=== PATIENT | male | born 1945 | race Caucasian/White ===

== ENCOUNTER 2023-06-18 17:26 | Emergency (ER) | payer OTHER, BC ==
[2023-06-18 18:35] LABS: SARS-CoV-2 Antigen Rapid Res Negative (Negative)
--- OUTSIDE RECORDS SUMMARY | 2023-06-18 18:38 | XMS REPORT | Continuity of Care Document ---
:1945 Author Organization [facility] t Address [address] [place] [address] [place] [id number] Care Team Providers Name Role Phone Aurea Pope MD Primary Care Physician [phone] NKECHI ASCENCIO Attending Clinician Unavailable Aurea Griggs Attending Clinician Unavailable Milvia Attending Clinician Unavailable Umer Newton MD Attending Clinician UMER NEWTON Attending Clinician Unavailable UMER NEWTON Attending Clinician Unavailable Doctor Unassigned, [place] Attending Clinician Unavailable Erika Attending Clinician Unavailable Eran Gr Attending Clinician [phone] Nela Snell Attending Clinician [phone] Nela Snell Attending Clinician Unavailable Eran Gr Attending Clinician Unavailable Aurea Griggs Attending Clinician [phone] STALIN OWENS Attending Clinician Unavailable Aurea Griggs Admitting Clinician Unavailable Milvia Admitting Clinician Unavailable UMER NEWTON Admitting Clinician Unavailable Erika Admitting Clinician Unavailable Nela Snell Admitting Clinician Unavailable Eran Gr Admitting Clinician Unavailable Physician, No Primary Care Admitting Clinician Unavailable STALIN OWENS Admitting Clinician Unavailable Payers Payer Name Policy Type Policy Number Effective Date Expiration Date [facility] MEDICARE PART A \\T\\ [id number] 2010 B 00:00:00 BCBS TRADITIONAL [id number] 2013 00:00:00 [place] [id number] 2010 [place] SOLUT[place] 00:00:00 [place] [id number] (MEDICARE 00:00:00 SUPPLEMENT) [facility] (MEDICARE DME [id number] 2010 REGION C) 00:00:00 EPISODE SOLUTIONS [id number] Problems Condition Condition Condition Status Onset Resolution Last Treating Co mments Source Name Details Category Date Date Treatment Clinician Date 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 Left 12-14 Orth ope Achilles Achilles 00:00: dic tendon Tendon 00 Sports Medicin e 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 11-17 Orth ope of toe of of Toe of 00:00: dic left foot Left Foot 00 Spor ts Medicin e Closed Closed Problem Active Le fracture Fracture 8-15 Orthop e of lower of Lower 00:00: dic end of End of 00 Sports humerus Humerus Medicin e Mechanical Mechanical Problem Active A zalea complicati Complicati 8-15 Or thope on of on of 00:00: dic internal Internal 00 Sports orthopedic Orthopedic [place] dicin device, Device, e implant Implant AND/OR AND/OR graft Graft Hammer toe Hammer Toe Problem Active A zalea 7-12 Orthope 00:00: dic 00 Sports Medicin e 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 05-17 Or thope present Present 00:00: dic 00 Sports Medicin e Pain of Pain of Problem Active Le right knee Right Knee 7 Or thope joint Joint 00:00: dic 00 Sports Medicin e Pain of Pain of Problem Active Le left knee Left Knee 05-17 Orth ope joint Joint 00:00: dic 00 Sports Medicin e Osteoarthr Osteoarthr Problem Active A zalea itis of itis of 4-20 Orthope right knee Right Knee 00:00: di c joint Joint 00 Sports Medicin e Sprain of Sprain of Problem Active Aza babak right Right 4-20 Orthope ankle Ankle 00:00: dic 00 Sports Medicin e Synovial Synovial Problem Active Azale a cyst of Cyst of 4-20 Orthope right Right 00:00: dic popliteal Popliteal 00 Spor ts space Space Medicin e Prostate Prostate Disease Recurre [facility] Knee pain Knee Pain Problem Active Aza babak 6-25 Orthope 00:00: dic 00 Sports Medicin e Synovial Synovial Problem Active Azale a cyst of Cyst of 6-25 Orthope popliteal Popliteal 00:00: dic space Space 00 Sports Medicin e Allergies, Adverse Reactions, Alerts Allergy Allergy Status Severity Reaction(s) Onset Inactive Treating Comm ents Source Name Type Date Date Clinician No Known DA Active U [facility] Allergie 7-14 Clear s 00:00: [place] 00 [facility] No Known DA Active U 2020-11 [facility] Allergie 11-25 [facility] 00:00: Orthope 00 dic Hospita l No Known DA Active U 2018-11 [facility] Allergie 0-18 Clear s 00:00: [place] 00 [facility] Sulfamet Propensi Active Nausea And [facility] hoxazole ty to Vomiting 8-15 [facility] adverse 00:00: Medical reaction 00 [facility] SULFAMET DRUG Active N/V Univers HOXAZOLE INGREDI 6-16 ity of 00:00: [place] [address] [place] [address] Branch Sulfamet Propensi Active Nausea Univer s hoxazole ty to and/or 6-16 ity of adverse Vomiting 00:00: [place] reaction 00 [facility] Branch No Known DA Active U 2012-11 [facility] Allergie 12-08 [place] 00:00: Orthope 00 dic Hospita l NO KNOWN Drug Active Univers ALLERGIE Class ity of S [facility] Social History Social Habit Start Date Stop Date Quantity Comments Source History SDOH [facility] Alcohol Frequency [facility] History SDOH [facility] Alcohol Std Medical Cent[facility] r Drinks History SDOH [facility] Alcohol Binge Medical Kike ter Exposure to 2023-03-25 2023-04-04 Not sure University of SARS-CoV-2 00:00:00 13:43:00 [facility] (event) Branch Tobacco use and 2023-04-04 2023-04-04 Smokeless tobacco Un iversity of exposure 00:00:00 00:00:00 non-user [facility] Alcohol intake 2017-07-09 2017-07-09 Current drinker DIPTI Domingo 00:00:00 00:00:00 of [facility] Medical [place] (finding) Alcohol Comment 2017-07-01 2017-07-01 socially DIPTI Polk keleydi 00:00:00 00:00:00 Medical Center History of 1972-07-01 Cigarette Smoker DIPTI Ahumada tobacco use 00:00:00 Medical [facility] Sex [birth year] At [birth year] DIPTI Mcneal 00:00:00 00:00:[address] [facility] Smoking Status Start Date Stop Date Source Tobacco smoking consumption [facility] Branch Former Smoker [facility] Never smoked tobacco [facility] Medications Ordered Filled Start Stop Current Ordering Indication Dosage Frequency Signature Comments Components Source Medication Medication Date Date Medication? Clinician (SIG) Name Name ioflupane I 2022- No [id number] 5.5mCi 5.5 Univers 123 510 05-10 millicurie ity of (DATSCAN) 16:15: 16:15 , [place] injection 00 :00 Intravenou Medi cyndy 5.5 s, ONCE, 1 Branch millicurie dose, On Fri03/26/23 at 1115, Routine potassium 2022- No [id number] 100mg 0.1 mL Univers iodide 03-26-10 (100 mg), ity of (SSKI) 1 15:00: 15:00 [place] gram/mL 00 :00 NOW, 1 Medical solution dose, On Branch 0.1 mL Fri03/26/23 at 1000, Routine carbidopa-l Yes [id number] 1{tbl} Take 1 Univers evodopa 5-03 tablet by ity of (SINEMET) 00:00: [place] 25-100 mg 00 the Medical tablet morning Branch and 1 tablet at noon and 1 tablet in the evening. Take at 7AM, 11AM and 3PM everyday. carbidopa-l 2023-0 Yes [id number] 1{tbl} Take 1 Univers evodopa 5-03 tablet by ity of (SINEMET) 00:00: [place] 25-100 mg 00 the Medical tablet morning Branch and 1 tablet at noon and 1 tablet in the evening. Take at 7AM, 11AM and 3PM everyday. carbidopa-l 2023-0 Yes [id number] 1{tbl} Take 1 Univers evodopa 5-03 tablet by ity of (SINEMET) 00:00: [place] 25-100 mg 00 the Medical tablet morning Branch and 1 tablet at noon and 1 tablet in the evening. Take at 7AM, 11AM and 3PM everyday. carbidopa-l 2023-0 Yes [id number] 1{tbl} Take 1 Univers evodopa 5-03 tablet by ity of (SINEMET) 00:00: [place] 25-100 mg 00 the Medical tablet morning Branch and 1 tablet at noon and 1 tablet in the evening. Take at 7AM, 11AM and 3PM everyday. carbidopa-l 3-0 Yes [id number] 1{tbl} Take 1 Univers evodopa 5-03 tablet by ity of (SINEMET) 00:00: [place] 25-100 mg 00 the Medical tablet morning Branch and 1 tablet at noon and 1 tablet in the evening. Take at 7AM, 11AM and 3PM everyday. carbidopa-l 3-0 Yes [id number] 1{tbl} Take 1 Univers evodopa 5-03 tablet by ity of (SINEMET) 00:00: [place] 25-100 mg 00 the Medical tablet morning Branch and 1 tablet at noon and 1 tablet in the evening. Take at 7AM, 11AM and 3PM everyday. gadobenate 2022-0 202- No [id number] .2mL/kg 0.2 mL/kg, Univers dimeglumine 03-06 Intravenou i ty of (MULTIHANCE 14:00: 13:47 s, ONCE, 1 [place] -15 mL) 00 :00 dose, On Medical injection Dee Branch 0.2 mL/kg 03/06/23 at 0900, Routine ARIPiprazol 2022-0 Yes aripiprazo Univers e 2 mg 4-07 le 2 mg ity of tablet 11:33: tablet [place] 36 TAKE THREE Medical (3) Branch TABLET(S) BY MOUTH DAILY AT BEDTIME. ARIPiprazol 2022-0 Yes aripiprazo Univers e 2 mg 4-07 le 2 mg ity of tablet 11:33: tablet [place] 36 TAKE THREE Medical (3) Branch TABLET(S) BY MOUTH DAILY AT BEDTIME. ARIPiprazol 2022-0 Yes aripiprazo Univers e 2 mg 4-07 le 2 mg ity of tablet 11:33: tablet [place] 36 TAKE THREE Medical (3) Branch TABLET(S) BY MOUTH DAILY AT BEDTIME. ARIPiprazol 2022-0 Yes aripiprazo Univers e 2 mg 4-07 le 2 mg ity of tablet 11:33: tablet [place] 36 TAKE THREE Medical (3) Branch TABLET(S) BY MOUTH DAILY AT BEDTIME. ARIPiprazol 2022-0 Yes aripiprazo Univers e 2 mg 4-07 le 2 mg ity of tablet 11:33: tablet [place] 36 TAKE THREE Medical (3) Branch TABLET(S) BY MOUTH DAILY AT BEDTIME. ARIPiprazol 2022-0 Yes aripiprazo Univers e 2 mg 4-07 le 2 mg ity of tablet 11:33: tablet [place] 36 TAKE THREE Medical (3) Branch TABLET(S) BY MOUTH DAILY AT BEDTIME. ARIPiprazol 2022-0 Yes aripiprazo Univers e 2 mg 4-07 le 2 mg ity of tablet 11:33: tablet [place] 36 TAKE THREE Medical (3) Branch TABLET(S) BY MOUTH DAILY AT BEDTIME. ARIPiprazol 2022-0 Yes aripiprazo Univers e 2 mg 4-07 le 2 mg ity of tablet 11:33: tablet [place] 36 TAKE THREE Medical (3) Branch TABLET(S) BY MOUTH DAILY AT BEDTIME. ARIPiprazol 2022-0 Yes aripiprazo Univers e 2 mg 4-07 le 2 mg ity of tablet 11:33: tablet [place] 36 TAKE THREE Medical (3) Branch TABLET(S) BY MOUTH DAILY AT BEDTIME. ARIPiprazol 2022-0 Yes aripiprazo Univers e 2 mg 4-07 le 2 mg ity of tablet 11:33: tablet [place] 36 TAKE THREE Medical (3) Branch TABLET(S) BY MOUTH DAILY AT BEDTIME. ARIPiprazol 2023-0 Yes aripiprazo Univers e 2 mg 4-07 le 2 mg ity of tablet 11:33: tablet [place] 36 TAKE THREE Medical (3) Branch TABLET(S) BY MOUTH DAILY AT BEDTIME. ARIPiprazol 2023-0 Yes aripiprazo Univers e 2 mg 4-07 le 2 mg ity of tablet 11:33: tablet [place] 36 TAKE THREE Medical (3) Branch TABLET(S) BY MOUTH DAILY AT BEDTIME. ARIPiprazol 2023-0 Yes aripiprazo Univers e 2 mg 4-07 le 2 mg ity of tablet 11:33: tablet [place] 36 TAKE THREE Medical (3) Branch TABLET(S) BY MOUTH DAILY AT BEDTIME. ARIPiprazol 2023-0 Yes aripiprazo Univers e 2 mg 4-07 le 2 mg ity of tablet 11:33: tablet [place] 36 TAKE THREE Medical (3) Branch TABLET(S) BY MOUTH DAILY AT BEDTIME. ARIPiprazol 3-0 Yes aripiprazo Univers e 2 mg 4-07 le 2 mg ity of tablet 11:33: tablet [place] 36 TAKE THREE Medical (3) Branch TABLET(S) BY MOUTH DAILY AT BEDTIME. orphenadrin 2023-0 Yes 100mg Take 1 Uni vers e 100 mg SR 4-01 tablet by ity of tablet 00:00: mouth [place] 00 every 12 Medical (twelve) Branch hours as needed. traMADoL 50 3-0 Yes TAKE 1-2 Un gretchen mg tablet 4-01 TABLETS BY ity of 00:00: MOUTH [place] 00 EVERY 6 Medical HOURS Branch NEEDED FOR ACUTE PAIN orphenadrin 2023-0 Yes 100mg Take 1 Uni vers e 100 mg SR 4-01 tablet by ity of tablet 00:00: mouth [place] 00 every 12 Medical (twelve) Branch hours as needed. traMADoL 50 2023-0 Yes TAKE 1-2 Un gretchen mg tablet 4-01 TABLETS BY ity of 00:00: MOUTH [place] 00 EVERY 6 Medical HOURS Branch NEEDED FOR ACUTE PAIN orphenadrin 2023-0 Yes 100mg Take 1 Uni vers e 100 mg SR 4-01 tablet by ity of tablet 00:00: mouth [place] 00 every 12 Medical (twelve) Branch hours as needed. traMADoL 50 2023-0 Yes TAKE 1-2 Un gretchen mg tablet 4-01 TABLETS BY ity of 00:00: MOUTH [place] 00 EVERY 6 Medical HOURS Branch NEEDED FOR ACUTE PAIN orphenadrin 3-0 Yes 100mg Take 1 Uni vers e 100 mg SR 4-01 tablet by ity of tablet 00:00: mouth [place] 00 every 12 Medical (twelve) Branch hours as needed. traMADoL 50 2022-0 Yes TAKE 1-2 Un gretchen mg tablet 4-01 TABLETS BY ity of 00:00: MOUTH [place] 00 EVERY 6 Medical HOURS Branch NEEDED FOR ACUTE PAIN orphenadrin 3-0 Yes 100mg Take 1 Uni vers e 100 mg SR 4-01 tablet by ity of tablet 00:00: mouth [place] 00 every 12 Medical (twelve) Branch hours as needed. traMADoL 50 2022-0 Yes TAKE 1-2 Un gretchen mg tablet 4-01 TABLETS BY ity of 00:00: MOUTH [place] 00 EVERY 6 Medical HOURS Branch NEEDED FOR ACUTE PAIN orphenadrin 3-0 Yes 100mg Take 1 Uni vers e 100 mg SR 4-01 tablet by ity of tablet 00:00: mouth [place] 00 every 12 Medical (twelve) Branch hours as needed. traMADoL 50 2022-0 Yes TAKE 1-2 Un gretchen mg tablet 4-01 TABLETS BY ity of 00:00: MOUTH [place] 00 EVERY 6 Medical HOURS Branch NEEDED FOR ACUTE PAIN orphenadrin 3-0 Yes 100mg Take 1 Uni vers e 100 mg SR 4-01 tablet by ity of tablet 00:00: mouth [place] 00 every 12 Medical (twelve) Branch hours as needed. traMADoL 50 2022-0 Yes TAKE 1-2 Un gretchen mg tablet 4-01 TABLETS BY ity of 00:00: MOUTH [place] 00 EVERY 6 Medical HOURS Branch NEEDED FOR ACUTE PAIN orphenadrin 3-0 Yes 100mg Take 1 Uni vers e 100 mg SR 4-01 tablet by ity of tablet 00:00: mouth [place] 00 every 12 Medical (twelve) Branch hours as needed. traMADoL 50 2022-0 Yes TAKE 1-2 Un gretchen mg tablet 4-01 TABLETS BY ity of 00:00: MOUTH [place] 00 EVERY 6 Medical HOURS Branch NEEDED FOR ACUTE PAIN orphenadrin 3-0 Yes 100mg Take 1 Uni vers e 100 mg SR 4-01 tablet by ity of tablet 00:00: mouth [place] 00 every 12 Medical (twelve) Branch hours as needed. traMADoL 50 2022-0 Yes TAKE 1-2 Un gretchen mg tablet 4-01 TABLETS BY ity of 00:00: MOUTH [place] 00 EVERY 6 Medical HOURS Branch NEEDED FOR ACUTE PAIN orphenadrin 2023-0 Yes 100mg Take 1 Uni vers e 100 mg SR 4-01 tablet by ity of tablet 00:00: mouth [place] 00 every 12 Medical (twelve) Branch hours as needed. traMADoL 50 2022-0 Yes TAKE 1-2 Un gretchen mg tablet 4-01 TABLETS BY ity of 00:00: MOUTH [place] 00 EVERY 6 Medical HOURS Branch NEEDED FOR ACUTE PAIN orphenadrin 3-0 Yes 100mg Take 1 Uni vers e 100 mg SR 4-01 tablet by ity of tablet 00:00: mouth [place] 00 every 12 Medical (twelve) Branch hours as needed. traMADoL 50 2022-0 Yes TAKE 1-2 Un gretchen mg tablet 4-01 TABLETS BY ity of 00:00: MOUTH [place] 00 EVERY 6 Medical HOURS Branch NEEDED FOR ACUTE PAIN orphenadrin 3-0 Yes 100mg Take 1 Uni vers e 100 mg SR 4-01 tablet by ity of tablet 00:00: mouth [place] 00 every 12 Medical (twelve) Branch hours as needed. traMADoL 50 2022-0 Yes TAKE 1-2 Un gretchen mg tablet 4-01 TABLETS BY ity of 00:00: MOUTH [place] 00 EVERY 6 Medical HOURS Branch NEEDED FOR ACUTE PAIN orphenadrin 2023-0 Yes 100mg Take 1 Uni vers e 100 mg SR 4-01 tablet by ity of tablet 00:00: mouth [place] 00 every 12 Medical (twelve) Branch hours as needed. traMADoL 50 2022-0 Yes TAKE 1-2 Un gretchen mg tablet 4-01 TABLETS BY ity of 00:00: MOUTH [place] 00 EVERY 6 Medical HOURS Branch NEEDED FOR ACUTE PAIN orphenadrin 2023-0 Yes 100mg Take 1 Uni vers e 100 mg SR 4-01 tablet by ity of tablet 00:00: mouth [place] 00 every 12 Medical (twelve) Branch hours as needed. traMADoL 50 2022-0 Yes TAKE 1-2 Un gretchen mg tablet 4-01 TABLETS BY ity of 00:00: MOUTH [place] 00 EVERY 6 Medical HOURS Branch NEEDED FOR ACUTE PAIN orphenadrin 3-0 Yes 100mg Take 1 Uni vers e 100 mg SR 4-01 tablet by ity of tablet 00:00: mouth [place] 00 every 12 Medical (twelve) Branch hours as needed. traMADoL 50 3-0 Yes TAKE 1-2 Un gretchen mg tablet 4-01 TABLETS BY ity of 00:00: MOUTH [place] 00 EVERY 6 Medical HOURS Branch NEEDED FOR ACUTE PAIN valsartan 2023-0 Yes 80mg Take 1 Univer s 80 mg 3-06 tablet by ity of tablet 00:00: mouth [place] 00 every Medical morning. Branch valsartan 2023-0 Yes 80mg Take 1 Univer s 80 mg 3-06 tablet by ity of tablet 00:00: mouth [place] 00 every Medical morning. Branch valsartan 2023-0 Yes 80mg Take 1 Univer s 80 mg 3-06 tablet by ity of tablet 00:00: mouth [place] 00 every Medical morning. Branch valsartan 2023-0 Yes 80mg Take 1 Univer s 80 mg 3-06 tablet by ity of tablet 00:00: mouth [place] 00 every Medical morning. Branch valsartan 2023-0 Yes 80mg Take 1 Univer s 80 mg 3-06 tablet by ity of tablet 00:00: mouth [place] 00 every Medical morning. Branch valsartan 2023-0 Yes 80mg Take 1 Univer s 80 mg 3-06 tablet by ity of tablet 00:00: mouth [place] 00 every Medical morning. Branch valsartan 2023-0 Yes 80mg Take 1 Univer s 80 mg 3-06 tablet by ity of tablet 00:00: mouth [place] 00 every Medical morning. Branch valsartan 2023-0 Yes 80mg Take 1 Univer s 80 mg 3-06 tablet by ity of tablet 00:00: mouth [place] 00 every Medical morning. Branch valsartan 2023-0 Yes 80mg Take 1 Univer s 80 mg 3-06 tablet by ity of tablet 00:00: mouth [place] 00 every Medical morning. Branch valsartan 2023-0 Yes 80mg Take 1 Univer s 80 mg 3-06 tablet by ity of tablet 00:00: mouth [place] 00 every Medical morning. Branch valsartan 2023-0 Yes 80mg Take 1 Univer s 80 mg 3-06 tablet by ity of tablet 00:00: mouth [place] 00 every Medical morning. Branch valsartan 2023-0 Yes 80mg Take 1 Univer s 80 mg 3-06 tablet by ity of tablet 00:00: mouth [place] 00 every Medical morning. Branch valsartan 2023-0 Yes 80mg Take 1 Univer s 80 mg 3-06 tablet by ity of tablet 00:00: mouth [place] 00 every Medical morning. Branch valsartan 2023-0 Yes 80mg Take 1 Univer s 80 mg 3-06 tablet by ity of tablet 00:00: mouth [place] 00 every Medical morning. Branch valsartan 2023-0 Yes 80mg Take 1 Univer s 80 mg 3-06 tablet by ity of tablet 00:00: mouth [place] 00 every Medical morning. Branch methocarbam 2023-0 Yes TAKE 1 Univ ers oL 500 mg 2-28 TABLET 3 ity of tablet 00:00: TIMES A DAY BY Medical ORAL Branch ROUTE. methocarbam 2023-0 Yes TAKE 1 Univ ers oL 500 mg 2-28 TABLET 3 ity of tablet 00:00: TIMES A DAY BY Medical ORAL Branch ROUTE. methocarbam 2023-0 Yes TAKE 1 Univ ers oL 500 mg 2-28 TABLET 3 ity of tablet 00:00: TIMES A DAY BY Medical ORAL Branch ROUTE. methocarbam 2023-0 Yes TAKE 1 Univ ers oL 500 mg 2-28 TABLET 3 ity of tablet 00:00: TIMES A DAY BY Medical ORAL Branch ROUTE. methocarbam 2023-0 Yes TAKE 1 Univ ers oL 500 mg 2-28 TABLET 3 ity of tablet 00:00: TIMES A 00 DAY BY Medical ORAL Branch ROUTE. methocarbam 2023-0 Yes TAKE 1 Univ ers oL 500 mg 2-28 TABLET 3 ity of tablet 00:00: TIMES A 00 DAY BY Medical ORAL Branch ROUTE. methocarbam 2023-0 Yes TAKE 1 Univ ers oL 500 mg 2-28 TABLET 3 ity of tablet 00:00: TIMES A 00 DAY BY Medical ORAL Branch ROUTE. methocarbam 2023-0 Yes TAKE 1 Univ ers oL 500 mg 2-28 TABLET 3 ity of tablet 00:00: TIMES A 00 DAY BY Medical ORAL Branch ROUTE. methocarbam 2023-0 Yes TAKE 1 Univ ers oL 500 mg 2-28 TABLET 3 ity of tablet 00:00: TIMES A DAY BY Medical ORAL Branch ROUTE. methocarbam 3-0 Yes TAKE 1 Univ ers oL 500 mg 2-28 TABLET 3 ity of tablet 00:00: TIMES A DAY BY Medical ORAL Branch ROUTE. methocarbam 3-0 Yes TAKE 1 Univ ers oL 500 mg 2-28 TABLET 3 ity of tablet 00:00: TIMES A DAY BY Medical ORAL Branch ROUTE. methocarbam 3-0 Yes TAKE 1 Univ ers oL 500 mg 2-28 TABLET 3 ity of tablet 00:00: TIMES A DAY BY Medical ORAL Branch ROUTE. methocarbam 3-0 Yes TAKE 1 Univ ers oL 500 mg 2-28 TABLET 3 ity of tablet 00:00: TIMES A DAY BY Medical ORAL Branch ROUTE. methocarbam 3-0 Yes TAKE 1 Univ ers oL 500 mg 2-28 TABLET 3 ity of tablet 00:00: TIMES A DAY BY Medical ORAL Branch ROUTE. methocarbam 3-0 Yes TAKE 1 Univ ers oL 500 mg 2-28 TABLET 3 ity of tablet 00:00: TIMES A DAY BY Medical ORAL Branch ROUTE. meloxicam 3-0 Yes TAKE 1 Univer s 15 mg 2-01 TABLET BY ity of tablet 00:00: MOUTH EVERY DAY Medical NEEDED Branch meloxicam 3-0 Yes TAKE 1 Univer s 15 mg 2-01 TABLET BY ity of tablet 00:00: MOUTH EVERY DAY Medical NEEDED Branch meloxicam 3-0 Yes TAKE 1 Univer s 15 mg 2-01 TABLET BY ity of tablet 00:00: MOUTH 00 EVERY DAY Medical NEEDED Branch meloxicam 2023-0 Yes TAKE 1 Univer s 15 mg 2-01 TABLET BY ity of tablet 00:00: MOUTH EVERY DAY Medical NEEDED Branch meloxicam 2023-0 Yes TAKE 1 Univer s 15 mg 2-01 TABLET BY ity of tablet 00:00: MOUTH 00 EVERY DAY Medical NEEDED Branch meloxicam 2023-0 Yes TAKE 1 Univer s 15 mg 2-01 TABLET BY ity of tablet 00:00: MOUTH 00 EVERY DAY Medical NEEDED Branch meloxicam 2023-0 Yes TAKE 1 Univer s 15 mg 2-01 TABLET BY ity of tablet 00:00: MOUTH [place] 00 EVERY DAY Medical NEEDED Branch meloxicam 2023-0 Yes TAKE 1 Univer s 15 mg 2-01 TABLET BY ity of tablet 00:00: MOUTH [place] 00 EVERY DAY Medical NEEDED Branch meloxicam 2023-0 Yes TAKE 1 Univer s 15 mg 2-01 TABLET BY ity of tablet 00:00: MOUTH [place] 00 EVERY DAY Medical NEEDED Branch meloxicam 3-0 Yes TAKE 1 Univer s 15 mg 2-01 TABLET BY ity of tablet 00:00: MOUTH [place] 00 EVERY DAY Medical NEEDED Branch meloxicam 3-0 Yes TAKE 1 Univer s 15 mg 2-01 TABLET BY ity of tablet 00:00: MOUTH [place] 00 EVERY DAY Medical NEEDED Branch meloxicam 3-0 Yes TAKE 1 Univer s 15 mg 2-01 TABLET BY ity of tablet 00:00: MOUTH [place] 00 EVERY DAY Medical NEEDED Branch meloxicam 3-0 Yes TAKE 1 Univer s 15 mg 2-01 TABLET BY ity of tablet 00:00: MOUTH [place] 00 EVERY DAY Medical NEEDED Branch meloxicam 3-0 Yes TAKE 1 Univer s 15 mg 2-01 TABLET BY ity of tablet 00:00: MOUTH [place] 00 EVERY DAY Medical NEEDED Branch meloxicam 3-0 Yes TAKE 1 Univer s 15 mg 2-01 TABLET BY ity of tablet 00:00: MOUTH [place] 00 EVERY DAY Medical NEEDED Branch DULoxetine 2023-0 Yes 60mg Take 1 Unive rs 60 mg 1-19 capsule by ity of capsule 00:00: mouth [place] 00 every Medical morning. Branch DULoxetine 2023-0 Yes 60mg Take 1 Unive rs 60 mg 1-19 capsule by ity of capsule 00:00: mouth [place] 00 every Medical morning. Branch DULoxetine 2023-0 Yes 60mg Take 1 Unive rs 60 mg 1-19 capsule by ity of capsule 00:00: mouth [place] 00 every Medical morning. Branch DULoxetine 2023-0 Yes 60mg Take 1 Unive rs 60 mg 1-19 capsule by ity of capsule 00:00: mouth [place] 00 every Medical morning. Branch DULoxetine 2023-0 Yes 60mg Take 1 Unive rs 60 mg 1-19 capsule by ity of capsule 00:00: mouth [place] 00 every Medical morning. Branch DULoxetine 2023-0 Yes 60mg Take 1 Unive rs 60 mg 1-19 capsule by ity of capsule 00:00: mouth [place] 00 every Medical morning. Branch DULoxetine 2023-0 Yes 60mg Take 1 Unive rs 60 mg 1-19 capsule by ity of capsule 00:00: mouth [place] 00 every Medical morning. Branch DULoxetine 2023-0 Yes 60mg Take 1 Unive rs 60 mg 1-19 capsule by ity of capsule 00:00: mouth [place] 00 every Medical morning. Branch DULoxetine 2023-0 Yes 60mg Take 1 Unive rs 60 mg 1-19 capsule by ity of capsule 00:00: mouth [place] 00 every Medical morning. Branch DULoxetine 2023-0 Yes 60mg Take 1 Unive rs 60 mg 1-19 capsule by ity of capsule 00:00: mouth [place] 00 every Medical morning. Branch DULoxetine 2023-0 Yes 60mg Take 1 Unive rs 60 mg 1-19 capsule by ity of capsule 00:00: mouth [place] 00 every Medical morning. Branch DULoxetine 2023-0 Yes 60mg Take 1 Unive rs 60 mg 1-19 capsule by ity of capsule 00:00: mouth [place] 00 every Medical morning. Branch DULoxetine 2023-0 Yes 60mg Take 1 Unive rs 60 mg 1-19 capsule by ity of capsule 00:00: mouth [place] 00 every Medical morning. Branch DULoxetine 2023-0 Yes 60mg Take 1 Unive rs 60 mg 1-19 capsule by ity of capsule 00:00: mouth [place] 00 every Medical morning. Branch DULoxetine 2023-0 Yes 60mg Take 1 Unive rs 60 mg 1-19 capsule by ity of capsule 00:00: mouth [place] 00 every Medical morning. Branch amLODIPine 2016-0 Yes 5mg QD Take [address] (NORVASC) 5 8-24 by mouth [facility] MG tablet 18:17: daily. Medica l 20 Center calcium 2017-0 Yes 667mg Q.5D Take 667 [facility] acetate [facility] (PHOSLO) 18:17: mouth 2 Medica l 667 mg 20 (two) Center capsule times daily. glucosamine 2017-0 Yes 1{tbl} Q.5D Take [address] -chondroiti 8-24 tablet by [place] [facility] n 500-400 18:17: mouth 2 Medic al mg tablet 20 (two) Center times daily. meloxicam 2017-0 Yes 15mg QD Take [address] (MOBIC) 15 8-24 by mouth [facility] MG tablet 18:17: daily. Medica l 20 Center mesalamine 2017-0 Yes 1200mg Q.5D Take 1,[address] (LIALDA) 8-24 mg by [facility] 1.2 gram EC 18:17: mouth 2 Med ical tablet 20 (two) Center times daily. amLODIPine 2017-0 Yes 5mg QD Take [address] (NORVASC) 5 8-24 by mouth [facility] MG tablet 18:17: daily. Medica l 20 Center calcium 2017-0 Yes 667mg Q.5D Take 667 [facility] acetate [facility] (PHOSLO) 18:17: mouth 2 Medica l 667 mg 20 (two) Center capsule times daily. glucosamine 2017-0 Yes 1{tbl} Q.5D Take [address] -chondroiti 8-24 tablet by [facility] 500-400 18:17: mouth 2 [facility] tablet 20 (two) Center times daily. meloxicam 2017-0 Yes 15mg QD Take [address] [facility] (MOBIC) 15 8-24 [facility] tablet 18:[facility] 20 [facility] mesalamine 2017-0 Yes 1200mg Q.5D Take 1,[address] [facility] (LIALDA) 8-24 mg by [facility] 1.2 gram EC 18:17: mouth 2 Med ical tablet 20 (two) Center times daily. amLODIPine 2017-0 Yes 5mg QD Take [address] [facility] (NORVASC) 5 8-24 by [facility] tablet 18:17: daily[facility] 20 [facility] calcium 2017-0 Yes 667mg Q.5D Take [facility] (PHOSLO) 18:17: mouth 2 [facility] 667 mg 20 (two) Center capsule times daily. glucosamine 2017-0 Yes 1{tbl} Q.5D Take [address] [facility] -chondroiti 8-24 tablet by [facility] 500-400 18:17: mouth 2 [facility] mg tablet 20 (two) Center times daily. meloxicam 2017-0 Yes 15mg QD Take [address] [facility] (MOBIC) 15 8-24 [facility] tablet 18:17: daily. [facility] mesalamine 20170 Yes 1200mg Q.5D Take 1,[address] [facility] (LIALDA) 8-24 mg by [facility] 1.2 gram EC 18:17: mouth 2 Med ical tablet 20 (two) Center times daily. amLODIPine 2017 Yes 5mg QD Take [address] [facility] (NORVASC) 5 8-24 by [facility] tablet 18:17: daily. [facility] 20 [facility] calcium 0 Yes 667mg Q.5D Take 667 [facility] (PHOSLO) 18:17: mouth 2 [facility] 667 mg 20 (two) Center capsule times daily. glucosamine 20170 Yes 1{tbl} Q.5D Take [address] [facility] -chondroiti 8-24 tablet by [facility] 500-400 18:17: mouth 2 [facility] al mg tablet 20 (two) Center times daily. meloxicam Yes 15mg QD Take [address] [facility] (MOBIC) 15 8-24 [facility] tablet 18:17: daily. [facility] [place] mesalamine 0 Yes 1200mg Q.5D Take 1,[address] [facility] (LIALDA) 8-24 [facility] 1.2 gram EC 18:17: mouth 2 Med ical tablet 20 (two) Center times daily. aripiprazol aripiprazol No aripiprazo Le e 2 mg e 2 mg le 2 mg [facility] tablet TAKE tablet TAKE tablet dic THREE (3) THREE (3) TAKE THREE Sports TABLET(S) TABLET(S) (3) Medic in BY MOUTH BY MOUTH TABLET(S) e DAILY AT DAILY AT BY MOUTH BEDTIME. BEDTIME. DAILY AT BEDTIME. aspirin 81 aspirin 81 No aspirin 81 Le mg mg mg [facility] tablet,jagdish tablet,jagdish tablet,del dic yed release yed release ayed S ports TAKE 1 TAKE 1 release [facility] TABLET BY TABLET BY TAKE 1 e MOUTH TWICE MOUTH TWICE TABLET BY A DAY A DAY MOUTH TWICE A DAY cephalexin cephalexin No cephalexin Le 500 mg 500 mg 500 mg [facility] capsule capsule capsule dic Take 1 Take 1 Take 1 [facility] capsule 3 capsule 3 capsule 3 Medic[facility] times a day times a day times a e by oral by oral day by route for 5 route for 5 oral route days. days. for 5 days. diclofenac diclofenac No diclofenac Le sodium 75 sodium 75 sodium 75 [facility] mg mg mg dic tablet,jagdish tablet,jagdish tablet,del Sports yed release yed release ayed M edicin Take one Take one release e tablet by tablet by Take one mouth twice mouth twice tablet by a day after a day after mouth finishing 5 finishing 5 twice a days of days of day after Ketorolac Ketorolac finishing 5 days of Ketorolac doxycycline doxycycline No doxycyclin Le hyclate 100 hyclate 100 e hyclate [facility] mg capsule mg capsule 100 mg d ic Take 1 Take 1 capsule [facility] capsule capsule Take 1 Medicin twice a day twice a day capsule e by oral by oral twice a route for 7 route for 7 day by days. days. oral route for 7 days. duloxetine duloxetine No duloxetine Le 60 mg 60 mg 60 mg [facility] capsule,del capsule,del capsule,de dic ayed ayed layed Sports release release release Medici n TAKE 1 TAKE 1 TAKE 1 e CAPSULE BY CAPSULE BY CAPSULE BY MOUTH EVERY MOUTH EVERY MOUTH DAY IN THE DAY IN THE EVERY DAY MORNING MORNING IN THE MORNING Hibiclens 4 Hibiclens 4 No Hibiclens Le % topical % topical 4 % [facility] pe liquid liquid topical dic PLEASE SEE PLEASE SEE liquid S ports ATTACHED ATTACHED PLEASE SEE M edicin FOR FOR ATTACHED e DETAILED DETAILED FOR DIRECTIONS DIRECTIONS DETAILED DIRECTIONS hydrocortis hydrocortis No hydrocorti Le one 2.5 % one 2.5 % sone 2.5 % [facility] lotion lotion lotion dic APPLY TO APPLY TO APPLY TO Spo rts AFFECTED AFFECTED AFFECTED Med icin AREA 2-3 AREA 2-3 AREA 2-3 e TIMES A TIMES A TIMES A WEEK WEEK WEEK DIRECTED DIRECTED DIRECTED ketoconazol ketoconazol No ketoconazo Le e 2 % e 2 % le 2 % [facility] shampoo shampoo shampoo dic ALTERNATE ALTERNATE ALTERNATE Sports WITH HEAD WITH HEAD WITH HEAD Medicin AN SHOULDER AN SHOULDER AN e SHAMPOO SHAMPOO SHOULDER SHAMPOO ketorolac ketorolac No ketorolac Le 10 mg 10 mg 10 mg [facility] tablet TAKE tablet TAKE tablet dic 1 TABLET BY 1 TABLET BY TAKE 1 Sports MOUTH EVERY MOUTH EVERY TABLET BY Medicin 6 HOURS FOR 6 HOURS FOR MOUTH e 5 DAYS 5 DAYS EVERY 6 HOURS FOR 5 DAYS meloxicam meloxicam No meloxicam Le 15 mg 15 mg 15 mg [facility] tablet TAKE tablet TAKE tablet dic 1 TABLET BY 1 TABLET BY TAKE 1 Sports MOUTH EVERY MOUTH EVERY TABLET BY Medicin DAY DAY MOUTH e NEEDED NEEDED EVERY DAY NEEDED metronidazo metronidazo No metronidaz Le le 500 mg le 500 mg ole 500 mg [facility] tablet TAKE tablet TAKE tablet dic 1 TABLET BY 1 TABLET BY TAKE 1 Sports MOUTH TWICE MOUTH TWICE TABLET BY Medicin A DAY A DAY MOUTH e TWICE A DAY mupirocin 2 mupirocin 2 No mupirocin Le % topical % topical 2 % [facility] pe ointment ointment topical dic APPLY 1 A APPLY 1 A ointment S ports SMALL SMALL APPLY 1 A [facility] AMOUNT AMOUNT SMALL e DAILY APPLY DAILY APPLY AMOUNT A FULL A FULL DAILY Q-TIP TO Q-TIP TO APPLY A BOTH BOTH FULL Q-TIP NOSTRILS NOSTRILS TO BOTH DAILY FOR 5 DAILY FOR 5 NOSTRILS DAYS PRIOR DAYS PRIOR DAILY FOR TO SURGERY TO SURGERY 5 DAYS PRIOR TO SURGERY terbinafine terbinafine No terbinafin Le HCl 250 mg HCl 250 mg e HCl 250 [facility] tablet TAKE tablet TAKE mg tablet dic 1 TABLET BY 1 TABLET BY TAKE 1 Sports MOUTH EVERY MOUTH EVERY TABLET BY Medicin DAY DAY MOUTH e EVERY DAY tizanidine tizanidine No tizanidine Le 4 mg tablet 4 mg tablet 4 mg [facility] Take 1 Take 1 tablet dic tablet(s) tablet(s) Take 1 Spo rts EVERY 8 EVERY 8 tablet(s) Medi keo HOURS by HOURS by EVERY 8 e oral route, oral route, HOURS by as needed as needed oral for muscle for muscle route, as spasm spasm needed for muscle spasm tramadol 50 tramadol 50 No tramadol Le mg tablet mg tablet 50 mg [facility] Take 1 Take 1 tablet dic tablet(s) tablet(s) Take 1 Spo rts EVERY 4-6 EVERY 4-6 tablet(s) Medicin HOURS by HOURS by EVERY 4-6 e oral route oral route HOURS by as needed as needed oral route for pain. for pain. as needed for pain. valsartan valsartan No valsartan Le 80 mg 80 mg 80 mg [facility] tablet TAKE tablet TAKE tablet dic ONE (1) ONE (1) TAKE ONE Sport s TABLET(S) TABLET(S) (1) Medic in BY MOUTH BY MOUTH TABLET(S) e EVERY EVERY BY MOUTH MORNING. MORNING. EVERY MORNING. Voltlaurien Voltmax No Voltaren Aza babak Arthritis Arthritis Arthritis [facility] Pain 1 % Pain 1 % Pain 1 % dic topical gel topical gel topical Sports APPLY 2 APPLY 2 gel APPLY Medi keo GRAMS TO GRAMS TO 2 GRAMS TO e THE THE THE AFFECTED AFFECTED AFFECTED AREA(S) BY AREA(S) BY AREA(S) BY TOPICAL TOPICAL TOPICAL ROUTE 3 ROUTE 3 ROUTE 3 TIMES PER TIMES PER TIMES PER DAY DAY DAY amoxicillin amoxicillin No amoxicilli Le 500 mg 500 mg n 500 mg [facility] capsule capsule capsule dic Sports Medicin e aripiprazol aripiprazol No aripiprazo Le e 2 mg e 2 mg le 2 mg [facility] tablet TAKE tablet TAKE tablet dic 1 TABLET BY 1 TABLET BY TAKE 1 Sports MOUTH MOUTH TABLET BY Medicin EVERYDAY AT EVERYDAY AT MOUTH e BEDTIME BEDTIME EVERYDAY AT BEDTIME aspirin 81 aspirin 81 No aspirin 81 Le mg mg mg [facility] tablet,jagdish tablet,jagdish tablet,del dic yed release yed release ayed S ports TAKE 1 TAKE 1 release Medicin TABLET BY TABLET BY TAKE 1 e MOUTH TWICE MOUTH TWICE TABLET BY A DAY TAKE A DAY TAKE MOUTH ONLY FOR 6 ONLY FOR 6 TWICE A WEEKS WEEKS DAY TAKE ONLY FOR 6 WEEKS duloxetine duloxetine No duloxetine Le 60 mg 60 mg 60 mg [facility] capsule,del capsule,del capsule,de dic ayed ayed layed Sports release release release Medici n TAKE 1 TAKE 1 TAKE 1 e CAPSULE BY CAPSULE BY CAPSULE BY MOUTH EVERY MOUTH EVERY MOUTH DAY IN THE DAY IN THE EVERY DAY MORNING MORNING IN THE MORNING meloxicam meloxicam No meloxicam Le 15 mg 15 mg 15 mg [facility] tablet TAKE tablet TAKE tablet dic 1 TABLET BY 1 TABLET BY TAKE 1 Sports MOUTH EVERY MOUTH EVERY TABLET BY Medicin DAY DAY MOUTH e NEEDED NEEDED EVERY DAY NEEDED prednisone prednisone No 1 TID prednisone Le 10 mg 10 mg 10 mg [facility] tablet Take tablet Take tablet dic 1 tablet 3 1 tablet 3 Take 1 S ports times a day times a day tablet 3 Medicin by oral by oral times a e route. route. day by oral route. terbinafine terbinafine No terbinafin Le HCl 250 mg HCl 250 mg e HCl 250 [facility] tablet TAKE tablet TAKE mg tablet dic 1 TABLET BY 1 TABLET BY TAKE 1 Sports MOUTH EVERY MOUTH EVERY TABLET BY Medicin DAY DAY MOUTH e EVERY DAY valsartan valsartan No valsartan Le 80 mg 80 mg 80 mg [facility] tablet TAKE tablet TAKE tablet dic 1 TABLET BY 1 TABLET BY TAKE 1 Sports MOUTH EVERY MOUTH EVERY TABLET BY Medicin DAY IN THE DAY IN THE MOUTH e MORNING MORNING EVERY DAY IN THE MORNING Voltaren Voltaren No Voltaren Aza babak Arthritis Arthritis Arthritis [facility] Pain 1 % Pain 1 % Pain 1 % dic topical gel topical gel topical Sports APPLY 2 APPLY 2 gel APPLY Medi keo GRAMS TO GRAMS TO 2 GRAMS TO e THE THE THE AFFECTED AFFECTED AFFECTED AREA(S) BY AREA(S) BY AREA(S) BY TOPICAL TOPICAL TOPICAL ROUTE 3 ROUTE 3 ROUTE 3 TIMES PER TIMES PER TIMES PER DAY DAY DAY amoxicillin amoxicillin No amoxicilli Le 500 mg 500 mg n 500 mg [facility] capsule capsule capsule dic Sports Medicin e aripiprazol aripiprazol No aripiprazo Le e 2 mg e 2 mg le 2 mg [facility] tablet TAKE tablet TAKE tablet dic 1 TABLET BY 1 TABLET BY TAKE 1 Sports MOUTH MOUTH TABLET BY Medicin EVERYDAY AT EVERYDAY AT MOUTH e BEDTIME BEDTIME EVERYDAY AT BEDTIME aspirin 81 aspirin 81 No aspirin 81 Le mg mg mg [facility] tablet,jagdish tablet,jagdish tablet,del dic yed release yed release ayed S ports TAKE 1 TAKE 1 release Medicin TABLET BY TABLET BY TAKE 1 e MOUTH TWICE MOUTH TWICE TABLET BY A DAY TAKE A DAY TAKE MOUTH ONLY FOR 6 ONLY FOR 6 TWICE A WEEKS WEEKS DAY TAKE ONLY FOR 6 WEEKS duloxetine duloxetine No duloxetine Le 60 mg 60 mg 60 mg [facility] capsule,del capsule,del capsule,de dic ayed ayed layed Sports release release release Medici n TAKE 1 TAKE 1 TAKE 1 e CAPSULE BY CAPSULE BY CAPSULE BY MOUTH EVERY MOUTH EVERY MOUTH DAY IN THE DAY IN THE EVERY DAY MORNING MORNING IN THE MORNING meloxicam meloxicam No meloxicam Le 15 mg 15 mg 15 mg [facility] tablet TAKE tablet TAKE tablet dic 1 TABLET BY 1 TABLET BY TAKE 1 Sports MOUTH EVERY MOUTH EVERY TABLET BY Medicin DAY DAY MOUTH e NEEDED NEEDED EVERY DAY NEEDED prednisone prednisone No 1 TID prednisone Le 10 mg 10 mg 10 mg [facility] tablet Take tablet Take tablet dic 1 tablet 3 1 tablet 3 Take 1 S ports times a day times a day tablet 3 Medicin by oral by oral times a e route. route. day by oral route. terbinafine terbinafine No terbinafin Le HCl 250 mg HCl 250 mg e HCl 250 [facility] tablet TAKE tablet TAKE mg tablet dic 1 TABLET BY 1 TABLET BY TAKE 1 Sports MOUTH EVERY MOUTH EVERY TABLET BY Medicin DAY DAY MOUTH e EVERY DAY valsartan valsartan No valsartan Le 80 mg 80 mg 80 mg [facility] tablet TAKE tablet TAKE tablet dic 1 TABLET BY 1 TABLET BY TAKE 1 Sports MOUTH EVERY MOUTH EVERY TABLET BY Medicin DAY IN THE DAY IN THE MOUTH e MORNING MORNING EVERY DAY IN THE MORNING Voltaren Voltaren No Voltaren Aza babak Arthritis Arthritis Arthritis [facility] Pain 1 % Pain 1 % Pain 1 % dic topical gel topical gel topical Sports APPLY 2 APPLY 2 gel APPLY Medi keo GRAMS TO GRAMS TO 2 GRAMS TO e THE THE THE AFFECTED AFFECTED AFFECTED AREA(S) BY AREA(S) BY AREA(S) BY TOPICAL TOPICAL TOPICAL ROUTE 3 ROUTE 3 ROUTE 3 TIMES PER TIMES PER TIMES PER DAY DAY DAY amoxicillin amoxicillin No amoxicilli Le 500 mg 500 mg n 500 mg [facility] capsule capsule capsule dic [facility] Medicin e aripiprazol aripiprazol No aripiprazo Le e 2 mg e 2 mg le 2 mg [facility] tablet TAKE tablet TAKE tablet dic 1 TABLET BY 1 TABLET BY TAKE 1 Sports MOUTH MOUTH TABLET BY Medicin EVERYDAY AT EVERYDAY AT MOUTH e BEDTIME BEDTIME EVERYDAY AT BEDTIME aspirin 81 aspirin 81 No aspirin 81 Le mg mg mg [facility] tablet,jagdish tablet,jagdish tablet,del dic yed release yed release ayed S ports TAKE 1 TAKE 1 release Medic[facility] TABLET BY TABLET BY TAKE 1 e MOUTH TWICE MOUTH TWICE TABLET BY A DAY TAKE A DAY TAKE MOUTH ONLY FOR 6 ONLY FOR 6 TWICE A WEEKS WEEKS DAY TAKE ONLY FOR 6 WEEKS duloxetine duloxetine No duloxetine Le 60 mg 60 mg 60 mg [facility] capsule,del capsule,del capsule,de dic ayed ayed layed Sports release release release Medici n TAKE 1 TAKE 1 TAKE 1 e CAPSULE BY CAPSULE BY CAPSULE BY MOUTH EVERY MOUTH EVERY MOUTH DAY IN THE DAY IN THE EVERY DAY MORNING MORNING IN THE MORNING meloxicam meloxicam No meloxicam Le 15 mg 15 mg 15 mg [facility] tablet TAKE tablet TAKE tablet dic 1 TABLET BY 1 TABLET BY TAKE 1 Sports MOUTH EVERY MOUTH EVERY TABLET BY Medicin DAY DAY MOUTH e NEEDED NEEDED EVERY DAY NEEDED prednisone prednisone No 1 TID prednisone Le 10 mg 10 mg 10 mg [facility] tablet Take tablet Take tablet dic 1 tablet 3 1 tablet 3 Take 1 S ports times a day times a day tablet 3 Medicin by oral by oral times a e route. route. day by oral route. terbinafine terbinafine No terbinafin Le HCl 250 mg HCl 250 mg e HCl 250 [facility] tablet TAKE tablet TAKE mg tablet dic 1 TABLET BY 1 TABLET BY TAKE 1 Sports MOUTH EVERY MOUTH EVERY TABLET BY Medicin DAY DAY MOUTH e EVERY DAY valsartan valsartan No valsartan Le 80 mg 80 mg 80 mg [facility] tablet TAKE tablet TAKE tablet dic 1 TABLET BY 1 TABLET BY TAKE 1 Sports MOUTH EVERY MOUTH EVERY TABLET BY Medicin DAY IN THE DAY IN THE MOUTH e MORNING MORNING EVERY DAY IN THE MORNING Voltaren Voltaren No Voltaren Aza babak Arthritis Arthritis Arthritis [facility] Pain 1 % Pain 1 % Pain 1 % dic topical gel topical gel topical Sports APPLY 2 APPLY 2 gel APPLY Medi keo GRAMS TO GRAMS TO 2 GRAMS TO e THE THE THE AFFECTED AFFECTED AFFECTED AREA(S) BY AREA(S) BY AREA(S) BY TOPICAL TOPICAL TOPICAL ROUTE 3 ROUTE 3 ROUTE 3 TIMES PER TIMES PER TIMES PER DAY DAY DAY aripiprazol aripiprazol No aripiprazo Le e 2 mg e 2 mg le 2 mg [facility] tablet TAKE tablet TAKE tablet dic 1 TABLET BY 1 TABLET BY TAKE 1 Sports MOUTH MOUTH TABLET BY Medicin EVERYDAY AT EVERYDAY AT MOUTH e BEDTIME BEDTIME EVERYDAY AT BEDTIME aspirin 81 aspirin 81 No aspirin 81 Le mg mg mg [facility] tablet,jagdish tablet,jagdish tablet,del dic yed release yed release ayed S ports TAKE 1 TAKE 1 release Medic[facility] TABLET BY TABLET BY TAKE 1 e MOUTH TWICE MOUTH TWICE TABLET BY A DAY A DAY MOUTH TWICE A DAY diclofenac diclofenac No diclofenac Le sodium 75 sodium 75 sodium 75 [facility] mg mg mg dic tablet,jagdish tablet,jagdish tablet,del Sports yed release yed release ayed Jaziel burris Take one Take one release e tablet by tablet by Take one mouth twice mouth twice tablet by a day after a day after mouth finishing 5 finishing 5 twice a days of days of day after Ketorolac Ketorolac finishing 5 days of Ketorolac doxycycline doxycycline No doxycyclin Le hyclate 100 hyclate 100 e hyclate [facility] mg capsule mg capsule 100 mg d ic Take 1 Take 1 capsule [facility] capsule capsule Take 1 Medicin twice a day twice a day capsule e by oral by oral twice a route for 7 route for 7 day by days. days. oral route for 7 days. duloxetine duloxetine No duloxetine Le 60 mg 60 mg 60 mg [facility] capsule,del capsule,del capsule,de dic ayed ayed layed Sports release release release Medici n TAKE 1 TAKE 1 TAKE 1 e CAPSULE BY CAPSULE BY CAPSULE BY MOUTH EVERY MOUTH EVERY MOUTH DAY IN THE DAY IN THE EVERY DAY MORNING MORNING IN THE MORNING Hibiclens 4 Hibiclens 4 No Hibiclens Le % topical % topical 4 % [facility] pe liquid liquid topical dic PLEASE SEE PLEASE SEE liquid S ports ATTACHED ATTACHED PLEASE SEE Jaziel burris FOR FOR ATTACHED e DETAILED DETAILED FOR DIRECTIONS DIRECTIONS DETAILED DIRECTIONS ketorolac ketorolac No ketorolac Le 10 mg 10 mg 10 mg [facility] tablet TAKE tablet TAKE tablet dic 1 TABLET BY 1 TABLET BY TAKE 1 Sports MOUTH EVERY MOUTH EVERY TABLET BY Medicin 6 HOURS FOR 6 HOURS FOR MOUTH e 5 DAYS 5 DAYS EVERY 6 HOURS FOR 5 DAYS meloxicam meloxicam No meloxicam Le 15 mg 15 mg 15 mg [facility] tablet TAKE tablet TAKE tablet dic 1 TABLET BY 1 TABLET BY TAKE 1 Sports MOUTH EVERY MOUTH EVERY TABLET BY Medicin DAY DAY MOUTH e NEEDED NEEDED EVERY DAY NEEDED mupirocin 2 mupirocin 2 No mupirocin Le % topical % topical 2 % [facility] pe ointment ointment topical dic APPLY 1 A APPLY 1 A ointment S ports SMALL SMALL APPLY 1 A [facility] AMOUNT AMOUNT SMALL e DAILY APPLY DAILY APPLY AMOUNT A FULL A FULL DAILY Q-TIP TO Q-TIP TO APPLY A BOTH BOTH FULL Q-TIP NOSTRILS NOSTRILS TO BOTH DAILY FOR 5 DAILY FOR 5 NOSTRILS DAYS PRIOR DAYS PRIOR DAILY FOR TO SURGERY TO SURGERY 5 DAYS PRIOR TO SURGERY terbinafine terbinafine No terbinafin Le HCl 250 mg HCl 250 mg e HCl 250 [facility] tablet TAKE tablet TAKE mg tablet dic 1 TABLET BY 1 TABLET BY TAKE 1 Sports MOUTH EVERY MOUTH EVERY TABLET BY Medicin DAY DAY MOUTH e EVERY DAY tizanidine tizanidine No tizanidine Le 4 mg tablet 4 mg tablet 4 mg [facility] Take 1 Take 1 tablet dic tablet(s) tablet(s) Take 1 Spo rts EVERY 8 EVERY 8 tablet(s) Medi keo HOURS by HOURS by EVERY 8 e oral route, oral route, HOURS by as needed as needed oral for muscle for muscle route, as spasm spasm needed for muscle spasm tramadol 50 tramadol 50 No tramadol Le mg tablet mg tablet 50 mg [facility] Take 1 Take 1 tablet dic tablet(s) tablet(s) Take 1 Spo rts EVERY 4-6 EVERY 4-6 tablet(s) Medicin HOURS by HOURS by EVERY 4-6 e oral route oral route HOURS by as needed as needed oral route for pain. for pain. as needed for pain. valsartan valsartan No valsartan Le 80 mg 80 mg 80 mg [facility] tablet TAKE tablet TAKE tablet dic 1 TABLET BY 1 TABLET BY TAKE 1 Sports MOUTH EVERY MOUTH EVERY TABLET BY Medicin DAY IN THE DAY IN THE MOUTH e MORNING MORNING EVERY DAY IN THE MORNING Voltaren Voltaren No Voltaren Aza babak Arthritis Arthritis Arthritis [facility] Pain 1 % Pain 1 % Pain 1 % dic topical gel topical gel topical Sports APPLY 2 APPLY 2 gel APPLY Medi keo GRAMS TO GRAMS TO 2 GRAMS TO e THE THE THE AFFECTED AFFECTED AFFECTED AREA(S) BY AREA(S) BY AREA(S) BY TOPICAL TOPICAL TOPICAL ROUTE 3 ROUTE 3 ROUTE 3 TIMES PER TIMES PER TIMES PER DAY DAY DAY aripiprazol aripiprazol No aripiprazo Le e 2 mg e 2 mg le 2 mg [facility] tablet TAKE tablet TAKE tablet dic ONE (1) ONE (1) TAKE ONE Sport s TABLET(S) TABLET(S) (1) Medic in BY MOUTH AT BY MOUTH AT TABLET(S) e BEDTIME. BEDTIME. BY MOUTH AT BEDTIME. aspirin 81 aspirin 81 No aspirin 81 Le mg mg mg [facility] tablet,jagdish tablet,jagdish tablet,del dic yed release yed release ayed S ports TAKE 1 TAKE 1 release Medicin TABLET BY TABLET BY TAKE 1 e MOUTH TWICE MOUTH TWICE TABLET BY A DAY A DAY MOUTH TWICE A DAY diclofenac diclofenac No diclofenac Le sodium 75 sodium 75 sodium 75 [facility] mg mg mg dic tablet,jagdish tablet,jagdish tablet,del Sports yed release yed release ayed M edicin Take one Take one release e tablet by tablet by Take one mouth twice mouth twice tablet by a day after a day after mouth finishing 5 finishing 5 twice a days of days of day after Ketorolac Ketorolac finishing 5 days of Ketorolac doxycycline doxycycline No doxycyclin Le hyclate 100 hyclate 100 e hyclate [facility] mg capsule mg capsule 100 mg d ic Take 1 Take 1 capsule [facility] capsule capsule Take 1 Medicin twice a day twice a day capsule e by oral by oral twice a route for 7 route for 7 day by days. days. oral route for 7 days. duloxetine duloxetine No duloxetine Le 60 mg 60 mg 60 mg [facility] capsule,del capsule,del capsule,de dic ayed ayed layed Sports release release release Medici n TAKE 1 TAKE 1 TAKE 1 e CAPSULE BY CAPSULE BY CAPSULE BY MOUTH EVERY MOUTH EVERY MOUTH DAY IN THE DAY IN THE EVERY DAY MORNING MORNING IN THE MORNING Hibiclens 4 Hibiclens 4 No Hibiclens Le % topical % topical 4 % [facility] pe liquid liquid topical dic PLEASE SEE PLEASE SEE liquid S ports ATTACHED ATTACHED PLEASE SEE M jricin FOR FOR ATTACHED e DETAILED DETAILED FOR DIRECTIONS DIRECTIONS DETAILED DIRECTIONS ketorolac ketorolac No ketorolac Le 10 mg 10 mg 10 mg [facility] tablet TAKE tablet TAKE tablet dic 1 TABLET BY 1 TABLET BY TAKE 1 Sports MOUTH EVERY MOUTH EVERY TABLET BY Medicin 6 HOURS FOR 6 HOURS FOR MOUTH e 5 DAYS 5 DAYS EVERY 6 HOURS FOR 5 DAYS meloxicam meloxicam No meloxicam Le 15 mg 15 mg 15 mg [facility] tablet TAKE tablet TAKE tablet dic 1 TABLET BY 1 TABLET BY TAKE 1 Sports MOUTH EVERY MOUTH EVERY TABLET BY Medicin DAY DAY MOUTH e NEEDED NEEDED EVERY DAY NEEDED mupirocin 2 mupirocin 2 No mupirocin Le % topical % topical 2 % [facility] pe ointment ointment topical dic APPLY 1 A APPLY 1 A ointment S ports SMALL SMALL APPLY 1 A [facility] AMOUNT AMOUNT SMALL e DAILY APPLY DAILY APPLY AMOUNT A FULL A FULL DAILY Q-TIP TO Q-TIP TO APPLY A BOTH BOTH FULL Q-TIP NOSTRILS NOSTRILS TO BOTH DAILY FOR 5 DAILY FOR 5 NOSTRILS DAYS PRIOR DAYS PRIOR DAILY FOR TO SURGERY TO SURGERY 5 DAYS PRIOR TO SURGERY terbinafine terbinafine No terbinafin Le HCl 250 mg HCl 250 mg e HCl 250 [facility] tablet TAKE tablet TAKE mg tablet dic 1 TABLET BY 1 TABLET BY TAKE 1 Sports MOUTH EVERY MOUTH EVERY TABLET BY Medicin DAY DAY MOUTH e EVERY DAY tizanidine tizanidine No tizanidine Le 4 mg tablet 4 mg tablet 4 mg [facility] Take 1 Take 1 tablet dic tablet(s) tablet(s) Take 1 Spo rts EVERY 8 EVERY 8 tablet(s) Medi keo HOURS by HOURS by EVERY 8 e oral route, oral route, HOURS by as needed as needed oral for muscle for muscle route, as spasm spasm needed for muscle spasm tramadol 50 tramadol 50 No tramadol Le mg tablet mg tablet 50 mg [facility] Take 1 Take 1 tablet dic tablet(s) tablet(s) Take 1 Spo rts EVERY 4-6 EVERY 4-6 tablet(s) Medicin HOURS by HOURS by EVERY 4-6 e oral route oral route HOURS by as needed as needed oral route for pain. for pain. as needed for pain. valsartan valsartan No valsartan Le 80 mg 80 mg 80 mg [facility] tablet TAKE tablet TAKE tablet dic 1 TABLET BY 1 TABLET BY TAKE 1 Sports MOUTH EVERY MOUTH EVERY TABLET BY Medicin DAY IN THE DAY IN THE MOUTH e MORNING MORNING EVERY DAY IN THE MORNING Voltaren Voltaren No Voltaren Aza babak Arthritis Arthritis Arthritis [facility] Pain 1 % Pain 1 % Pain 1 % dic topical gel topical gel topical Sports APPLY 2 APPLY 2 gel APPLY Medi keo GRAMS TO GRAMS TO 2 GRAMS TO e THE THE THE AFFECTED AFFECTED AFFECTED AREA(S) BY AREA(S) BY AREA(S) BY TOPICAL TOPICAL TOPICAL ROUTE 3 ROUTE 3 ROUTE 3 TIMES PER TIMES PER TIMES PER DAY DAY DAY aripiprazol aripiprazol No aripiprazo Le e 2 mg e 2 mg le 2 mg [facility] tablet TAKE tablet TAKE tablet dic THREE (3) THREE (3) TAKE THREE Sports TABLET(S) TABLET(S) (3) Medic in BY MOUTH BY MOUTH TABLET(S) e DAILY AT DAILY AT BY MOUTH BEDTIME. BEDTIME. DAILY AT BEDTIME. aspirin 81 aspirin 81 No aspirin 81 Le mg mg mg [facility] tablet,jagdish tablet,jagdish tablet,del dic yed release yed release ayed S ports TAKE 1 TAKE 1 release Medicin TABLET BY TABLET BY TAKE 1 e MOUTH TWICE MOUTH TWICE TABLET BY A DAY A DAY MOUTH TWICE A DAY cephalexin cephalexin No 1capsul TID cephalexin Le 500 mg 500 mg e(s) 500 mg [facility] capsule capsule capsule dic Take 1 Take 1 Take 1 Sports capsule 3 capsule 3 capsule 3 Medicin times a day times a day times a e by oral by oral day by route for 5 route for 5 oral route days. days. for 5 days. diclofenac diclofenac No diclofenac Le sodium 75 sodium 75 sodium 75 [facility] mg mg mg dic tablet,jagdish tablet,jagdish tablet,del Sports yed release yed release ayed Jaziel burris Take one Take one release e tablet by tablet by Take one mouth twice mouth twice tablet by a day after a day after mouth finishing 5 finishing 5 twice a days of days of day after Ketorolac Ketorolac finishing 5 days of Ketorolac doxycycline doxycycline No doxycyclin Le hyclate 100 hyclate 100 e hyclate [facility] mg capsule mg capsule 100 mg d ic Take 1 Take 1 capsule Sports capsule capsule Take 1 Medicin twice a day twice a day capsule e by oral by oral twice a route for 7 route for 7 day by days. days. oral route for 7 days. duloxetine duloxetine No duloxetine Le 60 mg 60 mg 60 mg [facility] capsule,del capsule,del capsule,de dic ayed ayed layed Sports release release release Medici n TAKE 1 TAKE 1 TAKE 1 e CAPSULE BY CAPSULE BY CAPSULE BY MOUTH EVERY MOUTH EVERY MOUTH DAY IN THE DAY IN THE EVERY DAY MORNING MORNING IN THE MORNING Hibiclens 4 Hibiclens 4 No Hibiclens Le % topical % topical 4 % Ortho pe liquid liquid topical dic PLEASE SEE PLEASE SEE liquid S ports ATTACHED ATTACHED PLEASE SEE Jaziel burris FOR FOR ATTACHED e DETAILED DETAILED FOR DIRECTIONS DIRECTIONS DETAILED DIRECTIONS ketorolac ketorolac No ketorolac Le 10 mg 10 mg 10 mg [facility] tablet TAKE tablet TAKE tablet dic 1 TABLET BY 1 TABLET BY TAKE 1 Sports MOUTH EVERY MOUTH EVERY TABLET BY Medicin 6 HOURS FOR 6 HOURS FOR MOUTH e 5 DAYS 5 DAYS EVERY 6 HOURS FOR 5 DAYS meloxicam meloxicam No meloxicam Le 15 mg 15 mg 15 mg [facility] tablet TAKE tablet TAKE tablet dic 1 TABLET BY 1 TABLET BY TAKE 1 Sports MOUTH EVERY MOUTH EVERY TABLET BY Medicin DAY DAY MOUTH e NEEDED NEEDED EVERY DAY NEEDED mupirocin 2 mupirocin 2 No mupirocin Le % topical % topical 2 % [facility] pe ointment ointment topical dic APPLY 1 A APPLY 1 A ointment S ports SMALL SMALL APPLY 1 A [facility] AMOUNT AMOUNT SMALL e DAILY APPLY DAILY APPLY AMOUNT A FULL A FULL DAILY Q-TIP TO Q-TIP TO APPLY A BOTH BOTH FULL Q-TIP NOSTRILS NOSTRILS TO BOTH DAILY FOR 5 DAILY FOR 5 NOSTRILS DAYS PRIOR DAYS PRIOR DAILY FOR TO SURGERY TO SURGERY 5 DAYS PRIOR TO SURGERY terbinafine terbinafine No terbinafin Le HCl 250 mg HCl 250 mg e HCl 250 [facility] tablet TAKE tablet TAKE mg tablet dic 1 TABLET BY 1 TABLET BY TAKE 1 Sports MOUTH EVERY MOUTH EVERY TABLET BY Medicin DAY DAY MOUTH e EVERY DAY tizanidine tizanidine No tizanidine Le 4 mg tablet 4 mg tablet 4 mg O r[facility]ope Take 1 Take 1 tablet dic tablet(s) tablet(s) Take 1 Spo rts EVERY 8 EVERY 8 tablet(s) Medi keo HOURS by HOURS by EVERY 8 e oral route, oral route, HOURS by as needed as needed oral for muscle for muscle route, as spasm spasm needed for muscle spasm tramadol 50 tramadol 50 No tramadol Le mg tablet mg tablet 50 mg Orth ope Take 1 Take 1 tablet dic tablet(s) tablet(s) Take 1 Spo rts EVERY 4-6 EVERY 4-6 tablet(s) Medicin HOURS by HOURS by EVERY 4-6 e oral route oral route HOURS by as needed as needed oral route for pain. for pain. as needed for pain. valsartan valsartan No valsartan Le 80 mg 80 mg 80 mg [facility] tablet TAKE tablet TAKE tablet dic ONE (1) ONE (1) TAKE ONE Sport s TABLET(S) TABLET(S) (1) Medic in BY MOUTH BY MOUTH TABLET(S) e EVERY EVERY BY MOUTH MORNING. MORNING. EVERY MORNING. Voltaren Voltaren No Voltaren Aza babak Arthritis Arthritis Arthritis [facility] Pain 1 % Pain 1 % Pain 1 % dic topical gel topical gel topical Sports APPLY 2 APPLY 2 gel APPLY Medi keo GRAMS TO GRAMS TO 2 GRAMS TO e THE THE THE AFFECTED AFFECTED AFFECTED AREA(S) BY AREA(S) BY AREA(S) BY TOPICAL TOPICAL TOPICAL ROUTE 3 ROUTE 3 ROUTE 3 TIMES PER TIMES PER TIMES PER DAY DAY DAY aripiprazol aripiprazol No aripiprazo Le e 2 mg e 2 mg le 2 mg [facility] tablet TAKE tablet TAKE tablet dic THREE (3) THREE (3) TAKE THREE Sports TABLET(S) TABLET(S) (3) Medic in BY MOUTH BY MOUTH TABLET(S) e DAILY AT DAILY AT BY MOUTH BEDTIME. BEDTIME. DAILY AT BEDTIME. aspirin 81 aspirin 81 No aspirin 81 Le mg mg mg [facility] tablet,jagdish tablet,jagdish tablet,del dic yed release yed release ayed S ports TAKE 1 TAKE 1 release Medicin TABLET BY TABLET BY TAKE 1 e MOUTH TWICE MOUTH TWICE TABLET BY A DAY A DAY MOUTH TWICE A DAY cephalexin cephalexin No cephalexin Le 500 mg 500 mg 500 mg [facility] capsule capsule capsule dic Take 1 Take 1 Take 1 Sports capsule 3 capsule 3 capsule 3 Medicin times a day times a day times a e by oral by oral day by route for 5 route for 5 oral route days. days. for 5 days. diclofenac diclofenac No diclofenac Le sodium 75 sodium 75 sodium 75 [facility] mg mg mg dic tablet,jagdish tablet,jagdish tablet,del Sports yed release yed release ayed M edicin Take one Take one release e tablet by tablet by Take one mouth twice mouth twice tablet by a day after a day after mouth finishing 5 finishing 5 twice a days of days of day after Ketorolac Ketorolac finishing 5 days of Ketorolac doxycycline doxycycline No doxycyclin Le hyclate 100 hyclate 100 e hyclate [facility] mg capsule mg capsule 100 mg d ic Take 1 Take 1 capsule Sports capsule capsule Take 1 Medicin twice a day twice a day capsule e by oral by oral twice a route for 7 route for 7 day by days. days. oral route for 7 days. duloxetine duloxetine No duloxetine Le 60 mg 60 mg 60 mg [facility] capsule,del capsule,del capsule,de dic ayed ayed layed Sports release release release Medici n TAKE 1 TAKE 1 TAKE 1 e CAPSULE BY CAPSULE BY CAPSULE BY MOUTH EVERY MOUTH EVERY MOUTH DAY IN THE DAY IN THE EVERY DAY MORNING MORNING IN THE MORNING Hibiclens 4 Hibiclens 4 No Hibiclens Le % topical % topical 4 % Ortho pe liquid liquid topical dic PLEASE SEE PLEASE SEE liquid S ports ATTACHED ATTACHED PLEASE SEE [place] FOR FOR ATTACHED e DETAILED DETAILED FOR DIRECTIONS DIRECTIONS DETAILED DIRECTIONS ketorolac ketorolac No ketorolac Le 10 mg 10 mg 10 mg [facility] tablet TAKE tablet TAKE tablet dic 1 TABLET BY 1 TABLET BY TAKE 1 Sports MOUTH EVERY MOUTH EVERY TABLET BY Medicin 6 HOURS FOR 6 HOURS FOR MOUTH e 5 DAYS 5 DAYS EVERY 6 HOURS FOR 5 DAYS meloxicam meloxicam No meloxicam Le 15 mg 15 mg 15 mg [facility] tablet TAKE tablet TAKE tablet dic 1 TABLET BY 1 TABLET BY TAKE 1 Sports MOUTH EVERY MOUTH EVERY TABLET BY Medicin DAY DAY MOUTH e NEEDED NEEDED EVERY DAY NEEDED mupirocin 2 mupirocin 2 No mupirocin Le % topical % topical 2 % [facility] pe ointment ointment topical dic APPLY 1 A APPLY 1 A ointment S ports SMALL SMALL APPLY 1 A [facility] AMOUNT AMOUNT SMALL e DAILY APPLY DAILY APPLY AMOUNT A FULL A FULL DAILY Q-TIP TO Q-TIP TO APPLY A BOTH BOTH FULL Q-TIP NOSTRILS NOSTRILS TO BOTH DAILY FOR 5 DAILY FOR 5 NOSTRILS DAYS PRIOR DAYS PRIOR DAILY FOR TO SURGERY TO SURGERY 5 DAYS PRIOR TO SURGERY terbinafine terbinafine No terbinafin Le HCl 250 mg HCl 250 mg e HCl 250 [facility] tablet TAKE tablet TAKE mg tablet dic 1 TABLET BY 1 TABLET BY TAKE 1 Sports MOUTH EVERY MOUTH EVERY TABLET BY Medicin DAY DAY MOUTH e EVERY DAY tizanidine tizanidine No tizanidine Le 4 mg tablet 4 mg tablet 4 mg O r[facility]ope Take 1 Take 1 tablet dic tablet(s) tablet(s) Take 1 Spo rts EVERY 8 EVERY 8 tablet(s) Medi keo HOURS by HOURS by EVERY 8 e oral route, oral route, HOURS by as needed as needed oral for muscle for muscle route, as spasm spasm needed for muscle spasm tramadol 50 tramadol 50 No tramadol Le mg tablet mg tablet 50 mg Orth ope Take 1 Take 1 tablet dic tablet(s) tablet(s) Take 1 Spo rts EVERY 4-6 EVERY 4-6 tablet(s) Medicin HOURS by HOURS by EVERY 4-6 e oral route oral route HOURS by as needed as needed oral route for pain. for pain. as needed for pain. valsartan valsartan No valsartan Le 80 mg 80 mg 80 mg [facility] tablet TAKE tablet TAKE tablet dic ONE (1) ONE (1) TAKE ONE Sport s TABLET(S) TABLET(S) (1) Medic in BY MOUTH BY MOUTH TABLET(S) e EVERY EVERY BY MOUTH MORNING. MORNING. EVERY MORNING. Voltaren Voltaren No Voltaren Aza babak Arthritis Arthritis Arthritis [facility] Pain 1 % Pain 1 % Pain 1 % dic topical gel topical gel topical Sports APPLY 2 APPLY 2 gel APPLY Medi keo GRAMS TO GRAMS TO 2 GRAMS TO e THE THE THE AFFECTED AFFECTED AFFECTED AREA(S) BY AREA(S) BY AREA(S) BY TOPICAL TOPICAL TOPICAL ROUTE 3 ROUTE 3 ROUTE 3 TIMES PER TIMES PER TIMES PER DAY DAY DAY aripiprazol aripiprazol No aripiprazo Le e 2 mg e 2 mg le 2 mg [facility] tablet TAKE tablet TAKE tablet dic THREE (3) THREE (3) TAKE THREE Sports TABLET(S) TABLET(S) (3) Medic in BY MOUTH BY MOUTH TABLET(S) e DAILY AT DAILY AT BY MOUTH BEDTIME. BEDTIME. DAILY AT BEDTIME. aspirin 81 aspirin 81 No aspirin 81 Le mg mg mg [facility] tablet,jagdish tablet,jagdish tablet,del dic yed release yed release ayed S ports TAKE 1 TAKE 1 release Medicin TABLET BY TABLET BY TAKE 1 e MOUTH TWICE MOUTH TWICE TABLET BY A DAY A DAY MOUTH TWICE A DAY cephalexin cephalexin No cephalexin Le 500 mg 500 mg 500 mg [facility] capsule capsule capsule dic Take 1 Take 1 Take 1 Sports capsule 3 capsule 3 capsule 3 Medicin times a day times a day times a e by oral by oral day by route for 5 route for 5 oral route days. days. for 5 days. diclofenac diclofenac No diclofenac Le sodium 75 sodium 75 sodium 75 [facility] mg mg mg dic tablet,jagdish tablet,jagdish tablet,del Sports yed release yed release ayed M edicin Take one Take one release e tablet by tablet by Take one mouth twice mouth twice tablet by a day after a day after mouth finishing 5 finishing 5 twice a days of days of day after Ketorolac Ketorolac finishing 5 days of Ketorolac doxycycline doxycycline No doxycyclin Le hyclate 100 hyclate 100 e hyclate [facility] mg capsule mg capsule 100 mg d ic Take 1 Take 1 capsule Sports capsule capsule Take 1 Medicin twice a day twice a day capsule e by oral by oral twice a route for 7 route for 7 day by days. days. oral route for 7 days. duloxetine duloxetine No duloxetine Le 60 mg 60 mg 60 mg [facility] capsule,del capsule,del capsule,de dic ayed ayed layed Sports release release release Medici n TAKE 1 TAKE 1 TAKE 1 e CAPSULE BY CAPSULE BY CAPSULE BY MOUTH EVERY MOUTH EVERY MOUTH DAY IN THE DAY IN THE EVERY DAY MORNING MORNING IN THE MORNING Hibiclens 4 Hibiclens 4 No Hibiclens Le % topical % topical 4 % Orth[facility] pe liquid liquid topical dic PLEASE SEE PLEASE SEE liquid S ports ATTACHED ATTACHED PLEASE SEE M jricin FOR FOR ATTACHED e DETAILED DETAILED FOR DIRECTIONS DIRECTIONS DETAILED DIRECTIONS ketorolac ketorolac No ketorolac Le 10 mg 10 mg 10 mg [facility] tablet TAKE tablet TAKE tablet dic 1 TABLET BY 1 TABLET BY TAKE 1 Sports MOUTH EVERY MOUTH EVERY TABLET BY Medicin 6 HOURS FOR 6 HOURS FOR MOUTH e 5 DAYS 5 DAYS EVERY 6 HOURS FOR 5 DAYS meloxicam meloxicam No meloxicam Le 15 mg 15 mg 15 mg [facility] tablet TAKE tablet TAKE tablet dic 1 TABLET BY 1 TABLET BY TAKE 1 Sports MOUTH EVERY MOUTH EVERY TABLET BY Medicin DAY DAY MOUTH e NEEDED NEEDED EVERY DAY NEEDED mupirocin 2 mupirocin 2 No mupirocin Le % topical % topical 2 % [facility] pe ointment ointment topical dic APPLY 1 A APPLY 1 A ointment S ports SMALL SMALL APPLY 1 A [facility] AMOUNT AMOUNT SMALL e DAILY APPLY DAILY APPLY AMOUNT A FULL A FULL DAILY Q-TIP TO Q-TIP TO APPLY A BOTH BOTH FULL Q-TIP NOSTRILS NOSTRILS TO BOTH DAILY FOR 5 DAILY FOR 5 NOSTRILS DAYS PRIOR DAYS PRIOR DAILY FOR TO SURGERY TO SURGERY 5 DAYS PRIOR TO SURGERY terbinafine terbinafine No terbinafin Le HCl 250 mg HCl 250 mg e HCl 250 [facility] tablet TAKE tablet TAKE mg tablet dic 1 TABLET BY 1 TABLET BY TAKE 1 Sports MOUTH EVERY MOUTH EVERY TABLET BY Medicin DAY DAY MOUTH e EVERY DAY tizanidine tizanidine No tizanidine Le 4 mg tablet 4 mg tablet 4 mg O [facility]ope Take 1 Take 1 tablet dic tablet(s) tablet(s) Take 1 Spo rts EVERY 8 EVERY 8 tablet(s) Medi keo HOURS by HOURS by EVERY 8 e oral route, oral route, HOURS by as needed as needed oral for muscle for muscle route, as spasm spasm needed for muscle spasm tramadol 50 tramadol 50 No tramadol Le mg tablet mg tablet 50 mg Orth ope Take 1 Take 1 tablet dic tablet(s) tablet(s) Take 1 Spo rts EVERY 4-6 EVERY 4-6 tablet(s) Medicin HOURS by HOURS by EVERY 4-6 e oral route oral route HOURS by as needed as needed oral route for pain. for pain. as needed for pain. valsartan valsartan No valsartan Le 80 mg 80 mg 80 mg [facility] tablet TAKE tablet TAKE tablet dic ONE (1) ONE (1) TAKE ONE Sport s TABLET(S) TABLET(S) (1) Medic in BY MOUTH BY MOUTH TABLET(S) e EVERY EVERY BY MOUTH MORNING. MORNING. EVERY MORNING. Voltaren Voltaren No Voltaren Aza babak Arthritis Arthritis Arthritis [facility] Pain 1 % Pain 1 % Pain 1 % dic topical gel topical gel topical Sports APPLY 2 APPLY 2 gel APPLY Medi keo GRAMS TO GRAMS TO 2 GRAMS TO e THE THE THE AFFECTED AFFECTED AFFECTED AREA(S) BY AREA(S) BY AREA(S) BY TOPICAL TOPICAL TOPICAL ROUTE 3 ROUTE 3 ROUTE 3 TIMES PER TIMES PER TIMES PER DAY DAY DAY aripiprazol aripiprazol No aripiprazo Le e 2 mg e 2 mg le 2 mg [facility] tablet TAKE tablet TAKE tablet dic THREE (3) THREE (3) TAKE THREE Sports TABLET(S) TABLET(S) (3) Medic in BY MOUTH BY MOUTH TABLET(S) e DAILY AT DAILY AT BY MOUTH BEDTIME. BEDTIME. DAILY AT BEDTIME. aspirin 81 aspirin 81 No aspirin 81 Le mg mg mg [facility] tablet,jagdish tablet,jagdish tablet,del dic yed release yed release ayed S ports TAKE 1 TAKE 1 release Medicin TABLET BY TABLET BY TAKE 1 e MOUTH TWICE MOUTH TWICE TABLET BY A DAY A DAY MOUTH TWICE A DAY cephalexin cephalexin No cephalexin Le 500 mg 500 mg 500 mg [facility] capsule capsule capsule dic Take 1 Take 1 Take 1 Sports capsule 3 capsule 3 capsule 3 Medicin times a day times a day times a e by oral by oral day by route for 5 route for 5 oral route days. days. for 5 days. diclofenac diclofenac No diclofenac Le sodium 75 sodium 75 sodium 75 [facility] mg mg mg dic tablet,jagdish tablet,jagdish tablet,del Sports yed release yed release ayed M edicin Take one Take one release e tablet by tablet by Take one mouth twice mouth twice tablet by a day after a day after mouth finishing 5 finishing 5 twice a days of days of day after Ketorolac Ketorolac finishing 5 days of Ketorolac doxycycline doxycycline No doxycyclin Le hyclate 100 hyclate 100 e hyclate [facility] mg capsule mg capsule 100 mg d ic Take 1 Take 1 capsule Sports capsule capsule Take 1 Medicin twice a day twice a day capsule e by oral by oral twice a route for 7 route for 7 day by days. days. oral route for 7 days. duloxetine duloxetine No duloxetine Le 60 mg 60 mg 60 mg [facility] capsule,del capsule,del capsule,de dic ayed ayed layed Sports release release release Medici n TAKE 1 TAKE 1 TAKE 1 e CAPSULE BY CAPSULE BY CAPSULE BY MOUTH EVERY MOUTH EVERY MOUTH DAY IN THE DAY IN THE EVERY DAY MORNING MORNING IN THE MORNING gabapentin gabapentin No gabapentin Le 600 mg 600 mg 600 mg [facility] tablet tablet tablet dic Sports Medicin e Hibiclens 4 Hibiclens 4 No Hibiclens Le % topical % topical 4 % Orth[facility] pe liquid liquid topical dic PLEASE SEE PLEASE SEE liquid S ports ATTACHED ATTACHED PLEASE SEE M jricin FOR FOR ATTACHED e DETAILED DETAILED FOR DIRECTIONS DIRECTIONS DETAILED DIRECTIONS hydrocortis hydrocortis No hydrocorti Le one 2.5 % one 2.5 % sone 2.5 % [facility] lotion lotion lotion dic APPLY TO APPLY TO APPLY TO Spo rts AFFECTED AFFECTED AFFECTED Med icin AREA 2-3 AREA 2-3 AREA 2-3 e TIMES A TIMES A TIMES A WEEK WEEK WEEK DIRECTED DIRECTED DIRECTED ketoconazol ketoconazol No ketoconazo Le e 2 % e 2 % le 2 % [facility] shampoo shampoo shampoo dic ALTERNATE ALTERNATE ALTERNATE Sports WITH HEAD WITH HEAD WITH HEAD Medicin AN SHOULDER AN SHOULDER AN e SHAMPOO SHAMPOO SHOULDER SHAMPOO ketorolac ketorolac No ketorolac Le 10 mg 10 mg 10 mg [facility] tablet TAKE tablet TAKE tablet dic 1 TABLET BY 1 TABLET BY TAKE 1 Sports MOUTH EVERY MOUTH EVERY TABLET BY Medicin 6 HOURS FOR 6 HOURS FOR MOUTH e 5 DAYS 5 DAYS EVERY 6 HOURS FOR 5 DAYS meloxicam meloxicam No meloxicam Le 15 mg 15 mg 15 mg [facility] tablet TAKE tablet TAKE tablet dic 1 TABLET BY 1 TABLET BY TAKE 1 Sports MOUTH EVERY MOUTH EVERY TABLET BY Medicin DAY DAY MOUTH e NEEDED NEEDED EVERY DAY NEEDED mesalamine mesalamine No mesalamine Le 1.2 gram 1.2 gram 1.2 gram Ort hope tablet,jagdish tablet,jagdish tablet,del dic yed release yed release ayed S ports release Medicin e metronidazo metronidazo No metronidaz Le le 500 mg le 500 mg ole 500 mg [facility] tablet TAKE tablet TAKE tablet dic 1 TABLET BY 1 TABLET BY TAKE 1 Sports MOUTH TWICE MOUTH TWICE TABLET BY Medicin A DAY A DAY MOUTH e TWICE A DAY mupirocin 2 mupirocin 2 No mupirocin Le % topical % topical 2 % Orth[facility] pe ointment ointment topical dic APPLY 1 A APPLY 1 A ointment S ports SMALL SMALL APPLY 1 A [facility] AMOUNT AMOUNT SMALL e DAILY APPLY DAILY APPLY AMOUNT A FULL A FULL DAILY Q-TIP TO Q-TIP TO APPLY A BOTH BOTH FULL Q-TIP NOSTRILS NOSTRILS TO BOTH DAILY FOR 5 DAILY FOR 5 NOSTRILS DAYS PRIOR DAYS PRIOR DAILY FOR TO SURGERY TO SURGERY 5 DAYS PRIOR TO SURGERY prednisone prednisone No prednisone Le 5 mg tablet 5 mg tablet 5 mg O r[facility]ope tablet dic Sports Medicin e terbinafine terbinafine No terbinafin Le HCl 250 mg HCl 250 mg e HCl 250 [facility] tablet TAKE tablet TAKE mg tablet dic 1 TABLET BY 1 TABLET BY TAKE 1 Sports MOUTH EVERY MOUTH EVERY TABLET BY Medicin DAY DAY MOUTH e EVERY DAY tizanidine tizanidine No tizanidine Le 4 mg tablet 4 mg tablet 4 mg O [facility] Take 1 Take 1 tablet dic tablet(s) tablet(s) Take 1 Spo rts EVERY 8 EVERY 8 tablet(s) Medi keo HOURS by HOURS by EVERY 8 e oral route, oral route, HOURS by as needed as needed oral for muscle for muscle route, as spasm spasm needed for muscle spasm tramadol 50 tramadol 50 No tramadol Le mg tablet mg tablet 50 mg Orth [facility]pe Take 1 Take 1 tablet dic tablet(s) tablet(s) Take 1 Spo rts EVERY 4-6 EVERY 4-6 tablet(s) Medicin HOURS by HOURS by EVERY 4-6 e oral route oral route HOURS by as needed as needed oral route for pain. for pain. as needed for pain. valsartan valsartan No valsartan Le 80 mg 80 mg 80 mg [facility] tablet TAKE tablet TAKE tablet dic ONE (1) ONE (1) TAKE ONE Sport s TABLET(S) TABLET(S) (1) Medic in BY MOUTH BY MOUTH TABLET(S) e EVERY EVERY BY MOUTH MORNING. MORNING. EVERY MORNING. Voltaren Voltaren No Voltaren Aza babak Arthritis Arthritis Arthritis [facility] Pain 1 % Pain 1 % Pain 1 % dic topical gel topical gel topical Sports APPLY 2 APPLY 2 gel APPLY Medi keo GRAMS TO GRAMS TO 2 GRAMS TO e THE THE THE AFFECTED AFFECTED AFFECTED AREA(S) BY AREA(S) BY AREA(S) BY TOPICAL TOPICAL TOPICAL ROUTE 3 ROUTE 3 ROUTE 3 TIMES PER TIMES PER TIMES PER DAY DAY DAY aripiprazol aripiprazol No aripiprazo Le e 2 mg e 2 mg le 2 mg [facility] tablet TAKE tablet TAKE tablet dic THREE (3) THREE (3) TAKE THREE Sports TABLET(S) TABLET(S) (3) Medic in BY MOUTH BY MOUTH TABLET(S) e DAILY AT DAILY AT BY MOUTH BEDTIME. BEDTIME. DAILY AT BEDTIME. aspirin 81 aspirin 81 No aspirin 81 Le mg mg mg [facility] tablet,jagdish tablet,jagdish tablet,del dic yed release yed release ayed S ports TAKE 1 TAKE 1 release Medicin TABLET BY TABLET BY TAKE 1 e MOUTH TWICE MOUTH TWICE TABLET BY A DAY A DAY MOUTH TWICE A DAY cephalexin cephalexin No cephalexin Le 500 mg 500 mg 500 mg [facility] capsule capsule capsule dic Take 1 Take 1 Take 1 Sports capsule 3 capsule 3 capsule 3 Medicin times a day times a day times a e by oral by oral day by route for 5 route for 5 oral route days. days. for 5 days. diclofenac diclofenac No diclofenac Le sodium 75 sodium 75 sodium 75 [facility] mg mg mg dic tablet,jagdish tablet,jagdish tablet,del Sports yed release yed release ayed M edicin Take one Take one release e tablet by tablet by Take one mouth twice mouth twice tablet by a day after a day after mouth finishing 5 finishing 5 twice a days of days of day after Ketorolac Ketorolac finishing 5 days of Ketorolac doxycycline doxycycline No doxycyclin Le hyclate 100 hyclate 100 e hyclate [facility] mg capsule mg capsule 100 mg d ic Take 1 Take 1 capsule Sports capsule capsule Take 1 Medicin twice a day twice a day capsule e by oral by oral twice a route for 7 route for 7 day by days. days. oral route for 7 days. duloxetine duloxetine No duloxetine Le 60 mg 60 mg 60 mg [facility] capsule,del capsule,del capsule,de dic ayed ayed layed Sports release release release Medici n TAKE 1 TAKE 1 TAKE 1 e CAPSULE BY CAPSULE BY CAPSULE BY MOUTH EVERY MOUTH EVERY MOUTH DAY IN THE DAY IN THE EVERY DAY MORNING MORNING IN THE MORNING gabapentin gabapentin No gabapentin Le 600 mg 600 mg 600 mg [facility] tablet tablet tablet dic Sports Medicin e Hibiclens 4 Hibiclens 4 No Hibiclens Le % topical % topical 4 % [facility] pe liquid liquid topical dic PLEASE SEE PLEASE SEE liquid S ports ATTACHED ATTACHED PLEASE SEE Jaziel burris FOR FOR ATTACHED e DETAILED DETAILED FOR DIRECTIONS DIRECTIONS DETAILED DIRECTIONS hydrocodone hydrocodone No hydrocodon Le 5 5 e 5 [facility] mg-acetamin mg-acetamin mg-acetami dic ophen 325 ophen 325 nophen 325 Sports mg tablet mg tablet mg tablet Medicin e hydrocortis hydrocortis No hydrocorti Le one 2.5 % one 2.5 % sone 2.5 % [facility] lotion lotion lotion dic APPLY TO APPLY TO APPLY TO Spo rts AFFECTED AFFECTED AFFECTED Med icin AREA 2-3 AREA 2-3 AREA 2-3 e TIMES A TIMES A TIMES A WEEK WEEK WEEK DIRECTED DIRECTED DIRECTED ketoconazol ketoconazol No ketoconazo Le e 2 % e 2 % le 2 % [facility] shampoo shampoo shampoo dic ALTERNATE ALTERNATE ALTERNATE Sports WITH HEAD WITH HEAD WITH HEAD Medicin AN SHOULDER AN SHOULDER AN e SHAMPOO SHAMPOO SHOULDER SHAMPOO ketorolac ketorolac No ketorolac Le 10 mg 10 mg 10 mg [facility] tablet TAKE tablet TAKE tablet dic 1 TABLET BY 1 TABLET BY TAKE 1 Sports MOUTH EVERY MOUTH EVERY TABLET BY Medicin 6 HOURS FOR 6 HOURS FOR MOUTH e 5 DAYS 5 DAYS EVERY 6 HOURS FOR 5 DAYS meloxicam meloxicam No meloxicam Le 15 mg 15 mg 15 mg [facility] tablet TAKE tablet TAKE tablet dic 1 TABLET BY 1 TABLET BY TAKE 1 Sports MOUTH EVERY MOUTH EVERY TABLET BY Medicin DAY DAY MOUTH e NEEDED NEEDED EVERY DAY NEEDED mesalamine mesalamine No mesalamine Le 1.2 gram 1.2 gram 1.2 gram Ort hope tablet,jagdish tablet,jagdish tablet,del dic yed release yed release ayed S ports release Medicin e metronidazo metronidazo No metronidaz Le le 500 mg le 500 mg ole 500 mg [facility] tablet TAKE tablet TAKE tablet dic 1 TABLET BY 1 TABLET BY TAKE 1 Sports MOUTH TWICE MOUTH TWICE TABLET BY Medicin A DAY A DAY MOUTH e TWICE A DAY mupirocin 2 mupirocin 2 No mupirocin Le % topical % topical 2 % Orth[facility] pe ointment ointment topical dic APPLY 1 A APPLY 1 A ointment S ports SMALL SMALL APPLY 1 A Medicin AMOUNT AMOUNT SMALL e DAILY APPLY DAILY APPLY AMOUNT A FULL A FULL DAILY Q-TIP TO Q-TIP TO APPLY A BOTH BOTH FULL Q-TIP NOSTRILS NOSTRILS TO BOTH DAILY FOR 5 DAILY FOR 5 NOSTRILS DAYS PRIOR DAYS PRIOR DAILY FOR TO SURGERY TO SURGERY 5 DAYS PRIOR TO SURGERY ondansetron ondansetron No ondansetro Le HCl 8 mg HCl 8 mg n HCl 8 mg [facility]ope tablet tablet tablet dic Sports Medicin e prednisone prednisone No prednisone Le 5 mg tablet 5 mg tablet 5 mg O [facility] tablet dic Sports Medicin e terbinafine terbinafine No terbinafin Le HCl 250 mg HCl 250 mg e HCl 250 [facility] tablet TAKE tablet TAKE mg tablet dic 1 TABLET BY 1 TABLET BY TAKE 1 Sports MOUTH EVERY MOUTH EVERY TABLET BY Medicin DAY DAY MOUTH e EVERY DAY tizanidine tizanidine No tizanidine Le 4 mg tablet 4 mg tablet 4 mg O [facility]ope Take 1 Take 1 tablet dic tablet(s) tablet(s) Take 1 Spo rts EVERY 8 EVERY 8 tablet(s) Medi keo HOURS by HOURS by EVERY 8 e oral route, oral route, HOURS by as needed as needed oral for muscle for muscle route, as spasm spasm needed for muscle spasm tramadol 50 tramadol 50 No tramadol Le mg tablet mg tablet 50 mg Orth [facility]pe Take 1 Take 1 tablet dic tablet(s) tablet(s) Take 1 Spo rts EVERY 4-6 EVERY 4-6 tablet(s) Medicin HOURS by HOURS by EVERY 4-6 e oral route oral route HOURS by as needed as needed oral route for pain. for pain. as needed for pain. valsartan valsartan No valsartan Le 80 mg 80 mg 80 mg [facility] tablet TAKE tablet TAKE tablet dic ONE (1) ONE (1) TAKE ONE Sport s TABLET(S) TABLET(S) (1) Medic in BY MOUTH BY MOUTH TABLET(S) e EVERY EVERY BY MOUTH MORNING. MORNING. EVERY MORNING. Voltaren Voltaren No Voltaren Aza babak Arthritis Arthritis Arthritis [facility] Pain 1 % Pain 1 % Pain 1 % dic topical gel topical gel topical Sports APPLY 2 APPLY 2 gel APPLY Medi keo GRAMS TO GRAMS TO 2 GRAMS TO e THE THE THE AFFECTED AFFECTED AFFECTED AREA(S) BY AREA(S) BY AREA(S) BY TOPICAL TOPICAL TOPICAL ROUTE 3 ROUTE 3 ROUTE 3 TIMES PER TIMES PER TIMES PER DAY DAY DAY aripiprazol aripiprazol No aripiprazo Le e 2 mg e 2 mg le 2 mg [facility] tablet TAKE tablet TAKE tablet dic THREE (3) THREE (3) TAKE THREE Sports TABLET(S) TABLET(S) (3) Medic in BY MOUTH BY MOUTH TABLET(S) e DAILY AT DAILY AT BY MOUTH BEDTIME. BEDTIME. DAILY AT BEDTIME. aspirin 81 aspirin 81 No aspirin 81 Le mg mg mg [facility] tablet,jagdish tablet,jagdish tablet,del dic yed release yed release ayed S ports TAKE 1 TAKE 1 release Medicin TABLET BY TABLET BY TAKE 1 e MOUTH TWICE MOUTH TWICE TABLET BY A DAY A DAY MOUTH TWICE A DAY azithromyci azithromyci No azithromyc Le n 250 mg n 250 mg in 250 mg Or thope tablet USE tablet USE tablet USE dic DIRECTED DIRECTED S ports IN PACKAGE IN PACKAGE DIRECTED Medicin INSERT INSERT IN PACKAGE e INSERT cephalexin cephalexin No cephalexin Le 500 mg 500 mg 500 mg [facility] capsule capsule capsule dic Take 1 Take 1 Take 1 Sports capsule 3 capsule 3 capsule 3 Medicin times a day times a day times a e by oral by oral day by route for 5 route for 5 oral route days. days. for 5 days. diclofenac diclofenac No diclofenac Le sodium 75 sodium 75 sodium 75 [facility] mg mg mg dic tablet,jagdish tablet,jagdish tablet,del Sports yed release yed release ayed M edicin Take one Take one release e tablet by tablet by Take one mouth twice mouth twice tablet by a day after a day after mouth finishing 5 finishing 5 twice a days of days of day after Ketorolac Ketorolac finishing 5 days of Ketorolac doxycycline doxycycline No doxycyclin Le hyclate 100 hyclate 100 e hyclate [facility] mg capsule mg capsule 100 mg d ic TAKE 1 TAKE 1 capsule Sports CAPSULE BY CAPSULE BY TAKE 1 M edicin MOUTH TWICE MOUTH TWICE CAPSULE BY e A DAY A DAY MOUTH TWICE A DAY duloxetine duloxetine No duloxetine Le 60 mg 60 mg 60 mg [facility] capsule,del capsule,del capsule,de dic ayed ayed layed Sports release release release Medici n TAKE 1 TAKE 1 TAKE 1 e CAPSULE BY CAPSULE BY CAPSULE BY MOUTH EVERY MOUTH EVERY MOUTH DAY IN THE DAY IN THE EVERY DAY MORNING MORNING IN THE MORNING gabapentin gabapentin No gabapentin Le 600 mg 600 mg 600 mg [facility] tablet tablet tablet dic Sports Medicin e Hibiclens 4 Hibiclens 4 No Hibiclens Le % topical % topical 4 % Ortho pe liquid liquid topical dic PLEASE SEE PLEASE SEE liquid S ports ATTACHED ATTACHED PLEASE SEE M edicin FOR FOR ATTACHED e DETAILED DETAILED FOR DIRECTIONS DIRECTIONS DETAILED DIRECTIONS hydrocodone hydrocodone No hydrocodon Le 5 5 e 5 [facility] mg-acetamin mg-acetamin mg-acetami dic ophen 325 ophen 325 nophen 325 Sports mg tablet mg tablet mg tablet Medicin e hydrocortis hydrocortis No hydrocorti Le one 2.5 % one 2.5 % sone 2.5 % [facility] lotion lotion lotion dic APPLY TO APPLY TO APPLY TO Spo rts AFFECTED AFFECTED AFFECTED Med icin AREA 2-3 AREA 2-3 AREA 2-3 e TIMES A TIMES A TIMES A WEEK WEEK WEEK DIRECTED DIRECTED DIRECTED ketoconazol ketoconazol No ketoconazo Le e 2 % e 2 % le 2 % [facility] shampoo shampoo shampoo dic ALTERNATE ALTERNATE ALTERNATE Sports WITH HEAD WITH HEAD WITH HEAD Medicin AN SHOULDER AN SHOULDER AN e SHAMPOO SHAMPOO SHOULDER SHAMPOO ketorolac ketorolac No ketorolac Le 10 mg 10 mg 10 mg [facility] tablet TAKE tablet TAKE tablet dic 1 TABLET BY 1 TABLET BY TAKE 1 Sports MOUTH EVERY MOUTH EVERY TABLET BY Medicin 6 HOURS FOR 6 HOURS FOR MOUTH e 5 DAYS 5 DAYS EVERY 6 HOURS FOR 5 DAYS meloxicam meloxicam No meloxicam Le 15 mg 15 mg 15 mg [facility] tablet TAKE tablet TAKE tablet dic 1 TABLET BY 1 TABLET BY TAKE 1 Sports MOUTH EVERY MOUTH EVERY TABLET BY Medicin DAY DAY MOUTH e NEEDED NEEDED EVERY DAY NEEDED mesalamine mesalamine No mesalamine Le 1.2 gram 1.2 gram 1.2 gram Ort hope tablet,jagdish tablet,jagdish tablet,del dic yed release yed release ayed S ports release Medicin e metronidazo metronidazo No metronidaz Le le 500 mg le 500 mg ole 500 mg [facility] tablet TAKE tablet TAKE tablet dic 1 TABLET BY 1 TABLET BY TAKE 1 Sports MOUTH TWICE MOUTH TWICE TABLET BY Medicin A DAY A DAY MOUTH e TWICE A DAY mupirocin 2 mupirocin 2 No mupirocin Le % topical % topical 2 % Ortho pe ointment ointment topical dic APPLY 1 A APPLY 1 A ointment S ports SMALL SMALL APPLY 1 A Medicin AMOUNT AMOUNT SMALL e DAILY APPLY DAILY APPLY AMOUNT A FULL A FULL DAILY Q-TIP TO Q-TIP TO APPLY A BOTH BOTH FULL Q-TIP NOSTRILS NOSTRILS TO BOTH DAILY FOR 5 DAILY FOR 5 NOSTRILS DAYS PRIOR DAYS PRIOR DAILY FOR TO SURGERY TO SURGERY 5 DAYS PRIOR TO SURGERY ondansetron ondansetron No ondansetro Le HCl 8 mg HCl 8 mg n HCl 8 mg O rthope tablet tablet tablet dic Sports Medicin e prednisone prednisone No prednisone Le 10 mg 10 mg 10 mg [facility] tablet TAKE tablet TAKE tablet dic 1 TABLET BY 1 TABLET BY TAKE 1 Sports MOUTH TWICE MOUTH TWICE TABLET BY Medicin A DAY A DAY MOUTH e TWICE A DAY prednisone prednisone No prednisone Le 5 mg tablet 5 mg tablet 5 mg O rthope tablet dic Sports Medicin e terbinafine terbinafine No terbinafin Le HCl 250 mg HCl 250 mg e HCl 250 [facility] tablet TAKE tablet TAKE mg tablet dic 1 TABLET BY 1 TABLET BY TAKE 1 Sports MOUTH EVERY MOUTH EVERY TABLET BY Medicin DAY DAY MOUTH e EVERY DAY tizanidine tizanidine No tizanidine Le 4 mg tablet 4 mg tablet 4 mg O rthope Take 1 Take 1 tablet dic tablet(s) tablet(s) Take 1 Spo rts EVERY 8 EVERY 8 tablet(s) Medi keo HOURS by HOURS by EVERY 8 e oral route, oral route, HOURS by as needed as needed oral for muscle for muscle route, as spasm spasm needed for muscle spasm tramadol 50 tramadol 50 No tramadol Le mg tablet mg tablet 50 mg Orth ope Take 1 Take 1 tablet dic tablet(s) tablet(s) Take 1 Spo rts EVERY 4-6 EVERY 4-6 tablet(s) Medicin HOURS by HOURS by EVERY 4-6 e oral route oral route HOURS by as needed as needed oral route for pain. for pain. as needed for pain. valsartan valsartan No valsartan Le 80 mg 80 mg 80 mg [facility] tablet TAKE tablet TAKE tablet dic ONE (1) ONE (1) TAKE ONE Sport s TABLET(S) TABLET(S) (1) Medic in BY MOUTH BY MOUTH TABLET(S) e EVERY EVERY BY MOUTH MORNING. MORNING. EVERY MORNING. Voltaren Voltaren No Voltaren Aza babak Arthritis Arthritis Arthritis [facility] Pain 1 % Pain 1 % Pain 1 % dic topical gel topical gel topical Sports APPLY 2 APPLY 2 gel APPLY Medi keo GRAMS TO GRAMS TO 2 GRAMS TO e THE THE THE AFFECTED AFFECTED AFFECTED AREA(S) BY AREA(S) BY AREA(S) BY TOPICAL TOPICAL TOPICAL ROUTE 3 ROUTE 3 ROUTE 3 TIMES PER TIMES PER TIMES PER DAY DAY DAY aripiprazol aripiprazol No aripiprazo Le e 2 mg e 2 mg le 2 mg [facility] tablet TAKE tablet TAKE tablet dic THREE (3) THREE (3) TAKE THREE Sports TABLET(S) TABLET(S) (3) Medic in BY MOUTH BY MOUTH TABLET(S) e DAILY AT DAILY AT BY MOUTH BEDTIME. BEDTIME. DAILY AT BEDTIME. aspirin 81 aspirin 81 No aspirin 81 Le mg mg mg [facility] tablet,jagdish tablet,jagdish tablet,del dic yed release yed release ayed S ports TAKE 1 TAKE 1 release Medicin TABLET BY TABLET BY TAKE 1 e MOUTH TWICE MOUTH TWICE TABLET BY A DAY A DAY MOUTH TWICE A DAY azithromyci azithromyci No azithromyc Le n 250 mg n 250 mg in 250 mg Or thope tablet USE tablet USE tablet USE dic DIRECTED DIRECTED S ports IN PACKAGE IN PACKAGE DIRECTED Medicin INSERT INSERT IN PACKAGE e INSERT cephalexin cephalexin No cephalexin Le 500 mg 500 mg 500 mg [facility] capsule capsule capsule dic Take 1 Take 1 Take 1 Sports capsule 3 capsule 3 capsule 3 Medicin times a day times a day times a e by oral by oral day by route for 5 route for 5 oral route days. days. for 5 days. diclofenac diclofenac No diclofenac Le sodium 75 sodium 75 sodium 75 [facility] mg mg mg dic tablet,jagdish tablet,jagdish tablet,del Sports yed release yed release ayed M edicin Take one Take one release e tablet by tablet by Take one mouth twice mouth twice tablet by a day after a day after mouth finishing 5 finishing 5 twice a days of days of day after Ketorolac Ketorolac finishing 5 days of Ketorolac doxycycline doxycycline No doxycyclin Le hyclate 100 hyclate 100 e hyclate [facility] mg capsule mg capsule 100 mg d ic TAKE 1 TAKE 1 capsule Sports CAPSULE BY CAPSULE BY TAKE 1 M edicin MOUTH TWICE MOUTH TWICE CAPSULE BY e A DAY A DAY MOUTH TWICE A DAY duloxetine duloxetine No duloxetine Le 60 mg 60 mg 60 mg [facility] capsule,del capsule,del capsule,de dic ayed ayed layed Sports release release release Medici n TAKE 1 TAKE 1 TAKE 1 e CAPSULE BY CAPSULE BY CAPSULE BY MOUTH EVERY MOUTH EVERY MOUTH DAY IN THE DAY IN THE EVERY DAY MORNING MORNING IN THE MORNING gabapentin gabapentin No gabapentin Le 600 mg 600 mg 600 mg [facility] tablet tablet tablet dic Sports Medicin e Hibiclens 4 Hibiclens 4 No Hibiclens Le % topical % topical 4 % Ortho pe liquid liquid topical dic PLEASE SEE PLEASE SEE liquid S ports ATTACHED ATTACHED PLEASE SEE M dayton FOR FOR ATTACHED e DETAILED DETAILED FOR DIRECTIONS DIRECTIONS DETAILED DIRECTIONS hydrocodone hydrocodone No hydrocodon Le 5 5 e 5 [facility] mg-acetamin mg-acetamin mg-acetami dic ophen 325 ophen 325 nophen 325 Sports mg tablet mg tablet mg tablet Medicin e hydrocortis hydrocortis No hydrocorti Le one 2.5 % one 2.5 % sone 2.5 % [facility] lotion lotion lotion dic APPLY TO APPLY TO APPLY TO Spo rts AFFECTED AFFECTED AFFECTED Med icin AREA 2-3 AREA 2-3 AREA 2-3 e TIMES A TIMES A TIMES A WEEK WEEK WEEK DIRECTED DIRECTED DIRECTED ketoconazol ketoconazol No ketoconazo Le e 2 % e 2 % le 2 % [facility] shampoo shampoo shampoo dic ALTERNATE ALTERNATE ALTERNATE Sports WITH HEAD WITH HEAD WITH HEAD Medicin AN SHOULDER AN SHOULDER AN e SHAMPOO SHAMPOO SHOULDER SHAMPOO ketorolac ketorolac No ketorolac Le 10 mg 10 mg 10 mg [facility] tablet TAKE tablet TAKE tablet dic 1 TABLET BY 1 TABLET BY TAKE 1 Sports MOUTH EVERY MOUTH EVERY TABLET BY Medicin 6 HOURS FOR 6 HOURS FOR MOUTH e 5 DAYS 5 DAYS EVERY 6 HOURS FOR 5 DAYS meloxicam meloxicam No meloxicam Le 15 mg 15 mg 15 mg [facility] tablet TAKE tablet TAKE tablet dic 1 TABLET BY 1 TABLET BY TAKE 1 Sports MOUTH EVERY MOUTH EVERY TABLET BY Medicin DAY DAY MOUTH e NEEDED NEEDED EVERY DAY NEEDED mesalamine mesalamine No mesalamine Le 1.2 gram 1.2 gram 1.2 gram Ort hope tablet,jagdish tablet,jagdish tablet,del dic yed release yed release ayed S ports release Medicin e metronidazo metronidazo No metronidaz Le le 500 mg le 500 mg ole 500 mg [facility] tablet TAKE tablet TAKE tablet dic 1 TABLET BY 1 TABLET BY TAKE 1 Sports MOUTH TWICE MOUTH TWICE TABLET BY Medicin A DAY A DAY MOUTH e TWICE A DAY mupirocin 2 mupirocin 2 No mupirocin Le % topical % topical 2 % Ortho pe ointment ointment topical dic APPLY 1 A APPLY 1 A ointment S ports SMALL SMALL APPLY 1 A Medicin AMOUNT AMOUNT SMALL e DAILY APPLY DAILY APPLY AMOUNT A FULL A FULL DAILY Q-TIP TO Q-TIP TO APPLY A BOTH BOTH FULL Q-TIP NOSTRILS NOSTRILS TO BOTH DAILY FOR 5 DAILY FOR 5 NOSTRILS DAYS PRIOR DAYS PRIOR DAILY FOR TO SURGERY TO SURGERY 5 DAYS PRIOR TO SURGERY ondansetron ondansetron No ondansetro Le HCl 8 mg HCl 8 mg n HCl 8 mg O rthope tablet tablet tablet dic Sports Medicin e prednisone prednisone No prednisone Le 10 mg 10 mg 10 mg [facility] tablet TAKE tablet TAKE tablet dic 1 TABLET BY 1 TABLET BY TAKE 1 Sports MOUTH TWICE MOUTH TWICE TABLET BY Medicin A DAY A DAY MOUTH e TWICE A DAY prednisone prednisone No prednisone Le 5 mg tablet 5 mg tablet 5 mg O rthope tablet dic Sports Medicin e terbinafine terbinafine No terbinafin Le HCl 250 mg HCl 250 mg e HCl 250 [facility] tablet TAKE tablet TAKE mg tablet dic 1 TABLET BY 1 TABLET BY TAKE 1 Sports MOUTH EVERY MOUTH EVERY TABLET BY Medicin DAY DAY MOUTH e EVERY DAY tizanidine tizanidine No tizanidine Le 4 mg tablet 4 mg tablet 4 mg O rthope Take 1 Take 1 tablet dic tablet(s) tablet(s) Take 1 Spo rts EVERY 8 EVERY 8 tablet(s) Medi keo HOURS by HOURS by EVERY 8 e oral route, oral route, HOURS by as needed as needed oral for muscle for muscle route, as spasm spasm needed for muscle spasm tramadol 50 tramadol 50 No tramadol Le mg tablet mg tablet 50 mg Orth ope Take 1 Take 1 tablet dic tablet(s) tablet(s) Take 1 Spo rts EVERY 4-6 EVERY 4-6 tablet(s) Medicin HOURS by HOURS by EVERY 4-6 e oral route oral route HOURS by as needed as needed oral route for pain. for pain. as needed for pain. valsartan valsartan No valsartan Le 80 mg 80 mg 80 mg [facility] tablet TAKE tablet TAKE tablet dic ONE (1) ONE (1) TAKE ONE Sport s TABLET(S) TABLET(S) (1) Medic in BY MOUTH BY MOUTH TABLET(S) e EVERY EVERY BY MOUTH MORNING. MORNING. EVERY MORNING. Voltlaurien Voltaren No Voltaren Aza babak Arthritis Arthritis Arthritis [facility] Pain 1 % Pain 1 % Pain 1 % dic topical gel topical gel topical Sports APPLY 2 APPLY 2 gel APPLY Medi keo GRAMS TO GRAMS TO 2 GRAMS TO e THE THE THE AFFECTED AFFECTED AFFECTED AREA(S) BY AREA(S) BY AREA(S) BY TOPICAL TOPICAL TOPICAL ROUTE 3 ROUTE 3 ROUTE 3 TIMES PER TIMES PER TIMES PER DAY DAY DAY aripiprazol aripiprazol No aripiprazo Le e 2 mg e 2 mg le 2 mg [facility] tablet TAKE tablet TAKE tablet dic THREE (3) THREE (3) TAKE THREE Sports TABLET(S) TABLET(S) (3) Medic in BY MOUTH BY MOUTH TABLET(S) e DAILY AT DAILY AT BY MOUTH BEDTIME. BEDTIME. DAILY AT BEDTIME. aspirin 81 aspirin 81 No aspirin 81 Le mg mg mg [facility] tablet,jagdish tablet,jagdish tablet,del dic yed release yed release ayed S ports TAKE 1 TAKE 1 release Medicin TABLET BY TABLET BY TAKE 1 e MOUTH TWICE MOUTH TWICE TABLET BY A DAY A DAY MOUTH TWICE A DAY cephalexin cephalexin No cephalexin Le 500 mg 500 mg 500 mg [facility] capsule capsule capsule dic Take 1 Take 1 Take 1 Sports capsule 3 capsule 3 capsule 3 Medicin times a day times a day times a e by oral by oral day by route for 5 route for 5 oral route days. days. for 5 days. diclofenac diclofenac No diclofenac Le sodium 75 sodium 75 sodium 75 [facility] mg mg mg dic tablet,jagdish tablet,jagdish tablet,del Sports yed release yed release ayed M edicin Take one Take one release e tablet by tablet by Take one mouth twice mouth twice tablet by a day after a day after mouth finishing 5 finishing 5 twice a days of days of day after Ketorolac Ketorolac finishing 5 days of Ketorolac doxycycline doxycycline No doxycyclin Le hyclate 100 hyclate 100 e hyclate [facility] mg capsule mg capsule 100 mg d ic Take 1 Take 1 capsule Sports capsule capsule Take 1 Medicin twice a day twice a day capsule e by oral by oral twice a route for 7 route for 7 day by days. days. oral route for 7 days. duloxetine duloxetine No duloxetine Le 60 mg 60 mg 60 mg [facility] capsule,del capsule,del capsule,de dic ayed ayed layed Sports release release release Medici n TAKE 1 TAKE 1 TAKE 1 e CAPSULE BY CAPSULE BY CAPSULE BY MOUTH EVERY MOUTH EVERY MOUTH DAY IN THE DAY IN THE EVERY DAY MORNING MORNING IN THE MORNING Hibiclens 4 Hibiclens 4 No Hibiclens Le % topical % topical 4 % Ortho pe liquid liquid topical dic PLEASE SEE PLEASE SEE liquid S ports ATTACHED ATTACHED PLEASE SEE M edicin FOR FOR ATTACHED e DETAILED DETAILED FOR DIRECTIONS DIRECTIONS DETAILED DIRECTIONS hydrocortis hydrocortis No hydrocorti Le one 2.5 % one 2.5 % sone 2.5 % [facility] lotion lotion lotion dic APPLY TO APPLY TO APPLY TO Spo rts AFFECTED AFFECTED AFFECTED Med icin AREA 2-3 AREA 2-3 AREA 2-3 e TIMES A TIMES A TIMES A WEEK WEEK WEEK DIRECTED DIRECTED DIRECTED ketoconazol ketoconazol No ketoconazo Le e 2 % e 2 % le 2 % [facility] shampoo shampoo shampoo dic ALTERNATE ALTERNATE ALTERNATE Sports WITH HEAD WITH HEAD WITH HEAD Medicin AN SHOULDER AN SHOULDER AN e SHAMPOO SHAMPOO SHOULDER SHAMPOO ketorolac ketorolac No ketorolac Le 10 mg 10 mg 10 mg [facility] tablet TAKE tablet TAKE tablet dic 1 TABLET BY 1 TABLET BY TAKE 1 Sports MOUTH EVERY MOUTH EVERY TABLET BY Medicin 6 HOURS FOR 6 HOURS FOR MOUTH e 5 DAYS 5 DAYS EVERY 6 HOURS FOR 5 DAYS meloxicam meloxicam No meloxicam Le 15 mg 15 mg 15 mg [facility] tablet TAKE tablet TAKE tablet dic 1 TABLET BY 1 TABLET BY TAKE 1 Sports MOUTH EVERY MOUTH EVERY TABLET BY Medicin DAY DAY MOUTH e NEEDED NEEDED EVERY DAY NEEDED metronidazo metronidazo No metronidaz Le le 500 mg le 500 mg ole 500 mg [facility] tablet TAKE tablet TAKE tablet dic 1 TABLET BY 1 TABLET BY TAKE 1 Sports MOUTH TWICE MOUTH TWICE TABLET BY Medicin A DAY A DAY MOUTH e TWICE A DAY mupirocin 2 mupirocin 2 No mupirocin Le % topical % topical 2 % Ortho pe ointment ointment topical dic APPLY 1 A APPLY 1 A ointment S ports SMALL SMALL APPLY 1 A Medicin AMOUNT AMOUNT SMALL e DAILY APPLY DAILY APPLY AMOUNT A FULL A FULL DAILY Q-TIP TO Q-TIP TO APPLY A BOTH BOTH FULL Q-TIP NOSTRILS NOSTRILS TO BOTH DAILY FOR 5 DAILY FOR 5 NOSTRILS DAYS PRIOR DAYS PRIOR DAILY FOR TO SURGERY TO SURGERY 5 DAYS PRIOR TO SURGERY terbinafine terbinafine No terbinafin Le HCl 250 mg HCl 250 mg e HCl 250 [facility] tablet TAKE tablet TAKE mg tablet dic 1 TABLET BY 1 TABLET BY TAKE 1 Sports MOUTH EVERY MOUTH EVERY TABLET BY Medicin DAY DAY MOUTH e EVERY DAY tizanidine tizanidine No tizanidine Le 4 mg tablet 4 mg tablet 4 mg O rthope Take 1 Take 1 tablet dic tablet(s) tablet(s) Take 1 Spo rts EVERY 8 EVERY 8 tablet(s) Medi keo HOURS by HOURS by EVERY 8 e oral route, oral route, HOURS by as needed as needed oral for muscle for muscle route, as spasm spasm needed for muscle spasm tramadol 50 tramadol 50 No tramadol Le mg tablet mg tablet 50 mg Orth ope Take 1 Take 1 tablet dic tablet(s) tablet(s) Take 1 Spo rts EVERY 4-6 EVERY 4-6 tablet(s) Medicin HOURS by HOURS by EVERY 4-6 e oral route oral route HOURS by as needed as needed oral route for pain. for pain. as needed for pain. valsartan valsartan No valsartan Le 80 mg 80 mg 80 mg [facility] tablet TAKE tablet TAKE tablet dic ONE (1) ONE (1) TAKE ONE Sport s TABLET(S) TABLET(S) (1) Medic in BY MOUTH BY MOUTH TABLET(S) e EVERY EVERY BY MOUTH MORNING. MORNING. EVERY MORNING. Voltaren Voltaren No Voltaren Aza babak Arthritis Arthritis Arthritis [facility] Pain 1 % Pain 1 % Pain 1 % dic topical gel topical gel topical Sports APPLY 2 APPLY 2 gel APPLY Medi keo GRAMS TO GRAMS TO 2 GRAMS TO e THE THE THE AFFECTED AFFECTED AFFECTED AREA(S) BY AREA(S) BY AREA(S) BY TOPICAL TOPICAL TOPICAL ROUTE 3 ROUTE 3 ROUTE 3 TIMES PER TIMES PER TIMES PER DAY DAY DAY Vital Signs Vital Name Observation Time Observation Value Comments Source Systolic blood 2023-04-04 18:50:00 142 mm[Hg] [facility] Diastolic blood 2023-04-04 18:50:00 84 mm[Hg] [facility] Heart rate 2023-04-04 18:49:00 74 /min [facility] Respiratory rate 2023-04-04 18:49:00 20 /min [facility] Body height 2023-04-04 18:49:00 180.3 cm [facility] Body weight 2023-04-04 18:49:00 65.772 kg [facility] BMI 2023-04-04 18:49:00 20.22 kg/m2 [facility] Oxygen saturation in 2023-04-04 18:49:00 97 /min [facility] Arterial blood by [facility] Pulse oximetry Branch Systolic blood 2023-03-17 14:46:00 149 mm[Hg] [facility] Diastolic blood 2023-03-17 14:46:00 75 mm[Hg] [facility] Heart rate 2023-03-17 14:11:00 74 /min [facility] Body height 2023-03-17 14:11:00 180.3 cm [facility] Body weight 2023-03-17 14:11:00 65.772 kg [facility] BMI 2023-03-17 14:11:00 20.22 kg/m2 [facility] Oxygen saturation in 2023-03-17 14:11:00 97 /min [facility] Arterial blood by [facility] Pulse oximetry Branch Systolic blood 2023-02-21 16:32:00 148 mm[Hg] [facility] Diastolic blood 2023-02-21 16:32:00 73 mm[Hg] [facility] Heart rate 2023-02-21 16:31:00 73 /min [facility] Body height 2023-02-21 16:31:00 180.3 cm [facility] Body weight 2023-02-21 16:31:00 66.225 kg [facility] BMI 2023-02-21 16:31:00 20.36 kg/m2 [facility] Oxygen saturation in 2023-02-21 16:31:00 99 /min [facility] Arterial blood by [facility] Pulse oximetry Branch Height 2022-07-25 00:00:00 72 [in_i] [facility] BMI (Body Mass 2022-07-25 00:00:00 21.7 kg/m2 [facility] Index) Sports Medicine Body Weight 2022-07-25 00:00:00 160 [lb_av] [facility] Height 2022-07-01 00:00:00 72 [in_i] [facility] BMI (Body Mass 2022-07-01 00:00:00 21.7 kg/m2 [facility] Index) [facility] Medicine Body Weight 2022-07-01 00:00:00 160 [lb_av] [facility] Height 2022-05-28 00:00:00 72 [in_i] [facility] BMI (Body Mass 2022-05-28 00:00:00 21.7 kg/m2 [facility] Index) Sports Medicine Body Weight 2022-05-28 00:00:00 160 [lb_av] [facility] Height 2022-05-17 00:00:00 72 [in_i] [facility] BMI (Body Mass 2022-05-17 00:00:00 21.7 kg/m2 [facility] Index) Sports Medicine Body Weight 2022-05-17 00:00:00 160 [lb_av] [facility] Procedures Procedure Date / Time Performing Clinician Source Performed NM BRAIN SPECT (DATSCAN) 2023-03-26 20:09:00 Nkechi [facility]enc[facility] NM BRAIN SPECT (DATSCAN) 2023-03-26 20:09:00 Nkechi Ascencio [facility] NM BRAIN SPECT (DATSCAN) 2023-03-26 20:09:00 Nkechi Ascencio [facility] MR BRAIN W WO CONTRAST 2023-03-06 14:01:00 Umer Newton [facility] WITH NEUROQUANT Medical Branch ASSIGNMENT OF BENEFITS 2023-02-21 15:52:17 Doctor Unassigned, No [facility] Name Medical Branch XR, foot, 2 view 2022-12-25 00:00:00 [facility] XR, foot, 2 view 2022-11-27 00:00:00 [facility] XR, foot, 2 view 2022-10-30 00:00:00 [facility] [id number] 2022-10-14 00:00:00 [facility] [id number] 2022-10-14 00:00:00 [facility] [id number] 2022-10-14 00:00:00 [facility] [id number] 2022-10-14 00:00:00 [facility] CT, foot, w/o contrast 2022-08-27 00:00:00 [facility] XR, knee, 1 or 2 view 2022-08-01 00:00:00 [facility] XR, elbow, 3 or more 2022-07-25 00:00:00 [facility] XR, elbow, 3 or more 2022-07-01 00:00:00 [facility] [id number] 2022-06-11 00:00:00 [facility] [id number] 2022-06-11 00:00:00 [facility] XR, foot, 2 view 2022-05-28 00:00:00 [facility] XR, knee, 1 or 2 view 2022-05-17 00:00:00 [facility] [id number] 2021-09-25 00:00:00 [facility] [id number] 2021-09-25 00:00:00 [facility] Appendectomy [facility] Elbow Surgery [facility] Knee Replacement [facility] Arthroplasty of Radial [facility] Total Knee Replacement [facility] Vasectomy [facility] Prostatectomy [facility] Hernia Repair [facility] Plan of Care Planned Activity Planned Date Details Comments Source Instructions [facility] Encounters Start End Encounter Admission Attending Care Care Encounter Source Date/Time Date/Time Type Type Clinicians Facility Department ID 2023-07-04 2023-07-04 Outpatient Juan Jose [facility] [id number] Univers 10:00:00 10:00:00 NKECHI lam [facility] 2023-06-05 2023-06-05 Outpatient ALECIA Griggs [facility] [id number] [facility] 11:06:00 11:06:00 [facility] 2023-05-15 2023-05-15 Outpatient FOG_[facility]_ AOSM AOSM [id number] Le 00:00:00 00:00:00 [place] [id number] [facility] 2023-05-15 2023-05-15 Outpatient FOG_[facility]_ AOSM AOSM [id number] Le 00:00:00 00:00:00 [place] [id number] [facility] 2023-05-15 2023-05-15 Outpatient FOG_[place]_ AOSM AOSM [id number] Le 00:00:00 00:00:00 [place] [id number] [facility] 2023-05-15 2023-05-15 Outpatient FOG_[place]_ AOSM AOSM [id number] Le 00:00:00 00:00:00 [place] [id number] [facility] 2023-05-15 2023-05-15 Outpatient FOG_[place]_ AOSM AOSM [id number] Le 00:00:00 00:00:00 [place] [id number] [facility] 2023-05-15 2023-05-15 Outpatient FOG_[place]_ AOSM AOSM [id number] Le 00:00:00 00:00:00 [place] [id number] [facility] 2023-05-13 2023-05-13 Outpatient FOG_[place]_ AOSM AOSM [id number] Le 00:00:00 00:00:00 [place] [id number] [facility] 2023-05-06 2023-05-06 Outpatient Juan Jose [facility]ILVA [facility] [id number] Univers 09:30:00 09:30:00 [facility] 2023-04-18 2023-04-18 Outpatient Juan Jose [facility] [id number] Univers 10:00:00 10:00:00 [facility] 2023-04-04 2023-04-04 Outpatient Juan Jose [facility] [id number] Univers 14:00:00 14:28:27 [facility] 2023-04-04 2023-04-04 [facility] [id number] Univers 14:00:00 14:28:27 Visit [facility] [id number] it y of AXTELL [id number] Davin as TALIB?BLEA [id number] [place] dical [address] MEDICAL OFFICE BUILDING 2023-03-26 2023-03-26 [facility] [facility] [place] 1.2.840.114 [id number] Univers 09:51:26 23:59:00 Encounter [facility] 350.1.13.10 it[place] [phone] [address] 2023-03-26 2023-03-26 [facility] 1.2.840.114 [id number] Univers 09:51:10 23:59:00 Encounter [facility] 350.1.13.10 [place] [id number] [address] 2023-03-26 2023-03-26 Outpatient UMER MOTA [facility] [id number] Univers 09:50:48 09:50:[address] [facility] 2023-03-26 2023-03-26 [facility] 1.2.840.114 10 [id number] Univers 09:50:48 09:50:48 Encounter [employer] [facility] 350.1.13.10 [place] [id number] [facility] [address] 2023-03-21 2023-03-21 Outpatient R SILVA [facility] [id number] Univers 11:00:00 11:00:00 [facility] 2023-03-19 2023-03-19 Telephone [facility] [phone] [id number] Univers 00:00:00 00:00:00 [employer] 350.1.13.10 it y of [place] 4.2.7.2.686 Davin [place] TALIB?BLEA [phone] Ok stefany RAE [address] [place] [address] OFFICE [facility] 2023-03-17 2023-03-17 [facility] [id number] Univers 09:46:40 23:59:00 [facility] 2023-03-17 2023-03-17 Office [facility] 1.2.840.114 [id number] Univers 09:00:00 09:45:13 Visit [employer] 350.1.13.10 it y of [place] 4.2.7.2.686 Davin as TALIB?BLEA [phone] Ok stefany RAE 092 [facility] OFFICE [facility] 2023-03-17 2023-03-17 Telephone [facility] [phone] [id number] Univers 00:00:00 00:00:00 [employer] 350.1.13.10 it y of [place] 4.2.7.2.686 Davin as TALIB?BLEA [phone] Ok dicdoron RAE 220 [facility] OFFICE [facility] 2023-03-15 2023-03-15 [facility] 12.840.114 [id number] Univers 00:00:00 00:00:00 XINTEC 350.1.13.10 ity of [place] 4.2.7.2.686 Davin as TALIB?BLEA [phone] Ok stefany RAE [address] [place] [address] MEDICAL OFFICE [facility] 2023-03-06 2023-03-06 Outpatient R UMER NEWTON [facility] [id number] Univers 07:36:20 23:59:00 UMER NEWTON larry [facility] 2023-03-06 2023-03-06 [facility] [id number] Univers 07:36:20 23:59:00 [facility] 350.1.13.10 ity of [place] 4.2.7.2.686 [place] [facility] [id number] [facility] [address] 2023-02-24 2023-02-24 Telephone [facility] 1.2.840.114 [id number] Univers 00:00:00 00:00:00 Umer Cruz [facility] 350.1.13.10 ity of [place] 4.2.7.2.686 [place]in [place] TALIB?BLEA [id number] [address] OFFICE [facility] 2023-02-21 2023-02-21 Outpatient R UMER NEWTON [facility] [id number] Univers 11:00:00 11:59:05 UMER NEWTON [facility] 2023-02-21 2023-02-21 Office [facility] 1.2.840.114 [id number] Univers 11:00:00 11:59:05 Visit Umer [facility] 350.1.13.10 ity of [place] 4.2.7.2.686 [place] TALIB?BLEA [id number] [address] MEDICAL OFFICE [facility] 2023-02-21 2023-02-21 Orders Doctor VIRAL 1.2.840.114 [id number] Univers 00:00:00 00:00:00 Only Unassigned, NELY 350.1.13.10 ity of [facility] 4.2.7.2.686 [place] as [phone] [facility] [address] 2022-12-30 2022-12-30 Outpatient FOG_Bloome_ AOSM AOSM 550 [id number] Le 00:00:00 00:00:00 Rock [id number] [facility] 2022-12-25 2022-12-25 Aurea Sheriff AOSM [place] - [place] [id number] Le 00:00:00 00:00:00 Tiffanie Griggs MD: [address] FOG_[address] [facility] Spo [facility] [place] [address] , Ph. [phone] 2022-11-29 2022-11-29 Outpatient FOG_[place]_ AOSM AOSM 550 0359-20 Le 00:00:00 00:00:00 Rock [id number] [facility] 2022-11-29 2022-11-29 Outpatient FOG_[place]_ AOSM AOSM 550 0359-20 Le 00:00:00 00:00:00 Rock [id number] [facility] 2022-11-29 2022-11-29 Outpatient FOG_Bloome_ AOSM AOSM 550 0359-20 Le 00:00:00 00:00:00 Rock [id number] [facility] 2022-11-27 2022-11-27 Outpatient FOG_[place]_ AOSM AOSM 550 0359-20 Le 00:00:00 00:00:00 Rock [id number] [facility] 2022-11-27 2022-11-27 Aurea Jaziel [place]OS[place] - [place] [id number] Le 00:00:00 00:00:00 Tiffanie Griggs MD: 7401 FOG_Ofc dic [facility] [place] [address] , Ph. [phone] 2022-10-30 2022-10-30 Outpatient FOG_[place]_ AOSM AOSM 550 0359-20 Le 00:00:00 00:00:00 Rock [id number] [facility] 2022-10-30 2022-10-30 Outpatient FOG_Bloome_ AOSM AOSM 550 0359-20 Le 00:00:00 00:00:00 Rock [id number] [facility] 2022-10-30 2022-10-30 Aurea Sheriff AOSM [place] - [place] [id number] Le 00:00:00 00:00:00 Tiffanie Griggs MD: [address] F[address] [facility] Spo [facility] [place] [address] , Ph. [phone] 2022-10-16 2022-10-17 Inpatient EDA Barney SURG [id number] [facility] 10:00:00 17:03:00 Aurea Quiñones [facility] 2022-10-14 2022-10-14 Outpatient FOG_[place]_ AOSM AOSM 550 0359-20 Le 00:00:00 00:00:00 Rock [id number] [facility] 2022-10-14 2022-10-14 Outpatient FOG_[place]_ AOSM AOSM 550 0359-20 Le 00:00:00 00:00:00 Rock 176003 [facility] 2022-10-14 2022-10-14 Aurea Sheriff AOSM [place] - [place] [id number] Le 00:00:00 00:00:00 Tiffanie Griggs MD: 7401 FOG_Surgery dic [facility] [place] [address] , Ph. [phone] 2022-10-08 2022-10-08 Outpatient EDA Barney 3DAY [id number] [facility] 08:00:00 23:00:00 Aurea Zuluaga [facility] 2022-09-17 2022-09-17 Outpatient FOG_Burke_R AOSM AOSM 550 0359-20 Le 00:00:00 00:00:00 Mauricio [id number] [facility] 2022-09-17 2022-09-17 [place] Sheriff [place] [id number] Le 00:00:00 00:00:00 Tiffanie Griggs MD: 7401 FOG_Ofc dic [facility] e [address] , Ph. [phone] 2022-09-02 2022-09-02 Outpatient FOG_Burke_R AOSM AOSM 550 0359-20 Le 00:00:00 00:00:00 Mauricio [id number] [facility] 2022-08-27 2022-08-27 [facility] [id number] [facility] 15:08:00 15:08:00 Aurea Venita [facility] 2022-08-27 2022-08-27 Outpatient FOG_Burke_R AOSM AOSM 550 0359-20 Le 00:00:00 00:00:00 Mauricio [id number] [facility] 2022-08-27 2022-08-27 [place]a Sheriff [place]OS[place] [id number] Le 00:00:00 00:00:00 Tiffanie Griggs MD: [address] FOG_Ofc dic [facility], [place] [address] , Ph. [phone] 2022-08-26 2022-08-26 Outpatient FOG_Burke_R AOSM AOSM 550 0359-20 Le 00:00:00 00:00:00 Mauricio [id number] [facility] 2022-08-01 2022-08-01 Outpatient FOG_Burke_R AOSM AOSM 550 0359-20 Le 00:00:00 00:00:00 Mauricio [id number] [facility] 2022-08-01 2022-08-01 Outpatient Simón EDWARDLEILA AO [id number] e-3 00:00:00 00:00:00 Eran Lilly [id number]-8 [id number] 2022-08-01 2022-08-01 Eran Lilly [place] - [place] 15 Le 00:00:00 00:00:00 MD Simón: Tiffanie Bowers [address] FOG_Ofc dic [facility] [address], [place] [address] , Ph. [phone] 2022-07-25 2022-07-25 Outpatient FOG_Burke_R AOSM AOSM 550 0359-20 Le 00:00:00 00:00:00 Mauricio [id number] [facility] 2022-07-25 2022-07-25 Nela Webber AOLEILA [place] - [place] [id number] Le 00:00:00 00:00:00 MD Channing: Tiffanie ag [address] FOG_Ofc dic [facility], [place] [address] , Ph. [phone] 2022-07-25 2022-07-25 Outpatient Nela Snell AOSM AOSM [id number] 00:00:00 00:00:00 Y fa4-11ed-8 [id number] 2022-07-24 2022-07-24 Outpatient FOG_Burke_R AOSM AOSM 550 0359-20 Le 00:00:00 00:00:00 Mauricio [id number] [facility] 2022-07-17 2022-07-17 Outpatient FOG_Burke_R AOSM AOSM 550 0359-20 Le 00:00:00 00:00:00 Mauricio [id number] [facility] 2022-07-11 2022-07-11 Outpatient FOG_Burke_R AOSM AOSM 550 0359-20 Le 00:00:00 00:00:00 Mauricio [id number] [facility] 2022-07-09 2022-07-09 Outpatient EL Nela Snell HCATO DAYS Y000 [id number] [facility] 10:14:00 10:14:[address] [place] [address] [facility] 2022-07-09 2022-07-09 Outpatient FOG_Burke_R AOSM AOSM 550 0359-20 Le 00:00:00 00:00:00 Mauricio [id number] [facility] 2022-07-09 2022-07-09 Nela ALLRED [place] - [place] [id number] Le 00:00:00 00:00:00 MD Channing: Tiffanie ag [address] FOG_Surgery di [facility], [place] [address] , Ph. [phone] 2022-07-09 2022-07-09 Outpatient Nela Snell AOSM AOSM [id number] 00:00:00 00:00:00 Y [id number]-[id number] 2022-07-01 2022-07-01 Outpatient FOG_Burke_R AOSM AOSM 550 0359-20 Le 00:00:00 00:00:00 Mauricio [id number] [facility] 2022-07-01 2022-07-01 Nela Webber [place]OSM [place] [id number] 5 Le 00:00:00 00:00:00 MD Channing: Tiffanie mck[place]hop[place] [address] FOG_Ofc dic [facility] [place] [address] , Ph. [phone] 2022-07-01 2022-07-01 Outpatient Nela Snell AOSM AOSM [id number] 00:00:00 00:00:00 Y cb6-11ed-a [id number] 2022-06-25 2022-06-25 Outpatient FOG_Burke_R AOSM AOSM 550 0359-20 Le 00:00:00 00:00:00 Mauricio [id number] [facility] 2022-06-25 2022-06-25 Eran Lilly AOLEILA [place] - [place] 09 Le 00:00:00 00:00:00 MD Simón: Tiffanie Bowers [address] FOG_Ofc dic [facility] [address], [place] [place] [address] , Ph. [phone] 2022-06-25 2022-06-25 Outpatient CHALINO GrSM [id number] [id number] 00:00:00 00:00:00 Eran Lilly [id number]-9 [id number] 2022-06-11 2022-06-12 Inpatient MAURICIO Gr HCATO SURG [id number] [facility] 06:56:00 13:11:00 [facility] 2022-06-11 2022-06-12 Inpatient MAURICIO Gr HCATO SURG [id number] [facility] 06:56:00 13:11:00 Eran Keyes726 [facility] 2022-05-30 2022-05-30 Outpatient EDA Gillespie 3DAY [id number] [facility] 08:00:00 23:00:00 Eran Walker [facility] 2022-05-30 2022-05-30 Outpatient BRIANNA Gr LABO [id number] [facility] 18:04:00 18:04:00 Eran Librado [facility] 2022-05-30 2022-05-30 Outpatient FOG_Burke_R AOSM AOSM 550 0359-20 Le 12:40:00 12:40:00 Mauricio [id number] [facility] 2022-05-30 2022-05-30 Outpatient FOG_Burke_R AOSM AOSM 550 0359-20 Le 00:00:00 00:00:00 Mauricio [id number] [facility] 2022-05-28 2022-05-28 Outpatient FOG_Burke_R AOSM AOSM 550 0359-20 Le 03:45:00 03:45:00 Mauricio [id number] [facility] 2022-05-28 2022-05-28 Outpatient Anusha AOSM AOSM [id number] c-0 00:00:00 00:00:00 Aurea Sheriff 218-11ed-a [id number] 2022-05-28 2022-05-28 Outpatient Simón AOSM AOSM [id number] [id number] 00:00:00 00:00:00 Eran Lilly 231-11ed-b [id number] 2022-05-28 2022-05-28 Aurea Jaziel [place]OSM [place] - [place] [id number] Le 00:00:00 00:00:00 Tiffanie Griggs MD: [address] FOG_Ofc dic [facility], [place] [address] , Ph. [phone] 2022-05-17 2022-05-17 Outpatient FOG_Burke_R AOSM AOSM 550 [id number] Le 03:26:00 03:26:00 Mauricio [id number] [facility] 2022-05-17 2022-05-17 Eran Lilly AOSM [place] - [place] 00:00:00 00:00:00 MD Simón: Tiffanie Bowers [address] FOG_Ofc dic [place], [employer] [facility] [address], [place], [place] [address] , Ph. [phone] 2022-05-17 2022-05-17 Outpatient CHALINO Gr AOSM [id number] e-f 00:00:00 00:00:00 Earn Lilly [id number]-[id number] 2022-04-04 2022-04-04 Outpatient Tremayne_R AOSM AOSM 550 [id number] Le 04:58:00 04:58:00 Mauricio [id number] [facility] 2021-09-25 2021-09-26 Inpatient EDA Gillespie ADMI [id number] [facility] 06:34:00 14:54:00 Eran 80 [place] [facility] 2021-09-25 2021-09-26 Inpatient EDA Gillespie ADMI [id number] [facility] 06:34:00 14:54:00 Eran [id number] [place] [facility] 2021-09-18 2021-09-18 Outpatient EDA Gillespie 3DAY [id number] [facility] 00:00:00 23:59:00 Eran [id number] [place] [facility] 2021-09-18 2021-09-18 Outpatient LISSETTE GrCL LABO [id number] [facility] 17:08:00 17:08:00 Eran Hall [facility] 2020-01-05 2020-01-05 Outpatient ChanningNelaTO RADI [id number] [facility] 11:30:00 11:30:00 [id number] [place] [facility] Results Test Description Test Time Test Comments Results Result Comments Source BASIC METABOLIC PANEL 2022-10-08 16:48:00 Test Item Value Reference Range Interpretation Comme nts SODIUM (test code = NA) 139 mmol/L 136-145 N POTASSIUM (test code = K) 4.3 mmol/L 3.5-5.1 N CHLORIDE (test code = CL) 102.0 mmol/L 98-107 N CARBON DIOXIDE (test code = 27.9 mmol/L 21-32 N CO2) GLUCOSE (test code = GLU) 106 mg/dL 70-110 N BLOOD UREA NITROGEN (test 25 mg/dL 7-18 H code = BUN) GLOMERULAR FILTRATION RATE 84.6 >60 T he Glomerular Filtration Rate (test code = GFR) is a calcu lated parameterbased on serum Creati nine, patient age and sex. GFR va luesless than 60 mL/min/1.73 squ are meters are indicative ofCh ronic Kidney Disease. Values less than 15 mL/min/1.73squa re meters indicate Kidney failure. The calculation for GFR is based on the CKD-EPI (20 21) calculation. This formulais race indifferent and is the tami mmended formula for GFRby the [facility] for Adults.The GFR will not calcul ate if the sex is unknown or if t hepatient's age is <18 years. CREATININE (test code = 0.93 mg/dL 0.55-1.30 N CREAT) CALCIUM (test code = CA) 9.4 mg/dL 8.2-10.1 N - CT LOWER EXTRM W/O C [id number] 07:20:00 [facility] : 1945 Sex: M Patient Name: DELBERT HIGGINS Unit No: [id number] EXAMS: CPT CODE: [id number] [place] LOWER EXTRM W/[place] [address] CT OF THE BILATERAL FEET WITH SAGITTAL AND CORONAL RECONSTRUCTIONS DIAGNOSIS: 1. 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 Lateral subluxation of the bases of the 1st through 5th metatarsals is noted with joint space narrowing sclerosis and cyst formation. Severe degenerative changes are also seen in the talonavicular joint with medial subluxation of the navicular. There is a hammertoe deformity of the 2nd toe. These findings are consistent with clinically diagnosed Charcot changes. 2. In the left foot there is a mid foot collapse with dorsal lateral subluxation of the metatarsal bases. Severe degenerative changes are present with bony erosion, cyst and sclerotic change. Subluxation of the talonavicular and naviculocuneiform joints is seen with lateral displacement of the cuneiforms. Hammertoe deformities are seen involving the 1st through 4th toes. Marked degenerative change is seen between the head of the 1st metatarsal and the sesamoids. These findings are consistent with clinically diagnosed Charcot changes. COMMENT: COMPARISON: No prior exams available. Scans were performed with thin sections and reconstructionswere obtained. CT radiation dose optimization is achieved for this examination by the use of a CT protocol in accordance with ACR practice standards and adherence to chief lending officer's recommendations. Charcot changes in both feet are as described. No acute fractures are seen. at 0720 Reported and signed by: Uri Mi MD CC:Aurea Griggs MD; Nela Snell MD Technologist: RT German(R) CTDI: DLP: Trnscrpt: 08/28/2022 (0720) t.[email or web address] [facility] NAME: DELBERT HIGGINS [address] [facility] PHYS: Aurea Conner MD : 1945 AGE: 77 SEX: M [place], [place] [address] LOC: Y.RAD PHONE #: [phone] EXAM DATE: 08/27/2022 STATUS: DEP CLI FAX #: [phone] RAD #: D/C DT PAGE 1 Signed Report Patient Name: DELBERT HIGGINS Unit No: [id number] EXAMS: CPT CODE: [id number] CT LOWER EXTRM W/[place] [address] (Continued) Orig Print D/T: S: 08/28/2022 (0723) [facility] NAME: DELBERT HIGGINS [address] [facility] PHYS: Aurea Conner MD : 1945 AGE: 77 SEX: M [place] [id number] LOC: Y.RAD PHONE #: [phone] EXAM DATE: 08/27/2022 STATUS: DEP CLI FAX #: [phone] RAD #: D/C DT PAGE 2 Signed Report- XR KNEE 1 OR 2 V [id number] 12:50:00[facility] 1945 Sex: M Patient Name: DELBERT HIGGINS Unit No: [id number] EXAMS: CPT CODE: [id number] XR KNEE 1 OR 2 [place] [id number] IMAGES PROVIDED: 2 FINDINGS: 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 No acute fracture is visualized. IMPRESSION: Postoperativeexam as above. at 1250 Reported and signed by: Edwar Houston M.D. CC: Eran Gr MD Technologist: DHIRAJ NICHOLS (RT.R) Transcribed D/ (1250) AniaEda [facility] NAME: DELBERT HIGGINS [address] [facility] PHYS: Eran Reyna MD : 1945 AGE: 77 SEX: M [place], [place] [address] LOC: Y.321 A PHONE #: [phone] EXAM DATE: 06/11/2022 STATUS: ADM IN FAX #: [phone] RAD #: D/C DT PAGE 1 Signed Report Patient Name: DELBERT HIGGINS Unit No: [id number] EXAMS: CPT CODE: [id number] XR KNEE 1 OR 2 [place] [id number] (Continued) Orig Print D/T: S: 06/12/2022 (1253) [facility] NAME: DELBERT HIGGINS [address] [facility] PHYS: Eran Reyna MD : 1945 AGE: 77 SEX: M [place], [place] [address] LOC: Y.321 A PHONE #: [phone] EXAM DATE: 06/11/2022 STATUS: ADM IN FAX #: [phone] RAD #: D/C DT PAGE 2 Signed ReportBASIC METABOLIC [id number] 07:09:00 Test Item Value Reference Range Interpretation Comments SODIUM (test code = 139 mmol/L 136-145 N NA) POTASSIUM (test code = 4.3 mmol/L 3.5-5.1 N K) CHLORIDE (test code = 103.0 mmol/L 98-107 N CL) CARBON DIOXIDE (test 27.2 mmol/L 21-32 N code = CO2) GLUCOSE (test code = 141 mg/dL 70-110 H GLU) BLOOD UREA NITROGEN 25 mg/dL 7-18 H (test code = BUN) GLOMERULAR FILTRATION 82.9 >60 Unit o f measure: RATE (test code = GFR) mL/mi n/1.73 y6Wodrhirrx Range:Healthy Adults >90 mL/min/1.73 m2 For Chronic Kidney Disease: Stage II Mild Decrease i n GFR 60-90 Stage III Moderate Decrea se in GFR 30-59 S tage IV Severe Decre ase in GFR 15-29 St age V Kidney Failur e <15 CREATININE (test code 0.89 mg/dL 0.55-1.30 N = CREAT) CALCIUM (test code = 9.2 mg/dL 8.2-10.1 N CA) SPECIMEN COMMENT: POD #1HGB [id number] 06:06:00 Test Item Value Reference Range Interpretation Comments HEMOGLOBIN (test code = HGB) 9.8 g/dL 12-16 L HEMATOCRIT (test code = HCT) 30.1 % 37-47 L SPECIMEN COMMENT: POD #1Hemoglobin and Hematocrit panel - [id number] 05:12:00 Test Item Value Reference Range Interpretation Comments hemoglobin (test code = hemoglobin) 9.8 g/dL 12-16 L hematocrit (test code = hematocrit) 30.1 % 37-47 L performing lab: (test code = performing lab:) [facility] [id number] 05:12:00 Test Item Value Reference Range Interpretation Comments sodium (test code = sodium) 139 mmol/L 136-145 potassium (test code = 4.3 mmol/L 3.5-5.1 potassium) chloride (test code = chloride) 103.0 mmol/L 98-107 carbon dioxide (test code = 27.2 mmol/L 21-32 carbon dioxide) glucose (test code = glucose) 141 mg/dL 70-110 H blood urea nitrogen (test code = 25 mg/dL 7-18 H blood urea nitrogen) glomerular filtration rate (test 82.9 >60 code = glomerular filtration rate) creatinine (test code = 0.89 mg/dL 0.55-1.30 creatinine) calcium (test code = calcium) 9.2 mg/dL 8.2-10.1 performing lab: (test code = performing lab:) [facility] 2022-06-12 05:12:00 Test Item Value Reference Range Interpretation Comments hemoglobin (test code = hemoglobin) 9.8 g/dL 12-16 L hematocrit (test code = hematocrit) 30.1 % 37-47 L performing lab: (test code = performing lab:) [facility] metabolic [id number] 05:12:00 Test Item Value Reference Range Interpretation Comments sodium (test code = sodium) 139 mmol/L 136-145 potassium (test code = 4.3 mmol/L 3.5-5.1 potassium) chloride (test code = chloride) 103.0 mmol/L 98-107 carbon dioxide (test code = 27.2 mmol/L 21-32 carbon dioxide) glucose (test code = glucose) 141 mg/dL 70-110 H blood urea nitrogen (test code = 25 mg/dL 7-18 H blood urea nitrogen) glomerular filtration rate (test 82.9 >60 code = glomerular filtration rate) creatinine (test code = 0.89 mg/dL 0.55-1.30 creatinine) calcium (test code = calcium) 9.2 mg/dL 8.2-10.1 performing lab: (test code = performing lab:) [facility] 2022-06-12 05:12:00 Test Item Value Reference Range Interpretation Comments hemoglobin (test code = hemoglobin) 9.8 g/dL 12-16 L hematocrit (test code = hematocrit) 30.1 % 37-47 L performing lab: (test code = performing lab:) [facility] [id number] 05:12:00 Test Item Value Reference Range Interpretation Comments sodium (test code = sodium) 139 mmol/L 136-145 potassium (test code = 4.3 mmol/L 3.5-5.1 potassium) chloride (test code = chloride) 103.0 mmol/L 98-107 carbon dioxide (test code = 27.2 mmol/L 21-32 carbon dioxide) glucose (test code = glucose) 141 mg/dL 70-110 H blood urea nitrogen (test code = 25 mg/dL 7-18 H blood urea nitrogen) glomerular filtration rate (test 82.9 >60 code = glomerular filtration rate) creatinine (test code = 0.89 mg/dL 0.55-1.30 creatinine) calcium (test code = calcium) 9.2 mg/dL 8.2-10.1 performing lab: (test code = performing lab:) [facility] [id number] 18:33:00 Test Item Value Reference Range Interpretation Comments SODIUM (test code = 142 mmol/L 136-145 N NA) POTASSIUM (test code = 4.2 mmol/L 3.5-5.1 N K) CHLORIDE (test code = 105.0 mmol/L 98-107 N CL) CARBON DIOXIDE (test 26.2 mmol/L 21-32 N code = CO2) GLUCOSE (test code = 95 mg/dL 70-110 N GLU) BLOOD UREA NITROGEN 36 mg/dL 7-18 H (test code = BUN) GLOMERULAR FILTRATION 86.2 >60 Unit o f measure: RATE (test code = GFR) mL/mi n/1.73 [id number] Range:Healthy Adults >90 mL/min/1.73 m2 For Chronic Kidney Disease: Stage II Mild Decrease i n GFR 60-90 Stage III Moderate Decrea se in GFR 30-59 St age IV Severe Decre ase in GFR 15-29 St age V Kidney Failur e <15 CREATININE (test code 0.86 mg/dL 0.55-1.30 N = CREAT) TOTAL PROTEIN (test 6.8 g/dL 6.4-8.2 N code = PROT) ALBUMIN (test code = 3.8 g/dL 3.4-5.0 N ALB) GLOBULIN (test code = 3.0 g/dL 2.2-4.2 N GLOB) ALBUMIN/GLOBULIN RATIO 1.3 0.7-2.0 N (test code = A/G) CALCIUM (test code = 9.4 mg/dL 8.2-10.1 N CA) BILIRUBIN TOTAL (test 0.30 mg/dL 0.2-1.00 N code = BILT) SGOT/AST (test code = 18.0 U/L 15-37 N AST) SGPT/ALT (test code = 26.0 U/L 12-78 N Please note new ALT) normal range. ALKALINE PHOSPHATASE 91 U/L 46-116 N TOTAL (test code = ALKP) CBC W/AUTO [id number] 18:06:00 Test Item Value Reference Range Interpretation Comments WHITE BLOOD CELL (test code = WBC) 8.4 K/mm3 5.7-10.5 N RED BLOOD CELL (test code = RBC) 3.99 M/mm3 4.2-5.4 L HEMOGLOBIN (test code = HGB) 11.4 g/dL 12-16 L HEMATOCRIT (test code = HCT) 35.4 % 37-47 L MEAN CELL VOLUME (test code = MCV) 89 fL 80-98 N MEAN CELL HGB (test code = MCH) 28.6 pg 27-34 N MEAN CELL HGB CONCENTRATION (test 32.2 g/dL 30.8-34.1 N code = MCHC) RED CELL DISTRIBUTION WIDTH (test 13.3 % 11-16 N code = RDW) PLT (test code = PLT) 355 K/mm3 130-400 N MEAN PLATELET VOLUME (test code = 8.7 fL 8.9-12.1 L MPV) NEUTROPHIL % (test code = NT%) 65.9 % 45-70 N LYMPHOCYTE % (test code = LY%) 14.5 % 20-40 L MONOCYTE % (test code = MO%) 8.7 % 3-10 N EOSINOPHIL % (test code = EO%) 9.2 % 1-5 H BASOPHIL % (test code = BA%) 1.5 % 0.0-1.1 H NEUTROPHIL # (test code = NT#) 5.53 K/mm3 2.00-7.50 N LYMPHOCYTE # (test code = LY#) 1.22 K/mm3 1.50-4.00 L MONOCYTE # (test code = MO#) 0.73 K/mm3 0.2-0.8 N EOSINOPHIL # (test code = EO#) 0.77 K/mm3 0.04-0.4 H BASOPHIL # (test code = BA#) 0.13 K/mm3 0.02-0.10 H MANUAL DIFF REQUIRED (test code = NO MANUAL DIFF MDIFF) NUCLEATED RED BLOOD CELL (test 0 % 0-0 N code = NRBC) CBC W Auto Differential panel - [id number] 17:30:00 Test Item Value Reference Range Interpretation Comments white blood cell (test code = 8.4 K/mm3 5.7-10.5 white blood cell) red blood cell (test code = red 3.99 M/mm3 4.2-5.4 L blood cell) hemoglobin (test code = 11.4 g/dL 12-16 L hemoglobin) hematocrit (test code = 35.4 % 37-47 L hematocrit) mean cell volume (test code = mean 89 fL 80-98 cell volume) mean cell HGB (test code = mean 28.6 pg 27-34 cell HGB) mean cell HGB concentration (test 32.2 g/dL 30.8-34.1 code = mean cell HGB concentration) red cell distribution width (test 13.3 % 11-16 code = red cell distribution width) plt (test code = plt) 355 K/mm3 130-400 mean platelet volume (test code = 8.7 fL 8.9-12.1 L mean platelet volume) neutrophil % (test code = 65.9 % 45-70 neutrophil %) lymphocyte % (test code = 14.5 % 20-40 L lymphocyte %) monocyte % (test code = monocyte 8.7 % 3-10 %) eosinophil % (test code = 9.2 % 1-5 H eosinophil %) basophil % (test code = basophil 1.5 % 0.0-1.1 H %) neutrophil # (test code = 5.53 K/mm3 2.00-7.50 neutrophil #) lymphocyte # (test code = 1.22 K/mm3 1.50-4.00 L lymphocyte #) monocyte # (test code = monocyte 0.73 K/mm3 0.2-0.8 #) eosinophil # (test code = 0.77 K/mm3 0.04-0.4 H eosinophil #) basophil # (test code = basophil 0.13 K/mm3 0.02-0.10 H #) manual diff required (test code = no manual diff manual diff required) nucleated red blood cell (test 0 % 0-0 code = nucleated red blood cell) performing lab: (test code = performing lab:) [facility] 2000 [facility] - Serum or [id number] 17:30:00 Test Item Value Reference Range Interpretation Comments sodium (test code = sodium) 142 mmol/L 136-145 potassium (test code = 4.2 mmol/L 3.5-5.1 potassium) chloride (test code = chloride) 105.0 mmol/L 98-107 carbon dioxide (test code = 26.2 mmol/L 21-32 carbon dioxide) glucose (test code = glucose) 95 mg/dL 70-110 blood urea nitrogen (test code = 36 mg/dL 7-18 H blood urea nitrogen) glomerular filtration rate (test 86.2 >60 code = glomerular filtration rate) creatinine (test code = 0.86 mg/dL 0.55-1.30 creatinine) total protein (test code = total 6.8 g/dL 6.4-8.2 protein) albumin (test code = albumin) 3.8 g/dL 3.4-5.0 globulin (test code = globulin) 3.0 g/dL 2.2-4.2 albumin/globulin ratio (test 1.3 0.7-2.0 code = albumin/globulin ratio) calcium (test code = calcium) 9.4 mg/dL 8.2-10.1 bilirubin total (test code = 0.30 mg/dL 0.2-1.00 bilirubin total) SGOT/AST (test code = SGOT/AST) 18.0 U/L 15-37 SGPT/ALT (test code = SGPT/ALT) 26.0 U/L 12-78 alkaline phosphatase total (test 91 U/L 46-116 code = alkaline phosphatase total) performing lab: (test code = performing lab:) [facility]Presence] in Specimen by Organism specific [id number] 17:30:00 Test Item Value Reference Range Interpretation Comments MRSA surveillance screen (test code see below = MRSA surveillance screen) performing lab: (test code = performing lab:) [facility] surveillance [id number] 17:30:00 Test Item Value Reference Range Interpretation Comments mssa PCR surveillance screen (test see below code = mssa PCR surveillance screen) performing lab: (test code = performing lab:) [facility]- XR KNEE 1 OR 2 V [id number] 14:52:00 [facility] : 1945 Sex: M Patient Name: DELBERT HIGGINS Unit No: [id number] EXAMS: CPT CODE: [id number] XR KNEE 1 OR 2 [place] LT [address] LEFT KNEE 2 VIEWS PORTABLE COMMENT: The patient is status post joint replacement which is articulating normally. at 1452 Reported and signed by: Uri Mi MD CC: Eran Gr MD Technologist: DHIRAJ NICHOLS (RT.R) Transcribed D/ (9822) AniaJCL [facility] NAME: DEBLERT HIGGINS [address] [facility] PHYS: Eran Reyna MD : 1945 AGE: 76 SEX: M [place], [place] [address] LOC: Y.309 A PHONE #: [phone] EXAM DATE: 09/25/2021 STATUS: DIS IN FAX #: [phone] RAD #: D/C DT 09/26/2021 PAGE 1 Signed Report Patient Name: DELBERT HIGGINS Unit No: [id number]: CPT CODE: [id number] XR KNEE 1 OR 2 [place] LT [address] (Continued) Orig Print D/T: S: 09/26/2021 (4514) [facility] NAME: DELBERT HIGGINS [address] [facility] PHYS: Eran Reyna MDDOB: 1945 AGE: 76 SEX: M [place], [place] [address] LOC: Y.309 A PHONE #: [phone] EXAM DATE: 09/25/2021 STATUS: DIS IN FAX #: [phone] RAD #: D/C DT 09/26/2021 PAGE 2 Signed ReportBASIC METABOLIC PANEL 2021-09-26 06:34:00 Test Item Value Reference Range Interpretation Comments SODIUM (test code = 141 mmol/L 136-145 N NA) POTASSIUM (test code = 4.0 mmol/L 3.5-5.1 N K) CHLORIDE (test code = 105.0 mmol/L 98-107 N CL) CARBON DIOXIDE (test 27.5 mmol/L 21-32 N code = CO2) GLUCOSE (test code = 133 mg/dL 70-110 H GLU) BLOOD UREA NITROGEN 23 mg/dL 7-18 H (test code = BUN) GLOMERULAR FILTRATION 109.6 >60 Unit o f measure: RATE (test code = GFR) mL/mi n/1.73 f3Idsoscpky Range:Healthy Adults >90 mL/min/1.73 m2 For Chronic Kidney Disease: Stage II Mild Decrease i n GFR 60-90 Stage III Moderate Decrea se in GFR 30-59 St age IV Severe Decre ase in GFR 15-29 S tage V Kidney Failur e <15 CREATININE (test code 0.70 mg/dL 0.55-1.30 N = CREAT) CALCIUM (test code = 8.7 mg/dL 8.2-10.1 N CA) SPECIMEN COMMENT: POD #1HGB [id number] 06:05:00 Test Item Value Reference Range Interpretation Comments HEMOGLOBIN (test code = HGB) 10.6 g/dL 12-16 L HEMATOCRIT (test code = HCT) 32.4 % 37-47 L SPECIMEN COMMENT: POD #1Novel Coronavirus 2019 [id number] 09:36:00 Test Item Value Reference Range Interpretation Comments Novel Coronavirus Negative Negative Positive r esults are 2019 Inhouse (test indicativ e of the presence code = COVNONPUI) ofSARS-CoV -2 RNA, clinical correlation wit h patient historyand othe r diagnostic info rmation is necessary to determinepatien t infection status. Positiv e results do not rule out bacterial infection or co -infection with other viru ses. Negative result s do not preclude SARS-C oV-2 infection andsh ould not be used as the quiana e basis for patient managementdecis ions. Negative result s must be combined with otherclinical observations, p atient history, and epidemiological information . Detection of SARS-CoV-2 RNA may be affe cted bysample collec tion methods, storag e conditions, and /or stageof infection. Love l RNA mutations, vacc inations, antiviraltherap eutics, antibiotics, chemotherapeuti c orimmunosuppres vivian drugs have not been e valuated for effectson d etection. Results are for the identification of SARS-CoV-2 RNA usingthe Soriano M2000 Sy stem under the FDA Emergen cy UseAuthorizatio n. The testing is perf ormed by brandon aguero in the procedures for the Soriano M2000 molecular diagnostic SARS-CoV-2 assa y in vitro. Novel Coronavirus 2018 [id number] 09:36:00 Test Item Value Reference Range Interpretation Comments Novel Coronavirus Negative Negative Positive r esults are 2019 Inhouse (test indicativ e of the presence code = COVNONPUI) ofSARS-CoV -2 RNA, clinical correlation wit h patient historyand othe r diagnostic info rmation is necessary to determinepatien t infection status. Positiv e results do not rule out bacterial infection or co -infection with other viru ses. Negative result s do not preclude SARS-C oV-2 infection andsh ould not be used as the quiana e basis for patient managementdecis ions. Negative result s must be combined with otherclinical observations, p atient history, and epidemiological information . Detection of SARS-CoV-2 RNA may be affe cted bysample collec tion methods, storag e conditions, and /or stageof infection. Love l RNA mutations, vacc inations, antiviraltherap eutics, antibiotics, chemotherapeuti c orimmunosuppres vivian drugs have not been e valuated for effectson d etection. Results are for the identification of SARS-CoV-2 RNA usingthe charming charlie M2000 Sy stem under the FDA Emergen cy UseAuthorizatio n. The testing is perf ormed by personneltraine d in the procedures for the charming charlie M2000 molecular diagnostic SARS-CoV-2 assa y in vitro. CBC W/AUTO [id number] 17:34:00 Test Item Value Reference Range Interpretation Comments WHITE BLOOD CELL (test code = WBC) 9.0 K/mm3 5.7-10.5 N RED BLOOD CELL (test code = RBC) 4.23 M/mm3 4.2-5.4 N HEMOGLOBIN (test code = HGB) 12.3 g/dL 12-16 N HEMATOCRIT (test code = HCT) 38.4 % 37-47 N MEAN CELL VOLUME (test code = MCV) 91 fL 80-98 N MEAN CELL HGB (test code = MCH) 29.1 pg 27-34 N MEAN CELL HGB CONCENTRATION (test 32.0 g/dL 30.8-34.1 N code = MCHC) RED CELL DISTRIBUTION WIDTH (test 13.9 % 11-16 N code = RDW) PLT (test code = PLT) 335 K/mm3 130-400 N MEAN PLATELET VOLUME (test code = 9.0 fL 8.9-12.1 N MPV) NEUTROPHIL % (test code = NT%) 69.9 % 45-70 N LYMPHOCYTE % (test code = LY%) 15.3 % 20-40 L MONOCYTE % (test code = MO%) 6.3 % 3-10 N EOSINOPHIL % (test code = EO%) 6.6 % 1-5 H BASOPHIL % (test code = BA%) 1.6 % 0.0-1.1 H NEUTROPHIL # (test code = NT#) 6.29 K/mm3 2.00-7.50 N LYMPHOCYTE # (test code = LY#) 1.38 K/mm3 1.50-4.00 L MONOCYTE # (test code = MO#) 0.57 K/mm3 0.2-0.8 N EOSINOPHIL # (test code = EO#) 0.59 K/mm3 0.04-0.4 H BASOPHIL # (test code = BA#) 0.14 K/mm3 0.02-0.10 H MANUAL DIFF REQUIRED (test code = NO MANUAL DIFF MDIFF) NUCLEATED RED BLOOD CELL (test 0 % 0-0 N code = NRBC) COMPREHENSIVE METABOLIC [id number] 16:10:00 Test Item Value Reference Range Interpretation Comments SODIUM (test code = 144 mmol/L 136-145 N NA) POTASSIUM (test code = 4.1 mmol/L 3.5-5.1 N K) CHLORIDE (test code = 105.0 mmol/L 98-107 N CL) CARBON DIOXIDE (test 29.7 mmol/L 21-32 N code = CO2) GLUCOSE (test code = 106 mg/dL 70-110 N GLU) BLOOD UREA NITROGEN 37 mg/dL 7-18 H (test code = BUN) GLOMERULAR FILTRATION 78.0 >60 Unit o f measure: RATE (test code = GFR) mL/mi n/1.73 v7Cesmfgphi Range:Healthy Adults >90 mL/min/1.73 m2 For Chronic Kidney Disease: Stage II Mild Decrease i n GFR 60-90 Stage III Moderate Decrea se in GFR 30-59 St age IV Severe Decre ase in GFR 15-29 S tage V Kidney Failur e <15 CREATININE (test code 0.94 mg/dL 0.55-1.30 N = CREAT) TOTAL PROTEIN (test 6.9 g/dL 6.4-8.2 N code = PROT) ALBUMIN (test code = 3.8 g/dL 3.4-5.0 N ALB) GLOBULIN (test code = 3.1 g/dL 2.2-4.2 N GLOB) ALBUMIN/GLOBULIN RATIO 1.2 0.7-2.0 N (test code = A/G) CALCIUM (test code = 9.5 mg/dL 8.2-10.1 N CA) BILIRUBIN TOTAL (test 0.40 mg/dL 0.2-1.00 N code = BILT) SGOT/AST (test code = 21.0 U/L 15-37 N AST) SGPT/ALT (test code = 24.0 U/L 12-78 N Please note new ALT) normal range. ALKALINE PHOSPHATASE 89 U/L 46-116 N TOTAL (test code = ALKP) - CT UP EXTREM W/O CONT [id number] 11:06:00 Patient Name: DELBERT HIGGINS Unit No: [id number] EXAMS: CPT CODE: [id number] CT UP EXTREM W/[place] [address] [place] SCAN RIGHT ELBOW WITH RECONSTRUCTION DIAGNOSIS: 1. The current exam is compared to a previous exam dated September 02, 2019. There is interval internal fixation of an intercondylar fracture distal humerus with bone plate and fixator screws. There appears to be relatively immature healingof the described fracture. Also noted is interval removal of cement spacer present within the area of osteolysis proximal radius as well as the radial head component present within the soft tissues anterior to the trochlea and coronoid process. There is a loose body present within the soft tissues adjacent to the medial aspect of the olecranon which was not seen on the previous exam and measures approximately 11 x 14 mm in size. TECHNIQUE: Volumetric CT data of the right elbow was obtained without use of intravenous contrast. Images were then viewed in the axial, coronal and sagittal planes. CT radiation dose optimization is achieved for this examination by the use of a CT protocol in accordance with ACR practice standards and adherence to chief lending officer's recommendations. INDICATION: RIGHT ELBOW FX COMPARISON: None. COMMENT: Findings are described above. at 1106 Reported and signed by: Sadie Mcdowell MD CC: Nela Snell MD Technologist: Juan DodgeRT(R) CTDI: DLP: Trnscrpt: 01/06/2020 (1106) t.[email or web address] [facility] NAME: DELBERT HIGGINS [address] PHYS: Nela Romero MD : 1945 AGE: 74 SEX: M [place], [place] [address] LOC: Y.RAD PHONE #: [phone] EXAM DATE: 01/05/2020 STATUS: DEP CLI FAX #: [phone] RAD #: D/C DT PAGE 1 Signed Report Patient Name: DELBERT HIGGINSUnit No: [id number] EXAMS: CPT CODE: [id number] CT UP EXTREM W/[place] [address] (Continued) Orig Print D/T: S: 01/06/2020 (1109) [facility] NAME: DELBERT HIGGINS [address] [facility] PHYS:Nela Romero MD : 1945 AGE: 74 SEX: M [place] [address] LOC: Y.RAD PHONE #: [phone] EXAM DATE: 01/05/2020 STATUS: DEP CLI FAX #: [phone] RAD #: D/C DT PAGE 2 Signed Report- CT UP EXTREM W/O CONT RT 2019-09-03 08:43:00 Patient Name: DELBERT HIGGINS Unit No: [id number] EXAMS: CPT CODE: [id number] CT UP EXTREM W/[place] [address] CT SCAN RIGHT ELBOW WITH RECONSTRUCTION DIAGNOSIS: 1. There is an intra-articular fracture of the medial condyle distal right humerus which is displaced approximately 1.5 cm. Also noted is an area of osteolysis proximal radius which may be related to changes secondary to chronic infection. There has been resection of the radial head and placement of a cement spacer of which the stem is located within the area of osteolysis. The radial head component is broken and displaced so that it is pr esent in the soft tissues anterior to the coronoid process. The displaced radial head segments space and measures approximately 2.3 x 1.2 cm in size. 2. Subcortical bony irregularity of the capitellum. COMMENT: 0.63 mm axial slices are obtained of the right elbow with reconstruction. Findings are as described above. at 0843 Reported and signed by: Sadie Mcdowell MD CC: Nela Snell MD Technologist: Juan Dodge,RT(R) CTDI: DLP: Trnscrpt: 09/03/2019 (0843) AniaGVG [facility] NAME: DELBERT HIGGINS [address] [facility] PHYS: Nela Romero MD : 1945 AGE: 74 SEX: M [place] [address] : Y.RAD PHONE #: [phone] EXAM DATE: 09/02/2019 STATUS: DEP CLI FAX #: [phone] RAD #: D/C DT PAGE 1 Signed Report Patient Name: DELBERT HIGGINS Unit No: [id number] EXAMS: CPT CODE: [id number] [place] UP EXTREM W/[place] [address] (Continued) Orig Print D/T: S: 09/03/2019 (0846) [facility] NAME: DELBERT HIGGINS [address] [facility] PHYS: Nela Romero MD : 1945 AGE: 74 SEX: M [place] [address] LOC: Y.RAD PHONE #: [phone] EXAM DATE: 09/02/2019 STATUS: DEP CLI FAX #: [phone] RAD #: D/C DT PAGE 2 Signed ReportTISSUE [id number] 15:05:00Surgical Pathology Report Case: [id number] Authorizing Provider: Stalin Owens MD Collected: 07/09/2017 1024 Ordering Location: [facility] Received: 07/09/2017 1450 SERVICES Pathologist: Arturo Ritchie MD Specimens: A) - Lymph Node, JOHN PROSTATIC LYMPH NODE B) - Lymph Node, RIGHT OB TURATOR LYMPH NODE C) - Lymph Node, LEFT INTERNAL ILIAC LYMPH NODE D) - Lymph Node, LEFT OBTURATOR LYMPH NODE E) - Prostate, PROSTATE F) - Appendix, APPENDIX A. LYMPH NODE, PERIPROSTATIC, EXCISION:- ONE BENIGN LYMPH NODE (0/1)B. LYMPH NODES, RIGHT OBTURATOR, DISSECTION:- EIGHT BENIGN LYMPH NODES (0/8)C. LYMPH NODE, LEFT INTERNAL ILIAC, EXCISION:- ONE BENIGN LYMPH NODE (0/1)D. LYMPH NODE, LEFT OBTURATOR, EXCISION:- ONE BENIGN LYMPH NODE (0/1)E. PROSTATE GLAND, ROBOTIC LAPAROSCOPIC ASSISTED PROSTATECTOMY: - ADENOCARCINOMA, YARA 3+4=7, FOCAL EXTRAPROSTATIC EXTENSION, SURGICAL MARGINS NEGATIVE SEMINAL VESICLES, ROBOTIC LAPAROSCOPIC ASSISTED PROSTATECTOMY: - NO PATHOLOGIC DIAGNOSISF. APPENDIX, APPEN DECTOMY:- ACUTE APPENDICITIS- EIGHT BENIGN PERIAPPENDICEAL LYMPH NODES (0/8) Signing Pathologist Direct Phone Line: [phone] signed by Arturo Ritchie MD on 07/18/2017 at 3:05 PMPreliminary result electronically signed by Arturo Ritchie MD on 07/17/2017 at 10:39 AMThe tumor mass is unifocal and located on the right side of the gland and is in the peripheral zone posterolaterally. PROSTATE GLAND: Radical Prostatectomy (Prostate Res - All Specimens) Specimen Site: Prostatic structure Tumor Site: Prostatic structureSPECIMEN Procedure: Radical prostatectomy Prostate Size: Size (cm): 4.2 cm Size (cm): 2.8 cm Size (cm): 2 cm Prostate Weight: Specify Weight (g): 28.8 Lymph Node Sampling: Pelvic lymph node dissectionTUMOR Histologic Type: Adenocarcinoma (acinar, not otherwise specified) Yara Pattern: Yara pattern Primary Pattern: Grade 3 Secondary Pattern: Grade 4 Tertiary Pattern: Not applicable Total Parker Score: 7 Tumor Quantitation: Proportion (percentage)of Prostate Involved by Tumor Specify (%): 10 Tumor Quantitation: Tumor size (dominant nodule, if present) Greatest Dimension (mm): 20 mm Extraprostatic Extension: Present Focality of Extraprostatic Extension: Focal Specify Site(s): right neurovascular bundle Seminal Vesicle Invasion (invasion of muscular wall required): Not identified Lymph-Vascular Invasion: Not Identified Perineural Invasion: Present Treatment Effect: Not identifiedMARGINS Margins: Margins uninvolved by invasive carcinoma Benignglands at surgical margin: +Benign glands at surgical marginLYMPH NODES Regional Lymph Nodes: Numberof Lymph Nodes Examined: Specify number: 11 Number of Lymph Nodes Involved: None identifiedSTAGE (pTNM) Primary Tumor (pT): pT3a: Extraprostatic extension or microscopic invasion of bladder neck Regional Lymph Nodes (pN): pN0: No regional lymph node metastasis Distant Metastasis (pM): Not applicableADDITIONAL FINDINGS 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 Periprostatic lymph node; B. Right obturator lymph node; C. Left internal iliac lymph node; D. Left obturator lymph node; E. Prostate; F. AppendixThe specimens are all submitted in formalin-filled containers.Part A: Labeled "periprostatic lymph node" consists of a segment of adipose tissue measuring 2 x 1.5 x 0.4 cm. It consists of two small wright lymph nodes measuring 0.1 to 0.2 cm, submitted entirely in A1. The remainder of the fat is submitted in A2.Part B: Labeled "right obturator lymph node" consists of a adipose tissue measuring 3 x 1.5 x 0.4 cm yielding two wright-red fatty lymph nodes measuring 0.1 to 1.6 cm. The lymph nodes are entirely submitted as follows: B1, smaller lymph node; B2, larger lymph node bisected; B3, remainder of adipose tissue.Part C: Labeled "left internal iliac lymph node" consists of a wright lymph node measuring 1 x 0.8 x 0.4 cm. The lymph node is bisected showing wright-pink gritty cut surface. The specimen is entirely submitted in C2.Part D: Labeled "left obturator lymph node" consists of a single wright-red lymph node measuring 1.6 x 0.5 x 0.4 cm. The lymph node is bisected and submitted entirely in D1.Part E: Received in a container of formalin is a radical prostatectomy specimen as "prostate" with attached bilateral seminal vesicle and vas deferens. The prostate weighs 28.8 gm and measures 2.8 cm apex to base, 4.2 cm transversely and 2.0 cm anterior to posterior. The right and left seminal vesicles measure 3.5 x 1.5 x 0.7 cm and 4.0 x 1.8 x 0.5 cm respectively. The right and left vas deferens measure 5.0 cm and 4.0 cm in length respectively and 0.5 cm in diameter respectively. The capsular surface of the prostate is purple-wright to red, dusky and focally ragged.Ink code: Right-black, left-blue.The prostate is serially sectioned from apex to base into 9 slices to reveal pink-wright to kennedy-white, homogeneous, focally nodular prostatic parenchyma throughout. No discrete masses are identified. The prostate gland is entirely submitted. Sectioning of the seminal vesicles reveals a pink-wright unremarkable cut surface.Section code: E1, apical margin; E2, bladder neck margin. The prostate slices are submitted in cassettes E3 through E7. The right and left seminal vesicles are submitted in cassette E8, seminal vesicle tips are submitted in E9. ?/ewPart F: Labeled "appendix" consists of an appendectomy measuring 6.2 cm in length x up to 1 cm in diameter with a mesoappendix measuring 5 x 2 x 14 cm. The serosa is wright-red and dusky with numerous adhesions. The specimen is intact. The lumen is filled with green purulent material.There is no fecalith or mass seen grossly.Section code: F1, margin en face inked black with tip bisected; F2, territory service representative of appendix. CG/ewPerformed.HEMOGLOBIN AND [id number] 06:56:00 Test Item Value Reference Range Interpretation Comments HEMOGLOBIN (BEAKER) (test code = 11.3 GM/DL 13.7-17.5 L 410) HEMATOCRIT (BEAKER) (test code = 36.3 % 40.1-51.0 L 411) BASIC METABOLIC [id number] 06:43:00 Test Item Value Reference Range Interpretation Comments SODIUM (BEAKER) 141 meq/L 136-145 (test code = 381) POTASSIUM (BEAKER) 4.0 meq/L 3.5-5.1 (test code = 379) CHLORIDE (BEAKER) 107 meq/L 98-107 (test code = 382) CO2 (BEAKER) (test 25 meq/L 22-29 code = 355) BLOOD UREA NITROGEN 13 mg/dL 7-21 (BEAKER) (test code = 354) CREATININE (BEAKER) 0.74 mg/dL 0.57-1.25 (test code = 358) GLUCOSE RANDOM 102 mg/dL 70-105 (BEAKER) (test code = 652) CALCIUM (BEAKER) 8.8 mg/dL 8.4-10.2 (test code = 697) EGFR (BEAKER) (test 104 mL/min/1.73 ESTIM ATED GFR IS code = 1092) sq m NOT ACCURATE CREATININE CLEARANCE IN PREDICTING GLOMERULAR FILTRATION RATE . ESTIMATED GFR I S NOT APPLICABLE FOR DIALYSIS PATIEN TS. BASIC METABOLIC [id number] 06:37:00 Test Item Value Reference Range Interpretation Comments SODIUM (BEAKER) 142 meq/L 136-145 (test code = 381) POTASSIUM (BEAKER) 4.0 meq/L 3.5-5.1 (test code = 379) CHLORIDE (BEAKER) 107 meq/L 98-107 (test code = 382) CO2 (BEAKER) (test 27 meq/L 22-29 code = 355) BLOOD UREA NITROGEN 13 mg/dL 7-21 (BEAKER) (test code = 354) CREATININE (BEAKER) 0.73 mg/dL 0.57-1.25 (test code = 358) GLUCOSE RANDOM 101 mg/dL 70-105 (BEAKER) (test code = 652) CALCIUM (BEAKER) 8.9 mg/dL 8.4-10.2 (test code = 697) EGFR (BEAKER) (test 106 mL/min/1.73 ESTIM ATED GFR IS code = 1092) sq m NOT ACCURATE CREATININE CLEARANCE IN PREDICTING GLOMERULAR FILTRATION RATE . ESTIMATED GFR I S NOT APPLICABLE FOR DIALYSIS PATIEN TS. Before arterial line is discontinuedBASIC METABOLIC [id number] 15:59:00 Test Item Value Reference Range Interpretation Comments SODIUM (BEAKER) 141 meq/L 136-145 (test code = 381) POTASSIUM (BEAKER) 4.0 meq/L 3.5-5.1 (test code = 379) CHLORIDE (BEAKER) 107 meq/L 98-107 (test code = 382) CO2 (BEAKER) (test 24 meq/L 22-29 code = 355) BLOOD UREA NITROGEN 21 mg/dL 7-21 (BEAKER) (test code = 354) CREATININE (BEAKER) 0.97 mg/dL 0.57-1.25 (test code = 358) GLUCOSE RANDOM 173 mg/dL 70-105 H (BEAKER) (test code = 652) CALCIUM (BEAKER) 8.8 mg/dL 8.4-10.2 (test code = 697) EGFR (BEAKER) (test 76 mL/min/1.73 ESTIMA DANGELO GFR IS code = 1092) sq m NOT ACCURATE CREATININE CLEARANCE IN PREDICTING GLOMERULAR FILTRATION RATE . ESTIMATED GFR I S NOT APPLICABLE FOR DIALYSIS PATIEN TS. Upon [facility]IN AND [id number] 15:06:00 Test Item Value Reference Range Interpretation Comments HEMOGLOBIN (BEAKER) (test code = 12.3 GM/DL 13.7-17.5 L 410) HEMATOCRIT (BEAKER) (test code = 37.3 % 40.1-51.0 L 411) URINE [id number] 12:55:00 Test Item Value Reference Range Interpretation Comments CULTURE (BEAKER) (test <10,000 col/mL skin code = 1095) [facility] URINALYSIS W/ [id number] 15:00:00 Test Item Value Reference Range Interpretation Comments COLOR (BEAKER) (test code = 470) Yellow CLARITY (BEAKER) (test code = 469) Clear SPECIFIC GRAVITY UA (BEAKER) (test 1.022 1.001-1.035 code = 468) PH UA (BEAKER) (test code = 467) 6.0 5.0-8.0 PROTEIN UA (BEAKER) (test code = 10 mg/dL Negative A 464) GLUCOSE UA (BEAKER) (test code = Negative Negative 365) KETONES UA (BEAKER) (test code = Negative Negative 371) BILIRUBIN UA (BEAKER) (test code = Negative Negative 462) BLOOD UA (BEAKER) (test code = 461) Negative Negative NITRITE UA (BEAKER) (test code = Negative Negative 465) LEUKOCYTE ESTERASE UA (BEAKER) Negative Negative (test code = 466) UROBILINOGEN UA (BEAKER) (test code 0.2 mg/dL 0.2-1.0 = 463) RBC UA (BEAKER) (test code = 519) 2 /HPF WBC UA (BEAKER) (test code = 520) < /HPF MUCUS (BEAKER) (test code = 1574) Few SQUAMOUS EPITHELIAL (BEAKER) (test < /HPF code = 516) SOURCE(BEAKER) (test code = 4015) COMPREHENSIVE METABOLIC [id number] 14:12:00 Test Item Value Reference Range Interpretation Comments TOTAL PROTEIN 7.3 gm/dL 6.0-8.3 (BEAKER) (test code = 770) ALBUMIN (BEAKER) 4.2 g/dL 3.5-5.0 (test code = 1145) ALKALINE PHOSPHATASE 79 U/L 40-150 (BEAKER) (test code = 346) BILIRUBIN TOTAL 0.4 mg/dL 0.2-1.2 (BEAKER) (test code = 377) SODIUM (BEAKER) (test 140 meq/L 136-145 code = 381) POTASSIUM (BEAKER) 4.2 meq/L 3.5-5.1 (test code = 379) CHLORIDE (BEAKER) 106 meq/L 98-107 (test code = 382) CO2 (BEAKER) (test 25 meq/L 22-29 code = 355) BLOOD UREA NITROGEN 24 mg/dL 7-21 H (BEAKER) (test code = 354) CREATININE (BEAKER) 0.89 mg/dL 0.57-1.25 (test code = 358) GLUCOSE RANDOM 93 mg/dL 70-105 (BEAKER) (test code = 652) CALCIUM (BEAKER) 9.3 mg/dL 8.4-10.2 (test code = 697) AST (SGOT) (BEAKER) 17 U/L 5-34 (test code = 353) ALT (SGPT) (BEAKER) 10 U/L 6-55 (test code = 347) EGFR (BEAKER) (test 84 mL/min/1.73 ESTIMA DANGELO GFR IS code = 1092) sq m NOT ACCURATE CREATININE CLEARANCE IN PREDICTING GLOMERULAR FILTRATION RATE . ESTIMATED GFR I S NOT APPLICABLE FOR DIALYSIS PATIEN TS. PROTHROMBIN TIME/[id number] 13:34:00 Test Item Value Reference Range Interpretation Comments PROTIME (BEAKER) (test code = 13.0 seconds 11.7-14.7 759) INR (BEAKER) (test code = 370) 1.0 <=5.9 RECOMMENDED COUMADIN/WARFARIN INR THERAPY RANGESSTANDARD DOSE: 2.0 - 3.0 Includes: PROPHYLAXIS for venous thrombosis, systemic embolization; TREATMENT for venous thrombosis and/or pulmonary embolus.HIGH RISK: Target INR is 2.5-3.5 for patients with mechanical heart valves.CBC W/PLT COUNT & AUTO [id number] 13:25:00 Test Item Value Reference Range Interpretation Comments WHITE BLOOD CELL COUNT (BEAKER) 8.4 K/ L 3.5-10.5 (test code = 775) RED BLOOD CELL COUNT (BEAKER) 4.42 M/ L 4.63-6.08 L (test code = 761) HEMOGLOBIN (BEAKER) (test code = 12.7 GM/DL 13.7-17.5 L 410) HEMATOCRIT (BEAKER) (test code = 40.2 % 40.1-51.0 411) MEAN CORPUSCULAR VOLUME (BEAKER) 91.0 fL 79.0-92.2 (test code = 753) MEAN CORPUSCULAR HEMOGLOBIN 28.7 pg 25.7-32.2 (BEAKER) (test code = 751) MEAN CORPUSCULAR HEMOGLOBIN CONC 31.6 GM/DL 32.3-36.5 L (BEAKER) (test code = 752) RED CELL DISTRIBUTION WIDTH 12.8 % 11.6-14.4 (BEAKER) (test code = 412) PLATELET COUNT (BEAKER) (test 308 K/CU MM 150-450 code = 756) MEAN PLATELET VOLUME (BEAKER) 8.8 fL 9.4-12.4 L (test code = 754) NUCLEATED RED BLOOD CELLS 0 /100 WBC 0-0 (BEAKER) (test code = 413) NEUTROPHILS RELATIVE PERCENT 68 % (BEAKER) (test code = 429) LYMPHOCYTES RELATIVE PERCENT 17 % (BEAKER) (test code = 430) MONOCYTES RELATIVE PERCENT 8 % (BEAKER) (test code = 431) EOSINOPHILS RELATIVE PERCENT 6 % (BEAKER) (test code = 432) BASOPHILS RELATIVE PERCENT 1 % (BEAKER) (test code = 437) NEUTROPHILS ABSOLUTE COUNT 5.69 K/ L 1.78-5.38 H (BEAKER) (test code = 670) LYMPHOCYTES ABSOLUTE COUNT 1.47 K/ L 1.32-3.57 (BEAKER) (test code = 414) MONOCYTES ABSOLUTE COUNT (BEAKER) 0.64 K/ L 0.30-0.82 (test code = 415) EOSINOPHILS ABSOLUTE COUNT 0.50 K/ L 0.04-0.54 (BEAKER) (test code = 416) BASOPHILS ABSOLUTE COUNT (BEAKER) 0.09 K/ L 0.01-0.08 H (test code = 417) IMMATURE GRANULOCYTES-RELATIVE 1 % 0-1 PERCENT (BEAKER) (test code = 2801) Notes Date/Time Note Provider Source 2023-06-05 16:15:00-00:00 [id number] [facility] [address] [place] [address] PATIENT NAME: DELBERT HIGGINS ADMIT DATE: ACCOUNT NO: [id number] ROOM NO: AGE: 78 REPORT TYPE: OPERATIVE REPORT SEX: M ADMITTING PHYSICIAN: ATTENDING PHYSICIAN:Aurea Griggs MD OPERATION DATE: 06/05/2023 PREOPERATIVE DIAGNOSES: 1. Left hallux, second, and fourth hammertoe def ormities. 2. Right foot exostosis with pes planus. POSTOPERATIVE DIAGNOSES: 1. Left hallux, second, and fourth hammertoe def ormities. 2. Right foot exostosis with pes planus. PROCEDURES: 1. Left hallux interphalangeal fusion. 2. Left second and fourth hammertoe deformity co rrections with proximal interphalangeal joint fusions. 3. Right foot exostectomy. SURGEON: Aurea Griggs M.D. ASSISTANTS: Randy Franco M.D. and Pa bean M.D. ANESTHESIA: General plus local. BLOOD LOSS: Minimal. SPECIMENS: None. COMPLICATIONS: None. DISPOSITION: The patient was taken to recovery r o in stable condition and discharged home with followup. INDICATIONS FOR THE OPERATION: The patient is a 78-year-old gentleman with a history of severe bilateral pes planus d eformities and degenerative changes in his feet. He underwent a left foot reconstructio n and a third toe deformity correction successfully. He has now developed pa inful deformities in his left hallux, second, and fourth toes. He also complai ns of a painful exostosis at the plantar aspect of his right midfoot region. These problems have become unresponsive to nonoperative management. He has elected for the aforementioned procedures. Of note, the patient did not wish to have a right foot reconstruction due to the downtime required for recovery. He understands that this deformity and problems may progress. PATIENT NAME: DELBERT HIGGINS ACCOUNT #: [id number] DESCRIPTION OF OPERATION: After obtaining the sd oper informed consent and discussing risks and benefits of surgery, the pa tient was given preoperative antibiotics in the holding area. The correct fee t were identified and signed. He was taken to the operating room and was place d on the operating table in supine position. He was plac ed under general anesthesia by the anesthesiologist without any complications. Bilateral calf tourni quets were applied. Bilateral partial ankle blocks were performed with 20 mL o f 0.5% ropivacaine plain per side. His bilateral feet and ankles were then pr epped and draped in a sterile fashion. Attention was first directed to the left foot, which was elevated and exsanguinated with an Esmarc h and tourniquet was inflated to 250 mmHg. A dorsal elliptical incision was then made over the hallu x interphalangeal joint. The distal aspect of the proximal phalanx and the ba se of the distal phalanx were removed with a sagittal saw to correct the sever e hammertoe deformity. The joint was then stabilized in a corrected fashion with an Arthrex 5.0 mm headless screw, placed through a small incision at the ti p of the toe. The deformity appeared to be well corrected both clinically an d radiographically. Next, dorsal longitudinal incision s were then made over the second and fourth proximal interphalangeal joints. The distal aspects of th e proximal phalanges and the bases of the middle phalanges were removed with a sagittal saw and these deformities were corrected with Arthrex 2.5 mm h eadless screws placed through incisions at the tips of the toes in a retrograd e fashion under radiographic guidance with good correction of the deformities . These wounds were then irrigated and closed in the usual fashion and th en sterilely dressed with a bulky soft dressing. The tourniquet was let down and the toes were well perfused at that time. Atten tion was then directed to the right foot, which was elevated and exsanguinated with an Esmarch and t ourniquet was inflated to 250 mmHg. A longitudinal lateral midfoot incision was then made. A sagittal saw was then utilized to remove the large plantar midfoo t exostosis involving the cuboid, base of the fifth metatarsal and cuneiforms. All sharp edges were then smoothened with a reciprocating rasp. The wound was then copiously irrigated and closed in the usual fash ion in layers and then sterilely dressed with a soft dressing. The tourniquet was let down and the to es were well perfused at that time. The patient tolerated the procedure well. He awoke from general anesthesia without any complications. He was go carla on his hospital bed and taken to recovery room in [facility] condition where he will be discharged home with followup. Dictated By: Aurea Griggs MD Date Dictated: 06/05/2023 16:15:13 Date Transcribed: 06/05/2023 18:58:03 DB/PAR Receipt ID: [id number] Authenticated by Aurea Griggs MD On 07:23:46 AM Electronically Signed by Aurea Griggs MD on 0 06/06/23 at 0723 PATIENT NAME: DELBERT HIGGINS ACCOUNT #: [id number] 2023-06-05 12:48:00-00:00 [facility] Brief Op Note REPORT#:[id number] REPORT STATUS: Signed DATE:06/05/23 TIME: 1248 PATIENT: DELBERT HIGGINS UNIT #: [id number] ROOM/BED: : 45 AGE: 78 SEX: M ATTEND: Lonny Griggs MD ADM AUTHOR: Aurea Griggs MD * ALL edits or amendments must be made on the el [employer]/computer document * Op/Inv Proc Note - Brief Pre-procedure diagnosis: left hammer toes right foot exostosis Post-procedure diagnosis: same as pre procedure dx Procedures performed: left hammertoe corrections right foot exostectomy Primary Surgeon: Anusha Mud Plant Operator(s): Leanna Franco Findings: left hammertoes right foot exostosis Complications: none Estimated blood loss in ml's: 20 Specimens removed/altered: left hammertoes, righ t foot exostosis Electronically Signed by Aurea Griggs MD on at 1414 RPT #:[id number] END OF REPORT 2022-10-17 11:24:00-00:00 [facility] ([facility]) Clinical Note REPORT#:[id number] REPORT STATUS: Signed DATE:10/17/22 TIME: 1124 PATIENT: DELBERT HIGGINS UNIT #: [id number] ROOM/BED: Y.318-A : 45 AGE: 77 SEX: M ATTEND: Lonny Griggs MD ADM AUTHOR: Aurea Griggs MD * ALL edits or amendments must be made on the [employer] document * Clinical Note Note: no pain afebrile VSS LLE--splint intact, +DF/PF toes, LT intact, good cap refill in toes plan-- SNF today Electronically Signed by Aurea Griggs MD on at 1125 RPT #:[id number] END OF REPORT 2022-10-15 06:46:00-00:00 [facility] ([facility]) Clinical Note REPORT#:[id number] REPORT STATUS: Signed DATE:10/15/22 TIME: 645 PATIENT: DELBERT HIGGINS UN[facility] #: [id number] [facility] AGE: 77 SEX: M ATTEND: Lonny Griggs MD ADM AUTHOR: Aurae Griggs MD * ALL edits or amendments must be made on the [employer] document * Clinical Note Note: no pain afebrile VSS LLE--splint intact, +DF/PF toes, LT intact, good cap refill in toes plan--d/c home Electronically Signed by Aurea Griggs MD on at 0646 RPT #:[id number] END OF REPORT 2022-10-14 11:17:00-00:00 [id number] [place] [address] PATIENT NAME: DELBERT HIGGINS ADMIT DATE: ACCOUNT NO: [id number] ROOM NO: Y.[facility] AGE: 77 REPORT TYPE: OPERATIVE REPORT SEX: M ADMITTING PHYSICIAN:Aurea Griggs MD ATTENDING PHYSICIAN:Aurea Griggs MD OPERATION DATE: 10/14/2022 PREOPERATIVE DIAGNOSES: 1. Left Charcot foot arthropathy. 2. Left Achilles contracture. 3. Left third toe deformity. POSTOPERATIVE DIAGNOSES: 1. Left Charcot foot arthropathy. 2. Left Achilles contracture. 3. Left third toe deformity. PROCEDURES: 1. Left Charcot foot reconstruction with medial column and subtalar/calcaneocuboid fusion. 2. Left Achilles lengthening. 3. Left third toe deformity correction. SURGEON: Aurea Griggs M.D. POULTRY CLEANER: Wilfred Garcia M.D. ANESTHESIA: General plus local. BLOOD LOSS: Approximately 50 mL. COMPLICATIONS: None. DISPOSITION: The patient was taken to recovery r oom in stable condition and admitted to the hospital for continued care. INDICATIONS FOR THE PROCEDUR E: The patient is a 77-year-old gentleman with left foot Charcot arthropathy and a third toe deformity. These problems have become unresponsive to nonoperative management. He pres ents today electively for the aforementioned procedures. DESCRIPTION OF PROCEDURE: After obtaining the pr oper informed consent and discussing risks and benefits of surgery, the pa tient was given preoperative antibiotics in the holding area. The cor rect leg was identified and signed. He was taken to the operating room and was placed o n the operating room table in supine position. He was plac ed under general anesthesia by the anesthesiologist PATIENT NAME: DELBERT HIGGINS ACCOUNT #: [id number] without any complications. A tourniquet was plac ed onto his left thigh and a bump was placed under his left hip. His left low er extremity was then prepped and draped in sterile fashion. First, a tendo-Ac hilles lengthening was performed through three small stab incisions wit h hemisections through each incision and a controlled lengthening wa s performed. We were able to dorsiflex the ankle now to 20 degrees. The leg was elevate d, exsanguinated with an Esmarch, and tourniquet was inflated to 300 mmHg . A sinus tarsi approach was then made to the calcaneocuboid and subtalar fernando nts, which were prepared for fusion, removing all remaining articular cartilage. There was noted to be some plantar subluxation at the calcaneocuboid joint. We then made a medial column incision protecting the anterior tibiali s tendon. The talonavicular, navicular cuneiform, and first tarsometatarsal joints were then prepared for fusion removing all articular carti oh. Multiple drill holes were made on either side of every joint. The wounds were irrigated and Au gment was placed into all the joints. We then made a dorsal incision over the first metatarsophalangeal joint. We used a guidepin for the [employer] nail, which was placed up the medial column after correcting the severe pes planovalgus deformity. The appropriate drills were then used over the guidepin and the medial column nail was then placed under radiogr aphic guidance with good fixation and good correction of the pes planus. We then made a small incision at the medial aspect of the first metata rsal to place an interlock screw using the guide. Compression was then performe d in the described fashion through the medial column using the nail. Attention was then directed to the subtalar joint, which was stabilized in the appropriate p osition with a Belle 7.0 partially-threaded cannulated screw under radiog raphic guidance with good fixation. We then stabilized the lateral column with a [employer] partially threaded cannulated 6.5 mm b eam under radiographic guidance with good fixation. The foot appeared to be in good position both clinically and radiographically. Attention was then directed to the third toe def ormity. A dorsal incision was made over the third PIP joint. The distal aspect of the proximal phalanx and the base of the middle phalanx were removed with a sagittal saw and the joint was then stabilized in the appropriate p osition with a Graford 3.0 mm headless screw under radiographic guidance through a smal l incision at the tip of the toe. The toe deformity appeared to be well corre cted both clinically and radiographically. The wounds were then irrigated and closed in the usual fashion and an ankle block w as performed with 30 mL of 0.5% Marcaine plain. The wounds were sterilely dressed and he was placed into a well-padded posterior splint. Of note, the tourniq uet was let down during the conclusion of the case, the toes were well perfused at that time. The pa tient tolerated the procedure well. He was awoken from general anesthesia with out any complications. He was placed on the hospital bed a nd taken to recovery room in stable condition where he will be admitted to the hospital for continue d care. Dictated By: Aurea Griggs MD Date Dictated: 10/14/2022 11:17:00 Date Transcribed: 10/14/2022 17:29:30 DB/NAF Receipt ID: [id number] Authenticated and Edited by Aurea Griggs MD O n 10/15/22 6:50:35 AM PATIENT NAME: DELBERT HIGGINS ACCOUNT #: [id number] Electronically Signed by Aurea Griggs MD on 1 12/15/21 at 0651 PATIENT NAME: DELBERT HIGGINS ACCOUNT #: [id number] 2022-10-14 07:23:00-00:00 [facility] ([facility]) Brief Op Note REPORT#:[id number] REPORT STATUS: Signed DATE:10/14/22 TIME: 722 PATIENT: DELBERT HIGGINS UNIT #: [id number] ROOM/BED: : 45 AGE: 77 SEX: M ATTEND: Lonny Griggs MD ADM AUTHOR: Aruea Griggs MD * ALL edits or amendments must be made on the el [email or web address]computer document * Op/Inv Proc Note - Brief Pre-procedure diagnosis: left Charcot foot deformity left 3rd toe deformity Post-procedure diagnosis: same as pre procedure dx Procedures performed: left Charcot foot reconstruction left 3rd toe deformity correction Primary Surgeon: Anusha Mud Plant Operator(s): Radha Findings: left Charcot foot deformity left 3rd toe deformity Complications: none Estimated blood loss in ml's: 50 Specimens removed/altered: none Electronically Signed by Aurea Griggs MD on at 1051 RPT #:[id number] END OF REPORT 2022-10-08 15:34:00-00:00 [id number] [place] [address] PATIENT NAME: DELBERT HIGGINS ADMIT DATE: ACCOUNT NO: [id number] ROOM NO: Y.318 AGE: 77 REPORT TYPE: ELECTROCARDIOGRAM SEX: M ADMITTING PHYSICIAN:Aurea Griggs MD ATTENDING PHYSICIAN:Aurea Griggs MD Order: [id number] Test Reason : PRE OP CLEARANCE HTN Test Date/Time Stamp: FriOct 08 2022 15:34:44 Blood Pressure : / mmHG Vent. Rate : 075 BPM Atrial Rate : 075 BPM P-R Int : 154 ms QRS Dur : 070 ms QT Int : 376 ms P-R-T Axes : 068 078 065 degree s QTc Int : 419 ms Normal sinus rhythm Minimal voltage criteria for LVH, may be normal variant ( Sokolow-Hyatt ) Borderline ECG When compared with ECG of 18-SEP-2021 15:01, Nonspecific T wave abnormality no longer evident in Lateral leads Confirmed by REENA CHAPIN MD ([id number]) on 10/15/2022 11:13:20 AM Referred By: AUREA GRIGGS Confirmed by:REENA CHAPIN MD PATIENT NAME: DELBERT HIGGINS ACCOUNT #: [id number] 2022-07-09 13:46:00-00:00 [id number] [place] [address] patient name: delbert higgins admit date: account no: [id number] room no: age: 77 report type: operative report sex: m admitting physician: attending physician:nela snell md operation date: 07/09/2022 preoperative diagnoses: 1. right elbow, failure of hardware with broken screws and plate. 2. right elbow distal humerus fracture nonunion. postoperative diagnoses: 1. right elbow, failure of hardware with broken screws and plate. 2. right elbow distal humerus fracture nonunion. procedures performed 1. right elbow removal of hardware including scr ews and plate. 2. right elbow partial ostectomy of the distal h umerus of the non-united fracture fragment. surgeon: nela snell md activity assistant: johan arrieta need for activity assistant: karri fermin's assist ance was necessary throughout the case to help with retraction of neurovascular structu res, positioning the patient throughout the case and with his arm in various positions, closure. hemostasis throughout the case, as well as placemen t of splint. without his help, i could not perform the case safely using 2 hands. type of anesthesia: general and local. complications: none. hardware used: none. hardware removed: synthes medial elbow plate. th e plate itself was broken in half. there were multiple proximal screws. one b roken screw was left in the shaft as that had fallen off. findings: the patient has evidence of a charcot joint. he has no sensation in the joint. he had nonunion of the medial condylar fragment and had already not articulating with the ulnar trochlear joint. dee s, the decision to remove the fracture fragment was made given that it was doi ng nothing but causing discomfort in his right elbow and also causing r educed range of motion. procedure in detail: the patient was seen in the preoperative anesthesia care patient name: delbert higgins account #: [id number] unit and the right arm was marked. he was josiah t back to the operating room and placed supine. general anesthesia was induce d. he was prepped and draped in the usual sterile fashion. right upper arm to urniquet was placed and the tourniquet was inflated to 250 mmhg. i used the previous incision and dissected down to the level of the fascia. i was able to elevate the medial intermuscular int erval. the patient had a previous understandable ramirez slocation and we did not encounter the nerve during the dissection. i was able to get down to the me dial condyle and it was found to be completely displaced anterior with out any evidence of healing. the plate was then removed with multip le screws. there were multiple broken screws, which were also removed in this ar ea. proximally, the other piece of the broken plate was removed along with 2 scr ews. there was a screw that was placed in the shaft because that was buried into the shaft. the head itself had fallen off. next, because the patient had no articulation of the medial condylar fragment and it was not provide any instability, we decided to r emove it. it was removed en bloc using a rongeur and hemostat. the patient h ad excellent range of motion near full after this was done. the wound was thoroughly irrigated and the skin was closed in 3 layers. the patient was then placed into a bulky posterior arm splint. he will stay that way for 2 weeks and i will see him and remove his stitches. dictated by: nela snell md wt: op:yesi/karis/french dd: 07/09/2022 13:46:16 dt: 07/09/2022 19:09:51 conf#: [id number]/did#: [id number] authenticated and edited by nela snell md on 7:50:10 pm electronically signed by nela snell md on 06/18 06/07 at 0751 patient name: delbert higgins account #: [id number] 2022-06-12 08:36:00-00:00 [facility] ([facility]) Discharge Summary REPORT#:[id number] REPORT STATUS: Signed DATE:06/12/22 TIME: 835 PATIENT: DELBERT HIGGINS UNIT #: [id number] ROOM/BED: [address] : 45 AGE: 77 SEX: M ATTEND: Jerman Gr MD ADM AUTHOR: Mily Palacios * ALL edits or amendments must be made on the el [employer]/computer document * General Information Date of admission: Observation Start Date: Date of admission: 06/11/22 Discharge date: 06/12/22 Admission diagnosis: Right knee osteoarthritis Discharge diagnosis: same Hospital course: The patient underwent the pr ocedure without incident. Findings were significant for degenerative disease of the knee. The patien t was hemodynamically and medically monitored during the post op period. A nticoagulation was instituted for post op DVT prophylaxis. The patient was progressively able to tolerate PO pain medications and the appropriate diet. PT wa s instituted, with a progressive ability to ambulate and performed ex ercises. The patient was eventually deemed stable and safe for discharge. Despite factors which projected a longer hospita l stay, the patient fulfilled criteria for earlier than expected disch arge, including control of pain, early mobilization with PT and stable hemodynamic stat us. At discharge the patient was comfortable with a controlled pain level. There were no chest or abdominal symptoms present. Dis charge physical exam demonstrated stable vitals and no acute distress . The patient had an intact dressing with no significant drainage and no cyndy f tenderness. There were no neurologic or vascular deficits or changes from the preop states. Consultants: internal medicine Pt. condition on discharge: stable Allergies: Allergies: No Known Allergies (Coded, 05/30/22) Med Rec Med Rec Discharge meds: Stop taking the following medications: MELOXICAM (MOBIC) 7.5 MG TAB 7.5 MILLIGRAM ORAL DAILY. Continue taking these medications: MESALAMINE ER (LIALDA) 1.2 GRAM TAB.DR 1.2 GRAM ORAL TWICE DAILY. VALSARTAN (DIOVAN) 80 MG TAB 80 MILLIGRAM ORAL DAILY. CALCIUM CARBONATE (CALCIUM CARBONATE 500 MG/5 ML ) 1,250 MG/5 ML ORAL.SUSP 1,250 MILLIGRAM ORAL DAILY. CHOLECALCIFEROL (VITAMIN D3) (VITAMIN D3) 1,000 UNITS CAP 1,000 UNITS ORAL DAILY. DULoxetine DR (CYMBALTA) 60 MG CAP.DR 60 MILLIGRAM ORAL DAILY. CALAMINE/ZINC OXIDE (CALAMINE 8%-8%) 8 %-8 % LOT ION 1 APPLIC TOPICAL DAILY NEEDED. as needed for "JOCK ITCH" [ANTIFUNGAL PILL] 1 TABLET ORAL DAILY. Treatments Procedures Treatments Procedures: Procedure: right total knee arthroplasty Lab: Chemistry last 24 hrs: 06/12 512 Chemistry Sodium (136 - 145 mmol/L) 139 Potassium (3.5 - 5.1 mmol/L) 4.3 Chloride (98 - 107 mmol/L) 103.0 BUN (7 - 18 mg/dL) 25 H Creatinine (0.55 - 1.30 mg/dL) 0.89 Glucose (70 - 110 mg/dL) 141 H Hematology last 24 hrs: 06/12 512 Hematology Hgb (12 - 16 g/dL) 9.8 L Hct (37 - 47 %) 30.1 L Discharge Instructions PCP )( Discharge to: Home/Self Care Discharge Instructions Additional Discharge Routines: Attending Follow- Up, Wound/Dressing Care )( Diet: Resume Home Diet/Feeds )( Weight monitoring: Not Required )( Activity: As Tolerated )( Wound/dressing care: Do n ot submerge incision, Leave dressing in place, OK to shower tomorrow Prescriptions: e-prescribe Rx drug database reviewed: yes Follow-up Appointments Attending Physician: Attending Physician: Eran rG MD Attending physician follow up timeframe: In 1-2 weeks Special instructions: CALL OFFICE FOR FOLLOW UP APPOINTMENT Electronically Signed by Mily Palacios on 0 06/12/22 at 0838 Electronically Signed by Eran Gr MD on at [address] [facility] #:[id number] END OF REPORT 2022-06-12 08:35:00-00:00 [facility] ([facility]) Brief Op Note REPORT#:[id number] REPORT STATUS: Signed DATE:06/12/22 TIME: 834 PATIENT: DELBERT HIGGINS UNIT #: [id number] ROOM/BED: [address] : 45 AGE: 77 SEX: M ATTEND: Jerman Gr MD ADM AUTHOR: Mily Palacios * ALL edits or amendments must be made on the [employer] document * Op/Inv Proc Note - Brief Pre-procedure diagnosis: right knee osteoarthritis Post-procedure diagnosis: same as pre procedure dx Procedures performed: Right total knee arthroplasty Primary Surgeon: Simón Mud Plant Operator(s): Philip CATES Findings: as above Complications: none Estimated blood loss in ml's: 25cc Specimens removed/altered: none Electronically Signed by Mily Palacios on 0 06/12/22 at 0836 Electronically Signed by Eran Gr MD on at 1150 RPT #:[id number] END OF REPORT 2022-06-12 08:15:00-00:00 [facility] ([facility]) Clinical Note REPORT#:[id number] REPORT STATUS: Signed DATE:06/12/22 TIME: 814 PATIENT: DELBERT HIGGINS UNIT #: [id number] ROOM/BED: [address] : 45 AGE: 77 SEX: M ATTEND: Jerman Gr MD ADM AUTHOR: Wilver Pryor MD * ALL edits or amendments must be made on the [employer] document * Clinical Note Note: [facility] Wilver javed M.D. (cell text [phone]) Assessment/Plan 1.) Anemia of acute blood loss- .Hgb 9.8, asympt omatic. 2.) S/p Right TKA- .acute multi-modal pain contr ol and followup. Anticoagulation as per Dr. Gr. 3.) Hypertension- .follow BP and hold Rxs if SBP <120. 4.) OsteoArthritis Prostate cancer- .continue on Rx. Prostate cancer in remission. * OK for DISCHARGE per Internal Medicine. Prior Events/Overnight: Uneventful. Chief Complaint: No significant complaints. Objective Vital Signs: Date Time Temp Pulse Resp B/P B/P Pulse O2 O2 F low FiO2 Mean Ox Delivery Rate 06/12 0722 97.2 60 16 164/78 106.7 96 06/12 0505 97.3 76 18 137/64 88.2 95 Nasal cannula 06/12 0225 95 Nasal 2 28 cannula 06/11 2236 97.2 71 18 129/63 85.1 92 Nasal cannula 06/11 2113 95 Nasal 2.5 30 cannula 06/11 1911 97.2 88 18 145/80 101.8 94 Nasal cannula 06/11 1728 97.7 75 16 153/78 102.9 94 Nasal cannula 06/11 1544 97.2 80 16 143/70 94.4 95 Nasal cannula 06/11 1238 97.2 73 16 158/80 106.4 95 Nasal cannula 06/11 1225 95 Nasal 3 32 cannula 06/11 1218 Nasal 3 cannula 06/11 1139 71 16 161/81 97 Nasal 2 cannula 06/11 1113 73 16 166/93 94 Room air 06/11 1045 Simple 10 mask 06/11 1044 73 16 167/89 98 Simple 10 mask 06/11 1023 98.9 70 16 174/86 97 Simple 10 mask Gen: Alert, oriented, in mild discomfort Neck: No Masses, No Thyromegaly- CV: Regular Rate Rhythm / Edema- no significant Resp: Clear To Ascultation / Normal Respiratory Effort ABD: NonTender / NonDistended MS/Skin: No sign of compartment syndrome / +ankl e DF/PF Other: Labs/X-ray: Laboratory Tests: 06/12 512 Chemistry Sodium (136 - 145 mmol/L) 139 Potassium (3.5 - 5.1 mmol/L) 4.3 Chloride (98 - 107 mmol/L) 103.0 Carbon Dioxide (21 - 32 mmol/L) 27.2 BUN (7 - 18 mg/dL) 25 H Creatinine (0.55 - 1.30 mg/dL) 0.89 Glomerular Filtr Rate (>60) 82.9 Glucose (70 - 110 mg/dL) 141 H Calcium (8.2 - 10.1 mg/dL) 9.2 Hematology Hgb (12 - 16 g/dL) 9.8 L Hct (37 - 47 %) 30.1 L Wilver Sheth M.D. at 1732 RPT #:[id number] END OF REPORT 2022-06-11 16:17:00-00:00 [facility] ([facility]) Clinical Note REPORT#:[id number] REPORT STATUS: Signed DATE:06/11/22 TIME: 1616 PATIENT: DELBERT HIGGINS UNIT #: [id number] ROOM/BED: [address] : 45 AGE: 77 SEX: M ATTEND: Jack Gr MD ADM AUTHOR: Wilver Pryor MD * ALL edits or amendments must be made on the [employer] document * Clinical Note Note: [facility] Wilver javed MD (cell text [phone]) Internal Medicine Consult at request of : Dr Olegario Gr. Chief Complaint: right knee pain HPI: 77 yo M is now s/p Right Total Knee Arthrop lasty (TKA) by Dr. Gr. Mr. Higgins relates years of progressive ri ght knee pain (recently severe), worse with activity, and popping crunchy with restricted motion at times in quality. He has failed conservative management. He had a left TKA in 08/2021. Comorbidities: see below. PmHx: . Hypertension, history of prostate cancer , osteoarthritis ALLERGY: Allergies: No Known Allergies (Coded, 05/30/22) Home Medications: Home Medications: MESALAMINE ER (LIALDA) 1.2 GM PO BID MELOXICAM (MOBIC) 7.5 MG PO DAILY VALSARTAN (DIOVAN) 80 MG PO DAILY CALCIUM CARBONATE (CALCIUM CARBONATE 500 MG/5 ML ) 1,250 MG PO DAILY CHOLECALCIFEROL (VITAMIN D3) (VITAMIN D3) 1,000 UNITS PO DAILY DULoxetine DR (CYMBALTA) 60 MG PO DAILY CALAMINE/ZINC OXIDE (CALAMIN E 8%-8%) 1 APPLIC TOPICAL DAILY PRN PRN "JOCK ITCH" [ANTIFUNGAL PILL] 1 TAB PO DAILY SgHx: .Prostatectomy, left knee scope, appendect tarsha, elbow, right TKA SHx: Tob: none FHx: .No significant hx of DVT/PE . Alcohol: none Drugs: none Lives: with . . Vitals: Vital Signs: Date Time Temp Pulse Resp B/P B/P Pulse O2 O2 F low FiO2 Mean Ox Delivery Rate 06/11 1544 97.2 80 16 143/70 94.4 95 Nasal cannula 06/11 1238 97.2 73 16 158/80 106.4 95 Nasal cannula 06/11 1225 95 Nasal 3 32 cannula 06/11 1218 Nasal 3 cannula 06/11 1139 71 16 161/81 97 Nasal 2 cannula 06/11 1113 73 16 166/93 94 Room air 06/11 1045 Simple 10 mask 06/11 1044 73 16 167/89 98 Simple 10 mask 06/11 1023 98.9 70 16 174/86 97 Simple 10 mask 06/11 0722 97.1 73 20 162/72 97 Gen: Alert, in mild discomfort. EYE: Nl lids conjunctiva. ENT: Nl ears Nose, nl lips,. Neck: Supple, nl thyroid, No masses. CV: Regular Rate Rhythm, no heave or significant murmur. Edema- none RESP: Clear to Auscultation, normal Respiratory effort. ABD: Soft, NonDistended,. LYM: No significant cervical Lymphadenopathy. MS: No sign of compartment syndrome, Knee is wr apped, drain in place. NEURO: Nonfocal, grossly normal sensation of LE, +Ankle DF/PF . . Preop Labs(05/30/22): CBC:. Hgb 11.4, Plt 355, CHEM: Na 142, K 4.2, Cr 0.86 (eGFR 86.2%), . Ekg: NSR . (medium to high risk of complications or morbidi ty) (major surgery) (IV sedative, meds) . Assessment Plan 1.) Anemia of Acute Blood Loss- .will recheck to [facility]. 2.) S/p Right TKA- .acute multi-modal pain contr ol and followup. Anticoagulation as per Dr. Gr. 3.) Hypertension- .follow BP and hold Rxs if SBP <120. 4.) OsteoArthritis Prostate cancer- .continue on Rx. Prostate cancer in remission. . Wilver Sheth M.D. Thanks! . . . . . G8420 BMI is documented as within normal paramet ers (18-25). G8417 BMI documented as above normal parameters and a f/u plan is documented G8427 - current medications obtained and reviewe dClare 1124F - offered discussion o n advanced care plan and patient declined to address issue at this time. at [address] [facility] #:[id number] END OF REPORT 2022-06-11 09:57:00-00:00 [id number] [place] [address] PATIENT NAME: DELBERT HIGGINS ADMIT DATE: ACCOUNT NO: [id number] ROOM NO: [facility] AGE: 77 REPORT TYPE: OPERATIVE REPORT SEX: M ADMITTING PHYSICIAN:Eran Gr MD ATTENDING PHYSICIAN:Eran Gr MD OPERATION DATE: 06/11/2022 PREOPERATIVE DIAGNOSIS: Right knee osteoarthriti s. POSTOPERATIVE DIAGNOSIS: Right knee osteoarthrit is, M17.11. OPERATIVE PROCEDURES PERFORMED: 1. Computer-assisted imageless right total knee arthroplasty, 89765. 2. 16014. IMPLANTS UTILIZED: DePuy Sig ma total knee system, size 4 narrow right posterior stabilized femur, size 4 fixed-bearing tibial tr ay, 4 x 10 mm fixed-bearing posterior stabilized tibial insert, and 41 mm ov al patella. All components cemented. ANESTHESIA: General. TOURNIQUET TIME: 22 minutes. ESTIMATED BLOOD LOSS: Less than 20 mL. SURGEON: Eran Gr M.D. KETTLE OPERATOR HEAD: JOHAN Banks. OPERATIVE FINDINGS: As above. SURGICAL SPECIMEN SENT: None. CLINICAL INDICATIONS: Mr. Higgins is a delightful [age]-year-old male from [place], [place], who has been having severe and p rogressive pain in his right knee. His pain is occurring for the past 20 year s. His pain has been refractory to nonoperative treatment. Pr ior left total knee arthroplasty, from which he has done exceedingl y well. Clinical as well as radiographic evaluation revealed severe tricompartmental arthritis. He i s admitted for computer-assisted imageless right total knee art hroplasty. OPERATIVE NARRATIVE: 1. COMPUTER-ASSISTED IMAGELESS RIGHT TOTAL KNEE ARTHROPLASTY 57389. 2. 57256. Once he was placed in the ching pine position on the OR table, routine monitors were PATIENT NAME: DELBERT HIGGINS ACCOUNT #: [id number] established. General anesthesia was deli lubna. After satisfactory induction of general anesthesia, a tourniquet was applied to the patient's right lower extremity per Ms. Palacios and the right leg was c ircumferentially prepped and draped in usual sterile fashion per Ms. Palacios. The leg was then elevated, exsanguinated, tourniquet insufflated to 300 mmH g. The knee was flexed to 100 degrees. Anterior midline incision was performed . Medial parapatellar arthrotomy was performed. Patella was everted la terally. Severe grade IV changes noted through all 3 compartments. Hypertrophic osteophytes were resected. Ligament balancing was achieved. Medial and lateral menisci were excised. Anterio r and posterior cruciate ligaments resected. A centramedullary pin was placed in the anatomic center of the distal femur. The OrthAlign guide was placed and the k nee was registered. The guide was then pinned in 0 degrees of varus valgus angulation along with 3 degrees of flexion. The distal 10 mm of the femur was then resected. The guide was removed. The distal femur appropriately sized and a s ize 4 cutting block was used to create the anterior, followed by posterior, fol lowed by chamfer cuts. The appropriate osteotomy guide was then placed across distal fe mur and the femoral notch was resected. The proximal tibia was translated anteriorly. Ut ilizing extramedullary instrumentation, the proxima l tibia was resected perpendicular to its mechanical axis resecting 10 mm from the lateral tibial go teau. The proximal tibia was appropriately sized and a size 4 baseplate was n oted to provide optimal coverage. Proximal tibia was appropriately prepp ed. The patella was then resected so as to ensure advent of its norm al height with prosthesis in place. Flexion as well as extension gaps were checked a nd noted to be equal. Trial components were placed into the joint. Optimal stability was noted with a 10 mm insert. A 0 degrees of gravity extension with 13 8 degrees of gravity flexion were present. Patellofemoral tracking was within normal limits with no varus or valgus instability noted. The knee was stable in both flexion as well as extension. Trial components were removed. Bony s urfaces were prepared with cement implantation using pulsatile lavage irrig ation. Tibial tray cemented into place, followed by cement implantat ion of femoral component. Polyethylene insert was then placed in the tibial tray and th e knee was placed in full extension. Patellar component was cemented. Tour niquet deflated. Meticulous hemostasis was achieved with Bovie electrocauter y. Copious antibiotic lavage was performed. Medium Hemovac drain was then go carla deep to the extensor mechanism and the knee was p laced into 70 degrees of flexion. Arthrotomy closed in watertight fashion 2.0 Qu ill suture. Skin closure with interrupted 0 Vicryl, followed by 2-0 Monocryl, followed by Ethicon me sh per Ms. Palacios. Sterile dressing was applied by Ms. Palacios. The patient was then extubated, taken to recovery room awake and aler t without any anesthetic or operative complications. Prior to closure, the knee was injected with a combination of morphine, lidocaine, Depo Medrol and Toradol. Utilizing the OrthAlign guidance system can dramatically reduce intraoperative and postoperative blood loss due to lack of creation of an intramedullary hole in the distal femur. Also, several studies have shown the accuracy of distal femoral resection is superior over standard intr amedullary instrumentation. PATIENT NAME: DELBERT HIGGINS ACCOUNT #: [id number] During the procedure, Ms. Sa chan was invaluable in positioning the patient along with preparation and draping of extremity. She w as also vital for providing surgical exposure throughout the procedure, whic h greatly expedited the performance of the procedure in addition to prot ection of neurovascular structures. Finally, she was responsible for int raarticular injection of the postoperative anesthetic as well as clos ure of the postoperative incisions and application of postoperative dressing. Dictated By: Eran Gr MD WT: OP:YESI/ROSA/FRENCH Conf#: [id number]#: [id number] Authenticated and Edited by Eran Gr MD O arelis 06/12/22 11:53:29 AM Electronically Signed by Eran Gr MD on 0 06/12/22 at 1155 PATIENT NAME: DELBERT HIGGINS ACCOUNT #: [id number] 2022-06-10 08:39:00-00:00 [id number] [facility] [address] [place] [address] PATIENT NAME: DELBERT HIGGINS ADMIT DATE: ACCOUNT NO: [id number] ROOM NO: Y.314 AGE: 77 REPORT TYPE: HISTORY AND PHYSICAL SEX: M ADMITTING PHYSICIAN:Eran Gr MD ATTENDING PHYSICIAN:Eran Gr MD ADMISSION DATE: 06/11/2022 ADMITTING DIAGNOSIS: Right knee osteoarthritis, M17.11. HISTORY OF PRESENT ILLNESS: Mr. Higgins is a 77-yea r-old male, who is well known to me from a previous left total knee arthroplas ty. He has been having disabling pain in his right knee for the past 15 years. The pain has become quite severe over the past year. His pain has no t abated despite extensive nonoperative treatment. Due to his progr essive disability and lack of response to nonoperative intervention, Mr. Higgins is admitt ed for computer-assisted imageless right total knee arthroplasty. PAST MEDICAL HISTORY: Hypertension. PAST SURGICAL HISTORY: Includes an appendectomy, radial head arthroplasty, herniorrhaphy, prostatectomy, left total knee ar throplasty, and vasectomy. FAMILY HISTORY: Cerebrovascular disease and arth ritis. SOCIAL HISTORY: He has not smoked for the past 1 0 years. He drinks rarely. ALLERGIES: NO ALLERGIES ARE LISTED. MEDICATIONS: Consist of omeprazole, duloxetine, terbinafine, and valsartan. REVIEW OF SYSTEMS: Negative. PHYSICAL EXAMINATION: VITAL SIGNS: He is 5 feet 11 inches tall, 73.8 k ilograms. HEENT: Within normal limits. CARDIAC: Regular rate and rhythm. No murmur. CHEST: Clear. ABDOMEN: Benign. BACK: No CVA tenderness. PERTINENT ORTHOPEDIC EVALUATION: Leg lengths are equal. Full painless motion of both hips. Examination of the right knee reve als an antalgic gait. His leg lengths are equal. He has a fixed varus deformit y with the right knee. He has painful passive motion with a positive effusion. He has 5 to 105 degrees of motion. There is no instability. His distal neur ovascular status is intact. DIAGNOSTIC DATA: Radiographic evaluation reveals varus alignment with [id number]-vp-[id number] osteoarthritis. PATIENT NAME: DELBERT HIGGINS ACCOUNT #: [id number] ASSESSMENT: Right knee pain secondary to severe osteoarthritis. SURGICAL PLAN: Computer-assisted imageless right total knee arthroplasty. I have gone over at length with the patient the as sociated risks involved with this procedure. He understands that these risks include but not limited to bleeding, transfusion requirement, infec tion, neurovascular damage, persistent pain, loss of motion, leg length inequality, isabell nful scar, persistent limp, loosening of the prosthesis requiring possible r evision, instability of the prosthesis, deep vein thrombi leading to pulmona ry emboli along with complications secondary to a nesthesia. He understands that there are absolutely no guarantees or warranties that he will be pain free as a result of the procedure. In addition, he understands that he w ill receive a fixed-bearing posterior cruciate sacrificing total kne e arthroplasty. He accepts these risks and gives his informed consent to proceed. Dictated By: Eran Gr MD WT: HP:YESI/ROSA/FRENCH Conf#: [id number]/DID#: [id number] Authenticated by Eran Gr MD On 01:02:02 PM Electronically Signed by Eran Gr MD on 0 06/11/22 at 0102 PATIENT NAME: DELBERT HIGGINS ACCOUNT #: [id number] 2021-09-26 09:39:00-00:00 [facility] ([facility]) Clinical Note REPORT#:[id number] REPORT STATUS: Signed DATE:09/26/21 TIME: 938 PATIENT: DELBERT HIGGINS UNIT #: [id number] ROOM[facility]BED: [facility] : 45 AGE: 76 SEX: M ATTEND: Jerman Gr MD ADM AUTHOR: Wilver Pryor MD * ALL edits or amendments must be made on the [employer]computer document * Clinical Note Note: [facility] Wilver javed M.D. (cell text [phone]) Assessment/Plan 1.) Anemia of acute blood loss- .Hgb 10.6, asymp tomatic. 2.) S/p Left TKA- .acute mul ti-modal pain control and followup. Anticoagulation as per Dr. Gr. 3.) Hypertension- .follow BP and hold Rxs if SBP <120. 4.) OsteoArthritis Hyperlipidemia- .continue on Rx. * OK for DISCHARGE per Internal Medicine. Prior Events/Overnight: Uneventful. Chief Complaint: No significant complaints. Objective Vital Signs: Date Time Temp Pulse Resp B/P B/P Pulse O2 O2 F low FiO2 Mean Ox Delivery Rate 09/26 0745 99.5 74 14 152/79 103.2 96 Nasal cannula 09/26 0730 Nasal 3 cannula 09/26 0435 98.4 73 18 153/80 110 96 Nasal cannula 09/25 2258 96 Nasal 3 32 cannula 09/25 2227 97.9 75 18 123/62 87 96 Nasal cannula 09/25 2000 Nasal 3 cannula 09/25 1946 97.7 77 18 144/75 104 96 Nasal cannula 09/25 1536 97.9 88 14 136/75 94.9 93 Room air 09/25 1226 Nasal 3 cannula 09/25 1200 98 Nasal 2 28 cannula 09/25 1155 97.7 80 16 132/70 90.4 97 Nasal cannula 09/25 1136 Nasal 3 cannula 09/25 1122 97.0 75 14 143/77 97 Nasal 3 cannula 09/25 1107 74 14 169/94 97 Nasal 3 cannula 09/25 1052 71 15 170/99 97 Nasal 3 cannula 09/25 1037 68 14 177/97 97 Nasal 3 cannula 09/25 1036 Simple 6 mask 09/25 1022 71 15 157/96 97 Simple 6 mask 09/25 1007 97.1 74 10 156/87 99 Simple 6 mask Gen: Alert, oriented, in mild discomfort Neck: No Masses, No Thyromegaly- CV: Regular Rate Rhythm / Edema- no significant Resp: Clear To Ascultation / Normal Respiratory Effort ABD: NonTender / NonDistended MS/Skin: No sign of compartment syndrome / +ankl e DF/PF Other: Labs/X-ray: Laboratory Tests: 09/26 442 Chemistry Sodium (136 - 145 mmol/L) 141 Potassium (3.5 - 5.1 mmol/L) 4.0 Chloride (98 - 107 mmol/L) 105.0 Carbon Dioxide (21 - 32 mmol/L) 27.5 BUN (7 - 18 mg/dL) 23 H Creatinine (0.55 - 1.30 mg/dL) 0.70 Glomerular Filtr Rate (>60) 109.6 Glucose (70 - 110 mg/dL) 133 H Calcium (8.2 - 10.1 mg/dL) 8.7 Hematology Hgb (12 - 16 g/dL) 10.6 L Hct (37 - 47 %) 32.4 L Wilver Sheth M.D. at 1136 RPT #:[id number] END OF REPORT 2021-09-26 08:21:00-00:00 [facility] ([facility]) Discharge Summary REPORT#:[id number] REPORT STATUS: Signed DATE:09/26/21 TIME: 820 PATIENT: DELBERT HIGGINS UNIT #: [id number] ROOM/BED: [address] : 45 AGE: 76 SEX: M ATTEND: Jerman Gr MD ADM AUTHOR: Mily Palacios * ALL edits or amendments must be made on the [email or web address] document * General Information Date of admission: Observation Start Date: Date of admission: 09/25/21 Discharge date: 09/26/21 Admission diagnosis: Left Knee Osteoarthritis Discharge diagnosis: same Hospital course: The patient underwent the pr ocedure without incident. Findings were significant for degenerative disease of the knee. The patien t was hemodynamically and medically monitored during the post op period. A nticoagulation was instituted for post op DVT prophylaxis. The patient was progressively able to tolerate PO pain medications and the appropriate diet. PT wa s instituted, with a progressive ability to ambulate and performed ex ercises. The patient was eventually deemed stable and safe for discharge. Despite factors which projected a longer hospita l stay, the patient fulfilled criteria for earlier than expected disch arge, including control of pain, early mobilization with PT and stable hemodynamic stat us. At discharge the patient was comfortable with a controlled pain level. There were no chest or abdominal symptoms present. Dis charge physical exam demonstrated stable vitals and no acute distress . The patient had an intact dressing with no significant drainage and no cyndy f tenderness. There were no neurologic or vascular deficits or changes from the preop states. Pt. condition on discharge: stable Allergies: Allergies: No Known Allergies (Coded, 09/25/21) Med Rec Med Rec Discharge meds: Continue taking these medications: MESALAMINE ER (LIALDA) 1.2 GRAM TAB.DR 1.2 GRAM ORAL DAILY. MELOXICAM (MOBIC) 7.5 MG TAB 7.5 MILLIGRAM ORAL DAILY. VALSARTAN (DIOVAN) 80 MG TAB 80 MILLIGRAM ORAL DAILY. CALCIUM CARBONATE (CALCIUM CARBONATE 500 MG/5 ML ) 1,250 MG/5 ML ORAL.SUSP 1,250 MILLIGRAM ORAL DAILY. CHOLECALCIFEROL (VITAMIN D3) (VITAMIN D3) 1,000 UNITS CAP 1,000 UNITS ORAL DAILY. DULoxetine DR (CYMBALTA) 60 MG CAP.DR 60 MILLIGRAM ORAL DAILY. Treatments Procedures Free Text T P Notes Free Text T P Notes: Procedure: L TKA Discharge Instructions PCP )( Discharge to: Home/Self Care Discharge Instructions Additional Discharge Routines: Attending Follow- Up, Wound/Dressing Care )( Diet: Res Diet )( Activity: As Tolerated )( Wound/dressing care: Leave dressing in place, OK to shower tomorrow Prescriptions: on chart, e-prescribe Follow-up Appointments Attending Physician: Attending Physician: Eran Gr MD Attending physician follow up timeframe: In 1-2 weeks at 0825 Electronically Signed by Eran Gr MD on at 0615 RPT #:[id number] END OF REPORT 2021-09-25 17:42:00-00:00 [facility] ([facility]) Clinical Note REPORT#:[id number] REPORT STATUS: Signed DATE:09/25/21 TIME: 1742 PATIENT: DELBERT HIGGINS UNIT #: [id number] ROOM/BED: [address] : 45 AGE: 76 SEX: M ATTEND: Jerman Gr MD ADM AUTHOR: Wilver Pryor MD * ALL edits or amendments must be made on the [email or web address] document * Clinical Note Note: [facility] Wilver javed MD (cell text [phone]) Internal Medicine Consult at request of : Dr Olegario Gr Chief Complaint: left knee pain HPI: 76yo M is now s/p Left Total Knee Arthropla sty (TKA) by Dr. Gr. Ms. Higgins relates 2 years of prog ressive left knee pain (recently severe), worse with activity, and popping crunchy with restricted mo tion at times in quality. He has failed conservative management. Comorbidities: see below. PmHx: .Hypertension, history of prostate cancer, osteoarthritis ALLERGY: Allergies: No Known Allergies (Coded, 09/25/21) Home Medications: Home Medications: DULoxetine DR (CYMBALTA) 60 MG PO DAILY MESALAMINE ER (LIALDA) 1.2 GM PO DAILY VALSARTAN (DIOVAN) 80 MG PO DAILY CALCIUM CARBONATE (CALCIUM CARBONATE 500 MG/5 ML ) 1,250 MG PO DAILY CHOLECALCIFEROL (VITAMIN D3) (VITAMIN D3) 1,000 UNITS PO DAILY MELOXICAM (MOBIC) 7.5 MG PO DAILY SgHx: . Prostatectomy, left knee scope, appendec cece, elbow SHx: Tob: none FHx: .No significant hx of DVT/PE . Alcohol: none Drugs: none Lives: with spouse Vitals: Vital Signs: Date Time Temp Pulse Resp B/P B/P Pulse O2 O2 F low FiO2 Mean Ox Delivery Rate 09/25 1536 97.9 88 14 136/75 94.9 93 Room air 09/25 1226 Nasal 3 cannula 09/25 1200 98 Nasal 2 28 cannula 09/25 1155 97.7 80 16 132/70 90.4 97 Nasal cannula 09/25 1136 Nasal 3 cannula 09/25 1122 97.0 75 14 143/77 97 Nasal 3 cannula 09/25 1107 74 14 169/94 97 Nasal 3 cannula 09/25 1052 71 15 170/99 97 Nasal 3 cannula 09/25 1037 68 14 177/97 97 Nasal 3 cannula 09/25 1036 Simple 6 mask 09/25 1022 71 15 157/96 97 Simple 6 mask 09/25 1007 97.1 74 10 156/87 99 Simple 6 mask 09/25 0823 97.4 70 20 188/88 96 Gen: Mildly groggy, in mild discomfort, nl nutri tion. EYE: Nl lids conjunctiva. ENT: Nl ears Nose, nl lips,. Neck: Supple, nl thyroid, No masses. CV: Regular Rate Rhythm, no heave or significant murmur. Edema- none RESP: Clear to Auscultation, normal Respiratory effort. ABD: Soft, NonDistended,. LYM: No significant cervical Lymphadenopathy. MS: No sign of compartment syndrome, Knee is wra pped, drain inn place NEURO: Nonfocal, grossly normal sensation of LE, +Ankle DF/PF . Preop Labs (09/18/2021): CBC:. Hgb 12.3, Plt 335, CHEM: Na 144, K 4.1, Cr 0.94 (eGFR 78%), . Ekg: NSR, nonspecific T-wave abnormality (medium to high risk of complications or morbidi ty) (major surgery) (IV sedative, meds) Assessment Plan 11.) Anemia of Acute Blood Loss- .will recheck t omorrow. 2.) S/p Left TKA- .acute mul ti-modal pain control and followup. Anticoagulation as per Dr. Gr. 3.) Hypertension- .follow BP and hold Rxs if SBP <120. 4.) OsteoArthritis Hyperlipidemia- .continue on Rx. Wilver Sheth M.D. Thanks! G8427 - current medications obtained and pa alvarez G8730 - pain assessment with tool and followup p artie 1126F - offered discussion o n advanced care plan and patient declined to address issue at this time. at 2100 RPT #:[id number] END OF REPORT 2021-09-25 10:00:00-00:00 [id number] [facility] [place] [address] PATIENT NAME: DELBERT HIGGINS ADMIT DATE: 08/07 ACCOUNT NO: [id number] ROOM NO: Y.309 AGE: 76 REPORT TYPE: OPERATIVE REPORT SEX: M ADMITTING PHYSICIAN:Eran Gr MD ATTENDING PHYSICIAN:Eran Gr MD OPERATION DATE: 09/25/2021 PREOPERATIVE DIAGNOSIS: Left knee osteoarthropat hy. POSTOPERATIVE DIAGNOSIS: Left knee osteoarthropa thy, M17.12. OPERATIVE PROCEDURES PERFORMED: 1. Computer-assisted imageless left total knee a rthroplasty, 24581. . IMPLANTS UTILIZED: DePuy Sigma total knee system , size 4 left posterior stabilized femur, size 4 fixed-bearing tibial tr ay, 4 x 12.5 mm fixed-bearing posterior stabilized tibial insert, and 38-mm ov al patella. All components cemented. ANESTHESIA: General. TOURNIQUET TIME: 27 minutes. ESTIMATED BLOOD LOSS: Less than 20 mL. SURGEON: Eran Gr M.D. KETTLE OPERATOR HEAD: JOHAN Banks OPERATIVE FINDINGS: Severe fixed varus deformity with tricompartmental arthritis, left knee. SURGICAL SPECIMEN SENT: Bone and articular tirso casiano. CLINICAL INDICATIONS: Mr. Proctor is a very pleasant 76-year-old male from [place], [place], who has been having disa zelalem pain involving his left knee for the past several years. His pain has bee n refractory to extensive nonoperative treatment. Due to his severe disability and lack of response to nonoperative treatment, he is admitted for computer-assisted imageless left total knee arthroplasty. OPERATIVE NARRATIVE: 1. COMPUTER-ASSISTED IMAGELESS LEFT TOTAL KNEE A RTHROPLASTY, 21335. 285. The patient was brought to [facility] operative suite, at which time, he was placed in PATIENT NAME: DELBERT HIGGINS ACCOUNT #: [id number] supine position on the OR table. Routine monitor s were established. General anesthesia was delivered. Af ter satisfactory induction of general anesthesia, a tourniquet was applied to th e patient's left lower extremity per Ms. Palacios and the left leg was circumferentially prepp ed and draped in usual sterile fashion per Ms. Palacios. The leg was then elevated, exsan guinated, tourniquet insufflated to 300 mmHg. The knee was flexed to 100 degrees. The anterior midline incision was performed. Medial parapatel lar arthrotomy was performed. Patella was everted laterally. Severe tricompart mental arthritis was present with a fixed varus deformity. Hypertroph ic osteophytes were resected. Ligament balancing was achieved. Medial and lateral menis ci were excised. The anterior and posterior cruciate ligaments were resected. A centramedullary pin was pl aced in the anatomic center of the distal femur and the OrthAlign guide was placed. The knee was reg istered. The guide was pinned in 0 degrees of varus valgus angulation and 3 degrees of flexion. The distal 12 mm in the femur was then resected. The guide was removed. Distal femur was appropriately sized and a si ze 4 cutting block was used to create the anterior, followed by posterior, followed by chamfer cuts. The appropriate osteotomy guide was then placed across distal femur and th e femoral notch was resected. The proximal tibia was translated anteriorly. Ut ilizing extramedullary instrumentation, the proxima l tibia was resected perpendicular to its mechanical axis resecting 10 mm from the lateral tibial go teau. The proximal tibia was appropriately sized and a size 4 baseplate was n oted optimal coverage. The proximal tibia was appropriately prepped. The pa tella was then resected so as to ensure advent of its normal height with prosthesis in place. Flexion as well as extension gaps were checked a nd noted to be equal. Trial components were placed into the joint. O ptimal stability was noted with a 12.5 mm insert, 0 degrees of gravity extension with 1 35 degrees of gravity flexion were present. Patellofemoral tracking was within normal limits with no varus or valgus instability noted. The knee was s table to flexion as well as extension. The trial components were removed. The b ángel surfaces were prepared with cement implantation utilizing pulsatile lavage irrigati on. Tibial tray was cemented into place followed by cement implantation of fe moral component. Polyethylene insert was then placed on the tibial tray. The k nee was placed in full extension. Patellar component was cemented. Tour niquet deflated. Meticulous hemostasis achieved with Bovie electrocautery. C opious antibiotic lavage was performed. Medium Hemovac drain was then placed deep to the extensor mechanism and the knee was placed into 70 degrees of flexi on. Arthrotomy closed in watertight fashion with 2.0 Quill suture. Skin w as closed with interrupted 0 Vicryl, followed by 2-0 Monocryl, follow ed by surgical jesus per Ms. Palacios. A sterile dressing was applied by Mr. Trace metzger. The patient was then extubated, taken to recovery room awake and alert without a ny anesthetic or operative complications. At the end of the case, sponge an d needle counts were correct x2. During the procedure, Ms. Palacios was invaluable in positioning the patient with preparation and draping of extremity. She w as also vital for providing surgical exposure throughout the procedure in ad dition to closure of the postoperative incisions and application of posto perative dressing. The OrthAlign guidance system ai ded in reduction of the postoperative blood loss due to lack of creation of intra medullary tunnel in the distal femur. Also, several studies have shown that the accuracy of the distal femoral resection is greatly improved utilizing the OrthAlign guidance system . Dictated By: Eran Gr MD PATIENT NAME: DELBERT HIGGINS ACCOUNT #: [id number] WT: OP:YESI/ROSA/FRENCH Conf#: [id number]/DID#: [id number] Authenticated by Eran Gr MD On 03:30:28 PM at 0330 PATIENT NAME: DELBERT HIGGINS ACCOUNT #: [id number] 2021-09-25 07:03:00-00:00 [facility] ([facility]) Brief Op Note REPORT#:[id number] REPORT STATUS: Signed DATE:09/25/21 TIME: 702 PATIENT: DELBERT HIGGINS UNIT #: [id number] ROOM/BED: 998-5 : 45 AGE: 76 SEX: M ATTEND: Jerman Gr MD ADM AUTHOR: Mily Palacios * ALL edits or amendments must be made on the el ectronic/computer document * Op/Inv Proc Note - Brief Pre-procedure diagnosis: Left Knee Osteoarthritis Post-procedure diagnosis: same as pre procedure dx Procedures performed: Left Total Knee Arthroplasty Primary Surgeon: Simón Mud Plant Operator(s): Philip CATES Findings: as above Complications: none Estimated blood loss in ml's: 25cc Specimens removed/altered: none at 0704 Electronically Signed by Eran Gr MD on at [address] [facility] #:[id number] END OF REPORT 2021-09-23 18:36:00-00:00 [id number] [place] [address] PATIENT NAME: DELBERT HIGGINS ADMIT DATE: ACCOUNT NO: [id number] ROOM NO: Y.998 AGE: 76 REPORT TYPE: HISTORY AND PHYSICAL SEX: M ADMITTING PHYSICIAN:Eran Gr MD ATTENDING PHYSICIAN:Eran Gr MD ADMISSION DATE: 09/25/2021 ADMITTING DIAGNOSIS: Left knee osteoarthritis, M 17.12. HISTORY OF PRESENT ILLNESS: Mr. Higgins is a 76-year-old male who has been having chronic and disabling pain i nvolving his left knee for the past 15 years. He is experiencing pain on a daily basis curre ntly. The pain has been becoming quite severe over the past 2 years. His pain has been refractory to extensive nonoperative intervention. Due to his significan t disability and lack of response to nonoperative intervention, Mr. Higgins is admitted for computer-assisted imageless left total knee arth roplasty. PAST MEDICAL HISTORY: Prostate carcinoma and ost eoarthritis. PAST SURGICAL HISTORY: Inclu de appendectomy, prostatectomy, vasectomy and elbow fracture. FAMILY HISTORY: Cerebrovascular disease and arth ritis. SOCIAL HISTORY: He is . He is retired. He does not smoke nor does he drink. MEDICATIONS: Consist of mesalamine, losartan, Me loxicam, duloxetine, montelukast. ALLERGIES: NO ALLERGIES ARE NOTED. REVIEW OF SYSTEMS: Negative. PHYSICAL EXAMINATION: GENERAL: Revealed him to be 5 feet 11 inches denis l, weighs 70.4 kilograms. HEENT: Within normal limits. CARDIAC: Regular rate and rhythm. No murmur. CHEST: Clear. ABDOMEN: Benign. BACK: No CVA tenderness. EXTREMITIES: Leg lengths were equal, full painle ss motion of both hips. Examination of the left knee reveals an antalgic gait. He has a fixed varus deformity, he has 10 to 90 degrees of motion, th ere was no instability. His distal neurovascular status is intact. B ilateral hip examination within normal limits. PATIENT NAME: DELBERT HIGGINS ACCOUNT #: [id number] Radiographic evaluation revealed severe varus ma lalignment with yiqf-rr-iclo disease and periarticular osteophytes. ASSESSMENT AND PLAN: Left knee pain secondary to severe osteoarthritis. Surgical plan will be to pro ceed with computer-assisted imgaelss left total knee arthroplasty. I have gone over at length with Mr Clare Higgins the associated risk involved with this procedure. He understands the se risks include but are not limited to bleeding, infection, neurovas cular damage, persistent pain, loss of motion, need for further ope rative intervention, leg length inquality, loosening of the prosthesis requiring possible revision, p ersistent limp, painful scar, deep vein thrombosis leading to pulmonary emboli along with complications secondary to anesthesia. Mr. Higgins unders tands that he will receive a posterior cruciate sacrificing fixed bearing total knee ar throplasty. Furthermore, he understands that inpatient an admission is indic ated and the fact that his bedroom is on the second annel or of his home and he lives over 30 minutes with the nearest medical facility. Finally, he understands that there are no guarantees or warranties that he will be pain free as a result of the procedure. Mr. Sadie perales accepts these risks and gives his informed consent to proceed. Dictated By: Eran Gr MD WT: HP:YESI/ROSA/FRENCH Conf#: [id number]/DID#: [id number] Authenticated by Eran Gr MD On 07:40:00 AM at 0740 PATIENT NAME: DELBERT HIGGINS ACCOUNT #: [id number] 2021-09-18 15:01:00-00:00 [id number] [place] [address] PATIENT NAME: DELBERT HIGGINS ADMIT DATE: ACCOUNT NO: [id number] ROOM NO: AGE: 76 REPORT TYPE: ELECTROCARDIOGRAM SEX: M ADMITTING PHYSICIAN:Eran Gr MD ATTENDING PHYSICIAN:Eran Gr MD Order: [id number] Test Reason : PRE-OP CLEARANCE HTN Test Date/Time Stamp: FriSep 18 2021 15:01:24 Blood Pressure : / mmHG Vent. Rate : 077 BPM Atrial Rate : 077 BPM P-R Int : 166 ms QRS Dur : 078 ms QT Int : 386 ms P-R-T Axes : 068 063 078 degree s QTc Int : 436 ms Normal sinus rhythm Minimal voltage criteria for LVH, may be normal variant Nonspecific T wave abnormality Abnormal ECG When compared with ECG of 18-SEP-2021 14:59, (Un confirmed) No significant change was found Confirmed by REENA CHAPIN MD ([id number]) on 09/20/2021 4:37:38 PM Referred By: Eran Gr Confirmed by:REENA CHAPIN MD Electronically Signed by Reena Chapin MD on 03/07 at 1637 PATIENT NAME: DELBERT HIGGINS ACCOUNT #: [id number] 2019-09-05 20:12:00-00:00 [id number] [place] [address] PATIENT NAME: DELBERT HIGGINS ADMIT DATE: ACCOUNT NO: [id number] ROOM NO: AGE: 74 REPORT TYPE: OPERATIVE REPORT SEX: M ADMITTING PHYSICIAN: ATTENDING PHYSICIAN:Nela Snell MD OPERATION DATE: 09/03/2019 PREOPERATIVE DIAGNOSES: 1. Right elbow supracondylar humerus fracture wi th intra-articular extension. 2. Right elbow retained hardware of the radial h ead silicone arthroplasty. 3. 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 POSTOPERATIVE DIAGNOSES: 1. Right elbow supracondylar humerus fracture wi th intra-articular extension. 2. Right elbow retained hardware of the radial h ead silicone arthroplasty. 3. 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 SURGERY PERFORMED 1. Right elbow supracondylar humerus fracture op en reduction and internal fixation. 2. Right elbow removal of radial head prosthesis . 3. Right ulnar nerve decompression with subcutan eous anterior transposition SURGEON: Nela Snell MD ASISTANT: Luis Manuel Manley. The need for activity assistant: Dr. Manley was crucial in helping to position the patient, retraction througho ut multiple parts of the procedure, holding the arm in position where I could use 2 hands to fixate the fracture, helping to retract the nerve at various parts of the proced ure so that I did not place hardware or compress the nerve using drills or K -wires. He was also instrumental in retraction around the fracture s ite itself, so that we had good visualization of the fracture. Because we a not a teaching hospital, we did not have residents that work with us, [facility] Dr. Manley was crucial for multiple parts of the case. TYPE OF ANESTHESIA: General with local. ESTIMATED BLOOD LOSS: 20 mL. HARDWARE USED: Synthes medial elbow plate and a cannulated lag screw. FINDINGS: The patient had old 30-year-old silico ne arthroplasty with significant surrounding synovitis both anterior and posterior in the capsule. The patient also had significant arthritis as a result of the Charcot joint rehab. The patient also had good reduction of th e fracture after plate was PATIENT NAME: DELBERT HIGGINS ACCOUNT #: [id number] placed. He has full range of motion after fixati on. TOURNIQUET TIME: 90 minutes. SPECIMEN: Right elbow synovitis. INDICATION FOR PROCEDURE: Mr. Delbert Higgins is a 74 -year-old male with a history of Charcot foot and Charcot elbow who sustained a fracture the day before. He saw me in clinic and at that time was found to have a supracondylar fracture of the right humerus. He also w as found to have slight tingling in his right small finger. Finally, he was foun d to have a displaced radial head prosthesis, which was placed over 30 years ago. The patien t had no pain, but had no stability of the elbow also, he has had no active fle xion. Passively, he had painless range of motion, but had gross instability of the righ t elbow. Due to the instability, we felt that it would be good in op erating the elbow to give him more stability, so that he will have functional use of his right elbow. The risks and benefits of procedures were ex plained to the patient. He understands that he has a Charcot joint, he is more likely t o have adverse outcomes. The patient understands the risk s, benefits, and decides on operative intervention. PROCEDURE IN DETAIL: The patient was seen in the preoperative anesthesia care unit and the right arm was marked. He was josiah t back to the operating room and placed supine. General anesthesia was induce d. He was then placed in a beanbag and placed lateral. His arm was draped over a post. He was prepped and draped in the usual sterile fashion. Wilmar rile tourniquet was placed on the left arm. The Esmarch was used and his right arm was exsanguinated. I made a posterior incision over the elbow and incised do wn to the fascia. I made subcutaneous pockets both ul narly and radially. Ulnarly, I was able to find the nerve, which was released and a subcu pocket ant eriorly was made. At this point, I was able to make an incision through th e medial intermuscular septum get down to the level of the fracture. There was significant synovitis from the previous radial head, which was dislodged. The s ynovitis was removed and sent for specimen. The previous radial head arthropla sty was also removed. At this time, I could find the fract ure, which was debrided and any callus was removed. Using provisional K wires, I was able to piece t he fracture back to the main humeral shaft fragment. I used a lag scr ew to secure the fragment and I used a medial plate to add a neutralizing force. The fl uoroscopy was used and found that the patient had anatomic reduction of his f racture. He had full range of motion after this was perfor med despite him having significant arthritic wear of his right elbow. At this time, the wound was irr igated and the medial intermuscular septum was closed. I made a subcut aneous pocket for the ulnar nerve, which was transposed anteriorly subcutane ously and the skin was then closed in layers. The patien t was then placed in a posterior elbow splint. The tourniquet was deflated. He had brisk cap refill x5. Dictated By: Nela Snell MD WT: OP:YESI/KARIS/FRENCH Conf#: [id number]/DID#: [id number] Authenticated and Edited by Nela Snell MD On 1 10:02:45 AM PATIENT NAME: DELBERT HIGGINS ACCOUNT #: [id number] Electronically Signed by Nela Snell MD on at 1007 PATIENT NAME: DELBERT HIGGINS ACCOUNT #: [id number] 2019-09-02 13:52:00-00:00 [id number] [place] [address] PATIENT NAME: DELBERT HIGGINS ADMIT DATE: ACCOUNT NO: [id number] ROOM NO: AGE: 74 REPORT TYPE: ELECTROCARDIOGRAM SEX: M ADMITTING PHYSICIAN: ATTENDING PHYSICIAN:Nela Snell MD Order: [id number] Test Reason : PRE-OP CLEARANCE WITH HX OF HTN Test Date/Time Stamp: FriSep 02 2019 13:52:10 Blood Pressure : / mmHG Vent. Rate : 061 BPM Atrial Rate : 061 BPM P-R Int : 174 ms QRS Dur : 088 ms QT Int : 422 ms P-R-T Axes : 066 074 067 degree s QTc Int : 424 ms Normal sinus rhythm Moderate voltage criteria for LVH, may be normal variant Borderline ECG No previous ECGs available Confirmed by REENA CHAPIN MD ([id number]) on 09/06/2019 3:25:41 PM Referred By: Nela Snell Confirmed by:REENA CHAPIN MD Electronically Signed by Reena Chapin MD on 08/18 12/05 at 1525 PATIENT NAME: DELBERT HIGGINS ACCOUNT #: [id number]
[2023-06-18] MEDS ORDERED: NA CHLORIDE 0.9% 1,000 ML ONE (18:46)
[2023-06-18] MEDS ORDERED: LIDOCAINE 1% W/EPI 1:100,000 50 ML MDV ONE (18:46)
[2023-06-18 18:48] LABS: Absolute Lymphocytes (CBC) 0.3 K/uL (0.7-4.9); Hematocrit 27.8 % (39.6-49.0); Lymphocytes % 1.9 % (15.3-44.8); MCV 86.8 fL (80-100); MPV 7.1 fL (7.6-11.3); RBC Red Blood Cell Count 3.21 M/uL (4.33-5.43)
[2023-06-18 18:54] LABS: Protime INR 1.14
--- NOTE | 2023-06-18 19:05 | EDPHYS ---
Physician Documentation [facility] Name: Alex Baugh Age: 78 yrs Sex: Male : 1945 Arrival Date: 06/18/2023 Time: 17:26 Bed 7 Private MD: ED Physician Lukas Aquino HPI: 06/18 18:07 This 78 yrs old Male presents to ER via EMS with complaints of Knee Pain. rony 18:07 The patient presents with decreased range of motion, pain, that is acute. The rony complaints affect the right knee. Context: The problem was sustained at an unknown site, resulted from an unknown cause, the patient is not able to bear weight, the patient is not able to ambulate, Problem is a result from a previous injury: No. Onset: The symptoms/episode began/occurred 4 day(s) ago. Modifying factors: The symptoms are alleviated by remaining still, the symptoms are aggravated by movement, weight bearing, bending knee. Associated signs and symptoms: Pertinent positives: fever, nausea, swelling, weakness, of the right knee. Severity of symptoms: At their worst the symptoms were moderate, in the emergency department the symptoms are unchanged. The patient has not experienced similar symptoms in the past. Historical: - Allergies: 17:36 No Known Allergies; ll1 - PMHx: 17:36 U.C.; Hypertensive disorder; ll1 - PSHx: 17:36 B knee replacements; Appendectomy; ll1 - Immunization history:: Adult Immunizations up to date. - Social history:: Smoking status: Patient denies any tobacco usage or history of. - Family history:: not pertinent. ROS: 18:07 Eyes: Negative for injury, pain, redness, and discharge, ENT: Negative for injury, rony pain, and discharge, Neck: Negative for injury, pain, and swelling, Cardiovascular: Negative for chest pain, palpitations, and edema, Respiratory: Negative for shortness of breath, cough, wheezing, and pleuritic chest pain, Abdomen/GI: Negative for abdominal pain, nausea, vomiting, diarrhea, and constipation, Back: Negative for injury and pain, : Negative for injury, bleeding, discharge, and swelling, Neuro: Negative for headache, weakness, numbness, tingling, and seizure, Psych: Negative for depression, anxiety, suicide ideation, homicidal ideation, and hallucinations, Allergy/Immunology: Negative for hives, rash, and allergies, Endocrine: Negative for neck swelling, polydipsia, polyuria, polyphagia, and marked weight changes, Hematologic/Lymphatic: Negative for swollen nodes, abnormal bleeding, and unusual bruising. 18:07 MS/extremity: Positive for injury or acute deformity, decreased range of motion, erythema, pain, swelling, tenderness, of the right knee. Exam: 18:07 Constitutional: This is a well developed, well nourished patient who is awake, alert, rony and in no acute distress. Head/Face: Normocephalic, atraumatic. Eyes: Pupils equal round and reactive to light, extra-ocular motions intact. Lids and lashes normal. Conjunctiva and sclera are non-icteric and not injected. Cornea within normal limits. Periorbital areas with no swelling, redness, or edema. ENT: Nares patent. No nasal discharge, no septal abnormalities noted. Tympanic membranes are normal and external auditory canals are clear. Oropharynx with no redness, swelling, or masses, exudates, or evidence of obstruction, uvula midline. Mucous membranes moist. Neck: Trachea midline, no thyromegaly or masses palpated, and no cervical lymphadenopathy. Supple, full range of motion without nuchal rigidity, or vertebral point tenderness. No Meningismus. Chest/axilla: Normal chest wall appearance and motion. Nontender with no deformity. No lesions are appreciated. Cardiovascular: Regular rate and rhythm with a normal S1 and S2. No gallops, murmurs, or rubs. Normal PMI, no JVD. No pulse deficits. Respiratory: Lungs have equal breath sounds bilaterally, clear to auscultation and percussion. No rales, rhonchi or wheezes noted. No increased work of breathing, no retractions or nasal flaring. Abdomen/GI: Soft, non-tender, with normal bowel sounds. No distension or tympany. No guarding or rebound. No evidence of tenderness throughout. Back: No spinal tenderness. No costovertebral tenderness. Full range of motion. Male : Normal genitalia with no discharge or lesions. Skin: Warm, dry with normal turgor. Normal color with no rashes, no lesions, and no evidence of cellulitis. Neuro: Awake and alert, GCS 15, oriented to person, place, time, and situation. Cranial nerves II-XII grossly intact. Motor strength 5/5 in all extremities. Sensory grossly intact. Cerebellar exam normal. Normal gait. Psych: Awake, alert, with orientation to person, place and time. Behavior, mood, and affect are within normal limits. 18:07 Musculoskeletal/extremity: ROM: limited active range of motion, limited passive range of motion, limited active range of motion due to pain, limited passive range of motion due to pain, Circulation is intact in all extremities. Sensation intact. Compartment Syndrome exam of affected extremity: is normal. DVT Exam: negative Homans' sign noted on exam, no appreciated bluish discoloration, pain, swelling, tenderness, erythema, increased warmth. 19:04 ECG was reviewed by the Attending Physician. [facility] Vital Signs: 17:36 BP 123 / 50; Pulse 90; Resp 18; Temp 98(O); Pulse Ox 95% on R/A; Pain 9/10; ll1 17:45 BP 125 / 51; Pulse 87; Resp 18; Pulse Ox 97% on R/A; db 18:30 BP 106 / 53; Pulse 90; Resp 16; Temp 99.1(O); Pulse Ox 95% on R/A; db 21:41 BP 116 / 59; Pulse 85; Resp 16; Pulse Ox 94% on R/A; ll3 17:36 Pain Scale: Adult ll1 MDM: 17:36 Patient medically screened. [facility] 18:13 Differential diagnosis: contusion, abrasion, tendonitis. Data reviewed: vital signs, [facility] nurses notes, lab test result(s), EKG, radiologic studies, plain films. Consideration of Admission/Observation Escalation of care including admission/observation considered. I considered the following discharge prescriptions or medication management in the emergency department Medications were administered in the Emergency Department. See MAR. Test considered but Not performed: MRI: NO MRI. Historians other than the Patient: Spouse/Significant Other: , INFORMED. Care significantly affected by the following chronic conditions: Hypertension, UC. Counseling: I had a detailed discussion with the patient and/or guardian regarding: the historical points, exam findings, and any diagnostic results supporting the discharge/admit diagnosis, lab results, radiology results, the need to transfer to another facility, for higher level of care, [facility] does not immediately have the required specialist. 06/18 18:05 Order name: Basic Metabolic Panel [facility] 06/18 18:05 Order name: CBC with Diff; Complete Time: 19:02 [facility] 06/18 18:05 Order name: LFT's [facility] 06/18 18:05 Order name: Magnesium [facility] 06/18 18:05 Order name: NT PRO-BNP [facility] 06/18 18:05 Order name: PT-INR; Complete Time: 19:02 [facility] 06/18 18:05 Order name: Troponin HS [facility] 06/18 18:05 Order name: Blood Culture Adult (2) [facility] 06/18 18:05 Order name: SARS RAPID; Complete Time: 19:02 [facility] 06/18 18:05 Order name: Flu; Complete Time: 19:02 [facility] 06/18 18:05 Order name: Lactate w/ 2H reflex if indic.; Complete Time: 19:36 [facility] 06/18 21:53 Order name: C-Reactive Protein [facility] 06/18 22:26 Order name: Lactate Sepsis 2 HR Follow-up EDTX 08 18:05 Order name: XRAY Chest (1 view); Complete Time: 19:36 [facility] 06/18 18:05 Order name: Knee Right 3 View XRAY; Complete Time: 19:11 [facility] 06/18 18:05 Order name: EKG; Complete Time: 18:06 [facility] 06/18 18:05 Order name: Cardiac monitoring; Complete Time: 18:41 [facility] 06/18 18:05 Order name: EKG - Nurse/Tech; Complete Time: 19:49 [facility] 06/18 18:05 Order name: IV Saline Lock; Complete Time: 18:42 [facility] 06/18 18:05 Order name: Labs collected and sent; Complete Time: 18:42 [facility] 06/18 18:05 Order name: O2 Per Protocol; Complete Time: 18:42 [facility] 06/18 18:05 Order name: O2 Sat Monitoring; Complete Time: 18:42 [facility] 06/18 18:05 Order name: Wound Care: RE DRESS BOTH FEET; Complete Time: 19:56 [facility] 06/18 18:06 Order name: Dressing - Wound; Complete Time: 18:44 [facility] 06/18 18:06 Order name: Gloves, Sterile; Complete Time: 18:44 [facility] 06/18 18:06 Order name: Setup Suture Tray; Complete Time: 18:44 [facility] EC:04 Rate is 85 beats/min. Rhythm is regular. QRS Fonda is Normal. WI interval is normal. QRS rony interval is normal. QT interval is normal. No Q waves. T waves are Normal. No ST changes noted. Clinical impression: NSR w/ Non-specific ST/T Changes and No evidence of ischemia. Interpreted by me. Reviewed by me. Administered Medications: 18:05 CANCELLED (Duplicate Order): Acetaminophen PO 1000 mg PO once rony 18:29 Drug: NS 0.9% IV 1000 ml Route: IV; Rate: 1 bolus; Site: right forearm; 19:40 Follow up: Response: No adverse reaction; IV Status: Completed infusion; IV Intake: ll3 1900ml 18:41 Drug: Lidocaine-Epinephrine Infiltration -1%: (1:100,000) 10 ml {Note: given to db provider.} Volume: 20 ml; Route: Infiltration; Disposition Summary: 06/18/23 19:04 Transfer Ordered Transfer Location: Other Acute Care Facility rony Reason: Higher level of care rony Condition: Stable rony Problem: new rony Symptoms: have improved rony Accepting Physician: TO [facility](06/18/23 22:38) ll3 Diagnosis - Effusion, right knee - SEPTIC rony - Fever, unspecified rony - Elevated white blood cell count rony Forms: - Medication Reconciliation Form rony - SBAR form rony Signatures: Dispatcher [employer] EDMS Lukas Aquino MD MD cha Attema, Lee, PAPERHANGER SUPERVISOR-C PAPERHANGER SUPERVISOR-Cla1 Avis Anthony, RN RN ll1 Marycarmen Hawk RN RN ll3 Dana Simon RN RN db Corrections: (The following items were deleted from the chart) 18:05 18:05 Acetaminophen PO 1000 mg PO once ordered. rony rony 21:50 21:28 C-REACTIVE PROTEIN+C.LAB.BRZ ordered. EDTX EDMS 22:38 19:04 TO [facility] rony ll3
--- NOTE | 2023-06-18 19:05 | ER ---
Nurse's Notes [facility] Name: Alex Baugh Age: 78 yrs Sex: Male : 1945 Arrival Date: 06/18/2023 Time: 17:26 Bed 7 Private MD: Diagnosis: Effusion, right knee-SEPTIC;Fever, unspecified;Elevated white blood cell count Presentation: 06/18 17:36 Chief complaint: Patient states: R knee pain, swelling, redness since Friday evening. ll1 reports some confusion off/on. Fever 102.4 at home EMS states: Tylenol 975 MG PO, 16 R AC and NS bolus started. HR 92, O2 96% on 2L NC. Coronavirus screen: Client denies travel out of the [place] in the last 14 days. At this time, the client does not indicate any symptoms associated with coronavirus-19. Ebola Screen: Patient denies travel to an Ebola-affected area in the 21 days before illness onset. Initial Sepsis Screen: Does the patient meet any 2 criteria? No. Patient's initial sepsis screen is negative. Does the patient have a suspected source of infection? Yes: Bone or joint infection. Risk Assessment: Do you want to hurt yourself or someone else? Patient reports no desire to harm self or others. Onset of symptoms was June 14, 2023. 17:36 Method Of Arrival: EMS: [facility] 17:36 Acuity: SHERYL 2 ll1 Triage Assessment: 17:39 General: Appears uncomfortable, ill, Behavior is calm, cooperative, appropriate for 1 age. Pain: Complains of pain in R knee. Musculoskeletal: Swelling present in R knee Reports pain in R knee. Historical: - Allergies: 17:36 No Known Allergies; ll1 - PMHx: 17:36 U.C.; Hypertensive disorder; ll1 - PSHx: 17:36 B knee replacements; Appendectomy; ll1 - Immunization history:: Adult Immunizations up to date. - Social history:: Smoking status: Patient denies any tobacco usage or history of. - Family history:: not pertinent. Screenin:43 [facility] ED Fall Risk Assessment (Adult) History of falling in the last 3 months, db including since admission Yes- single mechanical fall (1 pt) Confusion or Disorientation No (0 pts) Intoxicated or Sedated No (0 pts) Impaired Gait Yes (1 pt) Mobility Assist Device Used No (0 pt) Altered Elimination No (0 pt) Score/Fall Risk Level 0 - 2 = Low Risk Oriented to surroundings, Maintained a safe environment. Abuse screen: Denies threats or abuse. Denies injuries from another. Nutritional screening: No deficits noted. Tuberculosis screening: No symptoms or risk factors identified. Assessment: 18:42 Reassessment: Patient appears in no apparent distress at this time. Patient and/or db family updated on plan of care and expected duration. Pain level reassessed. Patient is alert, oriented x 3, equal unlabored respirations, skin warm/dry/pink. right knee swelling and pain after twisting knee on Friday. post surgery 10 days ago. General: Appears in no apparent distress. comfortable, Behavior is calm, cooperative. Vital Signs: 17:36 BP 123 / 50; Pulse 90; Resp 18; Temp 98(O); Pulse Ox 95% on R/A; Pain 9/10; ll1 17:45 BP 125 / 51; Pulse 87; Resp 18; Pulse Ox 97% on R/A; db 18:30 BP 106 / 53; Pulse 90; Resp 16; Temp 99.1(O); Pulse Ox 95% on R/A; db 21:41 BP 116 / 59; Pulse 85; Resp 16; Pulse Ox 94% on R/A; ll3 17:36 Pain Scale: Adult ll1 ED Course: 17:35 Patient arrived in ED. db 17:35 Avis Anthony, RN is Primary Nurse. ll1 17:36 Lukas Aquino MD is Attending Physician. rony 17:36 Arm band placed on Patient placed in an exam room, on a stretcher. ll1 17:37 Bao Abraham, ELVIRA is Primary Nurse. bp 17:39 Triage completed. ll1 18:00 Maintain EMS IV. Dressing intact. Good blood return noted. Site clean \T\ dry. Gauge \T\ db site: RAC 20G. 18:15 First set of blood cultures drawn by me. db 18:28 Second set of blood cultures drawn by me. Inserted saline lock: 20 gauge in left db forearm, using aseptic technique. Blood collected. 18:50 Radiology exam delayed due to EKG. az 19:00 initiated transfer to [facility]. bd 19:00 Patient has correct armband on for positive identification. Bed in low position. Call light in reach. Side rails up X 1. Provided Education on: DISCHARGE. 19:02 XRAY Chest (1 view) In Process Unspecified. EDMS 19:02 Knee Right 3 View XRAY In Process Unspecified. EDMS 19:45 refaxed patient information over to [facility]. [facility] 19:55 Dressings: Kerlix X 2; right foot and left foot non-adherent dressing x 2 right foot ll3 and left foot Mario bandage to bilateral feet. 20:12 Called [facility] Transfer Center to check on status of transfer, no update- Coordinator will [facility] page [facility]. 20:50 Call Saira, Patient , with transfer update when accepted . [facility] 20:55 Contacted [facility] Transfer Center to request an update again- Coordinator said they have no [facility] update but will page [facility] again. 21:25 [facility] transfer center called for Dr romeo Garcia report with Dr. Hanson. [facility] 21:43 Patient accepted to [facility] room [address] Carlos Vázquez. [facility] 21:58 Contacted [facility] to request transport- 15 min ETA. [facility] 22:03 spoke with patient's to notify of transfer acceptance. [facility] 22:35 No provider procedures requiring assistance completed. Patient transferred, IV remains ll3 in place. Administered Medications: 18:05 CANCELLED (Duplicate Order): Acetaminophen PO 1000 mg PO once [facility] 18:29 Drug: NS 0.9% IV 1000 ml Route: IV; Rate: 1 bolus; Site: right forearm; 19:40 Follow up: Response: No adverse reaction; IV Status: Completed infusion; IV Intake: ll3 1900ml 18:41 Drug: Lidocaine-Epinephrine Infiltration -1%: (1:100,000) 10 ml {Note: given to db provider.} Volume: 20 ml; Route: Infiltration; Medication: 22:36 VIS not applicable for this client. ll3 Intake: 19:40 IV: 1900ml; Total: 1900ml. ll3 Outcome: 19:04 ER care complete, transfer ordered by . [facility] 22:36 Transferred by ground EMS to other acute care facility: [facility] . Transfer ll3 form completed. 22:36 Condition: stable 22:36 Instructed on the need for transfer, Demonstrated understanding of instructions. 22:38 Patient left the ED. ll3 Signatures: Dispatcher [employer] EDMS Vielka Guerra Corey, MD MD cha Peltier, Brian, RN RN Beena Moya Lynsay, RN RN ll1 Marycarmen Hawk RN RN ll3 Dana Simon RN RN Sarah Celestin [facility]
--- NOTE | 2023-06-18 19:07 | RAD REPORT ---
EXAM DESCRIPTION: RAD - Chest Single View - 06/18/2023 7:00 pm CLINICAL HISTORY: COUGH Chest pain. COMPARISON: <Comparisons> FINDINGS: Portable technique limits examination quality. Patchy opacities are present in the left lung base suspicious for left basilar pneumonia. The heart i s normal in size. Tortuous thoracic aorta. IMPRESSION: Left lower lobe pneumonia suspected.
[2023-06-18 19:08] LABS: Albumin 2.2 g/dL (3.4-5.0); Bilirubin Direct 0.4 mg/dL (0-0.2); Bilirubin Indirect, Calculated 0.4 mg/dL (0.2-0.8); Bilirubin Total 0.8 mg/dL (0.2-1.0); Potassium 3.4 mEq/L (3.5-5.1); Protein, Total 6.2 g/dL (6.4-8.2); Troponin High Sensitivity 16.9 pg/mL (<58.9)
--- NOTE | 2023-06-18 19:08 | RAD REPORT ---
EXAM DESCRIPTION: RAD - Knee Right 3 View - 06/18/2023 7:00 pm CLINICAL HISTORY: PAIN COMPARISON: Chest Single View dated 06/18/2023 FINDINGS: Right total knee arthroplasty is present. There is a large amount of soft tissue swelling of the anterior aspect of the knee. This is likely related to infection, presumably the joint is sept ic.
[2023-06-18 23:02] VITALS: TEMP 99.1
[2023-06-18 23:03] VITALS: BP 116/59; O2SAT 94
== END 2023-06-18 22:38 ==
LOC: ER 17:26
DX: M25.461 Effusion, right knee (principal); M00.9 Pyogenic arthritis, unspecified; D72.829 Elevated white blood cell count, unspecified; Z20.822 Contact with and (suspected) exposure to COVID-19; Z96.653 Presence of artificial knee joint, bilateral
CPT/HCPCS: 87040 ×2; 85025; 80048; 36415; 83735; 85610; 80076; 83605 ×2; 84484; 83880; 86140; 87804 ×2; 71045; 73562; 87811; J7030; 87205; 93005

== ENCOUNTER 2023-09-01 13:35 | Emergency (ER) | payer OTHER, BC ==
--- OUTSIDE RECORDS SUMMARY | 2023-09-01 13:43 | XMS REPORT | Continuity of Care Document ---
:1945 Author Organization [facility] t Address [address] [place] [address] [address] [place] [address] Care Team Providers Name Role Phone Asked, No Pcp Primary Care Physician Unavailable Provider MD, Not In System Attending Clinician Unavailable Eran Amaya MD Attending Clinician Kylah Schofield MA Attending Clinician Unavailable NKECHI ASCENCIO Attending Clinician Unavailable Doctor Unassigned, [place] Attending Clinician Unavailable Konstantin SZYMANSKI, Wilver Silverman Attending Clinician Spencer SZYMANSKI, Binta Acosta Attending Clinician [phone] Zhao SZYMANSKI, Clyde Douglas Attending Clinician [phone] Kristian1 Dana Bardales MD Attending Clinician Luis Manuel Wood MD Attending Clinician Gurpreet Chambers Attending Clinician Unavailable Cruz Tavares Attending Clinician Unavailable Milvia Attending Clinician Unavailable Umer Newton MD Attending Clinician UMER NEWTON Attending Clinician Unavailable UMER NEWTON Attending Clinician Unavailable Erika Attending Clinician Unavailable Eran Gr Attending Clinician [phone] Ravinder Snell Attending Clinician [phone] Ravinder Snell Attending Clinician Unavailable Eran Gr Attending Clinician Unavailable Cruz Tavares Attending Clinician [phone] STALIN OWENS Attending Clinician Unavailable AFSHAN ROCA Admitting Clinician Unavailable BINTA PALMER Admitting Clinician Unavailable Gurpreet Chambers Admitting Clinician Unavailable Cruz Tavares Admitting Clinician Unavailable Milvia Admitting Clinician Unavailable UMER NEWTON Admitting Clinician Unavailable Erika Admitting Clinician Unavailable Ravinder Snell Admitting Clinician Unavailable Eran Gr Admitting Clinician Unavailable Physician, No Primary Care Admitting Clinician Unavailable STALIN OWENS Admitting Clinician Unavailable Payers Payer Name Policy Type Policy Number Effective Date Expiration Date S sari MEDICARE PART A \\T\\ [id number] 2010 B 00:00:00 BCBS TRADITIONAL [id number] 2013 00:00:00 [place] [id number] 2010 [place] SOLUT[place] 00:00:00 [place] [id number] 2013 (MEDICARE 00:00:00 SUPPLEMENT) [facility] (MEDICARE DME [id number] 2010 REGION C) 00:00:00 EPISODE SOLUTIONS [id number] Problems Condition Condition Condition Status Onset Resolution Last Treating Co mments Source Name Details Category Date Date Treatment Clinician Date Sepsis Sepsis Disease Active Methodi 06-19 00:00: Hospita 00 l History of History of Disease Active M ethodi arthroplas arthroplas 06-19 ty of ty of 00:00: Hospita right knee right knee 00 l 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 Left 12-14 Orth ope Achilles Achilles 00:00: dic tendon Tendon 00 Sports Medicin e 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 11-17 Orth ope of toe of of Toe of 00:00: dic left foot Left Foot 00 Spor ts Medicin e Closed Closed Problem Active Le fracture Fracture 07-01 Orthop e of lower of Lower 00:00: dic end of End of Sports humerus Humerus Medicin e Mechanical Mechanical Problem Active A audreylea complicati Complicati 8-15 Or thope on of on of 00:00: dic internal Internal 00 Sports orthopedic Orthopedic Tn dicin device, Device, e implant Implant AND/OR AND/OR graft Graft Hammer toe Hammer Toe Problem Active A zalea 7-12 Orthope 00:00: dic 00 Sports Medicin e Knee joint Knee Joint Problem Active A audreylea prosthesis Prosthesis 05-17 Or thope present Present 00:00: dic 00 Sports Medicin e Pain of Pain of Problem Active Le right knee Right Knee 05-17 Or thope joint Joint 00:00: dic 00 Sports Medicin e Pain of Pain of Problem Active Le left knee Left Knee 05-17 Orth ope joint Joint 00:00: dic 00 Sports Medicin e Osteoarthr Osteoarthr Problem Active A audreylea itis of itis of 4-20 Orthope right [...] Clinician No Known DA Active U [facility]03 Clear Allergie 00:00: [place] s 00 [facility] No Known DA Active U [facility] Allergie 14 Clear s 00:00: [place] 00 [facility] No Known DA Active U 2020-11 [facility] Allergie 1- [place] s 00:00: Orthope 00 dic Hospita l No Known DA Active U 2018- [facility] Allergie 0-18 Clear s 00:00: [facility] 00 [facility] Sulfamet Propensi Active Nausea And 2017-[address] hoxazole ty to Vomiting 8-15 [facility] adverse 00:00: Medical reaction 00 [place] SULFAMET DRUG Active N/V 2017-0 Univers HOXAZOLE INGREDI 6-16 ity of 00:00: [address] Sulfamet Propensi Active Nausea 2017-0 Univer s hoxazole ty to and/or 6-16 ity of adverse Vomiting 00:00: [place] reaction 00 [facility] No Known DA Active U 2012- [facility] Allergie 1-22 [place] s 00:00: Orthope 00 dic Hospita l NO KNOWN Drug Active Univers ALLERGIE Class ity of S [facility] Social History Social Habit Start Date Stop Date Quantity Comments Source Sexual orientation [facility] History SDOH [facility] Alcohol Frequency [facility] History SDOH [facility] Alcohol Std Drinks [facility] History SDOH [facility] Alcohol Binge Medical [address] [facility] Gender identity Universit y of [facility] History of Social 2023-06-28 2023-06-[address] function 00:00:00 00:00:00 Hospital Exposure to 2023-03-25 2023-04-04 Not sure [facility] of SARS-CoV-2 (event) 00:00:00 13:43:00 [facility] Tobacco use and 2023-04-04 2023-04-04 Smokeless Universit y of exposure 00:00:00 00:00:00 tobacco non-user [facility] Alcohol intake 2017-07-09 2017-07-09 [facility] (finding) Alcohol Comment 2017-07-01 2017-07-[address] [facility] 00:[facility]00 [facility] History of tobacco 1972-07-[address] [facility] use 00:00:00 [facility] Sex Assigned At [address] [facility] 00:00[facility]00 00[facility]00[facility]00 [facility] Smoking Status Start Date Stop Date Source Former Smoker [facility] Tobacco smoking consumption [facility] unknown Never smoked tobacco [facility] Medications Ordered Filled Start Stop Current Ordering Indication Dosage Frequency Signature Comments Components Source Medication Medication Date Date Medication? Clinician (SIG) Name Name furosemide 2022- No 40mg QD Take 1 Meth archie (LASIX) 40 06-28 tablet (40 st mg tablet 00:00: 04:59 mg total) Ho spita 00 :00 by mouth l daily for 30 days. lidocaine 4 2022- No 1{patch Q24H Place 1 Methodi % 06-28 } patch on st 00:00: 04:59 the skin Hospita 00 :00 daily for l 30 days. Remove & Discard patch within 12 hours or as directed by pantoprazol 2022- No 40mg QD Take 1 Met hodi e 06-28 tablet (40 st (PROTONIX) 00:00: 04:59 mg total) H ospita 40 MG EC 00 :00 by mouth l tablet daily for 30 days. spironolact 2022- No 25mg QD Take 1 Met hodi one 06-28 tablet (25 st (ALDACTONE) 00:00: 04:59 mg total) Hospita 25 MG 00 :00 by mouth l tablet daily for 30 days. apixaban Yes 5mg Q.5D Take 1 Methodi (ELIQUIS) 5 -11 tablet (5 st mg tablet 00:00: mg total) Hos maddy 00 by mouth 2 l (two) times a day. HYDROcodone 0 Yes [id number] 1{tbl} Q6H Take 1 M ethodi -acetaminop 8-[address] (NORCO) 00:00: mouth Hospi ta 5-325 mg 00 every 6 l per tablet (six) hours as needed for moderate pain .acute pain. Max Daily Amount: 4 tablets ceFAZolin 2022- No 2g Q8H Infuse 2 g M ethodi (ANCEF) 06-[address] IVPB 2 gram 00:00: 04:59 venous Hos maddy Mini-Bag 00 :00 catheter l Plus every 8 (eight) hours for 34 days. acetaminoph 2022- No 650mg Q6H Take 2 Me thodi en 06-[address] (TYLENOL) 00:00: 04:59 (650 mg Hosp corrine 325 MG 00 :00 total) by l tablet mouth every 6 (six) hours as needed for mild pain or fever for up to 30 days. amIODarone No 200mg QD Take 1 Met hodi (Pacerone) 06-[address] 200 MG 00:00: 04:59 (200 mg Hospita tablet 00 :00 total) by l mouth daily for 30 days. DULoxetine No 60mg QD Take 1 Meth archie (CYMBALTA) 06-[address] 60 MG 00:00: 04:59 (60 mg Hospita capsule 00 :00 total) by l mouth every evening for 30 days. ipratropium No [id number] 3mL Q.[id number] Take 3 mL Methodi -albuteroL 06-[id number] (DUO-NEB) 00:00: 04:59 3D nebulizati H ospita 0.5-2.5 00 :00 on every 6 l mg/3 mL (six) nebulizer hours while awake for 30 days. naloxone No .2mg Infuse 0.5 Me thodi (NARCAN) 06-27 mL (0.[address] 0.4 mg/mL 00:00: 04:59 total) Hospi ta injection 00 :00 into a l venous catheter once as needed for opioid reversal or respirator y depression (as needed for respirator y rate 8 per minute or less OR patient sommnolent and difficult to arouse (POSS GREATER than 3).) for up to 30 days. ramelteon No 8mg QD Take 1 Metho di (ROZEREM) 8 06-27 tablet (8 st mg tablet 00:00: 04:59 mg total) Ho spita 00 :00 by mouth l nightly as needed for sleep for up to 30 days. sennosides- 2022- No 2{tbl} Q.5D Take 2 M ethodi docusate 06-[address] sodium 00:00: 04:59 mouth 2 Hospita (SENOKOT-S) 00 :00 (two) l 8.6-50 mg times a per tablet day for 30 days. tamsulosin 2022- No .4mg QD Take 1 Meth archie (FLOMAX) 06-[address] 0.4 mg 00:00: 04:59 (0.4 mg Hospita capsule 00 :00 total) by l mouth daily with dinner for 30 days. polysacchar 2022- No 150mg Q.5D Take 1 Me thodi jed iron 06-[address] complex 00:00: 04:59 (150 mg Hospit a (NIFEREX) 00 :00 total) by l 150 mg iron mouth 2 capsule (two) times a day for 30 days. ioflupane I 2022- No [id number] 5.5mCi 5.5 Univers 123 5-10 05-10 millicurie ity of (DATSCAN) 16:15: 16:15 , [place] injection 00 :00 Intravenou Medi cyndy 5.5 s, ONCE, 1 Branch millicurie dose, On Fri03/26/23 at 1115, Routine potassium 2022- No [id number] 100mg 0.1 mL Univers iodide 03-26-10 (100 mg), ity of (SSKI) 1 15:00: 15:00 Oral[place] gram/mL 00 :00 NOW, 1 Medical solution dose, On Branch 0.1 mL Fri03/26/23 at 1000, Routine carbidopa-l 0 Yes [id number] 1{tbl} Take 1 Univers evodopa 5-03 tablet by ity of (SINEMET) 00:00: [place] 25-100 mg 00 the Medical tablet morning Branch and 1 tablet at noon and 1 tablet in the evening. Take at 7AM, 11AM and 3PM everyday. carbidopa-l 0 Yes [id number] 1{tbl} Take 1 Univers evodopa 5-03 tablet by ity of (SINEMET) 00:00: mouth [place] 25-100 mg 00 the Medical tablet morning Branch and 1 tablet at noon and 1 tablet in the evening. Take at 7AM, 11AM and 3PM everyday. carbidopa-l 2023-0 Yes [id number] 1{tbl} Take 1 Univers evodopa 5-03 tablet by ity of (SINEMET) 00:00: [place] 25-100 mg 00 the Medical tablet morning Branch and 1 tablet at noon and 1 tablet in the evening. Take at 7AM, 11AM and 3PM everyday. carbidopa-l 2023-0 Yes [id number] 1{tbl} Take 1 Univers evodopa 5-03 tablet by ity of (SINEMET) 00:00: [place] 25-100 mg 00 the Medical tablet morning Branch and 1 tablet at noon and 1 tablet in the evening. Take at 7AM, 11AM and 3PM everyday. carbidopa-l 2023-0 Yes [id number] 1{tbl} Take 1 Univers evodopa 5-03 tablet by ity of (SINEMET) 00:00: mouth [place] 25-100 mg 00 the Medical tablet morning Branch and 1 tablet at noon and 1 tablet in the evening. Take at 7AM, 11AM and 3PM everyday. carbidopa-l 3-0 Yes [id number] 1{tbl} Take 1 Univers evodopa 5-03 tablet by ity of (SINEMET) 00:00: mouth [place] 25-100 mg 00 the Medical tablet morning Branch and 1 tablet at noon and 1 tablet in the evening. Take at 7AM, 11AM and 3PM everyday. carbidopa-l 2023-0 Yes [id number] 1{tbl} Take 1 Univers evodopa 5-03 tablet by ity of (SINEMET) 00:00: [place] 25-100 mg 00 the Medical tablet morning Branch and 1 tablet at noon and 1 tablet in the evening. Take at 7AM, 11AM and 3PM everyday. carbidopa-l 2023-0 Yes [id number] 1{tbl} Take 1 Univers evodopa 5-03 tablet by ity of (SINEMET) 00:00: mouth [place] 25-100 mg 00 the Medical tablet morning Branch and 1 tablet at noon and 1 tablet in the evening. Take at 7AM, 11AM and 3PM everyday. gadobenate 3-0 2023- No [id number] .2mL/kg 0.2 mL/kg, Univers dimeglumine 03-06-20 Intravenou i ty of (MULTIHANCE 14:00: 13:47 s, ONCE, 1 [place] -15 mL) 00 :00 dose, On Medical injection Jacqueline Branch 0.2 mL/kg 03/06/23 at 0900, Routine ARIPiprazol 2022-0 Yes aripiprazo Univers e 2 mg 4-07 le 2 mg ity of tablet 11:33: tablet [place] 36 TAKE THREE Medical (3) Branch TABLET(S) BY MOUTH DAILY AT BEDTIME. ARIPiprazol 2022-0 Yes aripiprazo Univers e 2 mg 4-07 le 2 mg ity of tablet 11:33: tablet [place] 36 TAKE THREE Medical (3) Branch TABLET(S) BY MOUTH DAILY AT BEDTIME. ARIPiprazol 2022-0 Yes aripiprazo Univers e 2 mg 4-07 le 2 mg ity of tablet 11:33: tablet [place] 36 TAKE THREE Medical (3) Branch TABLET(S) BY MOUTH DAILY AT BEDTIME. ARIPiprazol 2022-0 Yes aripiprazo Univers e 2 mg 4-07 le 2 mg ity of tablet 11:33: tablet [place] 36 TAKE THREE Medical (3) Branch TABLET(S) BY MOUTH DAILY AT BEDTIME. ARIPiprazol 2022-0 Yes aripiprazo Univers e 2 mg 4-07 le 2 mg ity of tablet 11:33: tablet [place] 36 TAKE THREE Medical (3) Branch TABLET(S) BY MOUTH DAILY AT BEDTIME. ARIPiprazol 2022-0 Yes aripiprazo Univers e 2 mg 4-07 le 2 mg ity of tablet 11:33: tablet [place] 36 TAKE THREE Medical (3) Branch TABLET(S) BY MOUTH DAILY AT BEDTIME. ARIPiprazol 2022-0 Yes aripiprazo Univers e 2 mg 4-07 le 2 mg ity of tablet 11:33: tablet [place] 36 TAKE THREE Medical (3) Branch TABLET(S) BY MOUTH DAILY AT BEDTIME. ARIPiprazol 2022-0 Yes aripiprazo Univers e 2 mg 4-07 le 2 mg ity of tablet 11:33: tablet [place] 36 TAKE THREE Medical (3) Branch TABLET(S) BY MOUTH DAILY AT BEDTIME. ARIPiprazol 2023-0 Yes aripiprazo Univers e 2 mg 4-07 le 2 mg ity of tablet 11:33: tablet [place] 36 TAKE THREE Medical (3) Branch TABLET(S) BY MOUTH DAILY AT BEDTIME. ARIPiprazol 3-0 Yes aripiprazo Univers e 2 mg 4-07 le 2 mg ity of tablet 11:33: tablet [place] 36 TAKE THREE Medical (3) Branch TABLET(S) BY MOUTH DAILY AT BEDTIME. ARIPiprazol 2022-0 Yes aripiprazo Univers e 2 mg 4-07 le 2 mg ity of tablet 11:33: tablet [place] 36 TAKE THREE Medical (3) Branch TABLET(S) BY MOUTH DAILY AT BEDTIME. ARIPiprazol 2022-0 Yes aripiprazo Univers e 2 mg 4-07 le 2 mg ity of tablet 11:33: tablet [place] 36 TAKE THREE Medical (3) Branch TABLET(S) BY MOUTH DAILY AT BEDTIME. ARIPiprazol 2022-0 Yes aripiprazo Univers e 2 mg 4-07 le 2 mg ity of tablet 11:33: tablet [place] 36 TAKE THREE Medical (3) Branch TABLET(S) BY MOUTH DAILY AT BEDTIME. ARIPiprazol 2022-0 Yes aripiprazo Univers e 2 mg 4-07 le 2 mg ity of tablet 11:33: tablet [place] 36 TAKE THREE Medical (3) Branch TABLET(S) BY MOUTH DAILY AT BEDTIME. ARIPiprazol 2022-0 Yes aripiprazo Univers e 2 mg 4-07 le 2 mg ity of tablet 11:33: tablet [place] 36 TAKE THREE Medical (3) Branch TABLET(S) BY MOUTH DAILY AT BEDTIME. ARIPiprazol 2022-0 Yes aripiprazo Univers e 2 mg 4-07 le 2 mg ity of tablet 11:33: tablet [place] 36 TAKE THREE Medical (3) Branch TABLET(S) BY MOUTH DAILY AT BEDTIME. ARIPiprazol 2022-0 Yes aripiprazo Univers e 2 mg 4-07 le 2 mg ity of tablet 11:33: tablet [place] 36 TAKE THREE Medical (3) Branch TABLET(S) BY MOUTH DAILY AT BEDTIME. orphenadrin 2022-0 Yes 100mg Take 1 Uni vers e [...] 12 Medical (twelve) Branch hours as needed. orphenadrin 2023-0 Yes 100mg Take 1 Uni vers e 100 mg SR 4-01 tablet by ity of tablet 00:00: mouth [place] 00 every 12 Medical (twelve) Branch hours as needed. traMADoL 50 2022-0 Yes TAKE 1-2 Un gretchen mg tablet 4-01 TABLETS BY ity of 00:00: MOUTH [place] 00 EVERY 6 Medical HOURS Branch NEEDED FOR ACUTE PAIN traMADoL 50 2022-0 Yes TAKE 1-2 Un [...] HOURS Branch NEEDED FOR ACUTE PAIN orphenadrin 2022-0 Yes 100mg Take 1 Uni vers e [...] HOURS Branch NEEDED FOR ACUTE PAIN valsartan 3-0 Yes 80mg Take 1 Univer s 80 [...] tablet by ity of tablet 00:00: mouth 00 every Medical morning. Branch valsartan 2023-0 Yes 80mg Take 1 Univer s 80 mg 3-06 tablet by ity of tablet 00:00: mouth 00 every Medical morning. Branch valsartan 2023-0 Yes 80mg Take 1 Univer s 80 mg 3-06 tablet by ity of tablet 00:00: mouth 00 every Medical morning. Branch methocarbam 3-0 Yes TAKE 1 Univ ers [...] 00 EVERY DAY Medical NEEDED Branch meloxicam 2022-0 Yes TAKE 1 Univer s 15 mg [...] MOUTH 00 EVERY DAY Medical NEEDED Branch DULoxetine 3-0 Yes 60mg Take 1 Unive rs 60 mg 1-19 capsule by ity of capsule 00:00: mouth 00 every Medical morning. Branch DULoxetine 3-0 Yes 60mg Take 1 Unive rs 60 mg 1-19 capsule by ity of capsule 00:00: mouth 00 every Medical morning. Branch DULoxetine 2023-0 [...] [place] 00 every Medical morning. Branch DULoxetine Yes 60mg Take 1 Unive rs 60 mg 1-19 capsule by ity of capsule 00:00: mouth [place] 00 every Medical morning. Branch amLODIPine 0 Yes 5mg QD Take [address] (NORVASC) 5 8-24 by mouth Luke s MG tablet 18:17: daily. Medica l 20 Tonica calcium 2017-0 Yes 667mg Q.5D Take 667 [facility] acetate 8-24 mg by [facility]ukes (PHOSLO) 18:17: mouth 2 Medica l 667 mg 20 (two) Center capsule times daily. glucosamine 2017-0 Yes 1{tbl} Q.5D Take [address] -chondroiti 8-24 tablet by [place] es n 500-400 18:17: mouth 2 Medic al mg tablet 20 (two) Center times daily. meloxicam 20170 Yes 15mg QD Take [address] (MOBIC) 15 8-24 by mouth [facility]ukes MG tablet 18:17: daily. Medica l 20 [place] mesalamine 20170 Yes 1200mg Q.5D Take 1,[address] (LIALDA) 8-24 mg by [facility]ukes 1.2 gram EC 18:17: mouth 2 Med ical tablet 20 (two) Center times daily. amLODIPine 20170 Yes 5mg QD Take [address] (NORVASC) 5 8-24 by mouth Luke s MG tablet 18:17: daily. Medica l 20 [place] calcium 2017-0 Yes 667mg Q.5D Take 667 [...] MG tablet 18:17: daily. Medica l 20 [place] mesalamine 2017-0 Yes 1200mg Q.5D Take 1,200 [...] MG tablet 18:17: daily. Medica l 20 [place] mesalamine 2017-0 Yes 1200mg Q.5D Take 1,[address] (LIALDA) 8-24 mg by [facility]ukes 1.2 gram EC 18:17: mouth 2 Med ical tablet 20 (two) Center times daily. amLODIPine 2017-0 Yes 5mg QD Take [address] (NORVASC) 5 8-24 by mouth Luke s MG tablet 18:17: daily. Medica l 20 [place] calcium 2017-0 Yes 667mg Q.5D Take 667 [...] mouth Lukes MG tablet 18:17: daily. Medica 20 [place] mesalamine 2017-0 Yes 1200mg Q.5D Take 1,[address] (LIALDA) 8-24 mg by Lukes 1.2 gram EC 18:17: mouth 2 Med ical tablet 20 (two) Center times daily. amLODIPine 2017-0 Yes 5mg QD Take [address] (NORVASC) 5 8-24 by mouth Luke s MG tablet 18:17: daily. Medica 20 [place] calcium 2017-0 Yes 667mg Q.5D Take 667 [...] MG tablet 18:17: daily. Medica l 20 [place] mesalamine 2017-0 Yes 1200mg Q.5D Take 1,200 [...] tablet 20 (two) Center times daily. meloxicam 0 Yes 15mg QD Take [address] (MOBIC) 15 8-24 by mouth Lukes MG tablet 18:17: daily. Medica l 20 Center mesalamine 2017-0 Yes 1200mg Q.5D Take 1,[address] (LIALDA) 8-24 mg by Lukes 1.2 gram EC 18:17: mouth 2 Med ical tablet 20 (two) Center times daily. ketorolac ketorolac No ketorolac Le 10 mg [...] tablet,jagdish tablet,del dic yed release yed release ayjr S ports TAKE 1 TAKE 1 release [...] tablet,jagdish tablet,del Sports yed release yed release ayjr M edicin Take one Take one release [...] SHOULDER AN e SHAMPOO SHAMPOO SHOULDER SHAMPOO Vital Signs Vital Name Observation Time Observation Value Comments Source Systolic blood 2023-04-04 18:50:00 142 mm[Hg] Univer sity [facility] Diastolic blood 2023-04-04 18:50:00 84 mm[facility]Hg[facility] 2023-04-04 18:49:00 74 /min [facility] Respiratory rate 2023-04-04 18:49:00 20 /min [facility] Body height 2023-04-04 18:49:00 180.3 cm [facility] Body weight 2023-04-04 18:49:00 65.772 kg [facility] [place] [facility] BMI 2023-04-04 18:49:00 20.22 kg/m2 [facility] [place] [facility] Oxygen saturation in 2023-04-04 18:49:00 97 /min University of Arterial blood by [facility] Pulse oximetry Branch Systolic blood 2023-03-17 14:46:00 149 mm[Hg] Univer sity of pressure [place] [facility] Diastolic blood 2023-03-17 14:46:00 75 mm[Hg] Unive rsity of pressure [facility] Heart rate 2023-03-17 14:11:00 74 /min [facility] [place] [facility] Body height 2023-03-17 14:11:00 180.3 cm [facility] [place] [facility] Body weight 2023-03-17 14:11:00 65.772 kg [facility] [place] [facility] BMI 2023-03-17 14:11:00 20.22 kg/m2 [facility] [place] [facility] Oxygen saturation in 2023-03-17 14:11:00 97 /min University of Arterial blood by [facility] Pulse oximetry Branch Systolic blood 2023-02-21 16:32:00 148 mm[Hg] Univer sity of pressure [place] [facility] Diastolic blood 2023-02-21 16:32:00 73 mm[Hg] Unive rsity of pressure [facility] Heart rate 2023-02-21 16:31:00 73 /min [facility] [place] [facility] Body height 2023-02-21 16:31:00 180.3 cm [facility] [place] [facility] Body weight 2023-02-21 16:31:00 66.225 kg [facility] [place] [facility] BMI 2023-02-21 16:31:00 20.36 kg/m2 [facility] [place] [facility] Oxygen saturation in 2023-02-21 16:31:00 99 /min University of Arterial blood by [facility] Pulse oximetry Branch Height 2022-07-25 00:00:00 72 [...] 160 [lb_av] [facility] Systolic blood 2023-06-28 16:12:50 94 mm[Hg] [facility] pressure Diastolic blood 2023-06-28 16:12:50 59 mm[Hg] [facility] pressure Heart rate 2023-06-28 16:12:50 112 /min [facility] Body temperature 2023-06-28 16:12:50 36.5 [facility] Respiratory rate 2023-06-28 16:12:50 20 /min [facility] Oxygen saturation in 2023-06-28 16:12:50 94 /min [facility] Arterial blood by Pulse oximetry Body weight 2023-06-28 09:37:15 66.724 kg [facility] BMI 2023-06-28 09:37:15 20.52 kg/m2 [facility] Body height 2023-06-20 16:01:00 180.3 cm [facility] Systolic blood 2023-06-19 21:30:00 140 mm[Hg] [facility] pressure Diastolic blood 2023-06-19 21:30:00 73 mm[Hg] [facility] pressure Heart rate 2023-06-19 21:30:00 87 /min [facility] Respiratory rate 2023-06-19 21:30:00 21 /min [facility] Oxygen saturation in 2023-06-19 21:30:00 97 /min [facility] Arterial blood by Pulse oximetry Body temperature 2023-06-19 19:30:00 36.94 [facility] Procedures Procedure Date / Time Performing Clinician Source Performed CBC WITH PLATELET AND 2023-08-15 00:00:00 Provider, Not In [facility] DIFFERENTIAL System BASIC METABOLIC PANEL 2023-08-15 00:00:00 Provider, Not In [facility] System CBC WITH PLATELET AND 2023-08-14 00:00:00 Provider, Not In [facility] DIFFERENTIAL System BASIC METABOLIC PANEL 2023-08-14 00:00:00 Provider, Not In [facility] System CBC WITH PLATELET AND 2023-07-30 00:00:00 Provider, Not In [facility] DIFFERENTIAL System BUN LEVEL 2023-07-30 00:00:00 Provider, Not In [facility] CREATININE LEVEL 2023-07-30 00:00:00 Provider, Not In [facility] System CBC WITH PLATELET AND 2023-07-16 00:00:00 Provider, Not In [facility] DIFFERENTIAL System CREATININE LEVEL 2023-07-16 00:00:00 Provider, Not In [facility] System BUN LEVEL 2023-07-16 00:00:00 Provider, Not In [facility] ospital System HOME HEALTH - OTHER 2023-06-30 05:01:00 Doctor Unassigned, No [facility] CBC WITH PLATELET AND 2023-06-28 10:30:00 [facility] DIFFERENTIAL N. BASIC METABOLIC PANEL 2023-06-28 10:30:00 [facility] N. ESTIMATED GFR 2023-06-28 10:30:00 [facility] N. MAGNESIUM LEVEL 2023-06-28 10:30:00 [facility] N. PHOSPHORUS LEVEL 2023-06-28 10:30:00 [facility] N. CBC WITH PLATELET AND 2023-06-27 09:32:00 [place], [facility] DIFFERENTIAL MAGNESIUM LEVEL 2023-06-27 09:32:00 [place], [facility] PHOSPHORUS LEVEL 2023-06-27 09:32:00 [place], [facility] H ospital ENTERIC BACTERIAL PANEL 2023-06-26 22:15:00 Lolilavern [facility] N. ECG 12-LEAD 2023-06-26 19:17:32 Asemo, [facility] Juwan CBC WITH PLATELET AND 2023-06-26 09:21:00 Goldsmith, [facility] DIFFERENTIAL MAGNESIUM LEVEL 2023-06-26 09:21:00 Goldsmith, [facility] Ho spital PHOSPHORUS LEVEL 2023-06-26 09:21:00 Goldsmith, [facility] H ospital BASIC METABOLIC PANEL 2023-06-26 09:21:00 [facility] ESTIMATED GFR 2023-06-26 09:21:00 [facility] MANUAL DIFFERENTIAL 2023-06-26 09:21:[address] [facility] US ANKLE BRACHIAL INDEX 2023-06-26 02:16:00 [facility] US DUPLEX ARTERIAL LOWER 2023-06-26 02:07:00 [facility] EXTREMITY LEFT ECG 12-LEAD 2023-06-26 01:22:27 Asemo, [facility] CBC WITH PLATELET AND 2023-06-25 09:24:00 Goldsmith, [facility] DIFFERENTIAL COMPREHENSIVE METABOLIC 2023-06-25 09:24:00 Goldsmith, [facility] PANEL MAGNESIUM LEVEL 2023-06-25 09:24:00 Goldsmith, [facility] Ho spital PHOSPHORUS LEVEL 2023-06-25 09:24:00 Goldsmith, [facility] H ospital IONIZED CALCIUM 2023-06-25 09:24:00 Goldsmith, [facility] spital CYSTATIN C WITH EGFR 2023-06-25 09:24:00 Aaron Swanson [facility] ESTIMATED GFR 2023-06-25 09:24:00 [facility] MANUAL DIFFERENTIAL 2023-06-25 09:24:00 Binta Palmer [facility] Dave BASIC METABOLIC PANEL 2023-06-24 22:29:00 Lydia Mccracken [facility] ESTIMATED GFR 2023-06-24 22:29:00 OChristian [facility] ESTIMATED GFR 2023-06-24 22:27:00 Aaron Swanson [facility] PICC INSERTION REQUEST 2023-06-24 21:40:01 Cory Vu [facility] XR PICC CHEST PORTABLE 2023-06-24 20:57:34 TicoMeryl [facility] POC GLUCOSE 2023-06-24 20:53:00 TicoMeryl [facility] POC GLUCOSE 2023-06-24 16:50:00 Konstantin [facility] PARTIAL THROMBOPLASTIN 2023-06-24 15:24:00 [facility]UCOSE 2023-06-24 12:57:00 [facility] XR CHEST 1 VW PORTABLE 2023-06-24 11:55:00 L[facility] DIGOXIN LEVEL 2023-06-24 11:06:00 AsemoTrista simonsbon [facility] Juwan ECG 12-LEAD 2023-06-24 10:23:31 Asemokristyn, [facility] Juwan CBC WITH PLATELET AND 2023-06-24 08:57:00 Ramin Goldsimth [facility] DIFFERENTIAL COMPREHENSIVE METABOLIC 2023-06-24 08:57:00 Ramin G[facility]mith [facility] PANEL MAGNESIUM LEVEL 2023-06-24 08:57:00 Ramin Goldsmith spital PHOSPHORUS LEVEL 2023-06-24 08:57:00 Ramin Goldsmith H ospital IONIZED CALCIUM 2023-06-24 08:57:00 Ramin Goldsmith spital DIGOXIN LEVEL 2023-06-24 08:57:00 Viral Strange [facility] PARTIAL THROMBOPLASTIN 2023-06-24 08:57:00 Wilver Pryor [facility] TIME (PTT) ESTIMATED GFR 2023-06-24 08:57:00 Binta Palmer [facility] MANUAL DIFFERENTIAL 2023-06-24 08:57:00 [facility] POC GLUCOSE 2023-06-24 05:10:[address] [facility] POTASSIUM LEVEL 2023-06-24 02:10:00 [facility] PARTIAL THROMBOPLASTIN 2023-06-24 02:10:00 Aaron Swanson [facility] TIME (PTT) POC GLUCOSE 2023-06-24 01:21:00 Wilver Pryor [facility] ECG 12-LEAD 2023-06-23 23:05:15 AsemoLeslie simonsagbon [facility] Juwan BASIC METABOLIC PANEL 2023-06-23 22:36:00 Lydia Mccracken [facility] ESTIMATED GFR 2023-06-23 22:36:00 Binta Palmer [facility] POC GLUCOSE 2023-06-23 21:19:00 [facility] PARTIAL THROMBOPLASTIN 2023-06-23 17:17:00 Binta Palmer [facility] TIME (PTT) Dave POC GLUCOSE 2023-06-23 16:49:00 [facility] POC GLUCOSE 2023-06-23 12:55:00 [facility] XR CHEST 1 VW PORTABLE 2023-06-23 11:58:00 Russ [facility] CBC WITH PLATELET AND 2023-06-23 10:25:00 Agus [facility] DIFFERENTIAL COMPREHENSIVE METABOLIC 2023-06-23 10:25:00 Agus [facility] PANEL DIGOXIN LEVEL 2023-06-23 10:25:00 Kiesha Fleming spital MAGNESIUM LEVEL 2023-06-23 10:25:00 Goldsmith, Ramin Veras Ho spital PHOSPHORUS LEVEL 2023-06-23 10:25:00 Goldsmith, Ramin Veras H ospital NT-PROBNP 2023-06-23 10:25:00 Goldsmith, Ramin Veras Ho spital IONIZED CALCIUM 2023-06-23 10:25:00 Goldsmith, Ramin Veras Ho spital PARTIAL THROMBOPLASTIN 2023-06-23 10:25:00 Goldsmith, [facility] TIME (PTT) ESTIMATED GFR 2023-06-23 10:25:00 Binta [facility] MANUAL DIFFERENTIAL 2023-06-23 10:25:00 [facility] POC GLUCOSE 2023-06-23 09:22:00 Binta [facility] POC GLUCOSE 2023-06-23 05:29:00 Binta Palmer [facility] ANTI XA, UNFRACTIONATED 2023-06-23 02:59:00 [facility] BAS[facility]OLIC PANEL 2023-06-23 02:59:00 Goldsmith, [facility] ESTIMATED GFR 2023-06-23 02:59:00 Binta Palmer [facility] POC GLUCOSE 2023-06-23 01:15:00 Binta Palmer [facility] POC GLUCOSE 2023-06-22 21:28:00 Binta [facility] BASIC METABOLIC PANEL 2023-06-22 21:07:00 Agus [facility] ESTIMATED GFR 2023-06-22 21:07:00 Binta [facility] MAGNESIUM LEVEL 2023-06-22 21:07:00 [facility] PHOSPHORUS LEVEL 2023-06-22 21:07:00 Binta Palmer [facility] US DUPLEX VENOUS LOWER 2023-06-22 20:01:00 Agus [facility] EXTREMITY BILATERAL POC GLUCOSE 2023-06-22 16:57:00 Binta Palmer [facility] XR CHEST 1 VW PORTABLE 2023-06-22 13:09:41 Vu, Lydia Zulema Metho [facility] POC GLUCOSE 2023-06-22 13:01:00 Binta Palmer [facility] POC GLUCOSE 2023-06-22 10:17:00 [facility]Slazar [facility] CBC WITH PLATELET AND 2023-06-22 06:20:00 VuLydia Method [facility] DIFFERENTIAL COMPREHENSIVE METABOLIC 2023-06-22 06:20:00 VuLydia [facility] odist [facility] PANEL MAGNESIUM LEVEL 2023-06-22 06:20:00 VuLydiaist Ho spital PHOSPHORUS LEVEL 2023-06-22 06:20:00 Lydia Mccracken H ospital ESTIMATED GFR 2023-06-22 06:20:00 [facility] POC [facility]UCOSE 2023-06-22 05:38:00 [facility] POC GLUCOSE 2023-06-22 01:42:00 [facility] POC GLUCOSE 2023-06-21 21:27:00 Salazar [facility] C-REACTIVE PROTEIN 2023-06-21 21:16:00 [facility] Omead SEDIMENTATION RATE 2023-06-21 21:16:00 [facility] Omead XR KNEE 1 OR 2 VW RIGHT 2023-06-21 17:33:[address] [facility] XR KNEE 1 OR 2 VW LEFT 2023-06-21 17:33:06 Nawaf, Lydia Zulema Metho [facility] XR FOOT 2 VW BILATERAL 2023-06-21 17:32:53 Vu, Lydia Zulema Metho [facility] XR ELBOW 2 VW RIGHT 2023-06-21 17:32:39 Vu, [facility]ydia [facility]SE 2023-06-21 12:49:00 [facility] CHEST 1 VW PORTABLE 2023-06-21 12:19:03 Vu, [facility] Zulema Metho [facility] POTASSIUM LEVEL 2023-06-21 10:40:00 Vu, Lien [facility] POC GLUCOSE 2023-06-21 09:56:00 [facility] POC GLUCOSE 2023-06-21 06:04:00 [facility] CBC WITH PLATELET AND 2023-06-21 05:50:00 Vu, Lydia Zulema [facility] DIFFERENTIAL COMPREHENSIVE METABOLIC 2023-06-21 05:50:00 Vu, Lydia Poole Meth [facility] PANEL MAGNESIUM LEVEL 2023-06-21 05:50:00 Vu, Lydia Zulema [facility] spital PHOSPHORUS LEVEL 2023-06-21 05:50:00 Vu, Lydia Zulema [facility] CYSTATIN C WITH EGFR 2023-06-21 05:50:00 Binta Palmer [facility] TROPONIN T 2023-06-21 05:50:00 Vu, Lydia Romerooc [facility] spital ESTIMATED GFR 2023-06-21 05:50:00 [facility] MANUAL DIFFERENTIAL 2023-06-21 05:50:[address] [facility] BLOOD CULTURE, AEROBIC & 2023-06-21 05:49:00 Romina Betancourt [facility] ANAEROBIC TROPONIN T 2023-06-21 03:44:00 Vu, Lydia Headist Ho spital POC GLUCOSE 2023-06-21 01:46:00 [facility] TTE COMPLETE, WO 2023-06-21 00:17:00 Vu, Lydia [facility]ulema [facility] CONTRAST, W DOPPLER ([id number]) POC GLUCOSE 2023-06-20 23:21:00 [facility] NT-PROBNP 2023-06-20 23:14:00 Vu, Lydia Zulema [facility] TROPONIN T 2023-06-20 23:14:00 Vu, Lydia Zulema [facility] BASIC METABOLIC PANEL 2023-06-20 23:14:00 Vu, Lydia Zule[facility] MAGNESIUM LEVEL 2023-06-20 23:14:00 Vu, Lydia Zulema [facility] PHOSPHORUS LEVEL 2023-06-20 23:14:00 Lydia Mccracken H ospital ESTIMATED GFR 2023-06-20 23:14:00 [facility] X[facility] CHEST 1 VW PORTABLE 2023-06-20 23:06:35 [facility] 12-LEAD 2023-06-20 22:49:27 Lydia Mccracken [facility] spital ARTERIAL BLOOD GAS, 2023-06-20 21:18:00 [facility] HEMOGLOBIN, SYRINGE 2023-06-20 21:18:00 [facility] 2023-06-20 20:20:00 [facility] 2023-06-20 20:14:00 Jose Luis, [facility] AFB STAIN 2023-06-20 20:14:00 Jose Luis, [facility] AFB CULTURE 2023-06-20 20:14:00 Jose Luis, [facility] GRAM STAIN 2023-06-20 20:14:00 Jose Luis, [facility] TISSUE CULTURE 2023-06-20 20:14:00 Jose Luis, [facility] ANAEROBIC CULTURE 2023-06-20 20:07:00 Jose Luis, [facility] AFB STAIN 2023-06-20 20:07:00 Jose Luis, [facility] AFB CULTURE 2023-06-20 20:07:00 Jose Luis, [facility] JOINT FLUID CULTURE 2023-06-20 20:07:00 Jose Luis, [facility] GRAM STAIN 2023-06-20 20:07:00 Jose Luis, [facility] ARTERIAL LINE 2023-06-20 19:51:35 Sunil Abraham Ho spital MO AN ELECTIVE 2023-06-20 19:28:00 Sunil Abraham Ho spital ENDOTRACHEAL AIRWAY INCISION AND DRAINAGE, 2023-06-20 19:19:00 Jose Luis, [facility] KNEE ECG 12-LEAD 2023-06-20 18:52:50 Romina Betancourt ospital ABO AND RH CONFIRMATION 2023-06-20 18:22:00 [facility] BY PROTOCOL Dave POC GLUCOSE 2023-06-20 16:52:00 [facility] POC GLUCOSE 2023-06-20 13:42:00 [facility] VW PORTABLE 2023-06-20 11:49:00 Nawaf [facility] POC GLUCOSE 2023-06-20 09:47:00 [facility] URINE CULTURE 2023-06-20 08:23:00 [facility] LE[facility]LL[facility] URINARY 2023-06-20 07:34:00 [facility] ANTIGEN STREPTOCOCCUS PNEUMONIAE 2023-06-20 07:34:00 [facility] URINARY ANTIGEN [facility] URINALYSIS SCREEN AND 2023-06-20 07:34:00 [facility] MICROSCOPY, WITH REFLEX TO CULTURE TYPE AND SCREEN 2023-06-20 06:13:00 Dakota Stevenson [facility] VENOUS BLOOD GAS 2023-06-20 06:10:00 [facility] IONIZED CALCIUM, VENOUS 2023-06-20 06:10:00 [facility] CBC WITH PLATELET AND 2023-06-20 06:07:00 Nawaf [facility] DIFFERENTIAL COMPREHENSIVE METABOLIC 2023-06-20 06:07:00 Nawaf [facility] PANEL MAGNESIUM LEVEL 2023-06-20 06:07:00 [facility] PHOSPHORUS LEVEL 2023-06-20 06:07:00 Nawaf [facility] ospital ESTIMATED GFR 2023-06-20 06:07:00 [facility] BILIRUBIN DIRECT 2023-06-20 06:07:00 [facility] MANUAL DIFFERENTIAL 2023-06-20 06:07:00 [facility] POC GLUCOSE 2023-06-20 05:32:00 Binta Palmer [facility] XR KNEE 1 OR 2 VW RIGHT 2023-06-20 04:50:07 , [facility] TROPONIN T 2023-06-20 03:28:00 Nawaf, [facility] spital LACTIC ACID LEVEL, SEPSIS 2023-06-20 03:28:00 Nawaf, [facility] - NOW AND REPEAT 2X EVERY 3 HOURS POC GLUCOSE 2023-06-20 01:34:00 Kevin [facility] LACTIC ACID LEVEL, SEPSIS 2023-06-19 22:24:00 Vu, Lydia [facility] - NOW AND REPEAT 2X EVERY 3 HOURS XR CHEST 1 VW PORTABLE 2023-06-19 21:33:34 , [facility] POC GLUCOSE 2023-06-19 21:15:00 [facility] BLOOD CULTURE, AEROBIC & 2023-06-19 20:38:00 Vu, Lydia [facility] ANAEROBIC BLOOD CULTURE, AEROBIC & 2023-06-19 20:37:00 , [facility] ANAEROBIC RESPIRATORY PATHOGEN 2023-06-19 20:33:00 , [facility] PANEL WITH COVID-19 RT-PCR METHICILLIN-RESISTANT 2023-06-19 20:32:00 , [facility] STAPHYLOCOCCUS AUREUS (MRSA), DALTON VENOUS BLOOD GAS 2023-06-19 20:20:00 , [facility] ospital VENOUS BLOOD GAS 2023-06-19 20:20:00 , [facility] ospital SYPHILIS TREPONEMA SCREEN 2023-06-19 20:18:00 , [facility] WITH RPR CONFIRMATION (REVERSE ALGORITHM) CBC WITH PLATELET AND 2023-06-19 20:18:00 , [facility] DIFFERENTIAL COMPREHENSIVE METABOLIC 2023-06-19 20:18:00 , [facility] PANEL LACTIC ACID LEVEL 2023-06-19 20:18:00 , [facility] PROCALCITONIN 2023-06-19 20:18:00 Lydia Mccracken Ho spital PROTHROMBIN TIME WITH INR 2023-06-19 20:18:00 Lydia Mccracken [facility] PARTIAL THROMBOPLASTIN 2023-06-19 20:18:00 Lydia Mccracken [facility] TIME (PTT) TROPONIN T 2023-06-19 20:18:00 Lydia Mccrackenist Ho spital THYROID STIMULATING 2023-06-19 20:18:00 VuLydia [facility] HORMONE ESTIMATED GFR 2023-06-19 20:18:[address] [facility] POC GLUCOSE 2023-06-19 19:36:00 Binta Palmer [facility] Dave [id number] 2023-06-19 00:00:00 SANDRAOlivia [facility] BRAIN SPECT (DATSCAN) 2023-03-26 20:09:00 Nkechi Ascencio [facility] NM BRAIN SPECT (DATSCAN) 2023-03-26 20:09:00 Nkechi Ascencio [facility] NM BRAIN SPECT (DATSCAN) 2023-03-26 20:09:00 Nkechi Ascencio [facility] MR BRAIN W WO CONTRAST 2023-03-06 14:01:00 Umer Newton [facility] WITH NEUROQUANT Medical Branch ASSIGNMENT OF BENEFITS 2023-02-21 15:52:17 Doctor Unassigned, No [facility] Name Medical Branch XR, foot, 2 view 2022-12-25 00:00:00 [facility], foot, 2 view 2022-11-27 00:00:00 [facility] XR, foot, 2 view 2022-10-30 00:00:00 [facility] [id number] 2022-10-14 00:00:00 BLODA [facility] [id number] 2022-10-14 00:00:00 BLODA [facility] [id number] 2022-10-14 00:00:00 BLODA [facility] [id number] 2022-10-14 00:00:00 [facility], foot, w/o contrast 2022-08-27 00:00:00 Azale [facility] XR, knee, 1 or 2 view 2022-08-01 00:00:00 [facility] XR, elbow, 3 or more view 2022-07-25 00:00:00 Az karyna [facility] XR, elbow, 3 or more view 2022-07-01 00:00:00 Az karyna [facility] [id number] 2022-06-11 00:00:00 [facility] [id number] 2022-06-11 00:00:00 [facility] XR, foot, 2 view 2022-05-28 00:00:00 [facility] XR, knee, 1 or 2 view 2022-05-17 00:00:00 [facility] [id number] 2021-09-25 00:00:00 [facility] [id number] 2021-09-25 00:00:00 [facility] Appendectomy [facility] Elbow Surgery [facility] Knee Replacement [facility] Arthroplasty of Radial [facility] Head [facility] Medicine Total Knee Replacement [facility] Vase[facility] Prostatectomy [facility] Hernia Repair [facility] Plan of Care Planned Activity Planned Date Details Comments Source Future Scheduled Test 2023-09-01 65+ PNEUMOCOCCAL Me [facility] 11:00:41 VACCINE (1 - PCV) [code = 65+ PNEUMOCOCCAL VACCINE (1 - PCV)] Future Scheduled Test 2023-09-[address] [facility] 11:00:41 (procedure) [code = 278200544] Future Scheduled Test 2023-09-01 SHINGLES VACCINES (1 [facility] 11:00:41 of 2) [code = SHINGLES VACCINES (1 of 2)] Future Scheduled Test 2023-09-01 RSV VACCINES > [address] [facility] 11:00:41 (1 - 1-dose 60+ series) [code = RSV VACCINES > 60 YR (1 - 1-dose 60+ series)] Future Scheduled Test 2023-09-01 COVID-19 VACCINE (10 [facility] 11:00:41 - season) [code = COVID-19 VACCINE ( - season)] Future Scheduled Test 2023-09-01 INFLUENZA VACCINE [facility] 11:00:41 (#1) [code = INFLUENZA VACCINE (#1)] Future Scheduled Test 2023-06-[address] [facility] 17:01:18 (procedure) [code = 817805013] Future Scheduled Test 2023-06-19 SHINGLES VACCINES (1 [facility] 17:01:18 of 2) [code = SHINGLES VACCINES (1 of 2)] Future Scheduled Test 2023-06-19 65+ PNEUMOCOCCAL [facility] 17:01:18 VACCINE (1 - PCV) [code = 65+ PNEUMOCOCCAL VACCINE (1 - PCV)] Future Scheduled Test 2023-06-19 INFLUENZA VACCINE [facility] 17:01:18 [code = INFLUENZA VACCINE] Instructions [facility] Encounters Start End Encounter Admission Attending Care Care Encounter Source Date/Time Date/Time Type Type Clinicians Facility Department ID 2023-08-15 2023-08-15 Orders Provider, 1.2.840.1 [id number] Methodi 00:00:00 00:00:00 Only [place] 02234.1.[address] [facility] 3.430.2.7 Hospit a .3.217144 l .8 2023-07-31 2023-07-31 Telephone Jose Luis, 1.2.840.1 [id number] Methodi 00:00:00 00:00:[address] [facility] 3.430.2.7 Hospit a .3.035641 l .8 2023-07-30 2023-07-30 Telephone Jose Luis, 1.2.840.1 [id number] Methodi 00:00:00 00:00:[address] [facility] 3.430.2.7 Hospit a .3.993563 l .8 2023-07-30 2023-07-30 Orders Provider, 1.2.840.1 [id number] 2100 [id number] Methodi 00:00:00 00:00:00 [place] [address]83.1.[address] [facility] 3.430.2.7 Hospit a .3.972110 l .8 2023-07-28 2023-07-28 Orders Chandu, 1.2.840.1 [id number] Methodi 00:00:00 00:00:00 Only Candy 72169.1.[address] 3.430.2.7 Hospit a .3.942810 l .8 2023-07-25 2023-07-25 Orders Chandu, 1.2.840.1 [id number] Methodi 00:00:00 00:00:00 Only Candy 32033.1.[address] 3.430.2.7 Hospit a .3.839464 l .8 2023-07-25 2023-07-25 Orders Chandu, 1.2.840.1 [id number] Methodi 00:00:00 00:00:00 Only Candy 87429.1.[address] 3.430.2.7 Hospit a .3.725531 l .8 2023-07-24 2023-07-24 Orders Chandu, 1.2.840.1 [id number] Methodi 00:00:00 00:00:00 Only Candy 14844.1.[address] 3.430.2.7 Hospit a .3.902894 l .8 2023-07-16 2023-07-16 Orders Provider, 1.2.840.1 [id number] 2100 [id number] Methodi 00:00:00 00:00:00 [place] 70728.1.[address] [facility] 3.430.2.7 Hospit a .3.458920 l .8 2023-07-04 2023-07-04 JEAN-PAUL Pierre [facility] [id number] [facility] 10:00:00 10:00:00 NKECHI ity of [facility] 2023-06-30 2023-06-30 Orders Doctor VIRAL 1.2.840.114 [id number] [employer] 00:00:00 00:00:00 Only Unassigned, NELY 350.1.13.10 ity of [place] [facility] 4.2.7.2.686 Davin as [id number] [address] 2023-06-29 2023-06-29 Outpatient R [facility] [id number] [employer] 00:00:00 00:00:00 ity of [facility] 2023-06-19 2023-06-28 [facility] Wilver Pryor 1.2.840.1 [id number] Methodi 14:21:00 14:53:00 Encounter Binta Palmer 76067.1.[address] [facility] Clyde N. 3.430.2.7 Hospita .3.506917 l .8 2023-06-19 2023-06-28 [facility] 392 [id number] [place] 00:00:00 00:00:00 Encounter CLYDE [address] 2023-06-20 2023-06-20 Anesthesia Dana Bardales 1.2.840.1 [id number] Methodi 14:18:00 17:10:00 Event Luis Manuel Wood 51978.1.[address] 3.430.2.7 Hospit a .3.929808 l .8 2023-06-20 2023-06-20 Surgery Jose Luis, 1.2.840.1 [id number] Methodi 13:30:00 15:20:[address] [facility] 3.430.2.7 Hospit a .3.968953 l .8 2023-06-19 2023-06-19 Outpatient BRIANNA Chambers LABO [id number] [facility] 17:01:00 17:01:00 Gurpreet Paul [facility] 2023-06-18 2023-06-19 Inpatient UR LISSETTE ChambersTO SURG [id number] [facility] 23:48:00 14:54:00 Gurpreet [facility] 2023-06-19 2023-06-19 [facility] [id number] [facility] 11:06:00 11:06:00 Gurpreet [facility] 2023-06-19 2023-06-19 Orders Konstantin, 1.2.840.1 [id number] Methodi 00:00:00 00:00:00 Only Wilver Silverman 23255.1.[address] 3.430.2.7 Hospit a .3.389013 l .8 2023-06-19 2023-06-19 Orders TicoHillMeryl, 1.2.840.1 [id number] Methodi 00:00:00 00:00:00 Only Wilver Silverman 30200.1.[address] 3.430.2.7 Hospit a .3.512036 l .8 2023-06-05 2023-06-05 Outpatient EM [facility] [id number] [facility] 11:06:00 11:06:00 [facility] 2023-05-15 2023-05-15 Outpatient FOG_[place]_ AOSM AOSM 550 [id number] Le 00:00:00 00:00:00 Rock [id number] [facility] 2023-05-15 2023-05-15 Outpatient FOG_[place]_ AOSM AOSM 550 [id number] Le 00:00:00 00:00:00 [place] [id number] [facility] 2023-05-15 2023-05-15 Outpatient FOG_[place]_ AOSM AOSM 550 [id number] Le 00:00:00 00:00:00 [place] [id number] [facility] 2023-05-15 2023-05-15 Outpatient FOG_[place]_ AOSM AOSM 550 [id number] Le 00:00:00 00:00:00 [place] [id number] [facility] 2023-05-15 2023-05-15 Outpatient FOG_[place]_ AOSM AOSM 550 [id number] Le 00:00:00 00:00:00 [place] [id number] [facility] 2023-05-15 2023-05-15 Outpatient FOG_[place]_ AOSM AOSM 550 [id number] Le 00:00:00 00:00:00 [place] [id number] [facility] 2023-05-13 2023-05-13 Outpatient FOG_[place]_ AOSM AOSM [id number] Le 00:00:00 00:00:00 [place] [id number] [facility] 2023-05-06 2023-05-06 Outpatient Juan Jose [facility] [id number] [facility] 09:30:00 09:30:00 [facility] 2023-04-18 2023-04-18 [facility] [id number] [facility] 10:00:00 10:00:00 [facility] 2023-04-10 2023-04-10 [id number] [facility] 00:00:00 00:00:00 [employer] [id number] it y of [facility] [id number] Davin as TALIB?BLEA [id number] [address] MEDICAL OFFICE [facility] 2023-04-04 2023-04-04 Outpatient Juan [facility] [id number] Univers 14:00:00 14:28:27 [facility] 2023-04-04 2023-04-04 Office [facility] 1.2.840.114 [id number] Univers 14:00:00 14:28:27 Visit [employer] 350.1.13.10 it y of [facility] 4.2.7.2.686 Davin as TALIB?BLEA [id number] [address] MEDICAL OFFICE [facility] 2023-03-26 2023-03-26 [facility] 1.2.840.114 [id number] Univers 09:51:26 23:59:00 Encounter [facility] 350.1.13.10 ity of [facility] 4.2.[place] [id number] [address] 2023-03-26 2023-03-26 [facility] Helen [facility] 1.2.840.114 [id number] Univers 09:51:10 23:59:00 Encounter [facility] 350.1.13.10 ity of [facility] 4.[place] [id number] [address] 2023-03-26 2023-03-26 Outpatient R UMER [place] [id number] Univers 09:50:48 09:50:48 [facility]23-03-26 [facility] 1.2.840.114 [id number] Univers 09:50:48 09:50:48 Encounter [facility] 350.1.13.10 ity of [facility] 4.2.[place] [id number] [address] 2023-03-21 2023-03-21 Outpatient [facility] [id number] Univers 11:00:00 11:00:00 [facility] 2023-03-19 2023-03-19 Telephone [facility] 1.2.345.546 [id number] Univers 00:00:00 00:00:00 [employer] 350.1.13.10 it y of [place] 4.2.7.2.686 Davin as TALIB?BLEA [id number] Tn stefany [address] OFFICE [facility] 2023-03-17 2023-03-17 Outpatient [facility] [id number] Univers 09:46:40 23:59:00 [facility] 2023-03-17 2023-03-17 Office [facility] 1.2.840.114 [id number] Univers 09:00:00 09:45:13 Visit [email or web address] 350.1.13.10 it y of [place] 4.2.7.2.686 Davin as TALIB?BLEA [id number] Tn stefany [address] MEDICAL OFFICE BUILDING 2023-03-17 2023-03-17 Telephone [facility] 1.2.898.985 [id number] Univers 00:00:00 00:00:00 [employer] HEALTH 350.1.13.10 it y of [place] 4.2.7.2.686 Davin as TALIB?BLEA [id number] Tn stefany COLÓN [address] [facility] OFFICE [facility] 2023-03-15 2023-03-15 Telephone Helen, [facility] 1.2.840.114 [id number] Univers 00:00:00 00:00:00 [facility] 350.1.13.10 ity of [facility] 4.2.7.2.686 Davin as TALIB?BLEA [id number] [address] 2023-03-06 2023-03-06 Outpatient UMER [facility] [id number] Univers 07:36:20 23:59:00 UMER [place] [facility] 2023-03-06 2023-03-06 Hospital [facility] [id number] Univers 07:36:20 23:59:00 Encounter [facility] 350.1.13.10 ity of [facility] 4.2.7.2.686 [place] [facility] [id number] [facility] [address] [place] [address] 2023-02-24 2023-02-24 Telephone Helen, [facility] 1.2.840.114 [id number] Univers 00:00:00 00:00:00 Umer [facility] 350.1.13.10 ity of [facility] 4.2.7.2.686 Davin as TALIB?BLEA [id number] Tn stefany COLÓN[address] OFFICE [facility] 2023-02-21 2023-02-21 Outpatient UMER [facility] [id number] Univers 11:00:00 11:59:05 UMER [place] [facility] 2023-02-21 2023-02-21 Office [facility] 1.2.840.114 [id number] Univers 11:00:00 11:59:05 Visit Umer Cruz [facility] 350.1.13.10 ity of [place] 4.2.7.2.686 Davin as TALIB?BLEA [id number] Tn dical [place] [id number] Silva MEDICAL OFFICE BUILDING 2023-02-21 2023-02-21 Orders Doctor VIRAL 1.2.840.114 [id number] Univers 00:00:00 00:00:00 Only Unassigned, NELY 350.1.13.10 ity of [place] [facility] 4.2.7.2.686 Davin as [id number] [address] 2022-12-30 2022-12-30 Outpatient FOG_Bloome_ AOSM AOSM 550 0359-20 Le 00:00:00 00:00:00 Rock [id number] [facility] 2022-12-25 2022-12-25 Cruz [place] - Ortho [id number] Le 00:00:00 00:00:00 Tiffanie Tavares MD: 7401 FOG_Ofc dic [facility], [place] [address] , Ph. [phone] 2022-11-29 2022-11-29 Outpatient FOG_[place]ome_ AOSM AOSM 550 0359-20 Le 00:00:00 00:00:00 Rock 574109 [facility] Medic[facility] e 2022-11-29 2022-11-29 Outpatient FOG_[place]_ AOSM AOSM 550 0359-20 Le 00:00:00 00:00:00 Rock [id number] [facility] Medic[facility] e 2022-11-29 2022-11-29 Outpatient FOG_[place]ome_ AOSM AOSM 550 0359-20 Le 00:00:00 00:00:00 Rock [id number] [facility] 2022-11-27 2022-11-27 Outpatient FOG_Bloome_ AOSM AOSM 550 0359-20 Le 00:00:00 00:00:00 Rock 478179 [facility] 2022-11-27 2022-11-27 Cruz [place] - Orth[place] [id number] Le 00:00:00 00:00:00 Tiffanie Tavares MD: 7401 FOG_Ofc dic [facility] Sp[facility] [place] [address] , Ph. [phone] 2022-10-30 2022-10-30 Outpatient FOG_[place]_ AOSM AOSM 550 0359-20 Le 00:00:00 00:00:00 Rock [id number] Orth[facility] Medicin e 2022-10-30 2022-10-30 Outpatient FOG_[place]ome_ AOSM AOSM 550 0359-20 Le 00:00:00 00:00:00 Rock [id number] Orth[facility] pe dic Sports Medicin e 2022-10-30 2022-10-30 Cruz Sheriff AOSM [place] - Ortho [id number] Le 00:00:00 00:00:00 Tiffanie Tavares MD: 7401 FOG_Ofc dic [facility] [place] [address] , Ph. [phone] 2022-10-16 2022-10-17 Inpatient LISSETTE BarneyTO SURG [id number] [facility] 10:00:00 17:03:00 Cruz Quiñones [place] [facility] 2022-10-14 2022-10-14 Outpatient FOG_Bloome_ AOSM AOSM 550 0359-20 Le 00:00:00 00:00:00 Rock 118129 Orth[facility] Medicin e 2022-10-14 2022-10-14 Outpatient FOG_[place]ome_ AOSM AOSM 550 0359-20 Le 00:00:00 00:00:00 Rock [id number] Orth[facility] Medicin e 2022-10-14 2022-10-14 Cruz Sheriff AOSM [place] - Ortho [id number] Le 00:00:00 00:00:00 Tiffanie Tavares MD: 7401 FOG_Surgery dic [facility] [place] [place] [address] , Ph. [phone] 2022-10-08 2022-10-08 Outpatient LISSETTE BarneyTO 3DAY [id number] [facility] 08:00:00 23:00:00 Cruz Zuluaga [place] [facility] 2022-09-17 2022-09-17 Outpatient FOG_Burke_R AOSM AOSM 550 0359-20 Le 00:00:00 00:00:00 Mauricio [id number] Orth[facility] pe dic Sports Medicin e 2022-09-17 2022-09-17 Cruz [place] - [place] [id number] Le 00:00:00 00:00:00 Tiffanie Tavares MD: 7401 FOG_Ofc dic [facility] Sp[facility] [place] [address] , Ph. [phone] 2022-09-02 2022-09-02 Outpatient FOG_Burke_R AOSM AOSM 550 0359-20 Le 00:00:00 00:00:00 Mauricio 323777 [facility] Medic[facility] e 2022-08-27 2022-08-27 Outpatient [facility] [id number] [facility] 15:08:00 15:08:00 Cruz Nathan [place] [facility] 2022-08-27 2022-08-27 Outpatient FOG_Burke_R AOSM AOSM 550 [id number] El 00:00:00 00:00:00 Mauricio [id number] Orth[facility] pe dic [facility] Medicin e 2022-08-27 2022-08-27 Cruz [place] - [place] [id number] Le 00:00:00 00:00:00 Tiffanie Tavares MD: 7401 FOG_Ofc dic [facility] Sp[facility] [place] [address] , Ph. [phone] 2022-08-26 2022-08-26 Outpatient FOG_Burke_R AOSM AOSM 550 0359-20 Le 00:00:00 00:00:00 Mauricio 707057 [facility] 2022-08-01 2022-08-01 Outpatient FOG_Burke_R AOSM AOSM 550 0359-20 Le 00:00:00 00:00:00 Mauricio [id number] Orth[facility] Sports Medicin e 2022-08-01 2022-08-01 Outpatient CHALINO Gr AOSM [id number] e-[id number] 00:00:00 00:00:00 Eran Maxx 514-11ed-8 [id number] 2022-08-01 2022-08-01 Eran Lilly AOSM [place] - Ortho Le 00:00:00 00:00:00 MD Simón: Tiffanie Bowers [address] [place] FOG_Ofc dic [place] [place] [address], [place] [address] , Ph. [phone] 2022-07-25 2022-07-25 Outpatient FOG_Burke_R AOSM AOSM 550 0359-20 Le 00:00:00 00:00:00 Mauricio 196046 Orth[facility] pe dic Sports Medicin e 2022-07-25 2022-07-25 Ravinder Webber AOLEILA [place] - Ortho 8 Le 00:00:00 00:00:00 MD Channing: Tiffanie Doshi rthope [address] [facility] FOG_Ofc dic [facility][1], [place] [address] , Ph. [phone] 2022-07-25 2022-07-25 Outpatient Ravinder Snell AOSM AOSM [id number] 00:00:00 00:00:00 Y fa4-11ed-8 [id number] 2022-07-24 2022-07-24 Outpatient FOG_Burke_R AOSM AOSM 550 0359-20 Le 00:00:00 00:00:00 Mauricio [id number] [facility] Medicin e 2022-07-17 2022-07-17 Outpatient FOG_Burke_R AOSM AOSM 550 0359-20 Le 00:00:00 00:00:00 Mauricio [id number] [facility] Sports Medicin e 2022-07-11 2022-07-11 Outpatient FOG_Burke_R AOSM AOSM 550 0359-20 Le 00:00:00 00:00:00 Mauricio [id number] Ortho pe dic Sports Medicin e 2022-07-09 2022-07-09 Outpatient EL Ravinder Snell [facility] DAYS Y000 [id number] [facility] 10:14:00 10:14:00 [place] [facility] 2022-07-09 2022-07-09 Outpatient FOG_Burke_R AOSM AOSM 550 0359-20 Le 00:00:00 00:00:00 Mauricio [id number] Orth[facility] Sports Medicin e 2022-07-09 2022-07-09 Ravinder Y AOSM [place] - [place] [id number] Le 00:00:00 00:00:00 MD Channing: Tiffanie garciae [address] FOG_Surgery di [facility] [place] [address] , Ph. [phone] 2022-07-09 2022-07-09 Outpatient Ravinder Snell AOSM [id number] 00:00:00 00:00:00 Y 32f-11ed-b [id number] 2022-07-01 2022-07-01 Outpatient FOG_Burke_R AOSM AOSM 550 0359-20 Le 00:00:00 00:00:00 Mauricio 174109 Orth[facility] pe dic Sports Medicin e 2022-07-01 2022-07-01 Ravinder Y [place]OS[place] - [place] [id number] Le 00:00:00 00:00:00 MD Channing: Tiffanie ag [address] [facility] [place] [facility] [place] [address] , Ph. [phone] 2022-07-01 2022-07-01 Outpatient Ravinder Snell AOSM AOSM [id number] 00:00:00 00:00:00 Y cb6-11ed-a [id number] 2022-06-25 2022-06-25 Outpatient FOG_Burke_R AOSM AOSM 550 0359-20 Le 00:00:00 00:00:00 Mauricio [id number] Ortho pe dic Sports Medicin e 2022-06-25 2022-06-25 Eran Lilly [place] - [place] 09 Le 00:00:00 00:00:00 MD Simón: Tiffanie Bowers [address] FOG_Ofc dic [facility] [address], [place] [address] , Ph. [phone] 2022-06-25 2022-06-25 Outpatient CHALINO Gr AOSM [id number] [id number] 00:00:00 00:00:00 Eran Lilly 824-11ed-9 [id number] 2022-06-11 2022-06-12 Inpatient LISSETTE GillespieTO SURG [id number] [facility] 06:56:00 13:11:00 Eran 87 [place] [facility] 2022-06-11 2022-06-12 Inpatient LISSETTE GillespieTO SURG [id number] [facility] 06:56:00 13:11:00 Eran [id number] [place] [facility] 2022-05-30 2022-05-30 Outpatient EDA Gillespie 3DAY [id number] [facility] 08:00:00 23:00:00 Eran 76 [facility] 2022-05-30 2022-05-30 Outpatient LISSETTE GrCL LABO [id number] 354 [facility] 18:04:00 18:04:00 Eran 19 [facility] 2022-05-30 2022-05-30 Outpatient FOG_Burke_R AOSM AOSM 550 0359-20 Le 12:40:00 12:40:00 Mauricio 876013 Ortho pe dic Sports Medicin e 2022-05-30 2022-05-30 Outpatient FOG_Burke_R AOSM AOSM 550 0359-20 Le 00:00:00 00:00:00 Mauricio [id number] Orth[facility] pe dic Sports Medicin e 2022-05-28 2022-05-28 Outpatient FOG_Burke_R AOSM AOSM 550 0359-20 Le 03:45:00 03:45:00 Mauricio [id number] Ortho pe dic Sports Medicin e 2022-05-28 2022-05-28 Outpatient Anusha AOSM AOSM [id number] c-0 00:00:00 00:00:00 Cruz Sheriff 218-11ed-a [id number] 2022-05-28 2022-05-28 Outpatient CHALINO Gr AOSM [id number] [id number] 00:00:00 00:00:00 Eran Lilly 231-11ed-b [id number] 2022-05-28 2022-05-28 Cruz Sheriff [place] - [place] [id number] Le 00:00:00 00:00:00 Tiffanie Tavares MD: 7401 FOG_Ofc dic [facility] Spo [facility], [place] [address] , Ph. [phone] 2022-05-17 2022-05-17 Outpatient FOG_Burke_R AOSM AOSM 550 0359-20 Le 03:26:00 03:26:00 Mauricio [id number] Ortho pe dic Sports Medicin e 2022-05-17 2022-05-17 Eran Lilly [place]OSM [place] - Ortho Le 00:00:00 00:00:00 MD Simón: Tiffanie Bowers [address] [place] FOG_Ofc dic [facility] [address], [place] [address] , Ph. [phone] 2022-05-17 2022-05-17 Outpatient CHALINO Gr AOSM [id number] e-[id number] 00:00:00 00:00:00 Eran Lilly 980-11ec-8 [id number] 2022-04-04 2022-04-04 Outpatient FOG_Burke_R AOSM AOSM 550 [id number] Le 04:58:00 04:58:00 Mauricio [id number] Ortho pe dic Sports Medicin e 2021-09-25 2021-09-26 Inpatient EDA Gillespie ADMI [id number] [facility] 06:34:00 14:54:00 Eran 80 [place] [facility] 2021-09-25 2021-09-26 Inpatient EDA Gillespie ADMI [id number] [facility] 06:34:00 14:54:00 Eran [id number] [place] [facility] 2021-09-18 2021-09-18 Outpatient EDA Gillespie 3D [id number] [facility] 00:00:00 23:59:00 Eran [id number] [place] [facility] 2021-09-18 2021-09-18 Outpatient BRIANNA Gr LABO [id number] [facility] 17:08:00 17:08:00 Eran 94 [facility] 2020-01-05 2020-01-05 Outpatient Ravinder Snell HCATO RADI Y112 [id number] [facility] 11:30:00 11:30:00 [id number] [facility] Results Test Description Test Time Test Comments Results Result Comments Source AFB culture 2023-08-02 00:13:00 Test Item Value Reference Range Interpretation Comme nts AFB culture isolate No growth after 6 weeks of Specimen InformationSpecimen (test code = 543-9) incubation. Source: TissueSpecimen Site: Knee: Right kne e Synovium LINDA (test code = LINDA) TISSUE SEEN [facility] [id number] 14:42:00 Test Item Value Reference Range Interpretation Comments Enteric less than the Specimen bacterial panel detectable InformationS pecimen (test code = limits of the Source: StoolS pecimen 17651-6) assay. Site: Per [facility] 12 [id number] 22:03:44 Test Item Value Reference Range Interpretation Comments Ventricular rate (test 75 code = 253) Atrial rate (test code 75 = 255) MO interval (test code 166 = 266) QRSD interval (test 78 code = 260) QT interval (test code 400 = 264) QTC interval (test code 446 = 265) P axis 1 (test code = 43 267) QRS axis 1 (test code = 40 268) T wave axis (test code 41 = 270) EKG impression (test Normal sinus code = 273) rhythm-Possible Left atrial enlargement-Septal infarct (cited on or before 25-JUN-2023)-Abnormal ECG-In automated comparison with ECG of 25-JUN-2023 20:22,-Questionable change in initial forces of Septal leads- [facility] [id number] 12:51:00 Test Item Value Reference Range Interpretation Comments Anaerobic No anaerobic Specimen culture isolate organisms InformationS pecimen (test code = isolated. Source: TissueS pecimen 95787-6) Site: Knee: Rig ht knee Synovium LINDA (test code TISSUE SEEN = LINDA) [facility] [id number] 03:12:00 Test Item Value Reference Range Interpretation Comments Joint fluid No growth Specimen culture isolate after 4 days. Information Specimen (test code = Source: Joint 1634) FluidSpecimen S ite: Knee: right knee join t fluid #2 [facility] [id number] 00:31:01 Test Item Value Reference Range Interpretation Comments Case number (test code = [id number]) Surgical pathology See link below for report (test code = PDF Lab Report 2255) Result status (test code This is Final Report = [id number]) for [id number] [facility] [id number] 20:54:00 Test Item Value Reference Range Interpretation Comments POC glucose (test code = 142 mg/dL 65-99 H Ope rator Name: 08663-9) Judit Ricks ice ID: [id number] able: [facility] Notified cash office worker Interpretation (test Abnormal code = 93110-6) [facility]- XR FLUORO [id number] 18:21:00 [facility] : 1945 Sex: M Patient Name: BEATRICE BAUGH LEONARD Unit No: [id number] EXAMS: CPT CODE: [id number] XR FLUORO NDL 84527 Fluoroscopically guided right knee aspiration FINDINGS: After informed consent was obtained a 22-gaugeneedle is inserted into the right knee under fluoroscopic guidance using sterile technique. 9 mL thick milky fluid was aspirated. This is sent to the lab for analysis. The patient tolerated the procedure well. 2 seconds of fluoroscopy time was used on this exam. IMPRESSION: Fluoroscopically guided right knee aspiration. at 1821 Reported and signed by: Edwar Houston M.D. CC: Gurpreet Chambers MD Technologist: Dolly Galloway, RT.(R) Transcribed D/ (1820) [facility]: BEATRICE BAUGH LEONARD [address] [facility] PHYS: Gurpreet Ayala MD : 1945 AGE: 78 SEX: M [place], [place] [address] LOC: Y.502 A PHONE #: [phone] EXAM DATE: 06/19/2023 STATUS: DIS IN FAX #: [phone] RAD #: D/C DT 06/19/2023 PAGE 1 Signed Report Patient Name: BEATRICE BAUGH LEONARD Unit No: [id number] EXAMS: CPT CODE: [id number] XR FLUORO NDL 02211 (Continued) Orig Print D/T: S: 06/24/2023 (911) [facility] NAME: BEATRICE BAUGH LEONARD [address] [facility] PHYS: Gurpreet Ayala MDDOB: 1945 AGE: 78 SEX: M [place] [id number] LOC: Y.502 A PHONE #: [phone] EXAM DATE: 06/19/2023 STATUS: DIS IN FAX #: [phone] RAD #: D/C DT 06/19/2023 PAGE 2 Signed ReportUrine [id number] 22:52:00 Test Item Value Reference Range Interpretation Comments Urine culture Mixed minerva Specimen isolate (test <=10-3 col/cc InformationSp ecimen code = 63825-4) Source: Urin eSpecimen Site: Clean cat [facility] [id number] 18:02:00 Test Item Value Reference Range Interpretation Comments Gram stain No organisms Specimen isolate (test seen InformationSpe cimen code = 1469) Source: TissueS pecimen Site: Knee: Rig ht knee Synovium LINDA (test code TISSUE SEEN = LINDA) [facility] Center[facility] [id number] 17:42:00 Test Item Value Reference Range Interpretation Comments AFB stain No acid fast Specimen (test code = bacilli (AFB) InformationSpe cimen 676-7) seen. Source: TissueS pecimen Site: Knee: Rig ht knee Synovium LINDA (test TISSUE SEEN code = LINDA) [facility] CenterArterial blood gas, [id number] 21:35:00 Test Item Value Reference Range Interpretation Comments pH, arterial (test code 7.33 7.35-7.45 L = 2744-1) pCO2, arterial (test 43 See_Comment [Autom ated message] code = 2018-8) The system [employer] generated this result transmitted ref erence range: 35 - 45 mmHg. The reference r megan was not used to interpret this result as normal/abnor mal. pO2, arterial (test code 83 See_Comment [A utomated message] = 8943-7) The system [employer] generated this result transmitted ref erence range: 80 - 90 mmHg. The reference r megan was not used to interpret this result as normal/abnor mal. Temperature, Celsius 37.0 Degrees C (test code = 8310-5) O2 saturation, arterial 95 % 95-100 (test code = 2708-6) pH, arterial corrected 7.33 (test code = 41048-6) pCO2, arterial corrected 43 mmHg (test code = 29092-6) pO2, arterial corrected 83 mmHg (test code = 91445-1) Base excess, arterial -4 See_Comment L [Auto mated message] (test code = 1925-7) The [facility] tem which generated this result transmitted ref erence range: -2 - 2 m Eq/L. The reference r megan was not used to interpret this result as normal/abnor mal. Lab Interpretation (test Abnormal code = 58424-9) [facility] CenterHemoglobin, [id number] 21:35:00 Test Item Value Reference Range Interpretation Comments Hemoglobin, syringe (test code = 8.7 g/dL 14.0-18.0 L 718-7) Lab Interpretation (test code = Abnormal 72162-2) [facility] [id number] 21:16:00 Test Item Value Reference Range Interpretation Comments POC glucose (test code = 122 mg/dL 65-99 H Ope rator Name: 36137-6) Judit Ricks ice ID: [id number] able: [facility] Notified cash office worker Interpretation (test Abnormal code = 73554-2) [facility]- XR KNEE 3 V [id number] 16:31:00 [facility] 1945 Sex: M Patient Name: BEATRICE BAUGH LEONARD Unit No: [id number] EXAMS: CPT CODE: [id number] XR KNEE 3 [place] [address] RIGHT KNEE 2 VIEWS PORTABLE COMMENT: The patient is status post joint replacement which is articulatingnormally. Free patellar soft tissue swelling is noted with a probable joint effusion. at 1631 Reported and signed by: Uri oakes MD CC: Gurpreet Chambers MD Technologist: GLEN EMERY. RT(R) Transcribed D/ (1631) t.SDR.JCL [facility] NAME: BEATRICE BAUGH LEONARD [address] PHYS: Gurpreet Ayala MD : 1945 AGE: 78 SEX: Jaziel [place], [place] [address] LOC: Y.502 A PHONE #: [phone] EXAM DATE: 06/19/2023 STATUS: DIS IN FAX #: [phone] RAD #: D/C DT 06/19/2023 PAGE 1 Signed Report Patient Name: BEATRICE BAUGH LEONARD Unit No: [id number] EXAMS: CPT CODE: [id number] XR KNEE 3 [place] [address] (Continued) Orig Print D/T: S: 06/19/2023 (1635) [facility] NAME: BEATRICE BAUGH LEONARD [address] [facility] PHYS: Gurpreet Ayala MD : 1945 AGE: 78 SEX: M [place], [place] [address] LOC: Y.502 A PHONE #: [phone] EXAM DATE: 06/19/2023 STATUS: DIS IN FAX #: [phone] RAD #: D/C DT 06/19/2023 PAGE 2 [address] ReportSYNOVIAL FLD CELL [id number] 13:24:00 Test Item Value Reference Range Interpretation Comments SYNOVIAL FLD YELLOW LT. YELLOW COLOR (test code = COLSY) SYNOVIAL FLD CLOUDY CLEAR A APPEARANCE (test code = APPSY) SYNOVIAL FLD 2 mL VOLUME (test code = VOLSY) SYNOVIAL FLD WBC 70396.000 0-200 H VERIFIED BY 1:20 (test code = /MM3 DILUTION WBCSY) SYNOVIAL FLD RBC 959019.000 0-2 H VERIFIED BY 1:20 (test code = /mm3 DILUTIONNOTE: A n RBCSY) automated metho d is now being used to determinesynovi al fluid WBC and RBC cou nts. The differential wi llstill be performed ma nually. SYNOVIAL FLD POLY 89 % 0-25 H (test code = POLYSY) SYNOVIAL FLD 3 % 0-78 N LYMPHOCYTE (test code = LYMPHSY) SYNOVIAL FLD 1 % 0-71 N MONOCYTE (test code = MONOSY) SYNOVIAL FLD 7 % LINING CELLS (test code = LINSY) BODY FLD [id number] 13:24:00 Test Item Value Reference Range Interpretation Comments BODY FLD CRYSTALS (test code = NONE SEEN NONE SEEN CRYSY) - XR CHEST 1 [id number] 12:20:00 [facility] 1945 Sex: M Patient Name: BEATRICE BAUGH LEONARD Unit No: [id number] EXAMS: CPT CODE: [id number] XR CHEST 1 V 09869 PORTABLE CHEST June 19, 2023 8:34 AM COMMENT: COMPARISON: No prior exams available. There are increased pulmonary markings in the right lower lobe with linear density consistent with scarring or atelectasis. Possible increased markings behind the left heart border are also noted. These findings are suspici ous for pneumonia. No upper lobe infiltrates are seen. The cardiac size is within normal limits. There is ectasia of the aorta. Clinical correlation is recommended. at 1220 Reported and signed by: Uri Mi MD CC: Wilver Douglas MD; Gurpreet Chambers MD Technologist: GLEN EMERY. RT(R) Transcribed D/ (1220) [email or web address] [facility] NAME: BEATRICE BAUGH LEONARD [address] [facility] PHYS: Wilver Wilde MD : 1945 AGE: 78 SEX: M [place], [place] [address] LOC: Y.502 A PHONE #: [phone] EXAM DATE: 06/19/2023 STATUS: ADM IN FAX #: [phone] RAD #: D/C DT PAGE 1 Signed Report Patient Name: BEATRICE BAUGH LEONARD Unit No: [id number] EXAMS: CPT CODE: [id number] XR CHEST 1 V 22128 (Continued) Orig Print D/T: S: 06/19/2023 (1223) [facility] NAME: BEATRICE BAUGH LEONARD [address] PHYS: Wilver Wilde MD : 1945 AGE: 78 SEX: M [place], [place] [address] LOC: Imelda Burnette PHONE #: [phone] EXAM DATE: 06/19/2023 STATUS: ADM IN FAX #: [phone] RAD #: D/C DT PAGE 2 Signed ReportSED RATE 2023-06-19 08:03:00 Test Item Value Reference Range Interpretation Comments SED RATE (test code = SEDW) 120 mm/hr 0-20 H CBC W/MANUAL [id number] 07:59:00 Test Item Value Reference Range Interpretation Comments WHITE BLOOD CELL 15.3 K/mm3 5.5-11.0 H Please note new (test code = WBC) normal ran ge. RED BLOOD CELL (test 3.08 M/mm3 4.2-5.4 L code = RBC) HEMOGLOBIN (test 8.8 g/dL 12-16 L code = HGB) HEMATOCRIT (test 27.4 % 37-47 L code = HCT) MEAN CELL VOLUME 89 fL 80-98 N (test code = MCV) MEAN CELL HGB (test 28.6 pg 27-34 N code = MCH) MEAN CELL HGB 32.1 g/dL 30.8-34.1 N CONCENTRATION (test code = MCHC) RED CELL 13.7 % 11-16 N DISTRIBUTION WIDTH (test code = RDW) PLT (test code = 311 K/mm3 130-400 N PLT) MEAN PLATELET VOLUME 9.5 fL 8.9-12.1 N (test code = MPV) STAIN ACCEPTABILITY STAIN ACCEPTABLE (test code = STN ACCEPTABLE) CELLS COUNTED (test 100 See_Comment [Automa ysabel code = TCC) message] The system which generated this result transmitted reference range : 100. The reference range was not used to interpret this result as normal/abnormal . SEGMENTED 82 % 50-65 H NEUTROPHILS (test code = SEG) LYMPHOCYTE (test 3 % 20-40 LL code = LYMPH) NUCLEATED RED BLOOD 0 % 0-0 N CELL (test code = NRBC) BAND NEUTROPHIL 9 % 0-10 N (test code = BAND) MONOCYTE (test code 3 % 2-9 N = MON) EOSINOPHIL (test 1 % 1-3 N code = EOS) METAMYELOCYTE (test 2 % 0-0 H code = META) C REACTIVE [id number] 07:25:00 Test Item Value Reference Range Interpretation Comments C REACTIVE PROTEIN (test code = 33.0 mg/dL <0.9 CRP) PROTHROMBIN [id number] 06:52:00 Test Item Value Reference Range Interpretation Comments PROTHROMBIN TIME 13.2 secs 9.4-12.5 H PATIENT (test code = PTP) INTERNATIONAL NORMAL 1.17 <2.0 RECOMME NDED THERAPEUTIC RATIO (test code = RANGE FOR ORAL INR) ANTICOAGULANTTR EATMENT: CONDITION INRPr ophylaxis of venous throm bosis in 2.0 - 3.0 high- risk medical or surg ical patientsTreatme nt of venous thrombos is 2.0 - 3.0Prevention o f embolism 2.0 - 3.0Prevention o f recurrent embol ism, or 3.0 - 4.5 patie nts with mechanical pros thetic intravascular v pereira IS PATIENT ON ANTICOAGULANTS ? COas Lab been notified if Patient is on Heparin Drip? NOTHROMBOPLASTIN TIME [id number] 06:52:00 Test Item Value Reference Range Interpretation Comments PTT ACTIVATED (test code = APTT) 29.4 secs 25.1-36.5 N IS PATIENT ON ANTICOAGULANTS ? NHas Lab been notified if Patient is on Heparin Drip? NOCOMPREHENSIVE METABOLIC [id number] 06:47:00 Test Item Value Reference Range Interpretation Comments SODIUM (test code = 138 mmol/L 136-145 N NA) POTASSIUM (test 3.5 mmol/L 3.5-5.1 N code = K) CHLORIDE (test code 101.0 mmol/L 98-107 N = CL) CARBON DIOXIDE 26.1 mmol/L 21-32 N (test code = CO2) GLUCOSE (test code 135 mg/dL 70-110 H = GLU) BLOOD UREA NITROGEN 26 mg/dL 7-18 H (test code = BUN) GLOMERULAR 63.8 >60 The Glomerular FILTRATION RATE Filtration R ate is a (test code = GFR) calculated parameterbased on serum Creatinin e, patient age and sex. GFR valuesless than 60 mL/min/1.73 squ are meters are jemal cative ofChronic Kidne y Disease. Values less than 15 mL/min/1.73squa re meters indicate Kidney failure. The calculation for GFR is based on the CK D-EPI (2020) calculat ion. This formulais race indifferent and is the recommended for mihir for GFRby the [facility] on for Adults.The GFR will not calculate i f the sex is unknown or if thepatient's ag e is <18 years. CREATININE (test 1.17 mg/dL 0.55-1.30 N code = CREAT) TOTAL PROTEIN (test 5.3 g/dL 6.4-8.2 L code = PROT) ALBUMIN (test code 2.2 g/dL 3.4-5.0 L = ALB) GLOBULIN (test code 3.1 g/dL 2.2-4.2 N = GLOB) ALBUMIN/GLOBULIN 0.7 0.7-2.0 N RATIO (test code = A/G) CALCIUM (test code 8.2 mg/dL 8.2-10.1 N = CA) BILIRUBIN TOTAL 1.40 mg/dL 0.2-1.00 H (test code = BILT) SGOT/AST (test code 101.0 U/L 15-37 H = AST) SGPT/ALT (test code 78.0 U/L 12-78 N = ALT) ALKALINE 185 U/L 46-116 H PHOSPHATASE TOTAL (test code = ALKP) [id number] 06:47:00 Test Item Value Reference Range Interpretation Comments MAGNESIUM (test code = MAG) 2.0 mg/dL 1.8-2.4 N CBC W/AUTO [id number] 06:17:00 Test Item Value Reference Range Interpretation Comments WHITE BLOOD CELL (test 15.3 K/mm3 5.5-11.0 H Pleas e note new code = WBC) normal range. RED BLOOD CELL (test 3.08 M/mm3 4.2-5.4 L code = RBC) HEMOGLOBIN (test code = 8.8 g/dL 12-16 L HGB) HEMATOCRIT (test code = 27.4 % 37-47 L HCT) MEAN CELL VOLUME (test 89 fL 80-98 N code = MCV) MEAN CELL HGB (test code 28.6 pg 27-34 N = MCH) MEAN CELL HGB 32.1 g/dL 30.8-34.1 N CONCENTRATION (test code = MCHC) RED CELL DISTRIBUTION 13.7 % 11-16 N WIDTH (test code = RDW) PLT (test code = PLT) 311 K/mm3 130-400 N MEAN PLATELET VOLUME 9.5 fL 8.9-12.1 N (test code = MPV) NEUTROPHIL % (test code 89.4 % 45-70 H = NT%) LYMPHOCYTE % (test code 2.4 % 20-40 L = LY%) MONOCYTE % (test code = 4.8 % 3-10 N MO%) EOSINOPHIL % (test code 1.8 % 1-5 N = EO%) BASOPHIL % (test code = 0.5 % 0.0-1.1 N BA%) NEUTROPHIL # (test code 13.69 K/mm3 2.00-7.50 H = NT#) LYMPHOCYTE # (test code 0.37 K/mm3 1.50-4.00 L = LY#) MONOCYTE # (test code = 0.74 K/mm3 0.2-0.8 N MO#) EOSINOPHIL # (test code 0.28 K/mm3 0.04-0.4 N = EO#) BASOPHIL # (test code = 0.08 K/mm3 0.02-0.10 N BA#) MANUAL DIFF REQUIRED YES MANUAL DIFF MANUAL DIFF (test code = MDIFF) REQUIRED . NUCLEATED RED BLOOD CELL 0 % 0-0 N (test code = NRBC) BASIC METABOLIC [id number] 16:48:00 Test Item Value Reference Range Interpretation Comments SODIUM (test code = 139 mmol/L 136-145 N NA) POTASSIUM (test 4.3 mmol/L 3.5-5.1 N code = K) CHLORIDE (test code 102.0 mmol/L 98-107 N = CL) CARBON DIOXIDE 27.9 mmol/L 21-32 N (test code = CO2) GLUCOSE (test code 106 mg/dL 70-110 N = GLU) BLOOD UREA NITROGEN 25 mg/dL 7-18 H (test code = BUN) GLOMERULAR 84.6 >60 The Glomerular FILTRATION RATE Filtration R ate is a (test code = GFR) calculated parameterbased on serum Creatinin e, patient age and sex. GFR valuesless than 60 mL/min/1.73 squ are meters are jemal cative ofChronic Kidne y Disease. Values less than 15 mL/min/1.73squa re meters indicate Kidney failure. The calculation for GFR is based on the CK D-EPI (2020) calculat ion. This formulais race indifferent and is the recommended for mihir for GFRby the [facility] Foundati on for Adults.The GFR will not calculate i f the sex is unknown or if thepatient's ag e is <18 years. CREATININE (test 0.93 mg/dL 0.55-1.30 N code = CREAT) CALCIUM (test code 9.4 mg/dL 8.2-10.1 N = CA) - CT LOWER EXTRM W/O C [id number] 07:20:00 [facility] 1945 Sex: M Patient Name: BEATRICE BAUGH Unit No: [id number] EXAMS: CPT CODE: [id number] [place] L[place]TR[place] W/[place] [address] CT OF THE BILATERAL FEET WITH SAGITTAL AND CORONAL RECONSTRUCTIONS DIAGNOSIS: 1. 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 Lateral subluxation of the bases of the 1st through 5th metatarsals is noted with joint space narrowingsclerosis and cyst formation. Severe degenerative changes are [...] with ACR practice standards and adherence to instructional systems designer's recommendations. Charcot changes in both feet are as described. No acute fractures are seen. at 0720 Reported and signed by: Uri Mi MD CC: Mike Tavares MD; Ravinder Snell MD Technologist: RT German(R) CTDI: DLP: Trnscrpt: 08/28/2022 (07) t.SDR.JCL [facility] NAME: BEATRICE BAUGH [address] [facility] PHYS: Cruz Balbuena MD : 1945 AGE: 77 SEX: M [place] [address] LOC: Y.RAD PHONE #: [phone] EXAM DATE: 08/27/2022 STATUS: DEP CLI FAX #: [phone] RAD #: D/C DT PAGE 1 Signed Report Patient Name: BEATRICE BAUGH Unit No: [id number] EXAMS: CPT CODE: [id number] [place] LOWER EXTRM [place] [address] (Continued) Orig Print D/T: S: 08/28/2022 (0723) [facility] NAME: BEATRICE BAUGH [address] [facility] PHYS: Cruz Conner MD : 1945 AGE: 77 SEX: M [place] [address] LOC: Y.RAD PHONE #: [phone] EXAM DATE: 08/27/2022 STATUS: DEP CLI FAX #: [phone] RAD #: D/C DT PAGE 2 Signed Report- XR KNEE 1 OR 2 V [id number] 12:50:00 [facility] 1945 Sex: M Patient Name: BEATRICE BAUGH Unit No: [id number] EXAMS: CPT CODE: [id number] XR KNEE 1 OR 2 [place] [address] IMAGES PROVIDED: 2 FINDINGS: 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 No acute fracture is visualized. IMPRESSION: Postoperative exam as above. at 1250 Reported and signed by: Edwar Houston M.D. CC: Eran Gr MD Technologist: DHIRAJ NICHOLS (RT.R) Transcribed D/ (2276) [facility]: [facility] [address] [facility] PHYS: Eran Reyna MD : 1945 AGE: 77 SEX: Jaziel [place], [place] [address] LOC: Y.321 A PHONE #: [phone] EXAM DATE: 06/11/2022 STATUS: ADM IN FAX #: [phone] RAD #: D/C DT PAGE 1 Signed Report Patient Name: BEATRICE BAUGH Unit No: [id number] EXAMS: CPT CODE: [id number] XR KNEE 1 OR 2 [place] RT [address] (Continued) Orig Print D/T: S: 06/12/2022 (1253) [facility] NAME: BEATRICE BAUGH [address] [facility] PHYS: Eran Reyna MD : 1945 AGE: 77 SEX: M [place], [place] [address] LOC: Y.Marcel A PHONE #: [phone] EXAM DATE: 06/11/2022 STATUS: ADM IN FAX #: [phone] RAD #: D/C DT PAGE 2 Signed ReportBASIC METABOLIC [id number] 07:09:00 Test Item Value Reference Range Interpretation [...] RATE (test code = GFR) mL/mi n/1.73 [id number] Range:Healthy Adults >90 mL/min/1.73 m2 For Chronic Kidney Disease: Stage II Mild Decrease i n GFR 60-90 Stage III Moderate Decrea se in GFR 30-59 St age IV Severe Decre ase in GFR 15-29 St age V Kidney Failur e <15 CREATININE (test code 0.89 mg/dL 0.55-1.30 N = CREAT) CALCIUM (test code = 9.2 mg/dL 8.2-10.1 N CA) SPECIMEN COMMENT: POD #1HGB [id number] 06:06:00 Test Item Value Reference Range Interpretation Comments HEMOGLOBIN (test code = HGB) 9.8 g/dL 12-16 L HEMATOCRIT (test code = HCT) 30.1 % 37-47 L SPECIMEN COMMENT: POD #1Hemoglobin and Hematocrit panel - [id number] 05:12:00 Test Item Value Reference Range Interpretation Comments hemoglobin (test code = hemoglobin) 9.8 g/dL 12-16 L hematocrit (test code = hematocrit) 30.1 % 37-47 L performing lab: (test code = performing lab:) [facility] metabolic [id number] 05:12:00 Test Item Value Reference Range Interpretation [...] performing lab: (test code = performing lab:) [facility] 2022-06-12 05:12:00 Test Item Value Reference Range Interpretation Comments hemoglobin (test code = hemoglobin) 9.8 g/dL 12-16 L hematocrit (test code = hematocrit) 30.1 % 37-47 L performing lab: (test code = performing lab:) [facility] [id number] 05:12:00 Test Item Value Reference Range Interpretation [...] performing lab: (test code = performing lab:) [facility] 2022-06-12 05:12:00 Test Item Value Reference Range Interpretation Comments hemoglobin (test code = hemoglobin) 9.8 g/dL 12-16 L hematocrit (test code = hematocrit) 30.1 % 37-47 L performing lab: (test code = performing lab:) [facility] [id number] 05:12:00 Test Item Value Reference Range Interpretation [...] performing lab: (test code = performing lab:) [facility]PRE[facility]ENS[facility]ABOLIC [id number] 18:33:00 Test Item Value Reference Range Interpretation [...] RATE (test code = GFR) mL/mi n/1.73 [id number] Range:Healthy Adults >90 mL/min/1.73 m2 For Chronic [...] TOTAL (test code = ALKP) CBC W/AUTO [id number] 18:06:00 Test Item Value Reference Range Interpretation [...] NRBC) CBC W Auto Differential panel - [id number] 17:30:00 Test Item Value Reference Range Interpretation [...] performing lab: (test code = performing lab:) [facility]Com[facility] 2000 panel - Serum or [id number] 17:30:00 Test Item Value Reference Range Interpretation [...] performing lab: (test code = performing lab:) [facility] SystemMethicillin resistant Staphylococcus aureus [Presence] in Specimen by Organism specific [id number] 17:30:00 Test Item Value Reference Range Interpretation Comments MRSA surveillance screen (test code see below = MRSA surveillance screen) performing lab: (test code = performing lab:) [facility] PCR surveillance [id number] 17:30:00 Test Item Value Reference Range Interpretation Comments mssa PCR surveillance screen (test see below code = mssa PCR surveillance screen) performing lab: (test code = performing lab:) [facility]- XR KNEE 1 OR 2 V [id number] 14:52:00 [facility] 1945 Sex: M Patient Name: BEATRICE BAUGH Unit No: [id number] EXAMS: CPT CODE: [id number] XR KNEE 1 OR 2 [place] [address] LEFT KNEE 2 VIEWS PORTABLE COMMENT: The patient is status post joint replacement which is articulating normally. at 1452 Reported and signed by: Uri Mi MD CC: Eran Gr MD Technologist: DHIRAJ NICHOLS (RT.R) Transcribed D/ (1452) t.SDR.L [facility] NAME: BEATRICE BAUGH [address] [facility] PHYS: Eran Reyna MD : 1945 AGE: 76 SEX: M [place], [place] [address] LOC: Y.309 A PHONE #: [phone] EXAM DATE: 09/25/2021 STATUS: DIS IN FAX #: [phone] #: D/C DT 09/26/2021 PAGE 1 Signed Report Patient Name: BEATRICE BAUGH Unit No: [id number] EXAMS: CPT CODE: [id number] XR KNEE 1 OR 2 V LT [address]755 (Continued) Orig Print D/T: S: 09/26/2021 (1455) [facility] NAME: BEATRICE BAUGH [address] [facility] PHYS: Eran Reyna MDDOB: 1945 AGE: 76 SEX: M [place], [place] [address] LOC: Y.309 A PHONE #: [phone] EXAM DATE: 09/25/2021 STATUS: DIS IN FAX #: [phone] RAD #: D/C DT 09/26/2021 PAGE 2 Signed ReportBASIC METABOLIC [id number] 06:34:00 Test Item Value Reference Range Interpretation [...] RATE (test code = GFR) mL/mi n/1.73 c0Kxzroypnh Range:Healthy Adults >90 mL/min/1.73 m2 For Chronic Kidney Disease: Stage II Mild Decrease i n GFR 60-90 Stage III Moderate Decrea se in GFR 30-59 St age IV Severe Decre ase in GFR 15-29 St age V Kidney Failur e <15 CREATININE (test code 0.70 mg/dL 0.55-1.30 N = CREAT) CALCIUM (test code = 8.7 mg/dL 8.2-10.1 N CA) SPECIMEN COMMENT: POD #1HGB [id number] 06:05:00 Test Item Value Reference Range Interpretation Comments HEMOGLOBIN (test code = HGB) 10.6 g/dL 12-16 L HEMATOCRIT (test code = HCT) 32.4 % 37-47 L SPECIMEN COMMENT: POD #1Novel Coronavirus 2019 [id number] 09:36:00 Test Item Value Reference Range Interpretation [...] assa y in vitro. Novel Coronavirus 2018 [id number] 09:36:00 Test Item Value Reference Range Interpretation [...] for the identification of SARS-CoV-2 RNA usingthe [employer] M2000 Sy stem under the FDA Emergen cy UseAuthorizatio n. The testing is perf ormed by personneltraine d in the procedures for the [employer] M2000 molecular diagnostic SARS-CoV-2 assa y in vitro. CBC W/AUTO [id number] 17:34:00 Test Item Value Reference Range Interpretation [...] 0-0 N code = NRBC) COMPREHENSIVE METABOLIC [id number] 16:10:00 Test Item Value Reference Range Interpretation [...] RATE (test code = GFR) mL/mi n/1.73 q2Lfxgffauk Range:Healthy Adults >90 mL/min/1.73 m2 For Chronic [...] ALKP) - CT UP EXTREM W/O CONT [id number] 11:06:00 Patient Name: BEATRICE BAUGH Unit No: [id number] EXAMS: CPT CODE: [id number] CT UP EXTREM W/[place] [address] CT SCAN RIGHT ELBOW WITH RECONSTRUCTION DIAGNOSIS: 1. The current exam is compared to a previous exam dated September 02, 2019. There is interval internal fixation of an intercondylar fracture distal humerus with bone plate and fixator screws. There appears to be relatively immature healing of the described fracture. Also noted is interval removal of cement spacer present within the area ofosteolysis proximal radius as well as the radial [...] with ACR practice standards and adherence to instructional systems designer's recommendations. INDICATION: RIGHT ELBOW FX COMPARISON: None. COMMENT: Findings are described above. at 1106 Reported and signed by: Sadie Mcdowell MD CC: Ravinder Snell MD Technologist: Juan Dodge,(R) CTDI: DLP: Trnscrpt: 01/06/2020 (1106) t.SDR.GVG [facility] NAME: BEATRICE BAUGH [address] [facility] [address] PHYS: Ravinder Romero MD : 1945 AGE: 74 SEX: [place] [address] LOC: Y.RAD PHONE #: [phone] EXAM DATE: 01/05/2020 STATUS: DEP CLI FAX #: [phone] RAD #: D/C DT PAGE 1 Signed Report Patient Name: BEATRICE BAUGH Unit No: [id number] EXAMS: CPT CODE: [id number] [place] EXTREM W/[place] [address] (Continued) Orig Print D/T: S: 01/06/2020 (1109) [facility] NAME: BEATRICE BAUGH [address] [facility] PHYS:Ravinder Romero MD : 1945 AGE: 74 SEX: M [place] [address] LOC: Y.RAD PHONE #: [phone] EXAM DATE: 01/05/2020 STATUS: DEP CLI FAX #: [phone] RAD #: D/C DT PAGE 2 Signed Report- CT UP EXTREM W/O CONT [id number] 08:43:00 Patient Name: BEATRICE BAUGH Unit No: [id number] EXAMS: CPT CODE: [id number] CT UP EXTREM W/[place] [address] CT SCAN RIGHT ELBOW WITH RECONSTRUCTION DIAGNOSIS: [...] is broken and displaced so that it ispresent in the soft tissues anterior to the coronoid process. The displaced radial head segments space and measures approximately 2.3 x 1.2 cm in size. 2. Subcortical bony irregularity of the capitellum. COMMENT: 0.63 mm axial slices are obtained of the right elbow with reconstruction. Findings are asdescribed above. at 0843 Reported and signed by: Sadie Mcdowell MD CC: Ravinder Snell MD Technologist: Juan DodgeRT(R) CTDI: DLP: Trnscrpt: 09/03/2019 (0843) [facility]: BEAT[facility]ICE [facility]AUGH [address] [facility] PHYS: Ravinder Romero MD : 1945 AGE: 74 SEX: M [place], [place] [address] LOC: Y.RAD PHONE #: [phone] EXAM DATE: 09/02/2019 STATUS: DEP CLI FAX #: [phone] RAD #: D /C DT PAGE 1 Signed Report Patient Name: BEATRICE BAUGH Unit No: [id number] EXAMS: CPT CODE: [id number] CT [place] EXTREM W/[place] [address] (Continued) Orig Print D/T: S: 09/03/2019 (0846) [facility] NAME: BEATRICE BAUGH [address] [facility] PHYS: Ravinder Romero MD : 1945 AGE: 74 SEX: M [place], [place] [address] LOC: Y.RAD PHONE #: [phone] EXAM DATE: 09/02/2019 STATUS: DEP CLI FAX #: [phone] RAD #: D/C DT PAGE 2 Signed ReportTISSUE [id number] 15:05:00Surgical Pathology Report Case: [id number] Authorizing Provider: Stalin Owens MD Collected: 07/09/2017 1024 Ordering Location: [facility] PERI[facility] Received: 07/09/2017 1450 SERVICES Pathologist: Arturo Ritchie MD Specimens: A) - Lymph Node, JOHN PROSTATIC LYMPH NODE B) - Lymph Node, RIGHT OBTURATOR LYMPH NODE C) - Lymph Node, LEFT [...] ASSISTED PROSTATECTOMY: - NO PATHOLOGIC DIAGNOSISF. 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 Periprostatic lymph node; B. Right obturator [...] 1.6 cm. The lymph nodes are entirely submittedas follows: B1, smaller lymph node; B2, larger [...] masses are identified. The prostate gland is entirelysubmitted. Sectioning of the seminal vesicles reveals a pink-wright unremarkable cut surface.Section code: E1, apical margin; E2, bladder neck margin. The prostate slices are submitted in cassettes E3 through E7. The right and left seminal vesicles are submitted in cassette E8, seminal vesicle tips are submitted in E9. ?/ewPart F: Labeled "appendix" consists of an appendectomy measuring 6.2 cm in lengthx up to 1 cm in diameter with a mesoappendix measuring 5 x 2 x 14 cm. The serosa is wright-red and dusky with numerous adhesions. The specimen is intact. The lumen is filled with green purulent material. There is no fecalith or mass seen grossly.Section code: F1, margin en face inked black with tip bisected; F2, mechanical service representative of appendix. CG/ewPerformed.HEMOGLOBIN AND [id number] 06:56:00 Test Item Value Reference Range Interpretation Comments HEMOGLOBIN (BEAKER) (test code = 11.3 GM/DL 13.7-17.5 L 410) HEMATOCRIT (BEAKER) (test code = 36.3 % 40.1-51.0 L 411) BASIC METABOLIC [id number] 06:43:00 Test Item Value Reference Range Interpretation [...] APPLICABLE FOR DIALYSIS PATIEN TS. BASIC METABOLIC [id number] 06:37:00 Test Item Value Reference Range Interpretation [...] TS. Before arterial line is discontinuedBASIC METABOLIC [id number] 15:59:00 Test Item Value Reference Range Interpretation [...] 697) EGFR (BEAKER) (test 76 mL/min/1.73 ESTIMA YSABEL GFR IS code = 1092) sq m NOT ACCURATE CREATININE CLEARANCE IN PREDICTING GLOMERULAR FILTRATION RATE . ESTIMATED GFR I S NOT APPLICABLE FOR DIALYSIS PATIEN TS. [facility] [id number] 15:06:00 Test Item Value Reference Range Interpretation Comments HEMOGLOBIN (BEAKER) (test code = 12.3 GM/DL 13.7-17.5 L 410) HEMATOCRIT (BEAKER) (test code = 37.3 % 40.1-51.0 L 411) URINE [id number] 12:55:00 Test Item Value Reference Range Interpretation Comments CULTURE (BEAKER) (test <10,000 col/mL skin code = 1095) [facility]erva URINALYSIS W/ [id number] 15:00:00 Test Item Value Reference Range Interpretation [...] code = 516) SOURCE(BEAKER) (test code = 2794) COMPREHENSIVE METABOLIC [id number] 14:12:00 Test Item Value Reference Range Interpretation [...] 347) EGFR (BEAKER) (test 84 mL/min/1.73 ESTIMA YSABEL GFR IS code = 1092) sq m NOT ACCURATE CREATININE CLEARANCE IN PREDICTING GLOMERULAR FILTRATION RATE . ESTIMATED GFR I S NOT APPLICABLE FOR DIALYSIS PATIEN TS. PROTHROMBIN TIME/[id number] 13:34:00 Test Item Value Reference Range Interpretation Comments PROTIME (BEAKER) (test code = 13.0 seconds 11.7-14.7 759) INR (BEAKER) (test code = 370) 1.0 <=5.9 RECOMMENDED COUMADIN/WARFARIN INR THERAPY RANGESSTANDARD DOSE: 2.0 - 3.0 Includes: PROPHYLAXIS for venous thrombosis, systemic embolization; TREATMENT for venous thrombosis and/or pulmonary embolus.HIGH RISK: Target INR is 2.5-3.5 for patients with mechanical heart valves.CBC W/PLT COUNT & AUTO [id number] 13:25:00 Test Item Value Reference Range Interpretation [...] % 0-1 PERCENT (BEAKER) (test code = 8682)
[2023-09-01] MEDS ORDERED: HYDROCODONE/APAP 10/325 TAB ONE (14:16)
[2023-09-01 14:30] LABS: Absolute Lymphocytes (CBC) 1.1 K/uL (0.7-4.9); Hematocrit 30.2 % (39.6-49.0); Lymphocytes % 13.5 % (15.3-44.8); MCV 84.5 fL (80-100); MPV 5.8 fL (7.6-11.3); Platelets 548 thou/uL (152-406); RBC Red Blood Cell Count 3.57 M/uL (4.33-5.43)
--- NOTE | 2023-09-01 14:50 | RAD REPORT ---
EXAM DESCRIPTION: US - Extremity Venous Uni Ltd - 09/01/2023 2:45 pm CLINICAL HISTORY: PAIN Leg swelling and edema. COMPARISON: No comparisons FINDINGS: Right lower extremity venous system was interrogated with Doppler technique. Normal flow, compressibility and augmentation was noted. There is no DVT present. IMPRESSION: No evidence of right lower extremity deep venous thrombosis.
[2023-09-01 14:52] LABS: Albumin 2.9 g/dL (3.4-5.0); Bilirubin Direct 0.1 mg/dL (0-0.2); Bilirubin Indirect, Calculated 0.3 mg/dL (0.2-0.8); Bilirubin Total 0.4 mg/dL (0.2-1.0); Magnesium 1.9 mg/dL (1.6-2.4); Potassium 3.1 mEq/L (3.5-5.1); Protein, Total 7.1 g/dL (6.4-8.2)
--- NOTE | 2023-09-01 15:48 | ER ---
Nurse's Notes [facility] Name: Alex Baugh Age: 78 yrs Sex: Male : 1945 Arrival Date: 09/01/2023 Time: 13:35 Bed 15 Private MD: Diagnosis: Right hip arthritic pain Presentation: 09/01 13:55 Chief complaint: EMS states: they were called out for right hip pain. patient was ap3 recently discharged from group home with pain medication, but did not receive education on taking them and did not want to take the medication without proper education. Coronavirus screen: At this time, the client does not indicate any symptoms associated with coronavirus-19. Ebola Screen: No symptoms or risks identified at this time. Initial Sepsis Screen: Does the patient meet any 2 criteria? No. Patient's initial sepsis screen is negative. Does the patient have a suspected source of infection? No. Patient's initial sepsis screen is negative. Risk Assessment: Do you want to hurt yourself or someone else? Patient reports no desire to harm self or others. Onset of symptoms is unknown. 13:55 Method Of Arrival: EMS: [facility] ap3 13:55 Acuity: SHERYL 3 ap3 Triage Assessment: 13:57 General: Appears in no apparent distress. Behavior is calm, cooperative. Pain: ap3 Complains of pain in right hip Pain currently is 1 out of 10 on a pain scale. at worst was 10 out of 10 on a pain scale. Pain began gradually. Neuro: Level of Consciousness is awake, alert, obeys commands, Oriented to person, place, time, situation. Cardiovascular: Patient's skin is warm and dry. Respiratory: Airway is patent Respiratory effort is even, unlabored, Respiratory pattern is regular, symmetrical. Historical: - Allergies: 13:56 No Known Allergies; ap3 - PMHx: 13:56 Hypertensive disorder; U.C.; Anxiety; ap3 - PSHx: 13:56 Appendectomy; B knee replacements; ap3 - Immunization history:: Client reports receiving the 2nd dose of the Covid vaccine, Flu vaccine is up to date. - Social history:: Smoking status: Patient denies any tobacco usage or history of. Screenin:58 Abuse screen: Denies threats or abuse. Nutritional screening: No deficits noted. ap3 Tuberculosis screening: No symptoms or risk factors identified. 15:59 [facility] ED Fall Risk Assessment (Adult) History of falling in the last 3 months, ap3 including since admission Yes- single mechanical fall (1 pt) Confusion or Disorientation No (0 pts) Intoxicated or Sedated No (0 pts) Impaired Gait Yes (1 pt) Mobility Assist Device Used Yes (1 pt) Altered Elimination No (0 pt). Vital Signs: 13:55 BP 155 / 86; Pulse 80; Resp 18; Pulse Ox 99% ; Weight 68.04 kg; Pain 1/10; ap3 13:55 Pain Scale: Adult ap3 ED Course: 13:40 Patient arrived in ED. eb 13:44 David Awan DO is Attending Physician. ms3 13:45 Mike Fleming MD is Attending Physician. ms3 13:55 Rosa Isela Guerra, ELVIRA is Primary Nurse. ap3 13:56 Triage completed. ap3 13:58 Arm band placed on right wrist. ap3 13:58 Patient has correct armband on for positive identification. Bed in low position. Call ap3 light in reach. Side rails up X2. Adult w/ patient. Pulse ox on. NIBP on. 14:18 Inserted saline lock: 20 gauge in right forearm, using aseptic technique. Blood kc6 collected. Patient maintains SpO2 saturation greater than 95% on room air. 14:46 US Extremity Venous Unilateral Ltd In Process Unspecified. EDMS 15:58 Provided Education on: discharge instructions. ap3 15:58 No provider procedures requiring assistance completed. IV discontinued, intact, ap3 bleeding controlled, No redness/swelling at site. Pressure dressing applied. Administered Medications: 14:06 Drug: HYDROcodone-acetaminophen PO 10 mg-325 mg 1 tabs PO once Route: PO; kc6 15:59 Follow up: Response: No adverse reaction; Pain is decreased ap3 Medication: 15:59 VIS not applicable for this client. ap3 Outcome: 15:48 Discharge ordered by . sp3 15:58 Discharged to home via wheelchair, with family, ap3 15:58 Condition: good 15:58 Discharge instructions given to patient, Instructed on discharge instructions, follow up and referral plans. Demonstrated understanding of instructions, follow-up care, 15:59 Patient left the ED. ap3 Signatures: Dispatcher [employer] EDIL Rosa Isela Guerra, ELVIRA RN ap3 Marcela Castro Marcus, DO DO ms3 Mike Fleming MD MD sp3 Adela Branch RN RN kc6 Corrections: (The following items were deleted from the chart) 13:58 13:55 Acuity: SHERYL 4 ap3 ap3
--- NOTE | 2023-09-01 15:49 | EDPHYS ---
Physician Documentation [facility] Name: Alex Baugh Age: 78 yrs Sex: Male : 1945 Arrival Date: 09/01/2023 Time: 13:35 Bed 15 Private MD: ED Physician Mike Fleming HPI: 09/01 14:51 This 78 yrs old Male presents to ER via EMS with complaints of left hip/thigh pain. sp3 14:51 78-year-old male with a history of hypertension, prior Rorurpz-Aobxd-Qagrm syndrome, sp3 arrhythmia (on Eliquis and amiodarone unknown exact arrhythmia as history is from patient) who recently had surgical drainage and cleaning of right replaced knee joint approximately 1 month ago with subsequent short-term prison admission for rehab and recently discharged home now presents to the ED with chief complaint right thigh pain extending into his buttock and right hip. While at the prison the symptoms were also present and prison physician ordered right hip x-rays x2 which are being reported by patient is normal. He denies any swelling or distal numbness or tingling. Pain is positional. No trauma reported. Review of systems negative for headache, fever, URI symptoms, chest pain, shortness of breath, back pain, abdominal pain, nausea, vomiting, diarrhea, changes in bowel bladder symptoms or patterns, rash, or any other signs or symptoms on ROS at this time. Patient is also confused on what meds he is supposed to take and not take as the Eliquis and amiodarone were started during and after his surgery. He has an appointment with Dr. Pope his PCP tomorrow morning to elucidate which meds are to be taken and not taking. Today before that appointment, his pain got acutely worse and decided to come to the ED. However in route here his pain has mainly subsided. He has [place] 10/325 meds which she has not taken because he was confused on the dosage and how to take them despite it being written on the package itself. Patient initially stated that he has "no medical problems" and I have educated him that based on the medications he has that that is not the case and we have through conversation about his medical history and it has been communicated to him.. Historical: - Allergies: 13:56 No Known Allergies; ap3 - PMHx: 13:56 Hypertensive disorder; U.C.; Anxiety; ap3 - PSHx: 13:56 Appendectomy; B knee replacements; ap3 - Immunization history:: Client reports receiving the 2nd dose of the Covid vaccine, Flu vaccine is up to date. - Social history:: Smoking status: Patient denies any tobacco usage or history of. ROS: 14:55 Constitutional: Negative for fever, chills, and weight loss, Eyes: Negative for injury, sp3 pain, redness, and discharge, Neck: Negative for injury, pain, and swelling, Cardiovascular: Negative for chest pain, palpitations, and edema, Respiratory: Negative for shortness of breath, cough, wheezing, and pleuritic chest pain, Abdomen/GI: Negative for abdominal pain, nausea, vomiting, diarrhea, and constipation, Back: Negative for injury and pain, Skin: Negative for injury, rash, and discoloration, Neuro: Negative for headache, weakness, numbness, tingling, and seizure, Psych: Negative for depression, anxiety, suicide ideation, homicidal ideation, and hallucinations, Allergy/Immunology: Negative for hives, rash, and allergies, Endocrine: Negative for neck swelling, polydipsia, polyuria, polyphagia, and marked weight changes, Hematologic/Lymphatic: Negative for swollen nodes, abnormal bleeding, and unusual bruising, 14:55 All other systems are negative, Exam: 14:55 Constitutional: This is a well developed, well nourished patient who is awake, alert, sp3 and in no acute distress. Head/Face: Normocephalic, atraumatic. Eyes: Pupils equal round and reactive to light, extra-ocular motions intact. Lids and lashes normal. Conjunctiva and sclera are non-icteric and not injected. Cornea within normal limits. Periorbital areas with no swelling, redness, or edema. Neck: Trachea midline, no thyromegaly or masses palpated, and no cervical lymphadenopathy. Supple, full range of motion without nuchal rigidity, or vertebral point tenderness. No Meningismus. Chest/axilla: Normal chest wall appearance and motion. Nontender with no deformity. No lesions are appreciated. Cardiovascular: Regular rate and rhythm with a normal S1 and S2. No gallops, murmurs, or rubs. Normal PMI, no JVD. No pulse deficits. Respiratory: Lungs have equal breath sounds bilaterally, clear to auscultation and percussion. No rales, rhonchi or wheezes noted. No increased work of breathing, no retractions or nasal flaring. Abdomen/GI: Soft, non-tender, with normal bowel sounds. No distension or tympany. No guarding or rebound. No evidence of tenderness throughout. Back: No spinal tenderness. No costovertebral tenderness. Full range of motion. Skin: Warm, dry with normal turgor. Normal color with no rashes, no lesions, and no evidence of cellulitis. Neuro: Awake and alert, GCS 15, oriented to person, place, time, and situation. Cranial nerves II-XII grossly intact. Motor strength 5/5 in all extremities. Sensory grossly intact. Cerebellar exam normal. Normal gait. Psych: Awake, alert, with orientation to person, place and time. Behavior, mood, and affect are within normal limits. 14:55 Musculoskeletal/extremity: Right knee without effusion. Right hip has full range of motion and no pain on axial load. There is no significant swelling noted. Pulses are normal. Distal neurovascular exam is normal.. Vital Signs: 13:55 BP 155 / 86; Pulse 80; Resp 18; Pulse Ox 99% ; Weight 68.04 kg; Pain 1/10; ap3 13:55 Pain Scale: Adult ap3 MDM: 13:55 Patient medically screened. sp3 14:55 Data reviewed: vital signs, nurses notes, lab test result(s), EKG, radiologic studies. sp3 ED course: 78-year-old male with right thigh and hip pain. I have educated him regarding his past medical history and medication usage. He has an appointment with Dr. Pope tomorrow. Differential diagnosis includes DVT, general joint pain, arthritic pain, among others. I am not highly concerned about sepsis, shock, vascular dissection, or any other critical findings at this time. Work-up will include ultrasound right lower extremity venous for DVT rule out, general laboratory values, EKG and education. If work-up is negative, we will safely discharge patient home with follow-up to his PCP for tomorrow which he already has an appointment. 1 dose of 10/325 [place] will also be given.. 15:47 ED course: Patient ambulated around nurses station without difficulty. We will safely sp3 discharge patient home at this time.. 09/01 13:57 Order name: Basic Metabolic Panel; Complete Time: 14:59 sp3 09/01 13:57 Order name: CBC with Diff; Complete Time: 14:59 sp3 09/01 13:57 Order name: Hepatic Function; Complete Time: 14:59 sp3 09/01 13:57 Order name: Magnesium; Complete Time: 14:59 sp3 09/01 13:57 Order name: US Extremity Venous Unilateral Ltd; Complete Time: 14:59 sp3 09/01 13:57 Order name: IV Saline Lock; Complete Time: 14:18 sp3 09/01 13:57 Order name: Labs collected and sent; Complete Time: 14:18 sp3 Administered Medications: 14:06 Drug: HYDROcodone-acetaminophen PO 10 mg-325 mg 1 tabs PO once Route: PO; kc6 15:59 Follow up: Response: No adverse reaction; Pain is decreased ap3 Disposition Summary: 09/01/23 15:48 Discharge Ordered Notes: Location: Home sp3 Condition: Stable sp3 Diagnosis - Right hip arthritic pain sp3 Followup: sp3 - With: Private Physician - When: Upon discharge from the Emergency Department - Reason: Continuance of care Discharge Instructions: - Discharge Summary Sheet sp3 - Arthritis, [id number] sp3 Forms: - Medication Reconciliation Form sp3 - Thank You Letter sp3 - Antibiotic Education sp3 - Prescription Opioid Use sp3 - Patient Portal Instructions sp3 - Leadership Thank You Letter sp3 Signatures: Dispatcher [employer] Rosa Isela Mca RN RN ap3 Mike Fleming MD MD sp3 Adela Branch RN RN kc6
[2023-09-01 16:56] VITALS: BP 155/86
[2023-09-01 17:01] VITALS: TEMP 98.7; O2SAT 100
== END 2023-09-01 15:59 | disposition home or self-care (01) ==
LOC: ER 13:35
DX: M16.11 Unilateral primary osteoarthritis, right hip (principal); I10 Essential (primary) hypertension; Z96.653 Presence of artificial knee joint, bilateral
CPT/HCPCS: 36415; 80048; 80076; 83735; 85025; 93971; 99284

== ENCOUNTER 2023-09-22 21:59 | Inpatient (IN) | payer OTHER, BC ==
--- OUTSIDE RECORDS SUMMARY | 2023-09-22 22:10 | XMS REPORT | Continuity of Care Document ---
:1945 Author Organization [facility] t Address [address] [place] [address] [place] [id number] Care Team Providers Name Role Phone Cruz Pope MD Primary Care Physician [phone] Provider MD, Not In System Attending Clinician Unavailable Eran Amaya MD Attending Clinician Kylah Schofield MA Attending Clinician Unavailable NKECHI ASCENCIO Attending Clinician Unavailable Doctor Unassigned, [place] Attending Clinician Unavailable Konstantin SZYMANSKI, Wilver Silverman Attending Clinician Spencer SZYMANSKI, Binta Acosta Attending Clinician [phone] Zhao SZYMANSKI, Clyde Douglas Attending Clinician [phone] Dana Bardales MD Attending Clinician Luis Manuel Wood MD Attending Clinician Gurpreet Chambers Attending Clinician Unavailable Cruz Tavares Attending Clinician Unavailable Milvia Attending Clinician Unavailable Umer Newton MD Attending Clinician UMER NEWTON Attending Clinician Unavailable UMER NEWTON Attending Clinician Unavailable Erika Attending Clinician Unavailable Eran Gr Attending Clinician [phone] Ravinder Snell Attending Clinician [phone] Ravinder Snell Attending Clinician Unavailable Eran Gr Attending Clinician Unavailable Cruz Tavares Attending Clinician [phone] STALIN OWENS Attending Clinician Unavailable AFSHAN ROCA Admitting Clinician Unavailable BINTA PALMER Admitting Clinician Unavailable Gurpreet Chambesr Admitting Clinician Unavailable Cruz Tavares Admitting Clinician Unavailable Milvia Admitting Clinician Unavailable UMER NEWTON Admitting Clinician Unavailable Erika Admitting Clinician Unavailable Ravinder Snell Admitting Clinician Unavailable Eran Gr Admitting Clinician Unavailable Physician, No Primary Care Admitting Clinician Unavailable STALIN OWENS Admitting Clinician Unavailable Payers Payer Name Policy Type Policy Number Effective Date Expiration Date S ource MEDICARE PART A \\T\\ [id number] 2010 B 00:00:00 BCBS TRADITIONAL [id number] 2013 00:00:00 [place] [id number] 2010 [place] SOLUTIONS 00:00:00 [place] [id number] 2013 (MEDICARE 00:00:00 SUPPLEMENT) CGS (MEDICARE DME [id number] 2010 REGION C) 00:00:00 EPISODE SOLUTIONS [id number] Problems Condition Condition Condition Status Onset Resolution [...] dic internal Internal 00 Sports orthopedic Orthopedic Me dicin device, Device, e implant Implant AND/OR AND/OR graft Graft Hammer toe Hammer Toe Problem Active A zalea 7-12 Orthope 00:00: dic 00 Sports Medicin e 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 05-17 Or thope present Present 00:00: dic 00 Sports Medicin e Pain of Pain of Problem Active Le right knee Right Knee 05-17 Or thope joint Joint 00:00: dic 00 Sports Medicin e Pain of Pain of Problem Active Le left knee Left Knee 05-17 Orth ope joint Joint 00:00: dic 00 Sports Medicin e Osteoarthr Osteoarthr Problem Active A mirna itis of itis of 4-20 Orthope right [...] No Known DA Active U [facility] 8-03 Clear Allergie 00:00: [place] 00 [facility] No Known DA Active U [facility] Allergie 7-14 Clear s 00:00: [place] 00 [facility] No Known DA Active U 2020-11 [facility] Allergie 1-09 [place] 00:00: Orthope 00 dic Hospita l No Known DA Active U 2018-11 [facility] Allergie 0-18 Clear s 00:00: [place] [facility] Sulfamet Propensi Active Nausea And 2017- [facility] hoxazole ty to Vomiting 8-15 [facility] adverse 00:[facility]: Medical reaction 00 [place] SULFAMET DRUG Active N/V Univers HOXAZOLE INGREDI 6-16 ity of 00:00: [place] 00 [facility] Sulfamet Propensi Active Nausea 2016- Univer s hoxazole ty to and/or 616 ity of adverse Vomiting 00:00: [place] reaction 00 [facility] No Known DA Active U 2012-11 [facility] Allergie -22 [place] s 00:00: Orthope 00 dic Hospita l NO KNOWN Drug Active Univers ALLERGIE Class ity of S [facility] Social History Social Habit Start Date Stop Date Quantity Comments Source Sexual orientation [facility] Gender identity [facility] History SDOH [facility] History SDOH [facility] Alcohol Std Drinks [facility] History SDOH [facility] Alcohol Binge Medical [facility] ter History of Social 2023-06-28 2023-06-[address] function 00:00:00 00:00:00 Hospital Exposure to 2023-03-25 2023-04-04 Not sure [facility] SARS-CoV-2 (event) 00:00:00 13:43:00 [facility] Tobacco use and 2023-04-04 2023-04-04 Smokeless Universit y of exposure 00:00:00 00:00:00 tobacco non-user [facility] Alcohol intake 2017-07-09 2017-07-09 Current drinker [facility] [...] [facility] Tobacco smoking consumption [facility] unknown Never smoked tobacco [facility] Medications Ordered Filled Start Stop Current Ordering [...] mouth l tablet daily for 30 days. furosemide 2022- No 40mg QD Take 1 [...] 40mg QD Take 1 Met hodi e 06-28- tablet (40 st (PROTONIX) 00:00: 04:59 mg total) H ospita 40 MG EC 00 :00 by mouth l tablet daily for 30 days. spironolact 3- No 25mg QD Take 1 Met hodi one 06-28- tablet (25 st (ALDACTONE) 00:00: 04:59 mg total) Hospita 25 MG 00 :00 by mouth l tablet daily for 30 days. apixaban 2023-0 Yes 5mg Q.5D Take 1 Methodi (ELIQUIS) 5 8-11 tablet (5 st mg tablet 00:00: mg total) Hos maddy 00 by mouth 2 l (two) times a day. HYDROcodone 2023-0 Yes [id number] 1{tbl} Q6H Take 1 M ethodi -acetaminop 8-[address] hen (NORResource Guru) 00:00: mouth Hospi ta 5-325 mg 00 every 6 l per tablet (six) hours as needed for moderate pain .acute pain. Max Daily Amount: 4 tablets apixaban 2023-0 Yes 5mg Q.5D Take 1 Methodi (ELIQUIS) 5 8-11 tablet (5 st mg tablet 00:00: mg total) Hos maddy 00 by mouth 2 l (two) times a day. HYDROcodone 2023-0 Yes [id number] 1{tbl} Q6H Take 1 M ethodi -acetaminop 8-[address] hen (SceneChat) 00:00: mouth Hospi ta 5-325 mg 00 every 6 l per tablet (six) hours as needed for moderate pain .acute pain. Max Daily Amount: 4 tablets ceFAZolin 2023-0 2023- No 2g Q8H Infuse 2 g M ethodi (ANCEF) 06-[address] IVPB 2 gram 00:00: 04:59 venous Hos maddy Mini-Bag 00 :00 catheter l Plus every 8 (eight) hours for 34 days. ceFAZolin 2023-0 2023- No 2g Q8H Infuse 2 g M ethodi (ANCEF) 06-[address] IVPB 2 gram 00:00: 04:59 venous Hos madyd Mini-Bag 00 :00 catheter l Plus every 8 (eight) hours for 34 days. acetaminoph 2023-0 2023- No 650mg Q6H Take 2 Me thodi en 06-[address] (TYLENOL) 00:00: 04:59 (650 mg Hosp corrine 325 MG 00 :00 total) by l tablet mouth every 6 (six) hours as needed for mild pain or fever for up to 30 days. amIODarone 2023-0 202- No 200mg QD Take 1 Met hodi (Pacerone) 06-[address] 200 MG 00:00: 04:59 (200 mg Hospita tablet 00 :00 total) by l mouth daily for 30 days. DULoxetine 2022- No 60mg QD Take 1 Meth archie (CYMBALTA) 06-[address] 60 MG 00:00: 04:59 (60 mg Hospita capsule 00 :00 total) by l mouth every evening for 30 days. ipratropium 2022- No [id number] 3mL Q.[id number] Take 3 mL Methodi -albuteroL 06-[id number] (DUO-NEB) 00:00: 04:59 3D nebulizati H ospita 0.5-2.5 00 :00 on every 6 l mg/3 mL (six) nebulizer hours while awake for 30 days. naloxone 2022- No .2mg Infuse 0.5 Me thodi (NARCAN) [...] 3).) for up to 30 days. ramelteon 2022- No 8mg QD Take 1 Metho di [...] (two) times a day for 30 days. acetaminoph 2022- No 650mg Q6H Take 2 Me thodi en 06-[address] (TYLENOL) 00:00: 04:59 (650 mg Hosp corrine 325 MG 00 :00 total) by l tablet mouth every 6 (six) hours as needed for mild pain or fever for up to 30 days. amIODarone 2022- No 200mg QD Take 1 Met hodi (Pacerone) 06-[address] 200 MG 00:00: 04:59 (200 mg Hospita tablet 00 :00 total) by l mouth daily for 30 days. DULoxetine 2022- No 60mg QD Take 1 Meth archie (CYMBALTA) 06-[address] 60 MG 00:00: 04:59 (60 mg Hospita capsule 00 :00 total) by l mouth every evening for 30 days. ipratropium 2022- No [id number] 3mL Q.[id number] Take 3 mL Methodi -albuteroL 06-[id number] (DUO-NEB) 00:00: 04:59 3D nebulizati H ospita 0.5-2.5 00 :00 on every 6 l mg/3 mL (six) nebulizer hours while awake for 30 days. naloxone 2022- No .2mg Infuse 0.5 Me thodi (NARCAN) [...] 3).) for up to 30 days. ramelteon 2022- No 8mg QD Take 1 Metho di [...] for 30 days. ioflupane I 2022- No [id number] 5.5mCi 5.5 Univers 123 5-10 05-10 millicurie ity of (DATSCAN) 16:15: 16:15 , [place] injection 00 :00 Intravenou Medi cyndy 5.5 s, ONCE, 1 Branch millicurie dose, On Fri03/26/23 at 1115, Routine potassium 2022- No [id number] 100mg 0.1 mL Univers iodide 5 05-10 (100 mg), ity of (SSKI) 1 15:00: 15:00 Oral[place] gram/mL 00 :00 NOW, 1 Medical solution dose, On Branch 0.1 mL Fri03/26/23 at 1000, Routine carbidopa-l 2022- Yes [id number] 1{tbl} Take 1 Univers evodopa 5-03 tablet by ity of (SINEMET) 00:00: mouth [place] 25-100 mg 00 the Medical tablet morning Branch and 1 tablet at noon and 1 tablet in the evening. Take at 7AM, 11AM and 3PM everyday. carbidopa-l 2023-0 Yes [id number] 1{tbl} Take 1 Univers evodopa 5-03 tablet by ity of (SINEMET) 00:00: mouth [place] 25-100 mg 00 the Medical tablet morning Branch and 1 tablet at noon and 1 tablet in the evening. Take at 7AM, 11AM and 3PM everyday. carbidopa-l 2023-0 Yes [id number] 1{tbl} Take 1 Univers evodopa 5-03 tablet by ity of (SINEMET) 00:00: mouth [place] 25-100 mg 00 the Medical tablet morning Branch and 1 tablet at noon and 1 tablet in the evening. Take at 7AM, 11AM and 3PM everyday. carbidopa-l 2023-0 Yes [id number] 1{tbl} Take 1 Univers evodopa 5-03 tablet by ity of (SINEMET) 00:00: mouth [place] 25-100 mg 00 the Medical tablet morning Branch and 1 tablet at noon and 1 tablet in the evening. Take at 7AM, 11AM and 3PM everyday. carbidopa-l 2023-0 Yes [id number] 1{tbl} Take 1 Univers evodopa 5-03 tablet by ity of (SINEMET) 00:00: mouth [place] 25-100 mg 00 the Medical tablet morning Branch and 1 tablet at noon and 1 tablet in the evening. Take at 7AM, 11AM and 3PM everyday. carbidopa-l 2023-0 Yes [id number] 1{tbl} Take 1 Univers evodopa 5-03 tablet by ity of (SINEMET) 00:00: mouth in [place] 25-100 mg 00 the Medical tablet morning Branch and 1 tablet at noon and 1 tablet in the evening. Take at 7AM, 11AM and 3PM everyday. carbidopa-l 2023-0 Yes [id number] 1{tbl} Take 1 Univers evodopa 5-03 tablet by ity of (SINEMET) 00:00: mouth [place] 25-100 mg 00 the Medical tablet morning Branch and 1 tablet at noon and 1 tablet in the evening. Take at 7AM, 11AM and 3PM everyday. carbidopa-l 2022-0 Yes [id number] 1{tbl} Take 1 Univers evodopa 5-03 tablet by ity of (SINEMET) 00:00: mouth [place] 25-100 mg 00 the Medical tablet morning Branch and 1 tablet at noon and 1 tablet in the evening. Take at 7AM, 11AM and 3PM everyday. gadobenate 2022- No [id number] .2mL/kg 0.2 mL/kg, Univers dimeglumine 03-06-20 Intravenou i ty of (MULTIHANCE 14:00: 13:47 s, ONCE, 1 [place] -15 mL) 00 :00 dose, On Medical injection Jacqueline Branch 0.2 mL/kg 03/06/23 at 0900, Routine ARIPiprazol 2022-0 Yes aripiprazo Univers e 2 mg 4-07 le 2 mg ity of tablet 11:33: tablet [place] [address] TAKE THREE Medical (3) Branch TABLET(S) BY MOUTH DAILY AT BEDTIME. ARIPiprazol 2022-0 Yes aripiprazo Univers e 2 mg 4-07 le 2 mg ity of tablet 11:33: tablet [place] 36 TAKE THREE Medical (3) Branch TABLET(S) BY MOUTH DAILY AT BEDTIME. ARIPiprazol 2022-0 Yes aripiprazo Univers e 2 mg 4-07 le 2 mg ity of tablet 11:33: tablet [place] 36 TAKE THREE Medical (3) Branch TABLET(S) BY MOUTH DAILY AT BEDTIME. ARIPiprazol 2022-0 Yes aripiprazo Univers e 2 mg 4-07 le 2 mg ity of tablet 11:33: tablet [place] 36 TAKE THREE Medical (3) Branch TABLET(S) BY MOUTH DAILY AT BEDTIME. ARIPiprazol 2022-0 Yes aripiprazo Univers e 2 mg 4-07 le 2 mg ity of tablet 11:33: tablet [place] 36 TAKE THREE Medical (3) Branch TABLET(S) BY MOUTH DAILY AT BEDTIME. ARIPiprazol 2022-0 Yes aripiprazo Univers e 2 mg 4-07 le 2 mg ity of tablet 11:33: tablet [place] 36 TAKE THREE Medical (3) Branch TABLET(S) BY MOUTH DAILY AT BEDTIME. ARIPiprazol 3-0 Yes aripiprazo Univers e 2 mg 4-07 le 2 mg ity of tablet 11:33: tablet [place] 36 TAKE THREE Medical (3) Branch TABLET(S) BY MOUTH DAILY AT BEDTIME. ARIPiprazol 3-0 Yes aripiprazo Univers e 2 mg 4-07 le 2 mg ity of tablet 11:33: tablet [place] 36 TAKE THREE Medical (3) Branch TABLET(S) BY MOUTH DAILY AT BEDTIME. ARIPiprazol 2022-0 Yes aripiprazo Univers e 2 mg 4-07 le 2 mg ity of tablet 11:33: tablet [place] 36 TAKE THREE Medical (3) Branch TABLET(S) BY MOUTH DAILY AT BEDTIME. ARIPiprazol 2022-0 Yes aripiprazo Univers e 2 mg 4-07 le 2 mg ity of tablet 11:33: tablet [place] 36 TAKE THREE Medical (3) Branch TABLET(S) BY MOUTH DAILY AT BEDTIME. ARIPiprazol 2022-0 Yes aripiprazo Univers e 2 mg 4-07 le 2 mg ity of tablet 11:33: tablet [place] 36 TAKE THREE Medical (3) Branch TABLET(S) BY MOUTH DAILY AT BEDTIME. ARIPiprazol 2022-0 Yes aripiprazo Univers e 2 mg 4-07 le 2 mg ity of tablet 11:33: tablet [place] 36 TAKE THREE Medical (3) Branch TABLET(S) BY MOUTH DAILY AT BEDTIME. ARIPiprazol 3-0 Yes aripiprazo Univers e 2 mg 4-07 le 2 mg ity of tablet 11:33: tablet [place] 36 TAKE THREE Medical (3) Branch TABLET(S) BY MOUTH DAILY AT BEDTIME. ARIPiprazol 2022-0 Yes aripiprazo Univers e 2 mg 4-07 le 2 mg ity of tablet 11:33: tablet [place] 36 TAKE THREE Medical (3) Branch TABLET(S) BY MOUTH DAILY AT BEDTIME. ARIPiprazol 3-0 Yes aripiprazo Univers e 2 mg 4-07 le 2 mg ity of tablet 11:33: tablet [place] 36 TAKE THREE Medical (3) Branch TABLET(S) [...] 3 ity of tablet 00:00: TIMES A [place] 00 DAY BY Medical ORAL Branch ROUTE. [...] DAY BY Medical ORAL Branch ROUTE. meloxicam 2023-0 Yes TAKE 1 Univer s [...] 2-01 TABLET BY ity of tablet 00:00: 00 EVERY DAY Medical NEEDED Branch meloxicam 2022-0 Yes TAKE 1 Univer s 15 mg 2-01 TABLET BY ity of tablet 00:00: EVERY DAY Medical NEEDED Branch meloxicam 2022-0 [...] 2-01 TABLET BY ity of tablet 00:00: 00 EVERY DAY Medical NEEDED Branch meloxicam [...] [place] 00 every Medical morning. Branch amLODIPine 2017-0 Yes 5mg QD Take 5 [...] MG tablet 18:17: daily. Medica l 20 [place] mesalamine 2017-0 Yes 1200mg Q.5D Take 1,200 [...] MG tablet 18:17: daily. Medica l 20 [place] mesalamine 2017-0 Yes 1200mg Q.5D Take 1,200 [...] MG tablet 18:17: daily. Medica l 20 [place] mesalamine 2017-0 Yes 1200mg Q.5D Take 1,[address] (LIALDA) 8-24 mg by [facility] 1.2 gram EC 18:17: mouth 2 Med ical tablet 20 (two) Center times daily. amLODIPine 2017-0 Yes 5mg QD Take [address] (NORVASC) 5 8-24 by mouth Luke s MG tablet 18:17: daily. Medica l 20 [place] calcium 2017-0 Yes 667mg Q.5D Take 667 [...] MG tablet 18:17: daily. Medica l 20 [place] mesalamine 2017-0 Yes 1200mg Q.5D Take 1,[address] (LIALDA) 8-24 mg by [facility] 1.2 gram EC 18:17: mouth 2 Med ical tablet 20 (two) Center times daily. amLODIPine 2017-0 Yes 5mg QD Take [address] (NORVASC) 5 8-24 by mouth Luke s MG tablet 18:17: daily. Medica l 20 [place] calcium 2017-0 Yes 667mg Q.5D Take 667 [...] ical tablet 20 (two) Center times daily. duloxetine duloxetine No duloxetine Le 60 mg [...] Spo rts EVERY 8 EVERY 8 tablet(s) [facility] keo HOURS by HOURS by EVERY 8 [...] Sports yed release yed release ayed M [place] Take one Take one release e tablet [...] EVERY BY MOUTH MORNING. MORNING. EVERY MORNING. Voltmax Voltmax No Voltaren Aza babak Arthritis Arthritis [...] Sports yed release yed release ayed M jricin Take one Take one release e tablet [...] days. days. oral route for 7 days. Vital Signs Vital Name Observation Time Observation Value Comments Source Systolic blood 2023-04-04 18:50:00 142 mm[Hg] [facility] Diastolic blood 2023-04-04 18:50:00 84 mm[facility]Hg[facility] 2023-04-04 18:49:00 74 /min [facility] Respiratory rate 2023-04-04 18:49:00 20 /min [facility] Body height 2023-04-04 18:49:00 180.3 cm [facility] Body weight 2023-04-04 18:49:00 65.772 kg [facility] BMI 2023-04-04 18:49:00 20.22 kg/m2 [facility] Oxygen saturation in 2023-04-04 18:49:00 97 /min [facility] Arterial blood by [facility] Pulse oximetry Branch Systolic blood 2023-03-17 14:46:00 149 mm[Hg] Univer sity [facility] Diastolic blood 2023-03-17 14:46:00 75 mm[Hg] [facility] 2023-03-17 14:11:00 74 /min [facility] [place] [facility] Body height 2023-03-17 14:11:00 180.3 cm [facility] [place] [facility] Body weight 2023-03-17 14:11:00 65.772 kg [facility] [place] [facility] BMI 2023-03-17 14:11:00 20.22 kg/m2 Universi ty of [facility] Oxygen saturation in 2023-03-17 14:11:00 97 /min University of Arterial blood by [facility] Pulse oximetry Branch Systolic blood 2023-02-21 16:32:00 148 mm[Hg] Univer sity of pressure [facility] Diastolic blood 2023-02-21 16:32:00 73 mm[Hg] Unive rsity of pressure [facility] Heart rate 2023-02-21 16:31:00 73 /min [facility] [place] [facility] Body height 2023-02-21 16:31:00 180.3 cm Universi ty [facility] Body weight 2023-02-21 16:31:00 66.225 kg Universi ty [facility] BMI 2023-02-21 16:31:00 20.36 kg/m2 Universi ty of [facility] Oxygen saturation in 2023-02-21 16:31:00 99 /min University of Arterial blood by [facility] Pulse oximetry Branch Height 2022-07-25 [...] pressure Diastolic blood 2023-06-28 16:12:50 59 mm[Hg] [facility] pressure Heart rate 2023-06-28 16:12:50 112 /min [facility] Body temperature 2023-06-28 16:12:50 36.5 Enedelia [facility] Respiratory rate 2023-06-28 16:12:50 20 /min [facility] Oxygen saturation in 2023-06-28 16:12:50 94 /min [facility] Arterial blood by Pulse oximetry Body weight 2023-06-28 09:37:15 66.724 kg [facility] BMI 2023-06-28 09:37:15 20.52 kg/m2 [facility] Body height 2023-06-20 16:01:00 180.3 cm [facility] Systolic blood 2023-06-19 21:30:00 140 mm[Hg] [facility] pressure Diastolic blood 2023-06-19 21:30:00 73 mm[Hg] [facility] pressure Heart rate 2023-06-19 21:30:00 87 /min [facility] Respiratory rate 2023-06-19 21:30:00 21 /min [facility] Oxygen saturation in 2023-06-19 21:30:00 97 /min [facility] Arterial blood by Pulse oximetry Body temperature 2023-06-19 19:30:00 36.94 Enedelia [facility] Procedures Procedure Date / Time Performing Clinician Source Performed CBC WITH PLATELET AND 2023-08-15 00:00:00 Provider, Not In [facility] DIFFERENTIAL System BASIC METABOLIC PANEL 2023-08-15 00:00:00 Provider, Not In [facility] CBC WITH PLATELET AND 2023-08-14 00:00:00 Provider, Not In [facility] DIFFERENTIAL System BASIC METABOLIC PANEL 2023-08-14 00:00:00 [facility] [place] [facility] CBC WITH PLATELET AND 2023-07-30 00:00:00 Provider, Not In [facility] DIFFERENTIAL System BUN LEVEL 2023-07-30 00:00:00 Provider, Not In [facility] CREATININE LEVEL 2023-07-30 00:00:00 Provider, Not In [facility] CBC WITH PLATELET AND 2023-07-16 00:00:00 Provider, Not In [facility] DIFFERENTIAL System CREATININE LEVEL 2023-07-16 00:00:00 Provider, Not In [facility] BUN LEVEL 2023-07-16 00:00:00 Provider, Not In [facility] HOME HEALTH - OTHER 2023-06-30 05:01:00 Doctor Unassigned, No [facility] [place] [facility] CBC WITH PLATELET AND 2023-06-28 10:30:00 [facility] DIFFERENTIAL N. BASIC METABOLIC PANEL 2023-06-28 10:30:00 [facility] N. ESTIMATED GFR 2023-06-28 10:30:00 [facility] N. MAGNESIUM LEVEL 2023-06-28 10:30:00 [facility] N. PHOSPHORUS LEVEL 2023-06-28 10:30:00 [facility] N. CBC WITH PLATELET AND 2023-06-27 09:32:00 Goldsmith, [facility] DIFFERENTIAL MAGNESIUM LEVEL 2023-06-27 09:32:00 [facility]OS[facility] 2023-06-27 09:32:00 Goldsmith, Ramin [facility] ospital ENTERIC BACTERIAL PANEL 2023-06-26 22:15:00 [facility] N. ECG 12-LEAD 2023-06-26 19:17:32 Asemota [facility] CBC WITH PLATELET AND 2023-06-26 09:21:00 Goldsmith, [facility] DIFFERENTIAL MAGNESIUM LEVEL 2023-06-26 09:21:00 Goldsmith, [facility] Ho spital PHOSPHORUS LEVEL 2023-06-26 09:21:00 Goldsmith, [facility] H ospital BASIC METABOLIC PANEL 2023-06-26 09:21:00 [facility] ESTIMATED GFR 2023-06-26 09:21:00 [facility] MANUAL DIFFERENTIAL 2023-06-26 09:21:00 [facility] ANKLE BRACHIAL INDEX 2023-06-26 02:16:00 [facility] DUPLEX ARTERIAL LOWER 2023-06-26 02:07:00 [facility] EXTREMITY LEFT ECG 12-LEAD 2023-06-26 01:22:27 Asemokristyn [facility] CBC WITH PLATELET AND 2023-06-25 09:24:00 Goldsmith, [facility] DIFFERENTIAL COMPREHENSIVE METABOLIC 2023-06-25 09:24:00 Goldsmith, [facility] PANEL MAGNESIUM LEVEL 2023-06-25 09:24:00 Goldsmith, [facility] Ho spital PHOSPHORUS LEVEL 2023-06-25 09:24:00 Goldsmith, [facility] H ospital IONIZED CALCIUM 2023-06-25 09:24:00 Goldsmith, [facility] Ho spital CYSTATIN C WITH EGFR 2023-06-25 09:24:00 Aaron Swanson [facility] ESTIMATED GFR 2023-06-25 09:24:[address] [facility] Dave MANUAL DIFFERENTIAL 2023-06-25 09:24:00 [facility] [place] [facility] BASIC METABOLIC PANEL 2023-06-24 22:29:00 Lydia Mccracken [facility] ESTIMATED GFR 2023-06-24 22:29:00 [facility] ESTIMATED GFR 2023-06-24 22:27:00 Aaron Swanson [facility] PICC INSERTION REQUEST 2023-06-24 21:40:01 Cory Vu [facility] [place] [facility] XR PICC CHEST PORTABLE 2023-06-24 20:57:34 Wilver Pryor [facility] POC GLUCOSE 2023-06-24 20:53:00 Wilver Pryor [facility] POC GLUCOSE 2023-06-24 16:50:00 Wilver Pryor [facility] PARTIAL THROMBOPLASTIN 2023-06-24 15:24:00 [facility] POC GLUCOSE 2023-06-24 12:57:00 Wilver Pryor [facility] XR CHEST 1 VW PORTABLE 2023-06-24 11:55:[address] [facility] DIGOXIN LEVEL 2023-06-24 11:06:00 [facility] 12-LEAD 2023-06-24 10:23:31 [facility] CBC WITH PLATELET AND 2023-06-24 08:57:00 Goldsmith, [facility] DIFFERENTIAL COMPREHENSIVE METABOLIC 2023-06-24 08:57:00 Goldsmith, [facility] PANEL MAGNESIUM LEVEL 2023-06-24 08:57:00 Goldsmith, [facility] spital PHOSPHORUS LEVEL 2023-06-24 08:57:00 Goldsmith, [facility] ospital IONIZED CALCIUM 2023-06-24 08:57:00 Goldsmith, [facility] spital DIGOXIN LEVEL 2023-06-24 08:57:00 Viral Strange [facility] PARTIAL THROMBOPLASTIN 2023-06-24 08:57:00 [facility] TIME (PTT[facility] ESTIMATED GFR 2023-06-24 08:57:00 [facility] Dave MANUAL DIFFERENTIAL 2023-06-24 08:57:00 Binta Palmer [facility] Dave POC GLUCOSE 2023-06-24 05:10:00 O'Sheth, [facility] POTASSIUM LEVEL 2023-06-24 02:10:00 Aaron Swanson [facility] PARTIAL THROMBOPLASTIN 2023-06-24 02:10:00 Aaron Swanson [facility] TIME (PTT) POC GLUCOSE 2023-06-24 01:21:00 Konstantin [facility] ECG 12-LEAD 2023-06-23 23:05:15 Asemota, Iriagbonse [facility] Juwan BASIC METABOLIC PANEL 2023-06-23 22:36:00 Lydia Mccracken [facility] ESTIMATED GFR 2023-06-23 22:36:00 [facility] P[facility]SE 2023-06-23 21:19:00 Spencer [facility] PARTIAL THROMBOPLASTIN 2023-06-23 17:17:00 Binta Palmer [facility] TIME (PTT) Dave POC GLUCOSE 2023-06-23 16:49:00 [facility]SE 2023-06-23 12:55:00 Spencer [facility] XR CHEST 1 VW PORTABLE 2023-06-23 11:58:00 Goldsmith, [facility] CBC WITH PLATELET AND 2023-06-23 10:25:00 Goldsmith, [facility] DIFFERENTIAL COMPREHENSIVE METABOLIC 2023-06-23 10:25:00 Goldsmith, [facility] PANEL DIGOXIN LEVEL 2023-06-23 10:25:00 Kiesha Fleming Ho spital MAGNESIUM LEVEL 2023-06-23 10:25:00 Goldsmith, Raminkeven Veras Ho spital PHOSPHORUS LEVEL 2023-06-23 10:25:00 Goldsmith, Raminkeven Headist H [facility]spital NT-PROBNP 2023-06-23 10:25:00 Goldsmith, Raminjose raul Veras Ho spital IONIZED CALCIUM 2023-06-23 10:25:00 Goldsmith, Raminkeven Veras Ho spital PARTIAL THROMBOPLASTIN 2023-06-23 10:25:00 Goldsmith, [facility] TIME (PTT) ESTIMATED GFR 2023-06-23 10:25:00 Binta Palmer [facility] MANUAL DIFFERENTIAL 2023-06-23 10:25:00 B[facility] POC GLUCOSE 2023-06-23 09:22:00 [facility] POC GLUCOSE 2023-06-23 05:29:00 Binta Palmer [facility] ANTI XA, UNFRACTIONATED 2023-06-23 02:59:00 [facility] BASIC METABOLIC PANEL 2023-06-23 02:59:00 [facility] ESTIM[facility]FR 2023-06-23 02:59:00 [facility] POC GLUCOSE 2023-06-23 01:15:00 [facility] POC GLUCOSE 2023-06-22 21:28:00 [facility] BASIC METABOLIC PANEL 2023-06-22 21:07:00 Goldsmith, [facility] ESTIMATED GFR 2023-06-22 21:07:00 [facility] MAGNESIUM LEVEL 2023-06-22 21:07:00 [facility] PHOSPHORUS LEVEL 2023-06-22 21:07:00 [facility] VENOUS LOWER 2023-06-22 20:01[facility]00 [facility]REM[facility] BIL[facility]AL POC GLUCOSE 2023-06-22 16:57:00 [facility] XR CHEST 1 VW PORTABLE 2023-06-22 13:09:41 VuLydia [facility] POC GLUCOSE 2023-06-22 13:01:00 [facility] POC GLUCOSE 2023-06-22 10:17:00 [facility] CBC WITH PLATELET AND 2023-06-22 06:20:00 L[facility] DIFFERENTIAL COMPREHENSIVE METABOLIC 2023-06-22 06:20:00 Lydia Mccrackenoc [facility] PANEL MAGNESIUM LEVEL 2023-06-22 06:20:00 VuLydia Ho spital PHOSPHORUS LEVEL 2023-06-22 06:20:00 Vu, Lydia Veras H ospital ESTIMATED GFR 2023-06-22 06:20:00 [facility] POC GLUCOSE 2023-06-22 05:38:00 [facility] POC GLUCOSE 2023-06-22 01:42:00 [facility] POC GLUCOSE 2023-06-21 21:27:00 [facility] C-REACTIVE PROTEIN 2023-06-21 21:16:00 [facility] Ome SEDIMENTATION RATE 2023-06-21 21:16:00 [facility] XR KNEE 1 OR 2 VW RIGHT 2023-06-21 17:33:23 Dakota Stevenson [facility] XR KNEE 1 OR 2 VW LEFT 2023-06-21 17:33:06 Vu, Lydia [facility] XR FOOT 2 VW BILATERAL 2023-06-21 17:32:53 [facility] XR ELBOW 2 VW RIGHT 2023-06-21 17:32:39 Vu, Lydia [facility] POC GLUCOSE 2023-06-21 12:49:00 [facility] XR CHEST 1 VW PORTABLE 2023-06-21 12:19:03 Vu, [facility] POTASSIUM LEVEL 2023-06-21 10:40:00 VuLydia spital POC GLUCOSE 2023-06-21 09:56:00 [facility] POC GLUCOSE 2023-06-21 06:04:00 [facility] CBC WITH PLATELET AND 2023-06-21 05:50:00 Lydia Mccracken [facility] DIFFERENTIAL COMPREHENSIVE METABOLIC 2023-06-21 05:50:00 Lydia Mccracken [facility] PANEL MAGNESIUM LEVEL 2023-06-21 05:50:00 VuLydia Ho spital PHOSPHORUS LEVEL 2023-06-21 05:50:00 Vu, Lydia [facility] CYSTATIN C WITH EGFR 2023-06-21 05:50:00 Binta Palmer [facility] TROPONIN T 2023-06-21 05:50:00 Vu, Lydia [facility] spital ESTIMATED GFR 2023-06-21 05:50:00 [facility] MANUAL DIFFERENTIAL 2023-06-21 05:50:00 Binta Palmer [facility] BLOOD CULTURE, AEROBIC & 2023-06-21 05:49:00 Romina Betancourt [facility] ANAEROBIC TROPONIN T 2023-06-21 03:44:00 Vu, Lydia [facility] spital POC GLUCOSE 2023-06-21 01:46:00 [facility] TTE COMPLETE, WO 2023-06-21 00:17:00 Vu, Lydia [facility] H ospital CONTRAST, W DOPPLER ([id number]) POC GLUCOSE 2023-06-20 23:21:00 [facility] NT-PROBNP 2023-06-20 23:14:00 Vu, Lydia Veras [facility] spital TROPONIN T 2023-06-20 23:14:00 Vu, Lydia Rom[facility] spital BASIC METABOLIC PANEL 2023-06-20 23:14:00 Vu, [facility] MAGNESI[facility] L[facility]EL 2023-06-20 23:14:00 Vu, Lydia Z[facility] spital PHOSPHORUS LEVEL 2023-06-20 23:14:00 Vu, Lydia [facility] ESTIMATED GFR 2023-06-20 23:14:00 Binta Palmer [facility] XR CHEST 1 VW PORTABLE 2023-06-20 23:06:35 Vu, Lydia Johno [facility] ECG 12-LEAD 2023-06-20 22:49:27 Vu, Lydia Veras Ho spital ARTERIAL BLOOD GAS, 2023-06-20 21:18:00 Binta Palmer [facility] HEMOGLOBIN, SYRINGE 2023-06-20 21:18:00 [facility] 2023-06-20 20:20:00 [facility] ANA[facility] 2023-06-20 20:14:00 Jose Luis, [facility] AFB STAIN 2023-06-20 20:14:00 Jose Luis, [facility] AFB CULTURE 2023-06-20 20:14:00 Jose Luis, [facility] GRAM STAIN 2023-06-20 20:14:00 Jose Luis, [facility] TISSUE CULTURE 2023-06-20 20:14:00 Jose Luis, [facility] ANAEROBIC CULTURE 2023-06-20 20:07:00 Jose Luis, [facility] AFB STAIN 2023-06-20 20:07:00 Jose Luis, [facility] AFB CULTURE 2023-06-20 20:07:00 Jose Luis, [facility] JOINT FLUID CULTURE 2023-06-20 20:07:00 Jose Luis, [facility] GRAM STAIN 2023-06-20 20:07:00 Jose Luis, [facility] ARTERIAL LINE 2023-06-20 19:51:35 Sunil Abraham spital [place] AN ELECTIVE 2023-06-20 19:28:00 Sunil Abraham spital ENDOTRACHEAL AIRWAY INCISION AND DRAINAGE, 2023-06-20 19:19:00 Jose Luis, [facility] KNEE ECG 12-LEAD 2023-06-20 18:52:50 Romina Betancourt H ospital ABO AND RH CONFIRMATION 2023-06-20 18:22:00 [facility] BY PROTOCOL Dave POC GLUCOSE 2023-06-20 16:52:00 Kevin Palmer [facility] POC GLUCOSE 2023-06-20 13:42:00 [facility] XR CHEST 1 VW PORTABLE 2023-06-20 11:49:[address] [facility] POC GLUCOSE 2023-06-20 09:47:00 [facility]INE CULTURE 2023-06-20 08:23:[address] P[address] [facility] LEGIONELLA URINARY 2023-06-20 07:34:00 [facility] ANTIGEN STREPTOCOCCUS PNEUMONIAE 2023-06-20 07:34:00 [facility] ANTIGEN [facility] URINALYSIS SCREEN AND 2023-06-20 07:34:00 [facility] [place] MICROSCOPY, WITH REFLEX TO CULTURE TYPE AND SCREEN 2023-06-20 06:13:00 Dakota Stevenson [facility] VENOUS BLOOD GAS 2023-06-20 06:10:00 [facility] IONIZED CALCIUM, VENOUS 2023-06-20 06:10:00 [facility] CBC WITH PLATELET AND 2023-06-20 06:07:00 , [facility] DIFFERENTIAL COMPREHENSIVE METABOLIC 2023-06-20 06:07:00 Lydia Mccracken [facility] PANEL MAGNESIUM LEVEL 2023-06-20 06:07:00 Lydia Mccracken [facility] Ho spital PHOSPHORUS LEVEL 2023-06-20 06:07:00 Lydia Mccracken [facility] H ospital ESTIMATED GFR 2023-06-20 06:07:00 [facility] BILIRUBIN DIRECT 2023-06-20 06:07:00 [facility] MANUAL DIFFERENTIAL 2023-06-20 06:07:00 [facility] POC GLUCOSE 2023-06-20 05:32:00 [facility] X[facility] KNEE 1 OR 2 VW RIGHT 2023-06-20 04:50:07 Lydia Mccracken [facility] TROPONIN T 2023-06-20 03:28:00 Lydia Mccracken[facility] spital LACTIC ACID LEVEL, SEPSIS 2023-06-20 03:28:00 Lydia Mccracken [facility] - NOW AND REPEAT 2X EVERY 3 HOURS POC GLUCOSE 2023-06-20 01:34:00 [facility] LACTIC ACID LEVEL, SEPSIS 2023-06-19 22:24:00 Vu, [facility] - NOW AND REPEAT 2X EVERY 3 HOURS XR CHEST 1 VW PORTABLE 2023-06-19 21:33:34 Vu, [facility] POC GLUCOSE 2023-06-19 21:15:00 Binta Palmer [facility] Dave BLOOD CULTURE, AEROBIC & 2023-06-19 20:38:00 Vu, [facility] ANAEROBIC BLOOD CULTURE, AEROBIC & 2023-06-19 20:37:00 Vu, [facility] ANAEROBIC RESPIRATORY PATHOGEN 2023-06-19 20:33:00 Vu, [facility] PANEL WITH COVID-19 RT-PCR METHICILLIN-RESISTANT 2023-06-19 20:32:00 Vu, [facility] STAPHYLOCOCCUS AUREUS (MRSA), DALTON VENOUS BLOOD GAS 2023-06-19 20:20:00 Vu, [facility] H ospital VENOUS BLOOD GAS 2023-06-19 20:20:00 Vu, [facility] ospital CBC WITH PLATELET AND 2023-06-19 20:18:00 Vu, [facility] DIFFERENTIAL COMPREHENSIVE METABOLIC 2023-06-19 20:18:00 Vu, [facility] PANEL LACTIC ACID LEVEL 2023-06-19 20:18:00 Vu, [facility] PROCALCITONIN 2023-06-19 20:18:00 Vu, [facility] spital PROTHROMBIN TIME WITH INR 2023-06-19 20:18:00 Vu, [facility] PARTIAL THROMBOPLASTIN 2023-06-19 20:18:00 , [facility] TIME (PTT) TROPONIN T 2023-06-19 20:18:00 Vu, [facility] Ho spital THYROID STIMULATING 2023-06-19 20:18:00 , [facility] HORMONE SYPHILIS TREPONEMA SCREEN 2023-06-19 20:18:00 Vu, [facility] WITH RPR CONFIRMATION (REVERSE ALGORITHM) ESTIMATED GFR 2023-06-19 20:18:00 [facility] POC GLUCOSE 2023-06-19 19:36:00 Binta Palmer [facility] [id number] 2023-06-19 00:00:[address] [facility] BRAIN SPECT (DATSCAN) 2023-03-26 20:09:00 Nkechi Asc[facility] NM BRAIN SPECT (DATSCAN) 2023-03-26 20:09:00 Nkechi Asc[facility] NM BRAIN SPECT (DATSCAN) 2023-03-26 20:09:00 Nkechi Ascenc[facility] MR BRAIN W WO CONTRAST 2023-03-06 14:01:00 Umer Newton [facility] WITH NEUROQUANT [facility] ASSIGNMENT OF BENEFITS 2023-02-21 15:52:17 Doctor Unassigned, No [facility] Name Medical Branch XR, foot, 2 view 2022-12-25 00:00:00 [facility], foot, 2 view 2022-11-27 00:00:00 [facility] X[facility], foot, 2 view 2022-10-30 00:00:00 [facility] [id number] 2022-10-14 00:00:00 BLODA [facility] [id number] 2022-10-14 00:00:00 BLODA [facility] [id number] 2022-10-14 00:00:00 BLODA [facility] [id number] 2022-10-14 00:00[facility] 2022-08-27 00:00:00 [facility] XR, knee, 1 or 2 view 2022-08-01 00:00:00 [facility] XR, elbow, 3 or more view 2022-07-25 00:00:00 Az [facility]aryna [facility] XR, elbow, 3 or more view 2022-07-01 00:00:00 Az k[facility]na [facility] [id number] 2022-06-11 00:00:00 [facility] [id number] 2022-06-11 00:00:00 [facility] XR, foot, 2 view 2022-05-28 00:00:00 [facility] XR, knee, 1 or 2 view 2022-05-17 00:00:00 [facility] [id number] 2021-09-25 00:00:00 [facility] [id number] 2021-09-25 00:00:00 [facility] Appendectomy [facility] Elbow Surgery [facility] Knee Replacement [facility] Arthroplasty of Radial Le Or [facility] Total Knee Replacement [facility] Vasectomy [facility] Prostatectomy [facility] Hernia Repair [facility] Plan of Care Planned Activity Planned Date Details Comments Source Future Scheduled Test 2023-09-19 65+ PNEUMOCOCCAL [facility] 14:24:01 VACCINE (1 - PCV) [code = 65+ PNEUMOCOCCAL VACCINE (1 - PCV)] Future Scheduled Test 2023-09-19 Hepatitis C [facility] 14:24:01 (procedure) [code = 751607912] Future Scheduled Test 2023-09-19 SHINGLES VACCINES (1 [facility] 14:24:01 of 2) [code = SHINGLES VACCINES (1 of 2)] Future Scheduled Test 2023-09-19 COVID-19 VACCINE (10 [facility] 14:24:01 - season) [code = COVID-19 VACCINE ( - season)] Future Scheduled Test 2023-09-19 INFL[facility]ZA [facility]ACC[facility] 14:24:01 (#1) [code = INFLUENZA VACCINE (#1)] Future Scheduled Test 2023-09-01 65+ PNEUMOCOCCAL [facility] 11:00:41 VACCINE (1 - PCV) [code = 65+ PNEUMOCOCCAL VACCINE (1 - PCV)] Future Scheduled Test 2023-09-01 Hepatitis C screening [facility] 11:00:41 (procedure) [code = 582996278] Future Scheduled Test 2023-09-01 SHINGLES VACCINES (1 [facility] 11:00:41 of 2) [code = SHINGLES VACCINES (1 of 2)] Future Scheduled Test 2023-09-01 RSV VACCINES > 60 YR [facility] 11:00:41 (1 - 1-dose 60+ series) [code = RSV VACCINES > 60 YR (1 - 1-dose 60+ series)] Future Scheduled Test 2023-09-01 COVID-19 VACCINE (10 [facility] 11:00:41 - season) [code = COVID-19 VACCINE ( - season)] Future Scheduled Test 2023-09-01 INFLUENZA VACCINE [facility] 11:00:41 (#1) [code = INFLUENZA VACCINE (#1)] Future Scheduled Test 2023-06-19 Hepatitis C screening [facility] 17:01:18 (procedure) [code = 891482571] Future Scheduled Test 2023-06-19 SHINGLES VACCINES (1 [facility] 17:01:18 of 2) [code = SHINGLES VACCINES (1 of 2)] Future Scheduled Test 2023-06-19 65+ PNEUMOCOCCAL [facility] 17:01:18 VACCINE (1 - PCV) [code = 65+ PNEUMOCOCCAL VACCINE (1 - PCV)] Future Scheduled Test 2023-06-19 INFLUENZA VACCINE [facility] 17:01:18 [code = INFLUENZA VACCINE] Instructions [facility] Encounters Start End Encounter Admission Attending Care Care Encounter Source Date/Time Date/Time Type Type Clinicians Facility Department ID 2023-08-15 2023-08-15 Orders Provider, 1.2.840.1 [id number] Methodi 00:00:00 00:00:00 [place] [address].1.[address] System 3.430.2.7 Hospit a .3.076158 l .8 2023-08-15 2023-08-15 Orders Provider, 1.2.840.1 [id number] 2100 [id number] Methodi 00:00:00 00:00:00 [place] 75909.1.[address] System 3.430.2.7 Hospit a .3.896796 l .8 2023-07-31 2023-07-31 Telephone Jose Luis, 1.2.840.1 [id number] 2099 [id number] Methodi 00:00:00 00:00:[address] [facility] 3.430.2.7 Hospit a .3.353440 l .8 2023-07-31 2023-07-31 Telephone Jose Luis, 1.2.840.1 [id number] 2099 [id number] Methodi 00:00:00 00:00:[address] [facility] 3.430.2.7 Hospit a .3.692114 l .8 2023-07-30 2023-07-30 Telephone Jose Luis, 1.2.840.1 [id number] 2100 [id number] Methodi 00:00:00 00:00:[address] [facility] 3.430.2.7 Hospit a .3.985136 l .8 2023-07-30 2023-07-30 Orders Provider, 1.2.840.1 [id number] 2099 [id number] Methodi 00:00:00 00:00:00 [place] 43965.1.[address] System 3.430.2.7 Hospit a .3.331427 l .8 2023-07-30 2023-07-30 Telephone Jose Luis, 1.2.840.1 [id number] 2099 [id number] Methodi 00:00:00 00:00:[address] [facility] 3.430.2.7 Hospit a .3.116922 l .8 2023-07-30 2023-07-30 Orders Provider, 1.2.840.1 [id number] 2099 [id number] Methodi 00:00:00 00:00:00 Only [place] [address]18.1.[address] System 3.430.2.7 Hospit a .3.465044 l .8 2023-07-28 2023-07-28 Orders Chandu, 1.2.840.1 [id number] [id number] Methodi 00:00:00 00:00:00 Only Candy 66867.1.[address] 3.430.2.7 Hospit a .3.683289 l .8 2023-07-28 2023-07-28 Amanda Schofield, 1.2.840.1 [id number] [id number] Methodi 00:00:00 00:00:00 Only Candy 35755.1.[address] 3.430.2.7 Hospit a .3.252337 l .8 2023-07-25 2023-07-25 Amanda Schofield, 1.2.840.1 [id number] Methodi 00:00:00 00:00:00 Only Candy 97758.1.[address] 3.430.2.7 Hospit a .3.860360 l .8 2023-07-25 2023-07-25 Amanda Schofield, 1.2.840.1 [id number] Methodi 00:00:00 00:00:00 Only Candy 60749.1.[address] 3.430.2.7 Hospit a .3.958344 l .8 2023-07-25 2023-07-25 Amanda Schofield, 1.2.840.1 [id number] Methodi 00:00:00 00:00:00 Only Candy 35308.1.[address] 3.430.2.7 Hospit a .3.383932 l .8 2023-07-25 2023-07-25 Amanda Schofield, 1.2.840.1 [id number] [id number] Methodi 00:00:00 00:00:00 Only Candy 65904.1.[address] 3.430.2.7 Hospit a .3.588186 l .8 2023-07-24 2023-07-24 Amanda Schofield, 1.2.840.1 [id number] Methodi 00:00:00 00:00:00 Only Candy 49656.1.[address] 3.430.2.7 Hospit a .3.749586 l .8 2023-07-24 2023-07-24 Amanda Schofield, 1.2.840.1 [id number] [id number] Methodi 00:00:00 00:00:00 Only Candy 84258.1.[address] 3.430.2.7 Hospit a .3.762672 l .8 2023-07-16 2023-07-16 Orders Provider, 1.2.840.1 [id number] 2100 [id number] Methodi 00:00:00 00:00:00 Only [place] In 64623.1.[address] System 3.430.2.7 Hospit a .3.331424 l .8 2023-07-16 2023-07-16 Orders Provider, 1.2.840.1 [id number] 2100 [id number] Methodi 00:00:00 00:00:00 Only [place] 89158.1.[address] System 3.430.2.7 Hospit a .3.829735 l .8 2023-07-04 2023-07-04 Outpatient R SILVA [facility] [id number] Univers 10:00:00 10:00:00 NKECHI lam [facility] 2023-06-30 2023-06-30 Orders Doctor VIRAL 1.2.840.114 [id number] [facility] 00:00:00 00:00:00 Only Unassigned, NELY 350.1.13.10 ity [place] [facility] 4.2.7.2.686 Davin as [id number] [address] 2023-06-29 2023-06-29 Outpatient R [facility] [id number] [facility] 00:00:00 00:00:00 ity of [facility] 2023-06-19 2023-06-28 [facility] Wilver Pryor 1.2.840.1 [id number] Methodi 14:21:00 14:53:00 Encounter Binta Palmer 76263.1.[address] [place] N. 3.430.2.7 Hospita .3.031307 l .8 2023-06-19 2023-06-28 [facility] Wilver Pryor 1.2.840.1 [id number] Methodi 14:21:00 14:53:00 Encounter Kevin Palmertegan Acosta 34092.1.[address] [place] N. 3.430.2.7 Hospita .3.552488 l .8 2023-06-20 2023-06-20 Anesthesia Dana Bardales 1.2.840.1 [id number] Methodi 14:18:00 17:10:00 Event Luis Manuel Wood 35759.1.[address] 3.430.2.7 Hospit a .3.430296 l .8 2023-06-20 2023-06-20 Anesthesia CatiaDana lora 1.2.840.1 [id number] Methodi 14:18:00 17:10:00 Event Luis Manuel Wood 63358.1.[address] 3.430.2.7 Hospit a .3.951961 l .8 2023-06-20 2023-06-20 Surgery Jose Luis, 1.2.840.1 [id number] Methodi 13:30:00 15:20:[address] [place] 3.430.2.7 Hospit a .3.199699 l .8 2023-06-20 2023-06-20 Surgery Jose Luis, 1.2.840.1 [id number] Methodi 13:30:00 15:20:[address] [facility] 3.430.2.7 Hospit a .3.509304 l .8 2023-06-19 2023-06-19 Outpatient LISSETTE Chambers LABO [id number] [facility] 17:01:00 17:01:00 Gurpreet 74 [facility] 2023-06-18 2023-06-19 Inpatient UR Reyes HCATO SURG [id number] [facility] 23:48:00 14:54:00 [facility] 2023-06-19 2023-06-19 Outpatient LISSETTE Chambers SIST [id number] [facility] 11:06:00 11:06:00 [facility]preet [facility] 2023-06-19 2023-06-19 Orders O'Sheth, 1.2.840.1 [id number] Methodi 00:00:00 00:00:00 Only Wilver Silverman 72948.1.[address] 3.430.2.7 Hospit a .3.960653 l .8 2023-06-19 2023-06-19 Amanda Pryor, 1.2.840.1 [id number] Methodi 00:00:00 00:00:00 Only Wilver Silverman 49381.1.[address] 3.430.2.7 Hospit a .3.169498 l .8 2023-06-05 2023-06-05 Outpatient LISSETTE JulioFATUMA FELIX [id number] [facility] 11:06:00 11:06:00 [facility] 2023-05-15 2023-05-15 Outpatient FOG_[place]_ AOSM AOSM 550 [id number] Le 00:00:00 00:00:00 [facility] [id number] 2023-05-15 2023-05-15 Outpatient FOG_[place]_ AOSM AOSM 550 [id number] Le 00:00:00 00:00:00 [facility] [id number] [facility] 2023-05-15 2023-05-15 Outpatient FOG_[place]_ AOSM AOSM 550 [id number] Le 00:00:00 00:00:00 [facility] [id number] 2023-05-15 2023-05-15 Outpatient FOG_[place]_ AOSM AOSM 550 0359-20 Le 00:00:00 00:00:00 [facility] [id number] [facility] 2023-05-15 2023-05-15 Outpatient FOG_[place]_ AOSM AOSM 550 0359-20 Le 00:00:00 00:00:00 [facility] [id number] [facility] 2023-05-15 2023-05-15 Outpatient FOG_[place]_ AOSM AOSM 550 [id number] Le 00:00:00 00:00:00 [facility] [id number] [facility] 2023-05-13 2023-05-13 Outpatient FOG_[place]_ AOSM AOSM 550 0359-20 Le 00:00:00 00:00:00 [facility] [id number] [facility] 2023-05-06 2023-05-06 Outpatient Juan Jose [facility] [id number] [facility] 09:30:00 09:30:00 [facility] 2023-04-18 2023-04-18 Outpatient Juan Jose [facility] [id number] Univers 10:00:00 10:00:00 [facility] 2023-04-10 2023-04-[address] [facility] [id number] Univers 00:00:00 00:00:00 [facility] 350.1.13.10 it y of [facility] 4.2.7.2.686 Davin as TALIB?BLEA [id number] [address] MEDICAL OFFICE [facility] 2023-04-04 2023-04-04 Outpatient Juan Jose [facility] [id number] Univers 14:00:00 14:28:27 [facility] 2023-04-04 2023-04-[address] [facility] 1.2.840.114 [id number] Univers 14:00:00 14:28:27 Visit Nkechi FeedHenry 350.1.13.10 it y of [place] 4.2.7.2.686 Davin as TALIB?BLEA [id number] [place] dic[address] MEDICAL OFFICE [facility] 2023-03-26 2023-03-26 [facility] 1.2.840.114 [id number] Univers 09:51:26 23:59:00 Encounter Umer Gene HEALTH 350.1.13.10 ity of [facility] 4.2.7.2.686 [place] [id number] [facility] [address] 2023-03-26 2023-03-26 [facility] 1.2.840.114 [id number] Univers 09:51:10 23:59:00 Encounter [facility] 350.1.13.10 it[place] [id number] [address] 2023-03-26 2023-03-26 Outpatient R [facility] [id number] Univers 09:50:48 09:50:48 [facility]-26 2023-03-26 [facility] 1.2.840.114 [id number] Univers 09:50:48 09:50:48 Encounter [facility] 350.1.13.10 [place] [id number] [address] 2023-03-21 2023-03-21 Outpatient [facility] [id number] Univers 11:00:00 11:00:00 [facility] 2023-03-19 2023-03-19 Telephone [facility] [id number] [id number] Univers 00:00:00 00:00:00 [employer] 350.1.13.10 it y of [place] 4.2.7.2.686 Davin as TALIB?BLEA [id number] [address] OFFICE [facility] 2023-03-17 2023-03-17 Outpatient [facility] [id number] Univers 09:46:40 23:59:00 [facility] 2023-03-17 2023-03-17 Office [facility] 1.2.840.114 [id number] Univers 09:00:00 09:45:13 Visit [employer] 350.1.13.10 it y of [place] 4.2.7.2.686 Davin as TALIB?BLEA [id number] [address] OFFICE [facility] 2023-03-17 2023-03-17 Telephone [facility] 1.2.686.822 [id number] Univers 00:00:00 00:00:00 [employer] 350.1.13.10 it y of [place] 4.2.7.2.686 Davin as TALIB?BLEA [id number] Mn stefany RAE [address] [facility] OFFICE [facility] 2023-03-15 2023-03-[address] [facility] 1.2.840.114 [id number] Univers 00:00:00 00:00:00 [facility] 350.1.13.10 it[place] of [place] 4.2.7.2.686 Davin as TALIB?BLEA [id number] [place] stefany RAE [address] [place] [address] 2023-03-06 2023-03-06 Outpatient [facility] [id number] Univers 07:36:20 23:59:00 UMER [place] larry [facility] 2023-03-06 2023-03-06 Hospital [facility] 1.2.405.787 [id number] Univers 07:36:20 23:59:00 Encounter [facility] 350.1.13.10 ity of [place] 4.2.7.2.686 [place] [facility] [id number] [facility] [address] [place] [address] 2023-02-24 2023-02-[address] [facility] 1.2.840.114 [id number] Univers 00:00:00 00:00:00 [facility] 350.1.13.10 ity of [place] 4.2.7.2.686 Davin as TALIB?BLEA [id number] [place] stefany RAE [address] [place] [address] 2023-02-21 2023-02-21 Outpatient Juan Jose [facility] [id number] Univers 11:00:00 11:59:05 [facility] 2023-02-21 2023-02-21 Office [facility] 1.2.840.114 [id number] Univers 11:00:00 11:59:05 Visit [facility] 350.1.13.10 ity of [place] 4.2.7.2.686 Davin as TALIB?BLEA [id number] Mn renet[address] 2023-02-21 2023-02-21 Orders Doctor STRATTON 1.2.840.114 [id number] Univers 00:00:00 00:00:00 Only Unassigned, NELY 350.1.13.10 ity of [place] [facility] 4.2.7.2.686 Davin as [id number] [address] 2022-12-30 2022-12-30 Outpatient FOG_Bloome_ AOSM AOSM 550 0359-20 Le 00:00:00 00:00:00 Rock [id number] [facility] 2022-12-25 2022-12-25 Cruz Sheriff AOSM [place] - [place] [id number] Le 00:00:00 00:00:00 Tiffanie Tavares MD: 7401 FOG_Ofc dic [facility] [place] [address] , Ph. [phone] 2022-11-29 2022-11-29 Outpatient FOG_Bloome_ AOSM AOSM 550 0359-20 Le 00:00:00 00:00:00 Rock [id number] [facility] 2022-11-29 2022-11-29 Outpatient FOG_[place]ome_ AOSM AOSM 550 0359-20 Le 00:00:00 00:00:00 Rock [id number] [facility] 2022-11-29 2022-11-29 Outpatient FOG_Bloome_ AOSM AOSM 550 0359-20 Le 00:00:00 00:00:00 Rock 173063 [facility] 2022-11-27 2022-11-27 Outpatient FOG_Bloome_ AOSM AOSM 550 0359-20 Le 00:00:00 00:00:00 Rock 959307 [facility] 2022-11-27 2022-11-27 Cruz Sheriff AOSM [place] - [place] [id number] Le 00:00:00 00:00:00 Tiffanie Tavraes MD: 7401 FOG_Ofc dic [facility] [place] [address] , Ph. [phone] 2022-10-30 2022-10-30 Outpatient FOG_Bloome_ AOSM AOSM 550 0359-20 Le 00:00:00 00:00:00 Rock [id number] [facility] 2022-10-30 2022-10-30 Outpatient FOG_Bloome_ AOSM AOSM 550 0359-20 Le 00:00:00 00:00:00 Rock 701447 [facility] 2022-10-30 2022-10-30 Cruz Sheriff AOSM [place] - [place] [id number] Le 00:00:00 00:00:00 Tiffanie Tavares MD: 7401 FOG_Ofc dic [facility], [place] [address] , Ph. [phone] 2022-10-16 2022-10-17 Inpatient LISSETTE BarneyTO SURG [id number] [facility] 10:00:00 17:03:00 Cruz Quiñones [place] [facility] 2022-10-14 2022-10-14 Outpatient FOG_Bloome_ AOSM AOSM 550 0359-20 Le 00:00:00 00:00:00 Rock 109659 [facility] pe [facility] 2022-10-14 2022-10-14 Outpatient FOG_Bloome_ AOSM AOSM 550 0359-20 Le 00:00:00 00:00:00 Rock [id number] Orth[facility] pe dic [facility] 2022-10-14 2022-10-14 Cruz Sheriff AOSM [place] - [place] [id number] Le 00:00:00 00:00:00 Tiffanie Tavares MD: 7401 FOG_Surgery dic [facility] [place] [address] , Ph. [phone] 2022-10-08 2022-10-08 Outpatient LISSETTE BarneyTO 3DAY [id number] [address] [facility] 08:00:00 23:00:00 Cruz Zuluaga [place] [facility] 2022-09-17 2022-09-17 Outpatient FOG_Burke_R AOSM AOSM 550 0359-20 Le 00:00:00 00:00:00 Mauricio [id number] [facility] 2022-09-17 2022-09-17 [place] Sheriff [place] - [place] [id number] Le 00:00:00 00:00:00 Tiffanie Tavares MD: 7401 FOG_Ofc dic [facility] [address] , Ph. [phone] 2022-09-02 2022-09-02 Outpatient FOG_Burke_R AOSM AOSM 550 0359-20 Le 00:00:00 00:00:00 Mauricio [id number] [facility] 2022-08-27 2022-08-27 Outpatient EDA Barney [facility] [id number] [facility] 15:08:00 15:08:00 Cruz Nathan [place] [facility] 2022-08-27 2022-08-27 Outpatient FOG_Burke_R AOSM AOSM 550 0359-20 Le 00:00:00 00:00:00 Mauricio [id number] Orth[facility] pe [facility] 2022-08-27 2022-08-27 [place] Sheriff [place] [id number] Le 00:00:00 00:00:00 Tiffanie Tavares MD: 7401 FOG_Ofc dic [facility] [place] [address] , Ph. [phone] 2022-08-26 2022-08-26 Outpatient FOG_Burke_R AOSM AOSM 550 0359-20 Le 00:00:00 00:00:00 Mauricio [id number] [facility] 2022-08-01 2022-08-01 Outpatient FOG_Burke_R AOSM AOSM 550 0359-20 Le 00:00:00 00:00:00 Mauricio [id number] [facility] 2022-08-01 2022-08-01 Outpatient CHALINO GrSM [id number] e-3 00:00:00 00:00:00 Eran Lilly [id number]-8 [id number] 2022-08-01 2022-08-01 Eran Lilly [place] - [place] 15 Le 00:00:00 00:00:00 MD Simón: Tiffanie Bowers [address] FOG_Ofc dic [facility] [place] [address], [place] [address] , Ph. [phone] 2022-07-25 2022-07-25 Outpatient FOG_Burke_R AOSM AOSM 550 0359-20 Le 00:00:00 00:00:00 Mauricio 624011 [facility] 2022-07-25 2022-07-25 Ravinder Webber [place] - [place] 8 Le 00:00:00 00:00:00 MD Channing: Tiffanie Doshi rthope 7401 [facility] FOG_Ofc dic [facility], [place] [address] , Ph. [phone] 2022-07-25 2022-07-25 Outpatient Ravinder Snell AOSM AOSM [id number] 00:00:00 00:00:00 Y fa4-11ed-8 [id number] 2022-07-24 2022-07-24 Outpatient FOG_Burke_R AOSM AOSM 550 0359-20 Le 00:00:00 00:00:00 Mauricio 191754 [facility] 2022-07-17 2022-07-17 Outpatient FOG_Burke_R AOSM AOSM 550 0359-20 Le 00:00:00 00:00:00 Mauricio 195980 [facility] 2022-07-11 2022-07-11 Outpatient FOG_Burke_R AOSM AOSM 550 0359-20 Le 00:00:00 00:00:00 Mauricio 575194 [facility] 2022-07-09 2022-07-09 Outpatient EL Ravinder Snell [facility] Y000 [id number] [facility] 10:14:00 10:14:[address] [place] [address] [facility]ope [facility] Hosp[facility] 2022-07-09 2022-07-09 Outpatient FOG_Burke_R AOSM AOSM 550 0359-20 Le 00:00:00 00:00:00 Mauricio [id number] [facility] 2022-07-09 2022-07-09 Ravinder Y [place] [id number] Le 00:00:00 00:00:00 MD Channing: Tiffanie ag [address] FOG_Surgery di [facility] [place] [address] , Ph. [phone] 2022-07-09 2022-07-09 Outpatient ChanningRavinder EDWARDLEILA AOSM [id number] 00:00:00 00:00:00 Y [id number]-11ed-b [id number] 2022-07-01 2022-07-01 Outpatient FOG_Burke_R AOSM AOSM 550 0359-20 Le 00:00:00 00:00:00 Mauricio 076753 Orth[facility] pe [facility] Medic[facility] e 2022-07-01 2022-07-01 Ravinder Larry [place] [id number] Le 00:00:00 00:00:00 MD Channing: Tiffanie ag [address] FOG_Ofc dic [facility] [place] [address] , Ph. [phone] 2022-07-01 2022-07-01 Outpatient ChanningRavinder CHALINO AOSM [id number] 00:00:00 00:00:00 Y cb6-11ed-a [id number] 2022-06-25 2022-06-25 Outpatient FOG_Burke_R AOSM AOSM 550 0359-20 Le 00:00:00 00:00:00 Mauricio 196142 [facility] pe [facility] 2022-06-25 2022-06-25 Eran ALLRED [place] - [place] 09 Le 00:00:00 00:00:00 MD Simón: Tiffanie Bowers [address] FOG_Ofc dic [facility] [address], [place] [address] , Ph. [phone] 2022-06-25 2022-06-25 Outpatient CHALINO rG [id number] 00:00:00 00:00:00 Eran Lilly 824-11ed-9 [id number] 2022-06-11 2022-06-12 Inpatient EDA Gillespie SURG [id number] [address] [facility] 06:56:00 13:11:00 Eran 87 [place] [facility] 2022-06-11 2022-06-12 Inpatient EDA Gillespie SURG [id number] [facility] 06:56:00 13:11:00 Eran 213113 [place] [facility] 2022-05-30 2022-05-30 Outpatient EDA Gillespie 3DAY [id number] [facility] 08:00:00 23:00:00 Eran 76 [place] [facility] 2022-05-30 2022-05-30 Outpatient BRIANNA Gr LABO [id number] [address] [facility] 18:04:00 18:04:00 Eran Pavon [facility] 2022-05-30 2022-05-30 Outpatient FOG_Burke_R AOSM AOSM 550 0359-20 Le 12:40:00 12:40:00 Mauricio [id number] Orth[facility] pe dic [facility]in e 2022-05-30 2022-05-30 Outpatient FOG_Burke_R AOSM AOSM 550 0359-20 Le 00:00:00 00:00:00 Mauricio 656403 Orth[facility] pe dic Sports Medicin e 2022-05-28 2022-05-28 Outpatient FOG_Burke_R AOSM AOSM 550 0359-20 Le 03:45:00 03:45:00 Mauricio 769403 Orth[facility] pe dic Sports Medicin e 2022-05-28 2022-05-28 Outpatient Anusha, AOSM AOSM [id number] c-0 00:00:00 00:00:00 Cruz Sheriff 218-11ed-a [id number] 2022-05-28 2022-05-28 Outpatient Simón, AOSM AOSM [id number] 00:00:00 00:00:00 Eran Lilly 231-11ed-b [id number] 2022-05-28 2022-05-28 Cruz Jaziel AOSM [place] - [place] [id number] Le 00:00:00 00:00:00 Tiffanie Tavares MD: 7401 FOG_Ofc dic [facility] Sp[facility] [place] [address] , Ph. [phone] 2022-05-17 2022-05-17 Outpatient FOG_Burke_R AOSM AOSM 550 [id number] Le 03:26:00 03:26:00 Mauricio [id number] Ortho pe dic Sports Medicin e 2022-05-17 2022-05-17 Eran Lilly [place] - [place] 00:00:00 00:00:00 MD Simón: Tiffanie Bowers [address] FOG_Ofc dic [facility] [address], [place] [address] , Ph. [phone] 2022-05-17 2022-05-17 Outpatient CHALINO Gr AOSM [id number] e-[id number] 00:00:00 00:00:00 Eran Lilly [id number]-8 [id number] 2022-04-04 2022-04-04 Outpatient FOG_Burke_R AOSM AOSM 550 [id number] Le 04:58:00 04:58:00 Mauricio 586163 Orth[facility] pe dic [facility] 2021-09-25 2021-09-26 Inpatient EDA Gillespie ADMI [id number] [address] [facility] 06:34:00 14:54:00 Eran 80 [place] [facility] 2021-09-25 2021-09-26 Inpatient EDA Gillespie ADMI [id number] [facility] 06:34:00 14:54:00 Eran [id number] [place] [facility] 2021-09-18 2021-09-18 Outpatient EDA Gillespie 3DAY [id number] [facility] 00:00:00 23:59:00 Eran [id number] [place] [facility] 2021-09-18 2021-09-18 Outpatient BRIANNA Gr LABO [id number] [address] [facility] 17:08:00 17:08:00 Eran Hall [facility] 2020-01-05 2020-01-05 Outpatient Ravinder Snell HCATO RADI Y112 [id number] [facility] 11:30:00 11:30:00 [id number] [place] [facility] Results Test Description Test Time Test Comments Results Result Comments Source AFB culture 2023-08-02 00:13:00 Test Item Value Reference Range Interpretation Comme nts AFB culture isolate No growth after 6 weeks of Specimen InformationSpecimen (test code = 543-9) incubation. Source: TissueSpecimen Site: Knee: Right kne e Synovium LINDA (test code = LINDA) [facility]ISS[facility]EN [facility] [id number] 00:13:00 Test Item Value Reference Range Interpretation Comments AFB culture No growth Specimen isolate (test after 6 weeks InformationSp ecimen code = 543-9) of Source: Tissue Specimen incubation. Site: Knee: Rig ht knee Synovium LINDA (test code TISSUE SEEN = LINDA) [facility] bacterial [id number] 14:42:00 Test Item Value Reference Range Interpretation Comments Enteric less than the Specimen bacterial panel detectable InformationS pecimen (test code = limits of the Source: StoolS pecimen 10476-6) assay. Site: [facility] bacterial [id number] 14:42:00 Test Item Value Reference Range Interpretation Comments Enteric less than the Specimen bacterial panel detectable InformationS pecimen (test code = limits of the Source: StoolS pecimen 62486-4) assay. [facility] [id number] 22:03:44 Test Item Value Reference Range Interpretation Comments Ventricular rate (test 75 code = 253) Atrial rate (test code 75 = 255) OK interval (test code 166 = 266) QRSD [...] change in initial forces of Septal leads- [facility] 12 [id number] 22:03:44 Test Item Value Reference Range Interpretation Comments Ventricular rate (test 75 code = 253) Atrial rate (test code 75 = 255) OK interval (test code 166 = 266) QRSD [...] change in initial forces of Septal leads- [facility]2023-08-09 12:51:00 Test Item Value Reference Range Interpretation Comments Anaerobic No anaerobic Specimen culture isolate organisms InformationS pecimen (test code = isolated. Source: TissueS pecimen 68307-3) Site: Knee: Rig ht knee Synovium LINDA (test code TISSUE SEEN = LINDA) [facility]2023-08-09 12:51:00 Test Item Value Reference Range Interpretation Comments Anaerobic No anaerobic Specimen culture isolate organisms InformationS pecimen (test code = isolated. Source: TissueS pecimen 07427-0) Site: Knee: Rig ht knee Synovium LINDA (test code TISSUE SEEN = LINDA) [facility] fluid [id number] 03:12:00 Test Item Value Reference Range Interpretation Comments Joint fluid No growth Specimen culture isolate after 4 days. Information Specimen (test code = Source: Joint 1634) FluidSpecimen S ite: Knee: right knee join t fluid #2 [facility] fluid [id number] 03:12:00 Test Item Value Reference Range Interpretation Comments Joint fluid No growth Specimen culture isolate after 4 days. Information Specimen (test code = Source: Joint 1634) FluidSpecimen S ite: Knee: right knee join t fluid #2 [facility] pathology [id number] 00:31:01 Test Item Value Reference Range Interpretation Comments Case number (test code = [id number]) Surgical pathology See link below for report (test code = PDF Lab Report 2255) Result status (test code This is Final Report = [id number]) [id number] [id number] 00:31:01 Test Item Value Reference Range Interpretation Comments Case number (test code = [id number]) Surgical pathology See link below for report (test code = PDF Lab Report 2255) Result status (test code This is Final Report = [id number]) for [id number] [facility] [id number] 20:54:00 Test Item Value Reference Range Interpretation Comments POC glucose (test code = 142 mg/dL 65-99 H Ope rator Name: 66049-4) Judit Ricks ice ID: [id number] able: [facility] Notified haircutter Interpretation (test Abnormal code = 15628-8) [facility] [id number] 20:54:00 Test Item Value Reference Range Interpretation Comments POC glucose (test code = 142 mg/dL 65-99 H Ope rator Name: 43039-0) Judit Ricks ice ID: [id number] able: [facility] Notified haircutter Interpretation (test Abnormal code = 53882-2) [facility] XR FLUORO [id number] 18:21:00 [facility] : 1945 Sex: M Patient Name: BEATRICE BAUGH LEONARD Unit No: [id number] EXAMS: CPT CODE: [id number] XR FLUORO NDL 17279 Fluoroscopically guided right knee aspiration FINDINGS: After informed consent was obtained a 22-gauge needle is inserted into the right knee under fluoroscopic guidance using sterile technique. 9 mL thickmilky fluid was aspirated. This is sent to the lab for analysis. The patient tolerated the procedurewell. 2 seconds of fluoroscopy time was used on this exam. IMPRESSION: Fluoroscopically guided rightknee aspiration. at 1821 Reported and signed by: Edwar Houston M.D. CC: Gurpreet Chambers MD Technologist: RT. Neetu(R) Tr ansmanav D/ (1820) AniaSLJ [facility] NAME: BEATRICE BAUGH LEONARD [address] [facility] PHYS: Gurpreet Ayala MD : 1945 AGE: 78 SEX: M [place] [address] LOC: Y.502 A PHONE #: [phone] EXAM DATE: 06/19/2023 STATUS: DIS IN FAX #: [phone] RAD #: D/C DT 06/19/2023 PAGE 1 Signed Report Patient Name: BEATRICE BAUGH LEONARD Unit No: [id number] EXAMS: CPT CODE: [id number] XR FLUORO NDL 11660 (Continued) Orig Print D/T: S: 06/24/2023 (911) [facility] NAME: BEATRICE BAUGH LEONARD [address] [facility] PHYS: Gurpreet Ayala MD : 1945 AGE: 78 SEX: M [place], [place] [address] LOC: Y.502 A PHONE #: [phone] EXAM DATE: 06/19/2023 STATUS: DIS IN FAX #: [phone] RAD #: D/C DT 06/19/2023 PAGE 2 Signed ReportUrine [id number] 22:52:00 Test Item Value Reference Range Interpretation Comments Urine culture Mixed minerva Specimen isolate (test <=10-3 col/cc InformationSp ecimen code = 78159-8) Source: Urin eSpecimen Site: Clean cat [facility] [id number] 22:52:00 Test Item Value Reference Range Interpretation Comments Urine culture Mixed minerva Specimen isolate (test <=10-3 col/cc InformationSp ecimen code = 10382-7) Source: [facility] Site: Clean cat [facility] [id number] 18:02:00 Test Item Value Reference Range Interpretation Comments Gram stain No organisms Specimen isolate (test seen InformationSpe cimen code = 1469) Source: [facility] Site: Knee: Rig ht knee Synovium LINDA (test code TISSUE SEEN = LINDA) [facility] [id number] 18:02:00 Test Item Value Reference Range Interpretation Comments Gram stain No organisms Specimen isolate (test seen InformationSpe cimen code = 1469) Source: [facility] Site: Knee: Rig ht knee Synovium LINDA (test code TISSUE SEEN = LINDA) [facility] [id number] 17:42:00 Test Item Value Reference Range Interpretation Comments AFB stain No acid fast Specimen (test code = bacilli (AFB) InformationSpe cimen 676-7) seen. Source: [facility] Site: Knee: Rig ht knee Synovium LINDA (test TISSUE SEEN code = LINDA) [facility] [id number] 17:42:00 Test Item Value Reference Range Interpretation Comments AFB stain No acid fast Specimen (test code = bacilli (AFB) InformationSpe cimen 676-7) seen. Source: [facility] Site: Knee: Rig ht knee Synovium LINDA (test TISSUE SEEN code = LINDA) [facility], [id number] 21:35:00 Test Item Value Reference Range Interpretation Comments pH, arterial (test code 7.33 7.35-7.45 L = 2744-1) pCO2, arterial (test 43 See_Comment [Autom ated message] code = 2018-) The system eSentire generated this result transmitted ref erence range: 35 - 45 mmHg. The reference r megan was not used to interpret this result as normal/abnor mal. pO2, arterial (test code 83 See_Comment [A utomated message] = 7583-7) The system Flasma generated this result transmitted ref erence range: 80 - 90 mmHg. The reference r megan was not used to interpret this result as normal/abnor mal. Temperature, Celsius 37.0 Degrees C (test code = 8310-5) O2 saturation, arterial 95 % 95-100 (test code = 2708-6) pH, arterial corrected 7.33 (test code = 22378-8) pCO2, arterial corrected 43 mmHg (test code = 52046-0) pO2, arterial corrected 83 mmHg (test code = 88406-3) Base excess, arterial -4 See_Comment L [Auto mated message] (test code = 1925-7) The [facility] tem which generated this result transmitted ref erence range: -2 - 2 m Eq/L. The reference r megan was not used to interpret this result as normal/abnor mal. Lab Interpretation (test Abnormal code = 53539-3) [facility] Hospital[facility]em[facility], [id number] 21:35:00 Test Item Value Reference Range Interpretation Comments Hemoglobin, syringe (test code = 8.7 g/dL 14.0-18.0 L 718-7) Lab Interpretation (test code = Abnormal 94005-1) [facility] Hospital[facility], [id number] 21:35:00 Test Item Value Reference Range Interpretation Comments pH, arterial (test code 7.33 7.35-7.45 L = 2744-1) pCO2, arterial (test 43 See_Comment [Autom ated message] code = 2018-8) The system [facility] generated this result transmitted ref erence range: 35 - 45 mmHg. The reference r megan was not used to interpret this result as normal/abnor mal. pO2, arterial (test code 83 See_Comment [A utomated message] = 6933-7) The system Flasma generated this result transmitted ref erence range: 80 - 90 mmHg. The reference r megan was not used to interpret this result as normal/abnor mal. Temperature, Celsius 37.0 Degrees C (test code = 8310-5) O2 saturation, arterial 95 % 95-100 (test code = 2708-6) pH, arterial corrected 7.33 (test code = 04225-9) pCO2, arterial corrected 43 mmHg (test code = 80689-8) pO2, arterial corrected 83 mmHg (test code = 54168-9) Base excess, arterial -4 See_Comment L [Auto mated message] (test code = 1925-7) The s tem which generated this result transmitted ref erence range: -2 - 2 m Eq/L. The reference r megan was not used to interpret this result as normal/abnor mal. Lab Interpretation (test Abnormal code = 56739-4) [id number] 21:35:00 Test Item Value Reference Range Interpretation Comments Hemoglobin, syringe (test code = 8.7 g/dL 14.0-18.0 L 718-7) Lab Interpretation (test code = Abnormal 31687-7) [facility] [id number] 21:16:00 Test Item Value Reference Range Interpretation Comments POC glucose (test code = 122 mg/dL 65-99 H Ope rator Name: [id number]) Judit SimsMustapha ice ID: [id number] able: [facility] Notified haircutter Interpretation (test Abnormal code = 49193-5) [facility]- XR KNEE 3 V [id number] 16:31:00 [facility] : 1945 Sex: M Patient Name: BEATRICE BAUGH LEONARD Unit No: [id number] EXAMS: CPT CODE: [id number] XR KNEE 3 V RT 80373 RIGHT KNEE 2 VIEWS PORTABLE COMMENT: The patient is status post joint replacement which is articulatingnormally. Free patellar soft tissue swelling is noted with a probable joint effusion. at 1631 Reported and signed by: Uri oakes MD CC: Gurpreet Chambers MD Technologist: GLEN EMERY. RT(R) Transcribed D/ (1630) [facility] NAME: BEATRICE BAUGH LEONARD [address] [facility] PHYS: Gurpreet Ayala MD : 1945 AGE: 78 SEX: M [place], [place] [address] LOC: Y.502 A PHONE #: [phone] EXAM DATE: 06/19/2023 STATUS: DIS IN FAX #: [phone] RAD #: D/C DT 06/19/2023 PAGE 1 Signed Report Patient Name: BEATRICE BAUGH LEONARD Unit No: [id number] EXAMS: CPT CODE: [id number] XRKNEE 3 V RT 94985 (Continued) Orig Print D/T: S: 06/19/2023 (1634) [facility] NAME: BEATRICE BAUGH LEONARD [address] [facility] PHYS: Gurpreet Ayala MD : 1945 AGE: 78 SEX: M [place], [place] [address] LOC: Y.502 A PHONE #: [phone] EXAM DATE: 06/19/2023 STATUS: DIS IN FAX #: [phone] RAD #: D/C DT 06/19/2023 PAGE [address] F[address]/[id number] 13:24:00 Test Item Value Reference Range Interpretation Comments SYNOVIAL FLD YELLOW LT. YELLOW COLOR (test code = COLSY) SYNOVIAL FLD CLOUDY CLEAR A APPEARANCE (test code = APPSY) SYNOVIAL FLD 2 mL VOLUME (test code = VOLSY) SYNOVIAL FLD WBC 68549.000 0-200 H VERIFIED BY 1:20 (test code = /MM3 DILUTION WBCSY) SYNOVIAL FLD RBC 339258.000 0-2 H VERIFIED BY 1:20 (test code [...] CELLS (test code = LINSY) BODY FLD [id number] 13:24:00 Test Item Value Reference Range Interpretation Comments BODY FLD CRYSTALS (test code = NONE SEEN NONE SEEN CRYSY) - XR CHEST 1 [id number] 12:20:00 [facility] 1945 Sex: M Patient Name: BEATRICE BAUGH LEONARD Unit No: [id number] EXAMS: CPT CODE: [id number] XR CHEST 1 V 39368 PORTABLE CHEST June 19, 2023 8:34 AM COMMENT: COMPARISON: No prior exams available. There are increasedpulmonary markings in the right lower lobe with linear density consistent with scarring or atelectasis. Possible increased markings behind the left heart border are also noted. These findings are suspic ious for pneumonia. No upper lobe infiltrates are seen. The cardiac size is within normal limits. There is ectasia of the aorta. Clinical correlation is recommended. at 1220 Reported and signed by: Uri Mi MD CC: Wilver Pryor MD; Gurpreet Chambers MD Technologist: GLEN EMERY. RT(R) Transcribed D/ (1220) t.LASHAYR.JCL [facility] NAME: BEATRICE BAUGH LEONARD [address] [facility] PHYS: Wilver Wilde MD : 1945 AGE: 78 SEX: M [place], [place] [address] LOC: Y.502 A PHONE #: [phone] EXAM DATE: 06/19/2023 STATUS: ADM IN FAX #: [phone] RAD #: D/C DT PAGE 1 Signed Report Patient Name: BEATRICE BAUGH LEONARD Unit No: [id number] EXAMS: CPT CODE: [id number] XR CHEST 1 V 59863 (Continued) Orig Print D/T: S: 06/19/2023 (1223) [facility] NAME: BEATRICE BAUGH LEONARD [address] [facility] PHYS: Wilver Wilde MD : 1945 AGE: 78 SEX: M [place], [place] [address] LOC: Y.502 A PHONE #: [phone] EXAM DATE: 06/19/2023 STATUS: ADM IN FAX #: [phone] RAD #: D/C DT PAGE 2 Signed ReportSED RATE 2023-06-19 08:03:00 Test Item Value Reference Range Interpretation Comments SED RATE (test code = SEDW) 120 mm/hr 0-20 H CBC W/MANUAL [id number] 07:59:00 Test Item Value Reference Range Interpretation [...] 0-0 H code = META) C REACTIVE [id number] 07:25:00 Test Item Value Reference Range Interpretation Comments C REACTIVE PROTEIN (test code = 33.0 mg/dL <0.9 CRP) PROTHROMBIN [id number] 06:52:00 Test Item Value Reference Range Interpretation [...] v pereira IS PATIENT ON ANTICOAGULANTS ? [facility] been notified if Patient is on Heparin Drip? NOTHROMBOPLASTIN TIME [id number] 06:52:00 Test Item Value Reference Range Interpretation Comments PTT ACTIVATED (test code = APTT) 29.4 secs 25.1-36.5 N IS PATIENT ON ANTICOAGULANTS ? [facility] been notified if Patient is on Heparin Drip? NOCOMPREHENSIVE METABOLIC [id number] 06:47:00 Test Item Value Reference Range Interpretation [...] the recommended for mihir for GFRby the [facility] for Adults.The GFR will [...] H PHOSPHATASE TOTAL (test code = ALKP) [id number] 06:47:00 Test Item Value Reference Range Interpretation Comments MAGNESIUM (test code = MAG) 2.0 mg/dL 1.8-2.4 N CBC W/AUTO [id number] 06:17:00 Test Item Value Reference Range Interpretation [...] N (test code = NRBC) BASIC METABOLIC [id number] 16:48:00 Test Item Value Reference Range Interpretation [...] the recommended for mihir [facility]by the [facility] for Adults.The GFR will not calculate i f the sex is unknown or if thepatient's ag e is <18 years. CREATININE (test 0.93 mg/dL 0.55-1.30 N code = CREAT) CALCIUM (test code 9.4 mg/dL 8.2-10.1 N = CA) - CT LOWER EXTRM W/O C [id number] 07:20:00 [facility] 1945 Sex: M Patient Name: BEATRICE BAUGH Unit No: [id number] EXAMS: CPT CODE: [id number] [place]TR[place] W/[place] [address] CT OF THE BILATERAL FEET WITH SAGITTAL [...] with ACR practice standards and adherence to quarantine officer's recommendations. Charcot changes in both feet are as described. No acute fractures are seen. at 0720 Reported and signed by: Uri Mi MD CC: Cruz Tavares MD; Ravinder Snell MD Technologist: RT German(R) CTDI: DLP: Trnscrpt: 08/28/2022 (0720) t.LASHAYR.L [facility] NAME: BEATRICE BAUGH [address] [facility] PHYS: Cruz Conner MD : 1945 AGE: 77 SEX: M [place], [place] [address] LOC: Y.RAD PHONE #: [phone] EXAM DATE: 08/27/2022 STATUS: DEP CLI FAX #: [phone] RAD #: D/C DT PAGE 1 Signed Report Patient Name: BEATRICE BAUGH Unit No: [id number] EXAMS: CPT CODE: [id number] [place] LOWER [place]TRM W/[place] [address] (Continued) Orig Print D/T: S: 08/28/2022 (0723) [facility] NAME: BEATRICE BAUGH [address] [facility] PHYS: Cruz Conner MD : 1945 AGE: 77 SEX: M [place], [place] [address] LOC: Y.RAD PHONE #: [phone] EXAM DATE: 08/27/2022 STATUS: DEP CLI FAX #: [phone] RAD #: D/C DT PAGE 2 Signed Report- XR KNEE 1 OR 2 V [id number] 12:50:00 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 No acute fracture is visualized. IMPRESSION: Postoperative exam as above. at 1250 Reported and signed by: Edwar Houston M.D. CC: Eran Gr MD Technologist: DHIRAJ NICHOLS (RT.R) Transcribed D/ (1250) Jose F [facility] NAME: BEATRICE BAUGH [address] [facility] PHYS: Eran Reyna MD : 1945 AGE: 77 SEX: M [place], [place] [address] LOC: Y.321 A PHONE #: [phone] EXAM DATE: 06/11/2022 STATUS: ADM IN FAX #: [phone] RAD #: D/C DT PAGE 1 Signed Report Patient Name: BEATRICE BAUGH Unit No: [id number] EXAMS:CPT CODE: [id number] XR KNEE 1 OR 2 V RT [address]641 (Continued) Orig Print D/T: S: 06/12/2022 (1253) [facility] NAME: BEATRICE BAUGH [address] [facility] PHYS: Eran Reyna MD : 1945 AGE: 77 SEX: M [place], [place] [address] LOC: Y.321 A PHONE #: [phone] EXAM DATE: 06/11/2022 STATUS: ADM IN FAX #: [phone] RAD #: D/C DT PAGE 2 Signed ReportBASIC METABOLIC [id number] 07:09:00 Test Item Value Reference Range Interpretation [...] RATE (test code = GFR) mL/mi n/1.73 [id number] Range:Healthy Adults >90 mL/min/1.73 m2 For Chronic Kidney Disease: Stage II Mild Decrease i n GFR 60-90 Stage III Moderate Decrea se in GFR 30-59 St age IV Severe Decre ase in GFR 15-29 St age V Kidney Failur e <15 CREATININE (test code 0.89 mg/dL 0.55-1.30 N = CREAT) CALCIUM (test code = 9.2 mg/dL 8.2-10.1 N CA) SPECIMEN COMMENT: POD #1HGB [id number] 06:06:00 Test Item Value Reference Range Interpretation Comments HEMOGLOBIN (test code = HGB) 9.8 g/dL 12-16 L HEMATOCRIT (test code = HCT) 30.1 % 37-47 L SPECIMEN COMMENT: POD #1Hemoglobin and Hematocrit panel - [id number] 05:12:00 Test Item Value Reference Range Interpretation Comments hemoglobin (test code = hemoglobin) 9.8 g/dL 12-16 L hematocrit (test code = hematocrit) 30.1 % 37-47 L performing lab: (test code = performing lab:) [facility] metabolic [id number] 05:12:00 Test Item Value Reference Range Interpretation [...] performing lab: (test code = performing lab:) [facility] 2022-06-12 05:12:00 Test Item Value Reference Range Interpretation Comments hemoglobin (test code = hemoglobin) 9.8 g/dL 12-16 L hematocrit (test code = hematocrit) 30.1 % 37-47 L performing lab: (test code = performing lab:) [facility] metabolic [id number] 05:12:00 Test Item Value Reference Range Interpretation [...] performing lab: (test code = performing lab:) [facility] - Blood 2022-06-12 05:12:00 Test Item Value Reference Range Interpretation Comments hemoglobin (test code = hemoglobin) 9.8 g/dL 12-16 L hematocrit (test code = hematocrit) 30.1 % 37-47 L performing lab: (test code = performing lab:) [facility] [id number] 05:12:00 Test Item Value Reference Range Interpretation [...] performing lab: (test code = performing lab:) [facility] SystemsCOMPREHENSIVE METABOLIC [id number] 18:33:00 Test Item Value Reference Range Interpretation [...] RATE (test code = GFR) mL/mi n/1.73 r9Suaaxqpeo Range:Healthy Adults >90 mL/min/1.73 m2 For Chronic [...] TOTAL (test code = ALKP) CBC W/AUTO [id number] 18:06:00 Test Item Value Reference Range Interpretation [...] NRBC) CBC W Auto Differential panel - [id number] 17:30:00 Test Item Value Reference Range Interpretation [...] performing lab: (test code = performing lab:) [facility] 2000 [facility] - Serum or [id number] 17:30:00 Test Item Value Reference Range Interpretation [...] performing lab: (test code = performing lab:) [facility] SystemsMethicillin resistant Staphylococcus aureus [Presence] in Specimen by Organism specific [id number] 17:30:00 Test Item Value Reference Range Interpretation Comments MRSA surveillance screen (test code see below = MRSA surveillance screen) performing lab: (test code = performing lab:) [facility] PCR surveillance [id number] 17:30:00 Test Item Value Reference Range Interpretation Comments mssa PCR surveillance screen (test see below code = mssa PCR surveillance screen) performing lab: (test code = performing lab:) [facility]- XR KNEE 1 OR 2 V [id number] 14:52:00 [facility] : 1945 Sex: M Patient Name: BEATRICE BAUGH Unit No: [id number] EXAMS: CPT CODE: [id number] XR KNEE 1 OR 2 [place] [address] LEFT KNEE 2 VIEWS PORTABLE COMMENT: The patient is status post joint replacement which is articulating normally. at 1452 Reported and signed by: Uri Mi MD CC: Eran Gr MD Technologist: DHIRAJ NICHOLS (RT.R) Transcribed D/ (3607) [facility] NAME: BEATRICE BAUGH [address] [facility] PHYS: Eran Reyna MD : 1945 AGE: 76 SEX: M [place], [place] [address] LOC: Y.309 A PHONE #: [phone] EXAM DATE: 09/25/2021 STATUS: DIS IN FAX #: [phone] RAD #: D/C DT 09/26/2021 PAGE 1 Signed Report Patient Name: BEATRICE BAUGH Unit No: [id number] EXAMS: CPT CODE: [id number] XR KNEE 1 OR 2 [place] [address] (Continued) Orig Print D/T: S: 09/26/2021 (1537) [facility] NAME: BEATRICE BAUGH [address] [facility] PHYS: Eran Reyna MDDOB: 1945 AGE: 76 SEX: M [place], [place] [address] LOC: Y.309 A PHONE #: [phone] EXAM DATE: 09/25/2021 STATUS: DIS IN FAX #: [phone] RAD #: D/C DT 09/26/2021 PAGE 2 Signed ReportBASIC METABOLIC [id number] 06:34:00 Test Item Value Reference Range Interpretation [...] RATE (test code = GFR) mL/mi n/1.73 f1Ulltxwymw Range:Healthy Adults >90 mL/min/1.73 m2 For Chronic Kidney Disease: Stage II Mild Decrease i n GFR 60-90 Stage III Moderate Decrea se in GFR 30-59 St age IV Severe Decre ase in GFR 15-29 St age V Kidney Failur e <15 CREATININE (test code 0.70 mg/dL 0.55-1.30 N = CREAT) CALCIUM (test code = 8.7 mg/dL 8.2-10.1 N CA) SPECIMEN COMMENT: POD #1HGB [id number] 06:05:00 Test Item Value Reference Range Interpretation Comments HEMOGLOBIN (test code = HGB) 10.6 g/dL 12-16 L HEMATOCRIT (test code = HCT) 32.4 % 37-47 L SPECIMEN COMMENT: POD #1Novel Coronavirus 2019 [id number] 09:36:00 Test Item Value Reference Range Interpretation [...] n. The testing is perf ormed by personneltradinora d in the procedures for the [employer] M2000 molecular diagnostic SARS-CoV-2 assa y in vitro. Novel Coronavirus 2018 [id number] 09:36:00 Test Item Value Reference Range Interpretation [...] for the identification of SARS-CoV-2 RNA usingthe [employer] M2000 Sy stem under the FDA Emergen cy UseAuthorizatio n. The testing is perf ormed by personneltraine d in the procedures for the [employer] M2000 molecular diagnostic SARS-CoV-2 assa y in vitro. CBC W/AUTO [id number] 17:34:00 Test Item Value Reference Range Interpretation [...] 0-0 N code = NRBC) COMPREHENSIVE METABOLIC [id number] 16:10:00 Test Item Value Reference Range Interpretation [...] RATE (test code = GFR) mL/mi n/1.73 p9Xleqdrwsn Range:Healthy Adults >90 mL/min/1.73 m2 For Chronic [...] ALKP) - CT UP EXTREM W/O CONT [id number] 11:06:00 Patient Name: BEATRICE BAUGH Unit No: [id number] EXAMS: CPT CODE: [id number] CT UP EXTREM W/[place] [address] [place] SCAN RIGHT ELBOW WITH RECONSTRUCTION DIAGNOSIS: 1. The current exam is compared to a previous exam dated September 02, 2019. There is interval internal fixation of an intercondylar fracturedistal humerus with bone plate and fixator screws. [...] of the right elbow was obtained without us e of intravenous contrast. Images were then viewed in the axial, coronal and sagittal planes. CT radiation dose optimization is achieved for this examination by the use of a CT protocol in accordance with ACR practice standards and adherence to quarantine officer's recommendations. INDICATION: RIGHT ELBOW FX COMPARISON: None. COMMENT: Findings are described above. at 1106 Reported and signed by: Sadie Mcdowell MD CC: Ravinder Snell MD Technologist: Juan Dodge,RT(R) CTDI: DLP: Trnscrpt: 01/06/2020 (1106) t.LASHAYR.GVG [facility] NAME: BEATRICE BAUGH [address] [facility] PHYS: Ravinder Romero MD : 1945 AGE: 74 SEX: [place], [place] [address] LOC: Y.RAD PHONE #: [phone] EXAM DATE: 01/05/2020 STATUS: DEP CLI FAX #: [phone] RAD #: D/C DT PAGE 1 Signed Report Patient Name: BEATRICE BAUGHUnit No: [id number] EXAMS: CPT CODE: [id number] [place] UP EXTREM W/[place] [address] (Continued) Orig Print D/T: S: 01/06/2020 (1109) [facility] NAME: BEATRICE BAUGH [address] [facility] PHYS:Ravinder Romero MD : 1945 AGE: 74 SEX: [place], [place] [address] LOC: Y.RAD PHONE #: [phone] EXAM DATE: 01/05/2020 STATUS: DEP CLI FAX #: [phone] RAD #: D/C DT PAGE 2 Signed Report- CT UP EXTREM W/O CONT [id number] 08:43:00 Patient Name: BEATRICE BAUGH Unit No: [id number] EXAMS: CPT CODE: [id number] CT UP EXTREM W/[place] [address] CT SCAN RIGHT ELBOW WITH RECONSTRUCTION DIAGNOSIS: [...] broken and displaced so that it is present in the soft tissues anterior to the coronoid process. The displaced radial head segments spaceand measures approximately 2.3 x 1.2 cm in size. 2. Subcortical bony irregularity of the capitellum.COMMENT: 0.63 mm axial slices are obtained of the right elbow with reconstruction. Findings are as described above. at 0843 Reported and signed by: Sadie Mcdowell MD CC: Ravinder Snell MD Technologist: Juan Dodge,RT(R) CTDI: DLP: Trnscrpt: 09/03/2019 (0843) tDEBORARClareGVG [facility] NAME: BEATRICE BAUGH [address] [facility] PHYS: Ravinder Romero MD : 1945 AGE: 74 SEX: M [place] [address] : Y.RAD PHONE #: [phone] EXAM DATE: 09/02/2019 STATUS: DEP CLI FAX #: [phone] RAD #: D/C DT PAGE 1 Signed Report Patient Name: BEATRICE BAUGH Unit No: [id number] EXAMS: CPT CODE: [id number] CT UP EXTREM W/[place] [address] (Continued) Orig Print D/T: S: 09/03/2019 (0846) [facility] NAME: BEATRICE BAUGH [address] [facility] PHYS: Ravinder Romero MD : 1945 AGE: 74 SEX: M [place] [address] LOC: Y.RAD PHONE #: [phone] EXAM DATE: 09/02/2019 STATUS: DEP CLI FAX #: [phone] RAD #: D/C DT PAGE 2 Signed ReportTISSUE [id number] 15:05:00Surgical Pathology Report Case: [id number] Authorizing Provider: Stalin Owens MD Collected: 07/09/2017 1024 Ordering Location: [facility] PERI[facility] Received: 07/09/2017 1450 SERVICES Pathologist: Arturo Ritchie MD Specimens: A) - Lymph Node, JOHN PROSTATIC LYMPH NODE B) - Lymph Node, RIGHT OBTURATOR LYMPH NODE C) - Lymph Node, LEFT INTERNAL ILIAC LYMPH NODE D) - Lymph Node, LEFT OBTURATOR LYMPH NODE E) - Prostate, PROSTATE F) - Appendix, APPENDIX A. LYMPH NODE, PERIPROSTATIC, EXCISION:-ONE BENIGN LYMPH NODE (0/1)B. LYMPH NODES, RIGHT OBTURATOR, DISSECTION:- EIGHT BENIGN LYMPH NODES (0/8)C. LYMPH NODE, LEFT INTERNAL ILIAC, EXCISION:- ONE BENIGN LYMPH NODE (0/1)D. LYMPH NODE, LEFT OBTUR ATOR, EXCISION:- ONE BENIGN LYMPH NODE (0/1)E. PROSTATE GLAND, ROBOTIC LAPAROSCOPIC ASSISTED PROSTATECTOMY: - ADENOCARCINOMA, YARA 3+4=7, FOCAL EXTRAPROSTATIC EXTENSION, SURGICAL MARGINS NEGATIVE SEMINAL VESICLES, ROBOTIC LAPAROSCOPIC ASSISTED PROSTATECTOMY: - NO PATHOLOGIC DIAGNOSISF. APPENDIX, EDUARDO ENDECTOMY:- ACUTE APPENDICITIS- EIGHT BENIGN PERIAPPENDICEAL LYMPH NODES (0/8) Signing Pathologist Direct Phone Line: [phone] signed by Arturo Ritchie MD on 07/18/2017 [...] Adenocarcinoma (acinar, not otherwise specified) Yara Pattern: [place] pattern Primary Pattern: Grade 3 Secondary Pattern: Grade 4 Tertiary Pattern: Not applicable Total Yara Score: 7 Tumor Quantitation: Proportion (percentag e) of Prostate Involved by Tumor Specify (%): 10 Tumor Quantitation: Tumor size (dominant nodule, ifpresent) Greatest Dimension (mm): 20 mm Extraprostatic Extension: Present Focality of ExtraprostaticExtension: Focal Specify Site(s): right neurovascular bundle Seminal Vesicle Invasion (invasion of muscular wall required): Not identified Lymph-Vascular Invasion: Not Identified Perineural Invasion: Present Treatment Effect: Not identifiedMARGINS Margins: Margins uninvolved by invasive carcinoma Benign glands at surgical margin: +Benign glands at surgical marginLYMPH NODES Regional Lymph Nodes: Number of Lymph Nodes Examined: Specify number: 11 Number [...] hyperplasia Additional Pathologic Findings: Other (specify): Intraductal cmjlttbkx72626, 08830 x3, 07435, 10611Ugpisfie cancerA. Periprostatic lymph node; B. Right obturator [...] tissue measuring 3 x 1.5 x 0.4 cmyielding two wright-red fatty lymph nodes measuring 0.1 [...] submitted entirely in D1.Part E: Received in acontainer of formalin is a radical prostatectomy specimen as "prostate" with attached bilateral seminal vesicle and vas deferens. The prostate weighs 28.8 gm and measures 2.8 cm apex to base, 4.2 cm tra nsversely and 2.0 cm anterior to posterior. The right and left seminal vesicles measure 3.5 x 1.5 x 0.7 cm and 4.0 x 1.8 x 0.5 cm respectively. The right and left vas deferens measure 5.0 cm and 4.0 cmin length respectively and 0.5 cm in diameter respectively. The capsular surface of the prostate is purple-wright to red, dusky and focally ragged.Ink code: Right-black, left-blue.The prostate is seriallysectioned from apex to base into 9 slices to reveal pink-wright to kennedy- white, homogeneous, focally nodular prostatic parenchyma throughout. No discrete masses are identified. The prostate gland is entirely submitted. Sectioning of the seminal vesicles reveals a pink-wright unremarkable cut surface.Section code: E1, apical margin; E2, bladder neck margin. The prostate slices are submitted in cassettes E3 through E7. The right and left seminal vesicles are submitted in cassette E8, seminal vesicle tips aresubmitted in E9. ?/ewPart F: Labeled "appendix" consists [...] face inked black with tip bisected; F2, life assurance representative of appendix. CG/ewPerformed.HEMOGLOBIN AND [id number] 06:56:00 Test Item Value Reference Range Interpretation Comments HEMOGLOBIN (BEAKER) (test code = 11.3 GM/DL 13.7-17.5 L 410) HEMATOCRIT (BEAKER) (test code = 36.3 % 40.1-51.0 L 411) BASIC METABOLIC [id number] 06:43:00 Test Item Value Reference Range Interpretation [...] APPLICABLE FOR DIALYSIS PATIEN TS. BASIC METABOLIC [id number] 06:37:00 Test Item Value Reference Range Interpretation [...] DIALYSIS PATIEN TS. Before arterial line is [facility] [id number] 15:59:00 Test Item Value Reference Range Interpretation [...] FOR DIALYSIS PATIEN TS. [facility] [id number] 15:06:00 Test Item Value Reference Range Interpretation Comments HEMOGLOBIN (BEAKER) (test code = 12.3 GM/DL 13.7-17.5 L 410) HEMATOCRIT (BEAKER) (test code = 37.3 % 40.1-51.0 L 411) URINE [id number] 12:55:00 Test Item Value Reference Range Interpretation Comments CULTURE (BEAKER) (test <10,000 col/mL skin code = 1095) [facility] URINALYSIS W/ [id number] 15:00:00 Test Item Value Reference Range Interpretation [...] code = 516) SOURCE(BEAKER) (test code = 2795) COMPREHENSIVE METABOLIC [id number] 14:12:00 Test Item Value Reference Range Interpretation [...] NOT APPLICABLE FOR DIALYSIS PATIEN TS. PROTHROMBIN TIME/[id number] 13:34:00 Test Item Value Reference Range Interpretation Comments PROTIME (BEAKER) (test code = 13.0 seconds 11.7-14.7 759) INR (BEAKER) (test code = 370) 1.0 <=5.9 RECOMMENDED COUMADIN/WARFARIN INR THERAPY RANGESSTANDARD DOSE: 2.0 - 3.0 Includes: PROPHYLAXIS for venous thrombosis, systemic embolization; TREATMENT for venous thrombosis and/or pulmonary embolus.HIGH RISK: Target INR is 2.5-3.5 for patients with mechanical heart valves.CBC W/PLT COUNT & AUTO [id number] 13:25:00 Test Item Value Reference Range Interpretation [...]
[2023-09-22] MEDS ORDERED: NA CHLORIDE 0.9% 1,000 ML ONE (23:01)
[2023-09-22] MEDS ORDERED: ZIPRASIDONE MESYLA 20 MG/VIAL IM ONE (23:01)
[2023-09-22] MEDS ORDERED: WATER FOR INJ,STERILE 10 ML ONE (23:01)
[2023-09-22 23:04] LABS: Protime INR 1.13
[2023-09-22 23:08] LABS: Absolute Lymphocytes (CBC) 0.8 K/uL (0.7-4.9); Hematocrit 29.5 % (39.6-49.0); Lymphocytes % 6.4 % (15.3-44.8); MCV 85.8 fL (80-100); MPV 6.6 fL (7.6-11.3); Platelets 474 thou/uL (152-406); RBC Red Blood Cell Count 3.44 M/uL (4.33-5.43)
[2023-09-22 23:13] LABS: AST/SGOT 8 U/L (15-37); Albumin 2.5 g/dL (3.4-5.0); Alkaline Phosphatase 84 U/L (45-117); BUN Blood Urea Nitrogen 21 mg/dL (7-18); Bicarbonate 28 mEq/L (21-32); Bilirubin Direct 0.2 mg/dL (0-0.2); Bilirubin Indirect, Calculated 0.3 mg/dL (0.2-0.8); Bilirubin Total 0.5 mg/dL (0.2-1.0); Creatine Phosphokinase 31 U/L (39-308); Glomerular Filtration Rate 80 ml/min (=/>90); Glucose Level 99 mg/dL (74-106); Lipase 18 U/L (13-75); Magnesium 1.8 mg/dL (1.6-2.4); NT PRO-BNP 627 pg/mL (<450); Potassium 3.8 mEq/L (3.5-5.1); Protein, Total 6.8 g/dL (6.4-8.2); Sodium Level 137 mEq/L (136-145); Troponin High Sensitivity 12.2 pg/mL (<58.9)
[2023-09-22 23:14] LABS: ALT/SGPT < 10 U/L (16-61)
--- NOTE | 2023-09-23 01:03 | RAD REPORT ---
EXAM DESCRIPTION: CT - Head Brain Wo Cont - 09/22/2023 11:31 pm CLINICAL HISTORY: confusion COMPARISON: No comparisons TECHNIQUE: Noncontrast head CT images ad were obtained without IV contrast. Multiplanar reformats we re generated and reviewed. All CT scans are performed using dose optimization technique as appropriate and may include automated exposure control or mA/KV adjustment according to patient size. FINDINGS: No intracranial hemorrhage, mass, or edema. Midline structures are unremarkable. Mild diffuse parenchymal volume loss. No hydrocephalus. Subtle periventricular and deep white matter hypodensities, nonspecific, suggestive of chronic small vessel ischemic changes. Hobson-white matter differentiation is preserved, without evidence of acute infarct. No abnormal extra- axial fluid collections. Mastoid air cells and visualized portions of the paranasal sinuses are clear. No acute bony findings. IMPRESSION: No evidence of an acute intracranial process.
--- NOTE | 2023-09-23 01:04 | RAD REPORT ---
EXAM DESCRIPTION: RADChest Single View09/22/2023 10:54 pm CLINICAL HISTORY: delirium COMPARISON: Chest Single View dated 06/18/2023; Chest Pa And Lat (2 Views) dated 05/16/2022; CHEST PA A ND LAT 2 VIEW dated 11/30/2013 TECHNIQUE: Portable AP view of the chest. FINDINGS: The lungs are clear. Diffuse hyperinflation and hyperlucency, may suggest an element of CO PD. No pneumothorax or effusion. The cardiomediastinal contours are unremarkable. IMPRESSION: No acute cardiopulmonary process.
--- NOTE | 2023-09-23 01:17 | ER ---
Nurse's Notes [facility] Name: Alex Baugh Age: 78 yrs Sex: Male : 1945 Arrival Date: 09/22/2023 Time: 21:59 Bed 20 Private MD: Diagnosis: Delirium due to known physiological condition;Acute delirium with agitation, altered mental status, acute metabolic encephalopathy Presentation: 09/22 22:03 Chief complaint: EMS states: We were called for a stroke. Pt had fallen and had to vc1 pick him up and called us. When we arrived pt was altered. Now he just doesn't know the year. Coronavirus screen: Vaccine status: Patient reports receiving the 1st dose of the Covid vaccine. unsure how many Client denies travel out of the [place] in the last 14 days. At this time, the client does not indicate any symptoms associated with coronavirus-19. Ebola Screen: Patient negative for fever greater than or equal to 101.5 degrees Fahrenheit, and additional compatible Ebola Virus Disease symptoms Patient denies exposure to infectious person. Patient denies travel to an Ebola-affected area in the 21 days before illness onset. No symptoms or risks identified at this time. Initial Sepsis Screen: Does the patient meet any 2 criteria? No. Patient's initial sepsis screen is negative. Does the patient have a suspected source of infection? No. Patient's initial sepsis screen is negative. Risk Assessment: Do you want to hurt yourself or someone else? Patient reports no desire to harm self or others. Onset of symptoms was September 22, 2023. 22:03 Method Of Arrival: EMS: [facility] vc1 22:03 Acuity: SHERYL 3 vc1 Triage Assessment: 22:08 General: Appears in no apparent distress. uncomfortable, Behavior is cooperative. Pain: vc1 Denies pain. EENT: No deficits noted. No signs and/or symptoms were reported regarding the EENT system. Neuro: Level of Consciousness is alert, confused, Oriented to person, place. Cardiovascular: No deficits noted. Respiratory: Airway is patent Respiratory effort is even, unlabored, Respiratory pattern is regular, symmetrical. GI: No deficits noted. No signs and/or symptoms were reported involving the gastrointestinal system. : No deficits noted. No signs and/or symptoms were reported regarding the genitourinary system. Derm: No deficits noted. No signs and/or symptoms reported regarding the dermatologic system. Musculoskeletal: Bony deformity noted of right elbow. Historical: - Allergies: 22:07 No Known Allergies; vc1 - PMHx: 22:07 Anxiety; Hypertensive disorder; U.C.; vc1 - PSHx: 22:07 Appendectomy; B knee replacements; vc1 - Immunization history:: unsure how many; altered. - Social history:: Smoking status: Patient denies any tobacco usage or history of. - Family history:: not pertinent. Screenin:09 [facility] ED Fall Risk Assessment (Adult) History of falling in the last 3 months, vc1 including since admission Yes- single mechanical fall (1 pt) Confusion or Disorientation Yes (5 pts) Intoxicated or Sedated No (0 pts) Impaired Gait Yes (1 pt) Mobility Assist Device Used No (0 pt) Altered Elimination No (0 pt) Score/Fall Risk Level 3 or more points = High Risk Oriented to surroundings, Maintained a safe environment, Educated pt \T\ family on fall prevention, incl call for assistance when getting out of bed. 09/23 00:18 Abuse screen: Denies threats or abuse. Denies injuries from another. Nutritional lg3 screening: No deficits noted. Tuberculosis screening: No symptoms or risk factors identified. Assessment: 09/22 23:00 Reassessment: Patient and/or family updated on plan of care and expected duration. Pain vc1 level reassessed. Patient states symptoms have improved. 09/23 00:00 Reassessment: No changes from previously documented assessment. Patient and/or family vc1 updated on plan of care and expected duration. Pain level reassessed. 00:02 General: Unable to place britt, Provider unable to place as well, used condom cath vc1 instead. 00:18 General: Appears in no apparent distress. comfortable, Behavior is calm. Pain: lg3 Complains of pain in back Pain currently is 4 out of 10 on a pain scale. Alleviated by repositioning. Neuro: Level of Consciousness is awake, obeys commands, confused, Oriented to person, place. Cardiovascular: No deficits noted. Denies chest pain, shortness of breath, Capillary refill < 3 seconds Clubbing of nail beds is absent JVD is absent Patient's skin is warm and dry. Respiratory: No deficits noted. Airway is patent Respiratory effort is even, unlabored, Respiratory pattern is regular, symmetrical. GI: No deficits noted. No signs and/or symptoms were reported involving the gastrointestinal system. Abdomen is flat, non-distended. : condom cath in place. EENT: No deficits noted. No signs and/or symptoms were reported regarding the EENT system. Derm: No deficits noted. No signs and/or symptoms reported regarding the dermatologic system. Skin is intact, is healthy with good turgor, Skin is dry, Skin is normal, Skin temperature is warm. Musculoskeletal: No deficits noted. Circulation, motion, and sensation intact. Range of motion: limited in right elbow Bony deformity noted of right elbow. 01:49 Reassessment: Patient appears in no apparent distress at this time. pt quietly resting lg3 with eyes closed at this time. 02:04 General: attempted to call report. nurse not available . lg3 03:00 General: per [facility] ICU is currently having an ant and johnson issue throughout the lg3 unit and will take report as soon as the issue resolves. Charge nurse notified. 04:48 Reassessment: Patient appears in no apparent distress at this time. No changes from lg3 previously documented assessment. Vital Signs: 09/22 22:03 Pulse 76; Resp 16; Temp 99.5; Pulse Ox 96% ; Weight 52.16 kg; Height 5 ft. 11 in. ; vc1 22:09 BP 146 / 76; vc1 23:00 BP 149 / 88; Pulse 86; Resp 21; Pulse Ox 97% ; vc1 11 00:00 BP 151 / 82; Pulse 81; Resp 16; Pulse Ox 100% ; vc1 01:49 BP 124 / 71; Pulse 78; Resp 19 S; Pulse Ox 97% on R/A; lg3 04:18 BP 123 / 63; Pulse 69; Resp 18 S; Pulse Ox 97% on R/A; bp 09/22 22:03 Body Mass Index 16.04 (52.16 kg, 180.34 cm) vc1 ED Course: 09/22 22:03 Patient arrived in ED. vc1 22:04 Josh Lopes MD is Attending Physician. sp4 22:06 Triage completed. vc1 22:07 Luz Marina Gutierrez RN is Primary Nurse. vc1 22:08 Arm band placed on right wrist. vc1 22:10 Patient has correct armband on for positive identification. Bed in low position. Pulse vc1 ox on. NIBP on. 22:25 Initial lab(s) drawn, by me, First set of blood cultures drawn by me. vc1 22:40 Second set of blood cultures drawn by me. vc1 22:50 BMP Sent. vc1 22:50 CBC with Diff Sent. vc1 22:50 Blood Culture Adult (2) Sent. vc1 22:50 CPK Sent. vc1 22:50 Hepatic Function Sent. vc1 22:50 Lipase Sent. vc1 22:50 Magnesium Sent. vc1 22:50 NT PRO-BNP Sent. vc1 22:50 Ptt, Activated Sent. vc1 22:50 Troponin HS Sent. vc1 22:50 PT-INR Sent. vc1 22:51 Inserted saline lock: 20 gauge in left antecubital area, using aseptic technique. Blood vc1 collected. 22:55 XRAY CXR (1 view) In Process Unspecified. EDMS 23:33 Head Brain Wo Cont In Process Unspecified. EDMS 09/23 00:14 Maintain EMS IV. Dressing intact. Good blood return noted. Site clean \T\ dry. Gauge \T\ lg 3 site: 20 RFA. 00:18 Door closed. Noise minimized. Warm blanket given. lg3 00:18 Patient maintains SpO2 saturation greater than 95% on room air. lg3 01:15 Garcia Lopez MD is Hospitalizing Provider. sp4 04:49 No provider procedures requiring assistance completed. Patient admitted, IV remains in lg3 place. Administered Medications: 09/22 23:34 Drug: Geodon IM 20 mg IM once Route: IM; Site: left vastus lateralis; vc1 09/23 02:05 Follow up: Response: No adverse reaction; Marked relief of symptoms; Anxiety decreased; lg3 RASS: Light sedation (-2) 09/22 23:34 Drug: NS 0.9% IV 1000 ml IV at 125 ml/hr continuous Route: IV; Rate: 125 ml/hr; Site: vc1 right forearm; 09/23 04:48 Follow up: IV Status: Infusion continued upon admission lg3 Medication: 09/22 22:10 VIS not applicable for this client. vc1 Outcome: 09/23 01:16 Decision to Hospitalize by Provider. sp4 04:49 Admitted to Med/surg accompanied by tech, via stretcher, Report called to Rochelle gamez 04:49 Condition: stable 04:49 Instructed on the need for admit, 04:51 Patient left the ED. 3 Signatures: Dispatcher [employer] EDBao Segura, RN RN Ana Maria Parra RN RN lg3 Luz Marina Gutierrez RN RN vc1 Josh Lopes MD MD sp4 Corrections: (The following items were deleted from the chart) 04:51 03:00 General: per [facility] ICU is currently having an ant and johnson issue throughout lg3 the unit and will take report as soon as the issue resolves. . 3
--- NOTE | 2023-09-23 01:17 | EDPHYS ---
Physician Documentation [facility] Name: Alex Baugh Age: 78 yrs Sex: Male : 1945 Arrival Date: 09/22/2023 Time: 21:59 Bed 20 Private MD: ED Physician Josh Lopes HPI: 09/22 22:05 This 78 yrs old Male presents to ER via Unassigned with complaints of sp4 confusion , agitation . 09/23 00:05 PMH - 78-year-old male with a history of hypertension, prior Vvefdld-Mgotj-Wazym sp4 syndrome, arrhythmia (on Eliquis and amiodarone unknown exact arrhythmia as history is from patient) who recently had surgical drainage and cleaning of right replaced knee joint approximately 1 month ago with subsequent short-term senior care admission for rehab . Patient brought in by EMS because his has called about the fact that he was confused at home. On arrival a full history is not available secondary to confusion and mild agitation. Patient thinks he is in [facility]. Patient states that he has history of chronic right elbow deformity, history of prostate surgery, history of Hapfgwu-Kaswo-Tlouz disease. Patient appears to have moderate physical debility with incontinence of bladder. He is wearing depends. Patient has mild agitation on arrival poorly cooperative. Geodon had to be administered for mild agitation. . Historical: - Allergies: 09/22 22:07 No Known Allergies; vc1 - PMHx: 22:07 Anxiety; Hypertensive disorder; U.C.; vc1 - PSHx: 22:07 Appendectomy; B knee replacements; vc1 - Immunization history:: unsure how many; altered. - Social history:: Smoking status: Patient denies any tobacco usage or history of. - Family history:: not pertinent. ROS: 09/23 00:05 Constitutional: Negative for fever, chills, and weight loss, full ROS is not available sp4 secondary to confusion and acute delirium All other systems are negative, Unable to obtain ROS due to altered mental status, Exam: 00:05 Constitutional: This is a well developed, patient who is awake, alert, acutely sp4 delirious, mildly agitated, physically debilitated male thin in appearance with a right chronic appearing elbow deformity, signs of incontinence of urine, poorly cooperative with exam Head/Face: Normocephalic, atraumatic. Eyes: Pupils equal round and reactive to light, extra-ocular motions intact. Lids and lashes normal. Conjunctiva and sclera are not injected. Cornea within normal limits. Periorbital areas with no swelling, redness, or edema. ENT: Nares patent. No nasal discharge, no septal abnormalities noted. Tympanic membranes are normal and external auditory canals are clear. Oropharynx with no redness, swelling, or masses, exudates, or evidence of obstruction, uvula midline. Mucous membranes moist. Neck: Trachea midline, no thyromegaly or masses palpated, and no cervical lymphadenopathy. Supple, full range of motion without nuchal rigidity, or vertebral point tenderness. Chest/axilla: Normal chest wall appearance and motion. Nontender with no deformity. No lesions are appreciated. Cardiovascular: Regular rate and rhythm with a normal S1 and S2. No gallops, murmurs, or rubs. Normal PMI, no JVD. No pulse deficits. Respiratory: Lungs have equal breath sounds bilaterally, clear to auscultation and percussion. No rales, rhonchi or wheezes noted. No increased work of breathing, no retractions or nasal flaring. Abdomen/GI: Soft, non-tender, with normal bowel sounds. No distension or tympany. No guarding or rebound. No evidence of tenderness throughout. Back: No spinal tenderness. No costovertebral tenderness. Skin: Warm, dry with normal turgor. Normal color with no rashes, no lesions, and no evidence of cellulitis. MS/ Extremity: Pulses equal, no cyanosis. Neurovascular intact. Full, normal range of motion. Neuro: Awake and alert, GCS 14, oriented to person, disoriented to place or time, agitation poor cooperation limits examination but grossly no lateralizing neurologic deficits on exam Psych: Awake, alert, with orientation to person, disoriented to time and location. 00:11 ECG was reviewed by the Attending Physician. There is EKG at 2358 there is sinus rhythm sp4 at the rate of 87, there is muscle tremor artifact, no ST elevation or depression. No ectopy. EKG appears to be normal except for significant muscle tremor artifact Vital Signs: 09/22 22:03 Pulse 76; Resp 16; Temp 99.5; Pulse Ox 96% ; Weight 52.16 kg; Height 5 ft. 11 in. ; vc1 22:09 BP 146 / 76; vc1 23:00 BP 149 / 88; Pulse 86; Resp 21; Pulse Ox 97% ; vc1 11 00:00 BP 151 / 82; Pulse 81; Resp 16; Pulse Ox 100% ; vc1 01:49 BP 124 / 71; Pulse 78; Resp 19 S; Pulse Ox 97% on R/A; lg3 04:18 BP 123 / 63; Pulse 69; Resp 18 S; Pulse Ox 97% on R/A; bp 09/22 22:03 Body Mass Index 16.04 (52.16 kg, 180.34 cm) vc1 MDM: 09/22 22:06 Patient medically screened. sp4 09/23 00:05 Differential Diagnosis altered mental status, sepsis, flu. sp4 01:14 Data reviewed: vital signs, nurses notes, EMS record, old medical records, lab test sp4 result(s), EKG, radiologic studies, CT scan, plain films. Consideration of Admission/Observation Patient was admitted/placed on observation. Escalation of care including admission/observation considered. Management of patient was discussed with the following: Hospitalist: Discussed with Dr. Lopez with hospital medicine. ED course: This very pleasant gentleman presents with acute onset of confusion and delirium. CT head is normal, labs reviewed mild anemia, otherwise unremarkable. Request admission for observation. Geodon was administered in the ER for mild to moderate agitation. 09/22 22:07 Order name: BMP; Complete Time: 00:00 sp4 09/22 22:07 Order name: Blood Culture Adult (2) sp4 09/22 22:07 Order name: CBC with Diff; Complete Time: 00:00 sp4 09/22 22:07 Order name: CPK; Complete Time: 00:00 sp4 09/22 22:07 Order name: Hepatic Function; Complete Time: 00:00 sp4 09/22 22:07 Order name: Lipase; Complete Time: 00:00 sp4 09/22 22:07 Order name: Magnesium; Complete Time: 00:00 sp4 09/22 22:07 Order name: NT PRO-BNP; Complete Time: 00:00 sp4 09/22 22:07 Order name: PT-INR; Complete Time: 00:00 sp4 09/22 22:07 Order name: Ptt, Activated; Complete Time: 00:00 sp4 09/22 22:07 Order name: Troponin HS; Complete Time: 00:00 sp4 09/22 22:08 Order name: Urinalysis w/ reflexes sp 09/22 22:09 Order name: Urine Drug Screen [facility] 09/23 00:10 Order name: COVID-19 SARS RT PCR; Complete Time: 04:09 sp4 09/23 00:10 Order name: Influenza Screen (a \T\ B); Complete Time: 04:09 4 09/23 01:36 Order name: CBC with Automated Diff EDMS 09/23 01:36 Order name: CBC with Automated Diff EDMS 09/23 01:36 Order name: Comprehensive Metabolic Panel EDMS 09/23 01:36 Order name: Comprehensive Metabolic Panel [facility] 09/22 22:07 Order name: XRAY CXR (1 view); Complete Time: 01:11 4 09/22 22:50 Order name: Head Brain Wo Cont; Complete Time: 01:11 EDHI 09/22 22:07 Order name: EKG; Complete Time: 22:08 4 09/23 01:40 Order name: Social Service Consult EDHI 09/22 22:07 Order name: Cardiac monitoring; Complete Time: 23:26 sp4 09/22 22:07 Order name: EKG - Nurse/Tech; Complete Time: 23:26 4 09/22 22:07 Order name: IV Saline Lock; Complete Time: 22:50 sp4 09/22 22:07 Order name: Labs collected and sent; Complete Time: 22:50 4 09/22 22:07 Order name: O2 Per Protocol; Complete Time: 22:50 4 09/22 22:07 Order name: O2 Sat Monitoring; Complete Time: 22:50 sp4 EC:11 Rate is 87 beats/min. Rhythm is regular, Normal Sinus Rhythm. QRS Barnard is Normal. CT sp4 interval is normal. QRS interval is normal. QT interval is normal. No Q waves. T waves are Normal. No ST changes noted. Clinical impression: No evidence of ischemia. Interpreted by me. Administered Medications: 09/22 23:34 Drug: Geodon IM 20 mg IM once Route: IM; Site: left vastus lateralis; vc1 09/23 02:05 Follow up: Response: No adverse reaction; Marked relief of symptoms; Anxiety decreased; lg3 RASS: Light sedation (-2) 09/22 23:34 Drug: NS 0.9% IV 1000 ml IV at 125 ml/hr continuous Route: IV; Rate: 125 ml/hr; Site: [facility] right forearm; 09/23 04:48 Follow up: IV Status: Infusion continued upon admission lg3 Disposition Summary: 09/23/23 01:16 Hospitalization Ordered Notes: Hospitalization Status: Observation sp4 Provider: Garcia Lopez sp4 Condition: Stable sp4 Problem: new sp4 Symptoms: have improved sp4 Bed/Room Type: Standard sp4 Location: Intensive Care Unit(09/23/23 02:01) mw Room Assignment: 5-(09/23/23 02:01) mw Diagnosis - Delirium due to known physiological condition sp4 - Acute delirium with agitation, altered mental status, acute metabolic encephalopathysp4 Forms: - Medication Reconciliation Form sp4 - SBAR form sp4 - Leadership Thank You Letter sp4 Signatures: Dispatcher [employer] EDNita Gerard RN RN Luz Marina Gutierrez RN RN vc1 Josh Lopes MD MD sp4 Ana Maria Durand RN lg3 Corrections: (The following items were deleted from the chart) 09/22 22:50 22:08 Head Angio+CT.RAD.BRZ ordered. EDMS EDMS 09/23 00:02 09/22 22:08 Muro ordered. sp4 vc1 09/23 02:01 01:16 Telemetry/MedSurg (observation) sp4 mw 02:01 01:16 sp4 mw
[2023-09-23] MEDS ORDERED: ONDANSETRON 4 MG/2 ML VIAL IV PRN (01:31)
--- NOTE | 2023-09-23 01:37 | P.HP ---
Certification for Inpatient Patient admitted to: Inpatient With expected LOS: >2 Midnights Patient will require the following post-hospital care: Home Health Services Practitioner: I am a practitioner with admitting privileges, knowledge of patient current condition, hospital course, and medical plan of care. Services: Services provided to patient in accordance with Admission requirements found in Title 42 Section 412.3 of the Code of Federal Regulations Patient History Date of Service: 09/23/23 Reason for admission: AMS History of Present Illness: 78 yrs old Male with past medical history of dementia, hypertension, anxiety, Cfuxjeg-Cetua-Nhyna syndrome, arrhythmia (on Eliquis and amiodarone who recently had surgical drainage and cleaning of right knee joint approximately 1 month ago with subsequent [facility]-term jail admission for rehab . Patient brought in by EMS because his was concerned about the fact that he was confused at home. Patient could not offer any history hence most of the history is obtained from the chart review and also talking to the ER physician. Patient denies any fever but has chills. No nausea vomiting or diarrhea. Denies any chest pain or shortness of breath. Patient was assessed in the ER and was admitted for acute encephalopathy possibly metabolic/dehydration/UTI Allergies No Known Allergies Allergy (Unverified 12/07/16 21:45) Home medications list reviewed: No (Could not obtain ) - Past Medical/Surgical History Past Medical History: Reviewed- Non-Contributory -: dementia, hypertension, anxiety, Xnygqhq-Kprwt-Fpehi syndrome, arrhythmia -: Ortho - Family History Family History: Reviewed- Non-Contributory - Social History Smoking Status: Never smoker Review of Systems is unable to be obtained Physical Examination - Vital Signs Temperature: 99.5 F Blood Pressure: 146/78 Pulse: 92 Respirations: 18 Pulse Ox (%): 98 - Physical Exam General: Alert, Oriented x1, Cooperative, Cachectic, Mild distress HEENT: Atraumatic, Normocephalic Neck: Supple, No Thyromegaly Respiratory: Clear to auscultation bilaterally, Normal air movement Cardiovascular: No edema, Regular rate/rhythm, Normal S1 S2 Capillary refill: <2 Seconds Gastrointestinal: Soft and benign, W/out hepatosplenomegaly Musculoskeletal: No clubbing, No swelling Integumentary: No rashes Neurological: Other (Alert, Awake , Demented ) Lymphatics: No axilla or inguinal lymphadenopathy - Studies Laboratory Data (last 24 hrs) 09/22/23 09/22/23 09/22/23 22:25 22:25 22:25 WBC 11.80 H Hgb 9.5 L Hct 29.5 L Plt Count 474 H PT 12.4 INR 1.13 APTT 29.7 Sodium 137 Potassium 3.8 BUN 21 H Creatinine 0.97 Glucose 99 Magnesium 1.8 Total Bilirubin 0.5 AST 8 L ALT < 10 L Alkaline Phosphatase 84 Lipase 18 Assessment and Plan - Problems (Diagnosis) (1) Acute metabolic encephalopathy Current Visit: Yes Status: Acute Plan: Patient is altered Could not offer any history Monitor closely on telemetry Possibly dehydrated IV hydration CT head is negative for any acute changes Probably acute encephalopathy metabolic on top of dementia Monitor neuro vital signs closely (2) UTI (urinary tract infection) Current Visit: Yes Status: Acute Plan: UA still pending Patient has chills and leukocytosis We will start on empirical antibiotic We will obtain urine culture Change antibiotic as per sensitivity IV hydration (3) Dementia Current Visit: Yes Status: Chronic Plan: Patient has worsening of dementia CT head is negative for any acute changes May need neurology consult Supportive management (4) Hypertension Current Visit: Yes Status: Chronic Plan: continue home medications and titrate as needed Hydralazine for now (5) Anxiety Current Visit: Yes Status: Chronic Plan: Monitor closely Ativan as needed Discharge Plan: Home Plan to discharge in: 48 Hours - Advance Directives Does patient have a Living Will: No Does patient have a Durable POA for Healthcare: No - Code Status/Comfort Care Code Status Assessed: No (Dementia ) Physician Review: Patient Assessed, Agree with Above Assessment and Plan Time Spent Managing Pts Care (In Minutes): 48
[2023-09-23] MEDS ORDERED: HYDRALAZINE HCL 20 MG/ML VIAL IV PRN (05:24)
[2023-09-23 06:03] VITALS: BMI 17.8
--- NOTE | 2023-09-23 08:52 | P.PN ---
Date of Service: 09/23/23 Subjective: Improving, oriented x2. Knows the year and that he is in the hospital but thought he was in [place]. Denies any current complaints or pain. ROS: 10 point ROS as noted above, otherwise negative Physical exam GEN: Alert, oriented x2 , NAD HEENT: Normal conjunctiva, sclera anicteric CV: Regular rate and rhythm, no edema Pulm: Nonlabored respirations on room air ABD: Soft, nontender, nondistended MSK: No joint tenderness Integumentary: No rashes Neuro: Normal speech, normal affect Vitals reviewed Problem List Acute metabolic encephalopathy Leukocytosis Dementia Hypertension Anxiety Acute metabolic encephalopathy Leukocytosis Improving-now oriented x2, unclear etiology Blood cultures obtained and pendingcontinue to follow Urinalysis not yet obtained Obtain CT abdomen/pelvis with IV contrast History of septic right knee~1 month ago, no pain with range of motion Dementia Chronic-likely contributing to encephalopathy Continue home medications Hypertension Anxiety Continue home medications VTE: Lovenox Code: Full Dispo: 48 hours Time Spent Managing Pts Care (In Minutes): 35 <Hamilton Rhodes - Last Filed: 09/23/23 08:50> Patient seen and examined on rounds this morning. Plan of care discussed with WINE MERCHANT Meagan. Agree with plan as noted above with the following additions/corrections: Patient awake/alert, but appears confused. Nursing staff report no urine output overnight, report you staff were unable to place Muro catheter due to resistance Check CT abdomen/pelvis Uncertain if patient was significantly dehydrated or with obstruction Will likely need Muro catheter placement <Edwin Lovell - Last Filed: 09/23/23 12:35>
[2023-09-23] MEDS: CEFTRIAXONE 1,000 MG in NA CHLORIDE 0.9% 50 ML IVPB SCH (08:59)
[2023-09-23] MEDS: NA CHLORIDE 0.9% 1,000 ML IV SCH (08:59)
[2023-09-23] MEDS: MORPHINE 2 MG/ML SYR IV PRN (10:06)
--- NOTE | 2023-09-23 12:10 | RAD REPORT ---
EXAM DESCRIPTION: CT - Abdomen Pelvis W Contrast - 09/23/2023 8:40 am CLINICAL HISTORY: Abdominal pain COMPARISON: none. TECHNIQUE: Computed axial tomography of the abdomen pelvis was obtained. 100 cc Isovue-300 was admin istered intravenously. Oral contrast was not requested which limits evaluation of bowel and appendix All CT scans are performed using dose optimization technique as appropriate and may include automated exposure control or mA/KV adjustment according to patient size. FINDINGS: Small hepatic cysts. Spleen, pancreas and adrenals appear unremarkable. Renal cysts Marked bladder distention. Moderate amount stool within the colon There is no evidence of diverticulitis. Mild anterior subluxation of L5 on S1. Cortical irregularity involves the vertebral endplates of L5 a nd S1 with sclerosis. Mild posterior subluxation of L2 on L3 IMPRESSION: Marked bladder distention. Moderate amount stool within the colon Cortical irregularity involves the vertebral endplates of L5 and S1 with sclerosis. This may all be d egenerative in nature. Infection/inflammation can also have this appearance. This should be correlate d clinically and with appropriate labs. MRI with contrast may be helpful for further evaluation
[2023-09-23] MEDS ORDERED: HOME MED 1 EA UNK (Mesalamine [Mesalamine] 1.2 GM Tablet.Dr) PO SCH (21:00)
[2023-09-23] MEDS: MESALAMINE 400 MG CAPSULE.DR PO SCH (22:15)
[2023-09-23] MEDS: ENSURE ENLIVE 237 ML CAN PO SCH (22:20)
[2023-09-24] MEDS: NA CHLORIDE 0.9% 1,000 ML IV SCH ×2 (05:21→18:00)
[2023-09-24 07:03] LABS: Absolute Lymphocytes (CBC) 0.9 K/uL (0.7-4.9); Hematocrit 27.3 % (39.6-49.0); Lymphocytes % 7.2 % (15.3-44.8); MCV 84.8 fL (80-100); MPV 6.7 fL (7.6-11.3); Platelets 463 thou/uL (152-406); RBC Red Blood Cell Count 3.21 M/uL (4.33-5.43)
[2023-09-24 07:15] LABS: AST/SGOT 10 U/L (15-37); Albumin 2.1 g/dL (3.4-5.0); Alkaline Phosphatase 75 U/L (45-117); BUN Blood Urea Nitrogen 13 mg/dL (7-18); Bicarbonate 26 mEq/L (21-32); Bilirubin Total 0.3 mg/dL (0.2-1.0); Glomerular Filtration Rate 93 ml/min (=/>90); Glucose Level 116 mg/dL (74-106); Magnesium 1.8 mg/dL (1.6-2.4); Potassium 3.7 mEq/L (3.5-5.1); Protein, Total 6.2 g/dL (6.4-8.2); Sodium Level 134 mEq/L (136-145)
[2023-09-24 07:17] LABS: ALT/SGPT < 10 U/L (16-61)
[2023-09-24] MEDS ORDERED: HOME MED 1 EA UNK (Ferrous Gluconate [Ferrous Gluconate] 324 MG Tablet) PO SCH (09:00)
[2023-09-24] MEDS ORDERED: [UNRECOGNIZED DRUG - OTHER] PO SCH (09:00)
[2023-09-24] MEDS ORDERED: VALSARTAN PO SCH (09:00)
[2023-09-24] MEDS ORDERED: HOME MED 1 EA UNK (Duloxetine Hcl [Cymbalta] 60 MG Capsule.Dr) PO SCH (09:00)
[2023-09-24] MEDS: ENSURE ENLIVE 237 ML CAN PO SCH ×2 (09:00→22:06)
[2023-09-24] MEDS ORDERED: HYDROCHLOROTHIAZIDE PO SCH (09:00)
[2023-09-24] MEDS: CEFTRIAXONE 1,000 MG in NA CHLORIDE 0.9% 50 ML IVPB SCH (09:52)
[2023-09-24] MEDS: FERROUS SULFATE 325 MG TAB PO SCH (09:52)
[2023-09-24] MEDS: hydroCHLOROthiazide 12.5 MG CAP PO SCH (09:52)
[2023-09-24] MEDS: VALSARTAN 80 MG TAB PO SCH (09:52)
[2023-09-24] MEDS: DULOXETINE 30 MG CAP PO SCH (09:52)
[2023-09-24] MEDS: ENOXAPARIN 40 MG/0.4 ML SQ SCH (09:53)
[2023-09-24] MEDS: MESALAMINE 400 MG CAPSULE.DR PO SCH ×2 (10:33→22:06)
--- NOTE | 2023-09-24 10:58 | P.PN ---
Date of Service: 09/24/23 Subjective: Improving, oriented x2. Knows the year and that he is in the hospital but thought he was in [place]. Denies any current complaints or pain. ROS: 10 point ROS as noted above, otherwise negative Physical exam GEN: Alert, oriented x2 , NAD HEENT: Normal conjunctiva, sclera anicteric CV: Regular rate and rhythm, no edema Pulm: Nonlabored respirations on room air ABD: Soft, nontender, nondistended MSK: No joint tenderness Integumentary: No rashes Neuro: Normal speech, normal affect Vitals reviewed Problem List Acute metabolic encephalopathy Leukocytosis Dementia Hypertension Anxiety Acute metabolic encephalopathy Leukocytosis Improving-now alert, oriented x3 at baseline Blood cultures obtained- NGTD Urinalysis not yet obtained-ordered again CT abd pelvis with enlarged bladder but able to urinate after History of septic right knee~1 month ago, no pain with range of motion Wants to go home but lives with who is now at an inpatient pyschiatric facility PT eval to determine level of ability to care for himself at home Dementia Chronic Continue home medications Hypertension Anxiety Continue home medications VTE: Lovenox Code: Full Dispo: 48 hours Time Spent Managing Pts Care (In Minutes): 35
[2023-09-24 15:52] LABS: Specific Gravity 1.013 (1.005-1.030); Urine Bacteria None Seen /HPF (<20); Urine Bilirubin NEGATIVE (Negative); Urine Blood Negative (Negative); Urine Clarity Clear (Clear); Urine Color Light-Yellow (Yellow); Urine Glucose NEGATIVE (Negative); Urine Protein TRACE (Negative); Urine Urobilinogen Normal (Normal); Urine pH 6.5 (5.0-7.0)
[2023-09-24 21:28] LABS: Hematocrit 27.5 % (39.6-49.0); Lymphocytes % 7.3 % (15.3-44.8); MCV 84.7 fL (80-100); MPV 6.6 fL (7.6-11.3); Platelets 453 thou/uL (152-406); RBC Red Blood Cell Count 3.25 M/uL (4.33-5.43)
[2023-09-24 21:29] LABS: Absolute Lymphocytes (CBC) 0.9 K/uL (0.7-4.9)
[2023-09-24] MEDS: VANCOMYCIN 1 GM in NA CHLORIDE 0.9% 250 ML IVPB SCH ×2 (22:14→22:15)
[2023-09-25 06:48] LABS: Magnesium 1.9 mg/dL (1.6-2.4); Potassium 3.8 mEq/L (3.5-5.1)
[2023-09-25] MEDS: hydroCHLOROthiazide 12.5 MG CAP PO SCH (08:01)
[2023-09-25] MEDS: MESALAMINE 400 MG CAPSULE.DR PO SCH ×2 (08:01→22:13)
[2023-09-25] MEDS: FERROUS SULFATE 325 MG TAB PO SCH (08:01)
[2023-09-25] MEDS: VALSARTAN 80 MG TAB PO SCH (08:02)
[2023-09-25] MEDS: DULOXETINE 30 MG CAP PO SCH (08:02)
[2023-09-25] MEDS: CEFTRIAXONE 1,000 MG in NA CHLORIDE 0.9% 50 ML IVPB SCH (08:03)
[2023-09-25] MEDS: ENOXAPARIN 40 MG/0.4 ML SQ SCH (08:03)
[2023-09-25] MEDS: ENSURE ENLIVE 237 ML CAN PO SCH ×2 (08:03→22:14)
--- NOTE | 2023-09-25 10:02 | P.PN ---
Date of Service: 09/25/23 Subjective: Improving, oriented x2. Still pleasantly confused ROS: 10 point ROS as noted above, otherwise negative Physical exam GEN: Alert, oriented x2 , NAD HEENT: Normal conjunctiva, sclera anicteric CV: Regular rate and rhythm, no edema Pulm: Nonlabored respirations on room air ABD: Soft, nontender, nondistended MSK: No joint tenderness Integumentary: No rashes Neuro: Normal speech, normal affect Vitals reviewed Problem List Acute metabolic encephalopathy Leukocytosis Dementia Hypertension Anxiety Acute metabolic encephalopathy Leukocytosis Improving-now alert, oriented x2-3 waxing and waning Blood cultures obtained- NGTD UA not concerning for UTI CT abd pelvis with enlarged bladder but able to urinate after History of septic right knee~1 month ago, no pain with range of motion Wants to go home but lives with who is now at an inpatient pyschiatric facility PT eval ongoing, possible DC to rehab or SNF On empiric rocephin Dementia Chronic Continue home medications Hypertension Anxiety Continue home medications VTE: Lovenox Code: Full Dispo: 48 hours Time Spent Managing Pts Care (In Minutes): 35
[2023-09-25] MEDS: ACETAMINOPHEN 500 MG TAB PO PRN (11:53)
[2023-09-25] MEDS: VANCOMYCIN 1 GM in NA CHLORIDE 0.9% 250 ML IVPB SCH (16:12)
[2023-09-25 16:40] LABS: Absolute Lymphocytes (CBC) 0.9 K/uL (0.7-4.9); Hematocrit 28.2 % (39.6-49.0); MCV 85.1 fL (80-100); MPV 6.3 fL (7.6-11.3); Platelets 502 thou/uL (152-406); RBC Red Blood Cell Count 3.31 M/uL (4.33-5.43)
[2023-09-26] MEDS: MORPHINE 2 MG/ML SYR IV PRN ×3 (00:28→19:43)
[2023-09-26 06:52] LABS: Hematocrit 28.9 % (39.6-49.0); MCV 84.6 fL (80-100); MPV 6.4 fL (7.6-11.3); Platelets 552 thou/uL (152-406); RBC Red Blood Cell Count 3.42 M/uL (4.33-5.43)
[2023-09-26 07:20] LABS: Magnesium 1.8 mg/dL (1.6-2.4); Potassium 3.5 mEq/L (3.5-5.1)
[2023-09-26] MEDS: ENSURE ENLIVE 237 ML CAN PO SCH ×2 (09:00→19:50)
--- NOTE | 2023-09-26 09:33 | P.PN ---
Date of Service: 09/26/23 Subjective: Improving, oriented x2. Still pleasantly confused Working with PT Unsteady on feet, fall risk, with intermittent confusion ROS: 10 point ROS as noted above, otherwise negative Physical exam GEN: Alert, oriented x2 , NAD HEENT: Normal conjunctiva, sclera anicteric CV: Regular rate and rhythm, no edema Pulm: Nonlabored respirations on room air ABD: Soft, nontender, nondistended MSK: No joint tenderness Integumentary: No rashes Neuro: Normal speech, normal affect Vitals reviewed Problem List Acute metabolic encephalopathy Deconditioning/weakness Leukocytosis Dementia Hypertension Anxiety Acute metabolic encephalopathy Leukocytosis Deconditioning/weakness Improving-now alert, oriented x2-3 waxing and waning Blood cultures obtained- NGTD UA not concerning for UTI CT abd pelvis with enlarged bladder but able to urinate after History of septic right knee~1 month ago, no pain with range of motion Wants to go home but lives with who is now at an inpatient pyschiatric facility PT eval ongoing, possible DC to rehab or SNF On empiric rocephin will continue for another day Dementia Chronic Continue home medications Hypertension Anxiety Continue home medications VTE: Lovenox Code: Full Dispo: 48 hours Time Spent Managing Pts Care (In Minutes): 35
[2023-09-26] MEDS: VANCOMYCIN 1 GM in NA CHLORIDE 0.9% 250 ML IVPB SCH (09:51)
[2023-09-26] MEDS: hydroCHLOROthiazide 12.5 MG CAP PO SCH (09:52)
[2023-09-26] MEDS: CEFTRIAXONE 1,000 MG in NA CHLORIDE 0.9% 50 ML IVPB SCH (09:52)
[2023-09-26] MEDS: ENOXAPARIN 40 MG/0.4 ML SQ SCH (09:52)
[2023-09-26] MEDS: MESALAMINE 400 MG CAPSULE.DR PO SCH ×2 (09:52→19:43)
[2023-09-26] MEDS: VALSARTAN 80 MG TAB PO SCH (09:53)
[2023-09-26] MEDS: FERROUS SULFATE 325 MG TAB PO SCH (09:53)
[2023-09-26] MEDS: DULOXETINE 30 MG CAP PO SCH (09:53)
[2023-09-27] MEDS: MORPHINE 2 MG/ML SYR IV PRN ×3 (01:55→20:36)
[2023-09-27] MEDS: VANCOMYCIN 1 GM in NA CHLORIDE 0.9% 250 ML IVPB SCH ×2 (05:16→23:38)
[2023-09-27] MEDS ORDERED: [UNRECOGNIZED DRUG - REMARK] XX PRN (06:35)
[2023-09-27] MEDS: CEFTRIAXONE 1,000 MG in NA CHLORIDE 0.9% 50 ML IVPB SCH (08:03)
[2023-09-27] MEDS: hydroCHLOROthiazide 12.5 MG CAP PO SCH (08:04)
[2023-09-27] MEDS: FERROUS SULFATE 325 MG TAB PO SCH (08:04)
[2023-09-27] MEDS: ENOXAPARIN 40 MG/0.4 ML SQ SCH (08:04)
[2023-09-27] MEDS: DULOXETINE 30 MG CAP PO SCH (08:04)
[2023-09-27] MEDS: VALSARTAN 80 MG TAB PO SCH (08:04)
[2023-09-27] MEDS: MESALAMINE 400 MG CAPSULE.DR PO SCH ×2 (08:06→20:35)
[2023-09-27] MEDS: ENSURE ENLIVE 237 ML CAN PO SCH ×2 (08:07→20:35)
--- NOTE | 2023-09-27 09:51 | P.PN ---
Date of Service: 09/27/23 Subjective: Improving, oriented x2. Still pleasantly confused Working with PT Unsteady on feet, fall risk, with intermittent confusion continues to ask about his ROS: 10 point ROS as noted above, otherwise negative Physical exam GEN: Alert, oriented x2 , NAD HEENT: Normal conjunctiva, sclera anicteric CV: Regular rate and rhythm, no edema Pulm: Nonlabored respirations on room air ABD: Soft, nontender, nondistended MSK: No joint tenderness Integumentary: No rashes Neuro: Normal speech, normal affect Vitals reviewed Problem List Acute metabolic encephalopathy Deconditioning/weakness Leukocytosis Dementia Hypertension Anxiety Acute metabolic encephalopathy Leukocytosis Deconditioning/weakness Improving-now alert, oriented x2-3 waxing and waning Blood cultures obtained 11/20 + staph aureus, has been on rocephin/vanc repeat Blood cultures likely contaminant UA not concerning for UTI CT abd pelvis with enlarged bladder but able to urinate after History of septic right knee~1 month ago, no pain with range of motion Wants to go home but lives with who is now at an inpatient pyschiatric facility tentative DC date 10/02 reportedly accepted to inp rehab, pending bed Dementia Chronic Continue home medications Hypertension Anxiety Continue home medications VTE: Lovenox Code: Full Dispo: 48 hours Time Spent Managing Pts Care (In Minutes): 35
--- NOTE | 2023-09-27 14:28 | EKG ---
Test Date: 2023-09-22 Test Time: 23:58:41 Quality Improvement Manager: ALONA MEASUREMENT RESULTS: Intervals: Rate: 87 CA: 136 QRSD: 68 QT: 376 QTc: 452 [place]: P: -2 CA: 136 QRS: 27 T: 44 INTERPRETIVE STATEMENTS: Normal sinus rhythm Anteroseptal infarct, age undetermined Abnormal ECG Compared to ECG 06/18/2023 18:50:53 Myocardial infarct finding now present Electronically Signed On 09-27-23 14:16:24 FLOOR PLAN ADJUSTER by Jacques Lim
[2023-09-28] MEDS: ENOXAPARIN 40 MG/0.4 ML SQ SCH (08:29)
[2023-09-28] MEDS: hydroCHLOROthiazide 12.5 MG CAP PO SCH (08:29)
[2023-09-28] MEDS: MESALAMINE 400 MG CAPSULE.DR PO SCH ×2 (08:30→20:43)
[2023-09-28] MEDS: DULOXETINE 30 MG CAP PO SCH (08:30)
[2023-09-28] MEDS: FERROUS SULFATE 325 MG TAB PO SCH (08:30)
[2023-09-28] MEDS: VALSARTAN 80 MG TAB PO SCH (08:30)
[2023-09-28] MEDS: ENSURE ENLIVE 237 ML CAN PO SCH ×2 (08:31→20:43)
--- NOTE | 2023-09-28 11:09 | P.PN ---
Date of Service: 09/28/23 Subjective: Improving, oriented x2. Still pleasantly confused Working with PT Unsteady on feet, fall risk, with intermittent confusion continues to ask about his confused but easily re-directable ROS: 10 point ROS as noted above, otherwise negative Physical exam GEN: Alert, oriented x2 , NAD HEENT: Normal conjunctiva, sclera anicteric CV: Regular rate and rhythm, no edema Pulm: Nonlabored respirations on room air ABD: Soft, nontender, nondistended MSK: No joint tenderness Integumentary: No rashes Neuro: Normal speech, normal affect Vitals reviewed Problem List Acute metabolic encephalopathy Deconditioning/weakness Leukocytosis Dementia Hypertension Anxiety Acute metabolic encephalopathy Leukocytosis Deconditioning/weakness Improving-now alert, oriented x2-3 waxing and waning Blood cultures obtained 11/20 + staph aureus, has been on rocephin/vanc Rocephin discontinued, will also discuss stopping vanc repeat Blood cultures no growth in 24 hours, likely contaminant UA not concerning for UTI CT abd pelvis with enlarged bladder but able to urinate after History of septic right knee~1 month ago, no pain with range of motion Wants to go home but lives with who is now at an inpatient pyschiatric facility tentative DC date 10/02 reportedly accepted to inp rehab, pending bed Dementia Chronic Continue home medications Hypertension Anxiety Continue home medications VTE: Lovenox Code: Full Dispo: 48 hours Time Spent Managing Pts Care (In Minutes): 35
[2023-09-28] MEDS: ACETAMINOPHEN 500 MG TAB PO PRN (18:26)
[2023-09-29 03:29] LABS: Hematocrit 27.1 % (39.6-49.0); MCV 84.6 fL (80-100); MPV 6.3 fL (7.6-11.3); Platelets 715 thou/uL (152-406)
[2023-09-29] MEDS: hydroCHLOROthiazide 12.5 MG CAP PO SCH (08:41)
[2023-09-29] MEDS: ENOXAPARIN 40 MG/0.4 ML SQ SCH (08:41)
[2023-09-29] MEDS: MESALAMINE 400 MG CAPSULE.DR PO SCH ×2 (08:42→19:37)
[2023-09-29] MEDS: DULOXETINE 30 MG CAP PO SCH (08:42)
[2023-09-29] MEDS: VALSARTAN 80 MG TAB PO SCH (08:42)
[2023-09-29] MEDS: FERROUS SULFATE 325 MG TAB PO SCH (08:42)
[2023-09-29] MEDS: ENSURE ENLIVE 237 ML CAN PO SCH ×2 (08:43→19:38)
[2023-09-29] MEDS: ACETAMINOPHEN 500 MG TAB PO PRN ×3 (10:06→23:26)
--- NOTE | 2023-09-29 11:36 | P.PN ---
Date of Service: 09/29/23 Subjective: Improving, oriented x2. Still pleasantly confused Working with PT Unsteady on feet, fall risk, with intermittent confusion continues to ask about his confused but easily re-directable ROS: 10 point ROS as noted above, otherwise negative Physical exam GEN: Alert, oriented x2 , NAD HEENT: Normal conjunctiva, sclera anicteric CV: Regular rate and rhythm, no edema Pulm: Nonlabored respirations on room air ABD: Soft, nontender, nondistended MSK: No joint tenderness Integumentary: No rashes Neuro: Normal speech, normal affect Vitals reviewed Problem List Acute metabolic encephalopathy Deconditioning/weakness Leukocytosis Dementia Hypertension Anxiety Acute metabolic encephalopathy Leukocytosis Deconditioning/weakness Improving-now alert, oriented x2-3 waxing and waning Blood cultures obtained 11/20 + staph aureus, has been on rocephin/vanc Received 7 days of empiric rocephin/vanc, now discontinued repeat Blood cultures no growth in 24 hours, likely contaminant UA not concerning for UTI CT abd pelvis with enlarged bladder but able to urinate after History of septic right knee~1 month ago, no pain with range of motion Wants to go home but lives with who is now at an inpatient pyschiatric facility tentative DC date 10/02 reportedly accepted to inp rehab, pending bed, likely to be accepted 1114 AM Dementia Chronic Continue home medications Hypertension Anxiety Continue home medications VTE: Lovenox Code: Full Dispo: 48 hours Time Spent Managing Pts Care (In Minutes): 35
[2023-09-30 00:34] VITALS: O2SAT 94
[2023-09-30] MEDS: ENSURE ENLIVE 237 ML CAN PO SCH (09:00)
[2023-09-30] MEDS: DULOXETINE 30 MG CAP PO SCH (09:01)
[2023-09-30] MEDS: hydroCHLOROthiazide 12.5 MG CAP PO SCH (09:01)
[2023-09-30] MEDS: MESALAMINE 400 MG CAPSULE.DR PO SCH (09:02)
[2023-09-30] MEDS: VALSARTAN 80 MG TAB PO SCH (09:02)
[2023-09-30] MEDS: ENOXAPARIN 40 MG/0.4 ML SQ SCH (09:02)
[2023-09-30] MEDS: FERROUS SULFATE 325 MG TAB PO SCH (09:02)
--- NOTE | 2023-09-30 09:08 | P.DS ---
Admission Date: 09/23/23 Discharge Date: 09/30/23 Disposition: TRANSFER TO INPATIENT REHAB Discharge Condition: FAIR Reason for Admission: AMS - Problems (1) Bacteremia Status: Acute (2) UTI (urinary tract infection) Status: Acute Brief History of Present Illness: 78 yrs old Male with past medical history of dementia, hypertension, anxiety, Sdnrzaa-Hafpk-Vjepd syndrome, arrhythmia (on Eliquis and amiodarone who recently had surgical drainage and cleaning of right knee joint approximately 1 month ago with subsequent short-term senior living admission for rehab . Patient brought in by EMS because his was concerned about the fact that he was confused at home. Patient could not offer any history hence most of the history is obtained from the chart review and also talking to the ER physician. Patient denies any fever but has chills. No nausea vomiting or diarrhea. Denies any chest pain or shortness of breath. Patient was assessed in the ER and was admitted for acute encephalopathy possibly metabolic/dehydration/UTI Hospital Course: Alex is a pleasant 78-year-old male with a past medical history significant for dementia, hypertension, anxiety, Jknfjcv-Hwfke-Uunnq syndrome, arrhythmia who was admitted to the [facility] on 09/23/23 for acute encephalopathy possibly metabolic/dehydration/UTI. Alex has tolerated IV fluids, IV antibiotics, physical therapy and PO diet. He is on room air and more oriented this morning, he is aware of his discharge to the inpatient rehab on the fifth floor. On 09/30/2023, Alex was seen on morning rounds and deemed medically stable for discharge to inpatient rehab. Patient was discharged with instructions to schedule follow-up appointments with PCP. Alex was provided a prescription for Levaquin. The patient and family members were given the opportunity to ask questions and reported no further questions. Furthermore, all questions were answered to the best of my ability. A copy of this discharge summary will be sent to the above providers to facilitate continuity of care. Today, I personally spent 55 minutes with Alex, of which greater than 50% of the time was spent in patient education, counseling, and coordination of care as described above. Physical Exam General: Alert, Oriented x1, Cooperative, Cachectic, NAD HEENT: Atraumatic, Normocephalic Neck: Supple, No Thyromegaly Respiratory: Clear to auscultation bilaterally, Normal air movement Cardiovascular: No edema, Regular rate/rhythm, Normal S1 S2 Capillary refill: <2 Seconds Gastrointestinal: Soft and benign, W/out hepatosplenomegaly Musculoskeletal: No clubbing, No swelling Integumentary: No rashes Neurological: Other (Alert, Awake , Demented ) Lymphatics: No axilla or inguinal lymphadenopathy Vital Signs/Physical Exam: Temp Pulse Resp BP Pulse Ox 97.4 F 76 18 178/92 H 95 09/30/23 04:00 09/30/23 09:02 09/30/23 04:00 09/30/23 09:02 09/30/23 04:00 Laboratory Data at Discharge: WBC 11.20 thou/uL (4.3-10.9) H 09/29/23 02:52 Hgb 8.9 g/dL (13.6-17.9) L 09/29/23 02:52 Hct 27.1 % (39.6-49.0) L 09/29/23 02:52 Plt Count 715 thou/uL (152-406) H 09/29/23 02:52 PT 12.4 SECONDS (9.5-12.5) 09/22/23 22:25 INR 1.13 09/22/23 22:25 APTT 29.7 SECONDS (24.3-36.9) 09/22/23 22:25 Sodium 134 mEq/L (136-145) L 09/26/23 06:36 Potassium 3.5 mEq/L (3.5-5.1) 09/26/23 06:36 BUN 14 mg/dL (7-18) 09/26/23 06:36 Creatinine 0.71 mg/dL (0.70-1.30) 09/26/23 06:36 Glucose 101 mg/dL (74-106) 09/26/23 06:36 Magnesium 1.8 mg/dL (1.6-2.4) 09/26/23 06:36 Total Bilirubin 0.3 mg/dL (0.2-1.0) 09/24/23 05:55 AST 10 U/L (15-37) L 09/24/23 05:55 ALT < 10 U/L (16-61) L 09/24/23 05:55 Alkaline Phosphatase 75 U/L (45-117) 09/24/23 05:55 Lipase 18 U/L (13-75) 09/22/23 22:25 Home Medications: Duloxetine HCl [Cymbalta] 60 mg PO DAILY 09/23/23 Ferrous Gluconate 324 mg PO DAILY 09/23/23 Mesalamine 1.2 gm PO BID 09/23/23 Valsartan/Hydrochlorothiazide [Valsartan-Hctz 80-12.5 mg Tab] 1 each PO DAILY 09/23/23 Meloxicam [Mobic*] 7.5 mg PO DAILY 09/24/23 Ensure Enlive 237 ml PO BID can 09/30/23 Ensure Enlive 237 ml PO BID can 09/30/23 levoFLOXacin [Levaquin] 750 mg PO DAILY #7 tab 09/30/23 New Medications: levoFLOXacin [Levaquin] 750 mg PO DAILY #7 tab Physician Discharge Instructions: 1. Follow up with PCP in one to two weeks -for medication management 2. Continue vegetarian diet 3. Plan to work with physical therapy while with Rehab 4. ambulation is unsteady but will improve with therapy, supportive ambulation New medication: Levaquin 750 mg daily for seven days Diet: vegetarian Activity: Fall precautions Followup: NONE,NONE [Primary Care Provider] - Time spent managing pt's care (in minutes): 55
[2023-09-30 12:17] LABS: SARS-CoV-2 Antigen Rapid Res Negative (Negative)
[2023-09-30 13:12] VITALS: BP 154/78; TEMP 96.4
== END 2023-09-30 18:07 | DRG 689 ==
LOC: ER 21:59 → 3RD-ICU 09-23 02:14 → 4TH 09-23 16:30
PROVIDERS: ADMIT Family Medicine; ATTEND Internal Medicine
DX: N39.0 Urinary tract infection, site not specified (principal); G93.41 Metabolic encephalopathy; F03.911 Unspecified dementia, unspecified severity, with agitation; F03.94 Unspecified dementia, unspecified severity, with anxiety; F05 Delirium due to known physiological condition; R64 Cachexia; Z68.1 Body mass index [BMI] 19.9 or less, adult; R78.81 Bacteremia; I10 Essential (primary) hypertension; D64.9 Anemia, unspecified; E86.0 Dehydration; D72.829 Elevated white blood cell count, unspecified; B95.61 Methicillin susceptible Staphylococcus aureus infection as the cause of diseases classified elsewhere; Z11.52 Encounter for screening for COVID-19; Z79.01 Long term (current) use of anticoagulants; Z90.49 Acquired absence of other specified parts of digestive tract; Z79.899 Other long term (current) drug therapy; Z96.653 Presence of artificial knee joint, bilateral; Z96.651 Presence of right artificial knee joint
CPT/HCPCS: 36415; 70450; 71045; 74177; 80048; 80053; 80076; 80202; 81001; 82550; 83690; 83735; 83880; 84145; 84484; 85025; 85027; 85610; 85730; 86140; 87040; 87077; 87186; 87205; 87635; 87804; 87811; 93005; 96360; 96361; 96372; 97116; 97161; 97530; 99285; J0360; J0696; J1650; J2270; J3486; J7030; J7050; Q9967

== ENCOUNTER 2023-09-30 09:03 | Inpatient (IN) | payer OTHER, BC ==
--- OUTSIDE RECORDS SUMMARY | 2023-09-30 16:27 | XMS REPORT | Continuity of Care Document ---
:1945 Author Organization [facility] t Address [address] [place] [address] [place] [id number] Care Team Providers Name Role Phone Cruz Pope MD Primary Care Physician [phone] Provider MD, Not In System Attending Clinician Unavailable Jose Luis SZYMANSKI, Eran Bernard Attending Clinician Kylah Schofield MA Attending Clinician Unavailable NKECHI ASCENCIO Attending Clinician Unavailable Doctor Unassigned, [place] Attending Clinician Unavailable Konstantin SZYMANSKI, Wilver Silverman Attending Clinician Spencer SZYMANSKI, Binta Acosta Attending Clinician [phone] Zhao SZYMANSKI, Clyde Douglas Attending Clinician [phone] Kristian1 Dana Bardales MD Attending Clinician Luis Manuel Wood MD Attending Clinician Gurpreet Chambers Attending Clinician Unavailable Cruz Tavares Attending Clinician Unavailable Milvia Attending Clinician Unavailable Umer Newton MD Attending Clinician UMER [place]WT[place] Attending Clinician Unavailable UMER [place] Attending Clinician Unavailable Erika Attending Clinician Unavailable Eran Gr Attending Clinician [phone] Ravinder Snell Attending Clinician [phone] Ravinder Snell Attending Clinician Unavailable Eran Gr Attending Clinician Unavailable Cruz Tavares Attending Clinician [phone] STALIN OWENS Attending Clinician Unavailable AFSHAN ROCA [...] Policy Number Effective Date Expiration Date S srai MEDICARE PART A \\T\\ [id number] 2010 B 00:00:00 BCBS TRADITIONAL [id number] 2013 00:00:00 [place]: [id number] 2010 [place] SOLUTIONS 00:00:00 [place] [id number] 2013 (MEDICARE 00:00:00 SUPPLEMENT) CGS (MEDICARE DME [id number] 2010 REGION C) 00:00:00 EPISODE SOLUTIONS [id number] Problems Condition Condition Condition Status Onset Resolution [...] dic internal Internal 00 Sports orthopedic Orthopedic [place] dicin device, Device, e implant Implant AND/OR [...] 803 Clear Allergie 00:00: [place] 00 [facility] No Known DA Active U [facility] Allergie 714 Clear s 00:00: [place] 00 [facility] No Known DA Active U 2020-11 [facility] Allergie 11-25 [place] 00:00: Orthope 00 dic Hospita l No Known DA Active U 2018-11 [facility] Allergie 0-18 Clear s 00:00: [place] [facility] Sulfamet Propensi Active Nausea And 2017- [facility] hoxazole ty to Vomiting [facility]-15 [facility] adverse 00:00: Medical reaction 00 [place] SULFAMET DRUG Active N/V Univers HOXAZOLE INGREDI 6-16 ity of 00:00: [place] 00 [facility] Sulfamet Propensi Active Nausea Univer s hoxazole ty to and/or 6-16 ity of adverse Vomiting 00:00: [place] reaction 00 [facility] No Known DA Active U 2012-11 [facility]ergie [facility] 00:00: Orthope 00 dic Hospita l NO KNOWN Drug Active Univers ALLERGIE Class ity of S [facility] Social History Social Habit Start Date Stop Date Quantity Comments Source Sexual orientation [facility] Gender identity Universit y of [facility] History SDOH [facility] Alcohol Frequency [facility] Center History SDOH [facility] Alcohol Std Drinks [facility] History SDOH [facility] Alcohol Binge Medical Kike ter History of Social 2023-06-28 2023-06-[address] function 00:00:00 00:00:00 Hospital Exposure to 2023-03-25 2023-04-04 Not sure University of SARS-CoV-2 (event) 00:00:00 13:43:00 [facility] Tobacco use and 2023-04-04 2023-04-04 Smokeless Universit y of exposure 00:00:00 00:00:00 tobacco non-user [facility] Alcohol intake 2017-07-09 2017-07-09 [facility] alcohol [facility] (finding) Alcohol Comment 2017-07-01 2017-07-[address] [facility] 00:[facility]00 [facility] Center History of tobacco 1972-07-[address] [facility] use 00:00:00 [facility] Center Sex Assigned At [address] [facility] 00:[facility]00 [facility]00 [facility] Center Smoking Status Start Date Stop Date Source Former Smoker [facility] Tobacco smoking consumption [facility] unknown Never smoked tobacco [facility] Medications Ordered Filled Start Stop Current [...] 25mg QD Take 1 Met hodi one 8-12 09-12 tablet (25 st (ALDACTONE) 00:00: 04:59 mg [...] 12 hours or as directed by pantoprazol No 40mg QD Take 1 Met hodi [...] l tablet daily for 30 days. apixaban 2022-0 Yes 5mg Q.5D Take 1 Methodi (ELIQUIS) 5 8-11 tablet (5 st mg tablet 00:00: mg total) Hos maddy 00 by mouth 2 l (two) times a day. HYDROcodone 2022-0 Yes [id number] 1{tbl} Q6H Take 1 M ethodi -acetaminop 8-[address] (NORCO) 00:00: mouth Hospi ta 5-325 mg 00 every 6 l per tablet (six) hours as needed for moderate pain .acute pain. Max Daily Amount: 4 tablets apixaban 2022-0 Yes 5mg Q.5D Take 1 Methodi (ELIQUIS) 5 8-11 tablet (5 st mg tablet 00:00: mg total) Hos maddy 00 by mouth 2 l (two) times a day. HYDROcodone 2022-0 Yes [id number] 1{tbl} Q6H Take 1 M ethodi -acetaminop 8-[address] hen (Inkive) 00:00: mouth Hospi ta 5-325 mg 00 every 6 l per tablet (six) hours as needed for moderate pain .acute pain. Max Daily Amount: 4 tablets apixaban 2022-0 Yes 5mg Q.5D Take 1 Methodi (ELIQUIS) 5 -11 tablet (5 st mg tablet 00:00: mg total) Hos maddy 00 by mouth 2 l (two) times a day. HYDROcodone 2022-0 Yes [id number] 1{tbl} Q6H Take 1 M ethodi -acetaminop 8-[address] hen (Inkive) 00:00: mouth Hospi ta 5-325 mg 00 every 6 l per tablet (six) hours as needed for moderate pain .acute pain. Max Daily Amount: 4 tablets ceFAZolin 3-0 2023- No 2g Q8H Infuse 2 g [...] 8 (eight) hours for 34 days. acetaminoph 3-0 3- No 650mg Q6H Take 2 Me thodi en 06-[address] (TYLENOL) 00:00: 04:59 (650 mg Hosp corrine 325 MG 00 :00 total) by l tablet mouth every 6 (six) hours as needed for mild pain or fever for up to 30 days. amIODarone 2022-0 2023- No 200mg QD Take 1 Met hodi [...] evening for 30 days. ipratropium 2022- No [id number] 3mL Q.59749078 Take 3 mL Methodi -albuteroL 06-[id number] (DUO-NEB) 00:00: 04:59 3D nebulizati [...] evening for 30 days. ipratropium 2022- No [id number] 3mL Q.15828742 Take 3 mL Methodi -albuteroL 06-[id number] (DUO-NEB) 00:00: 04:59 3D nebulizati [...] mouth every evening for 30 days. ipratropium 0 2022- No [id number] 3mL Q.42297466 Take 3 mL Methodi -albuteroL 8-11 09-[id number] (DUO-NEB) 00:00: 04:59 3D nebulizati [...] daily with dinner for 30 days. polysacchar 2022-2022- No 150mg Q.5D Take 1 Me thodi jed iron 06-[address] complex 00:00: 04:59 (150 mg Hospit a (NIFEREX) 00 :00 total) by l 150 mg iron mouth 2 capsule (two) times a day for 30 days. ioflupane I 2022- No [id number] 5.5mCi 5.5 Univers 123 5-10 05-10 millicurie ity of (DATSCAN) 16:15: 16:15 , [place] injection 00 :00 Intravenou Medi cyndy 5.5 s, ONCE, 1 Branch millicurie dose, On Fri03/26/23 at 1115, Routine potassium 3-0 2023- No [id number] 100mg 0.1 mL Univers iodide 5-10 05-10 (100 mg), ity of (SSKI) 1 15:00: 15:00 [place] gram/mL 00 :00 NOW, 1 Medical solution dose, On Branch 0.1 mL Fri03/26/23 at 1000, Routine carbidopa-l 2022-0 Yes [id number] 1{tbl} Take 1 Univers evodopa 5-03 tablet by ity of (SINEMET) 00:00: mouth [place] 25-100 mg 00 the Medical tablet morning Branch and 1 tablet at noon and 1 tablet in the evening. Take at 7AM, 11AM and 3PM everyday. carbidopa-l 2022-0 Yes [id number] 1{tbl} Take 1 Univers evodopa 5-03 tablet by ity of (SINEMET) 00:00: mouth [place] 25-100 mg 00 the Medical tablet morning Branch and 1 tablet at noon and 1 tablet in the evening. Take at 7AM, 11AM and 3PM everyday. carbidopa-l 2022-0 Yes [id number] 1{tbl} Take 1 Univers evodopa 5-03 tablet by ity of (SINEMET) 00:00: mouth [place] 25-100 mg 00 the Medical tablet morning Branch and 1 tablet at noon and 1 tablet in the evening. Take at 7AM, 11AM and 3PM everyday. carbidopa-l 3-0 Yes [id number] 1{tbl} Take 1 Univers evodopa 5-03 tablet by ity of (SINEMET) 00:00: mouth [place] 25-100 mg 00 the Medical tablet morning Branch and 1 tablet at noon and 1 tablet in the evening. Take at 7AM, 11AM and 3PM everyday. carbidopa-l 3-0 Yes [id number] 1{tbl} Take 1 Univers evodopa 5-03 tablet by ity of (SINEMET) 00:00: mouth [place] 25-100 mg 00 the Medical tablet morning Branch and 1 tablet at noon and 1 tablet in the evening. Take at 7AM, 11AM and 3PM everyday. carbidopa-l 2023-0 Yes [id number] 1{tbl} Take 1 Univers evodopa 5-03 tablet by ity of (SINEMET) 00:00: mouth [place] 25-100 mg 00 the Medical tablet morning Branch and 1 tablet at noon and 1 tablet in the evening. Take at 7AM, 11AM and 3PM everyday. carbidopa-l 3-0 Yes [id number] 1{tbl} Take 1 Univers evodopa 5-03 tablet by ity of (SINEMET) 00:00: mouth [place] 25-100 mg 00 the Medical tablet morning Branch and 1 tablet at noon and 1 tablet in the evening. Take at 7AM, 11AM and 3PM everyday. carbidopa-l 2023-0 Yes [id number] 1{tbl} Take 1 Univers evodopa 5-03 tablet by ity of (SINEMET) 00:00: mouth [place] 25-100 mg 00 the Medical tablet morning Branch and 1 tablet at noon and 1 tablet in the evening. Take at 7AM, 11AM and 3PM everyday. gadobenate 2022-0 2022- No [id number] .2mL/kg 0.2 mL/kg, Univers dimeglumine 03-06 Intravenou i ty of (MULTIHANCE 14:00: 13:47 s, ONCE, 1 [place] -15 mL) 00 :00 dose, On Medical injection Jacqueline Branch 0.2 mL/kg 03/06/23 at 0900, Routine ARIPiprazol 2022-0 Yes aripiprazo Univers e 2 mg 4-07 le 2 mg ity of tablet 11:33: tablet Shayna 36 TAKE THREE Medical (3) Branch TABLET(S) BY MOUTH DAILY AT BEDTIME. ARIPiprazol 2022-0 Yes aripiprazo Univers e 2 mg 4-07 le 2 mg ity of tablet 11:33: tablet Shayna 36 TAKE THREE Medical (3) Branch TABLET(S) BY MOUTH DAILY AT BEDTIME. ARIPiprazol 2022-0 Yes aripiprazo Univers e 2 mg 4-07 le 2 mg ity of tablet 11:33: tablet [place] 36 TAKE THREE Medical (3) Branch TABLET(S) BY MOUTH DAILY AT BEDTIME. ARIPiprazol 3-0 Yes aripiprazo Univers e 2 mg 4-07 le 2 mg ity of tablet 11:33: tablet [place] 36 TAKE THREE Medical (3) Branch TABLET(S) BY MOUTH DAILY AT BEDTIME. ARIPiprazol 2022-0 Yes aripiprazo Univers e 2 mg 4-07 le 2 mg ity of tablet 11:33: tablet [place] 36 TAKE THREE Medical (3) Branch TABLET(S) BY MOUTH DAILY AT BEDTIME. ARIPiprazol 2022-0 Yes aripiprazo Univers e 2 mg 4-07 le 2 mg ity of tablet 11:33: tablet [place] 36 TAKE THREE Medical (3) Branch TABLET(S) BY MOUTH DAILY AT BEDTIME. ARIPiprazol 2022-0 Yes aripiprazo Univers e 2 mg 4-07 le 2 mg ity of tablet 11:33: tablet [place] 36 TAKE THREE Medical (3) Branch TABLET(S) BY MOUTH DAILY AT BEDTIME. ARIPiprazol 2022-0 Yes aripiprazo Univers e 2 mg 4-07 le 2 mg ity of tablet 11:33: tablet [place] 36 TAKE THREE Medical (3) Branch TABLET(S) BY MOUTH DAILY AT BEDTIME. ARIPiprazol 3-0 Yes aripiprazo Univers e 2 mg 4-07 le 2 mg ity of tablet 11:33: tablet [place] 36 TAKE THREE Medical (3) Branch TABLET(S) BY MOUTH DAILY AT BEDTIME. ARIPiprazol 2022-0 Yes aripiprazo Univers e 2 mg 4-07 le 2 mg ity of tablet 11:33: tablet [place] 36 TAKE THREE Medical (3) Branch TABLET(S) BY MOUTH DAILY AT BEDTIME. ARIPiprazol 2022-0 Yes aripiprazo Univers e 2 mg 4-07 le 2 mg ity of tablet 11:33: tablet [place] 36 TAKE THREE Medical (3) Branch TABLET(S) BY MOUTH DAILY AT BEDTIME. ARIPiprazol 3-0 Yes aripiprazo Univers e 2 mg 4-07 le 2 mg ity of tablet 11:33: tablet [place] 36 TAKE THREE Medical (3) Branch TABLET(S) BY MOUTH DAILY AT BEDTIME. ARIPiprazol 2023-0 Yes aripiprazo Univers e 2 mg 4-07 le 2 mg ity of tablet 11:33: tablet [place] 36 TAKE THREE Medical (3) Branch TABLET(S) BY MOUTH DAILY AT BEDTIME. ARIPiprazol 3-0 Yes aripiprazo Univers e 2 mg 4-07 le 2 mg ity of tablet 11:33: tablet [place] 36 TAKE THREE Medical (3) Branch TABLET(S) BY MOUTH DAILY AT BEDTIME. ARIPiprazol 3-0 Yes aripiprazo Univers e 2 mg 4-07 le 2 mg ity of tablet 11:33: tablet [place] 36 TAKE THREE Medical (3) Branch TABLET(S) BY MOUTH DAILY AT BEDTIME. ARIPiprazol 2022-0 Yes aripiprazo Univers e 2 mg 4-07 le 2 mg ity of tablet 11:33: tablet [place] 36 TAKE THREE Medical (3) Branch TABLET(S) BY MOUTH DAILY AT BEDTIME. ARIPiprazol 2022-0 Yes aripiprazo Univers e 2 mg 4-07 le 2 mg ity of tablet 11:33: tablet 36 TAKE THREE Medical (3) Branch TABLET(S) BY MOUTH DAILY AT BEDTIME. orphenadrin 3-0 Yes 100mg Take 1 Uni [...] TABLET 3 ity of tablet 00:00: TIMES DAY BY Medical ORAL Branch ROUTE. methocarbam 3-0 Yes TAKE 1 Univ ers oL 500 mg 2-28 TABLET 3 ity of tablet 00:00: TIMES DAY BY Medical ORAL Branch ROUTE. meloxicam 3-0 Yes TAKE 1 Univer s 15 mg 2-01 TABLET BY ity of tablet 00:00: EVERY DAY Medical NEEDED Branch meloxicam 3-0 Yes TAKE 1 Univer s 15 mg 2-01 TABLET BY ity of tablet 00:00: EVERY DAY Medical NEEDED Branch meloxicam 3-0 Yes TAKE 1 Univer s 15 mg 2-01 TABLET BY ity of tablet 00:00: EVERY DAY Medical NEEDED Branch meloxicam 3-0 Yes TAKE 1 Univer s 15 mg 2-01 TABLET BY ity of tablet 00:00: EVERY DAY Medical NEEDED Branch meloxicam 3-0 Yes TAKE 1 Univer s 15 mg 2-01 TABLET BY ity of tablet 00:00: EVERY DAY Medical NEEDED Branch meloxicam 3-0 Yes TAKE 1 Univer s 15 mg 2-01 TABLET BY ity of tablet 00:00: EVERY DAY Medical NEEDED Branch meloxicam 3-0 Yes TAKE 1 Univer s 15 mg 2-01 TABLET BY ity of tablet 00:00: EVERY DAY Medical NEEDED Branch meloxicam 3-0 Yes TAKE 1 Univer s 15 mg 2-01 TABLET BY ity of tablet 00:00: EVERY DAY Medical NEEDED Branch meloxicam 3-0 Yes TAKE 1 Univer s 15 mg 2-01 TABLET BY ity of tablet 00:00: EVERY DAY Medical NEEDED Branch meloxicam 2023-0 Yes TAKE 1 Univer s 15 mg 2-01 TABLET BY ity of tablet 00:00: 00 EVERY DAY Medical NEEDED Branch meloxicam 2023-0 Yes TAKE 1 Univer s 15 mg 2-01 TABLET BY ity of tablet 00:00: EVERY DAY Medical NEEDED Branch meloxicam 2023-0 [...] [place] 00 every Medical morning. Branch DULoxetine 3-0 Yes 60mg Take 1 Unive rs 60 mg 1-19 capsule by ity of capsule 00:00: mouth [place] 00 every Medical morning. Branch DULoxetine 3-0 [...] [place] 00 every Medical morning. Branch amLODIPine Yes 5mg QD Take 5 mg CH [...] tablet 20 (two) Center times daily. meloxicam 2016-0 Yes 15mg QD Take [address] (MOBIC) 15 8-24 by mouth [facility] MG tablet 18:17: daily. Medica 20 [place] mesalamine 2017-0 Yes 1200mg Q.5D Take 1,[address] (LIALDA) 8-24 mg by [facility]ukes 1.2 gram EC 18:17: mouth 2 Med ical tablet 20 (two) Center times daily. amLODIPine 2017-0 Yes 5mg QD Take [address] (NORVASC) 5 8-24 by mouth Luke s MG tablet 18:17: daily. Medica l 20 [place] calcium 2017-0 Yes 667mg Q.5D Take 667 [...] mouth [facility]ukes MG tablet 18:17: daily. Medica [address] [facility] [address] Yes 1200mg Q.5D Take 1,[address] (LIALDA) 8-24 mg by Lukes 1.2 gram EC 18:17: mouth 2 Med ical tablet 20 (two) Center times daily. amLODIPine 2017-0 Yes 5mg QD Take [address] (NORVASC) 5 8-24 by mouth Luke s MG tablet 18:17: daily. Medica 20 [place] calcium 2017-0 Yes 667mg Q.5D Take 667 [...] s MG tablet 18:17: daily. Medica 20 [place] calcium 2017-0 Yes 667mg Q.5D Take 667 [...] mouth [facility]ukes MG tablet 18:17: daily. Medica [address] mesalamine 2017-0 Yes 1200mg Q.5D Take 1,[address] (LIALDA) 8-24 mg by Lukes 1.2 gram EC 18:17: mouth 2 Med ical tablet 20 (two) Center times daily. amLODIPine 2017-0 Yes 5mg QD Take [address] (NORVASC) 5 8-24 by mouth Luke s MG tablet 18:17: daily. Medica [address] calcium 2017-0 Yes 667mg Q.5D Take 667 [...] Lukes MG tablet 18:17: daily. Medica 20 [place] mesalamine 2017-0 Yes 1200mg Q.5D Take 1,200 [...] MG tablet 18:17: daily. Medica l 20 [place] mesalamine 2017-0 Yes 1200mg Q.5D Take 1,[address] (LIALDA) 8-24 mg by Lukes 1.2 gram EC 18:17: mouth 2 Med ical tablet 20 (two) Center times daily. amLODIPine 2017-0 Yes 5mg QD Take [address] (NORVASC) 5 8-24 by mouth Luke s MG tablet 18:17: daily. Medica l 20 [place] calcium 2017-0 Yes 667mg Q.5D Take 667 [...] MG tablet 18:17: daily. Medica l 20 [place] mesalamine 2017-0 Yes 1200mg Q.5D Take 1,200 [...] MG tablet 18:17: daily. Medica l 20 [place] mesalamine 2017-0 Yes 1200mg Q.5D Take 1,200 [...] ical tablet 20 (two) Center times daily. ketoconazol ketoconazol No ketoconazo Le e 2 [...] MORNING MORNING EVERY DAY IN THE MORNING Voltlaurien Voltlaurien No Voltlaurien Aza babak Arthritis Arthritis Arthritis Orthope Pain [...] IN THE MORNING gabapentin gabapentin No gabapentin El 600 mg 600 mg 600 mg Orthope [...] aspirin 81 aspirin 81 No aspirin 81 El mg mg mg Orthope tablet,jagdish tablet,jagdish tablet,del [...] A WEEK WEEK WEEK DIRECTED DIRECTED DIRECTED Vital Signs Vital Name Observation Time Observation Value Comments Source Systolic blood 2023-04-04 18:50:00 142 mm[Hg] Univer sity of [facility] Diastolic blood 2023-04-04 18:50:00 84 mm[Hg] [facility] Heart rate 2023-04-04 18:49:00 74 /min Universi ty [facility] Respiratory rate 2023-04-04 18:49:00 20 /min Univ ersity [facility] Body height 2023-04-04 18:49:00 180.3 cm Universi ty [facility] Body weight 2023-04-04 18:49:00 65.772 kg Universi ty [facility] BMI 2023-04-04 18:49:00 20.22 kg/m2 Universi ty [facility] Oxygen saturation in 2023-04-04 18:49:00 97 /min [facility] Arterial blood by [facility] Pulse oximetry Branch Systolic blood 2023-03-17 14:46:00 149 mm[Hg] Univer sity of [facility] Diastolic blood 2023-03-17 14:46:00 75 mm[Hg] Unive rsity of [facility] Heart rate 2023-03-17 14:11:00 74 /min Universi ty [facility] Body height 2023-03-17 14:11:00 180.3 cm Universi ty [facility] Body weight 2023-03-17 14:11:00 65.772 kg Universi ty [facility] BMI 2023-03-17 14:11:00 20.22 kg/m2 Universi ty [facility] Oxygen saturation in 2023-03-17 14:11:00 97 /min University of Arterial blood by [facility] Pulse oximetry Branch Systolic blood 2023-02-21 16:32:00 148 mm[Hg] Univer sity of pressure [facility] Diastolic blood 2023-02-21 16:32:00 73 mm[Hg] Unive rsity of pressure [facility] Heart rate 2023-02-21 16:31:00 73 /min Universi [facility] Body height 2023-02-21 16:31:00 [facility] 2023-02-21 16:31:00 [facility]225 [facility] 2023-02-21 16:31:00 20.36 kg/m2 [facility] Oxygen saturation in 2023-02-21 16:31:00 99 /min [facility] Arterial blood by [facility] Pulse oximetry Branch Height 2022-07-25 00:00:00 72 [...] pressure Diastolic blood 2023-06-28 16:12:50 59 mm[Hg] [facility] pressure Heart rate 2023-06-28 16:12:50 112 /min [facility] Body temperature 2023-06-28 16:12:50 36.5 Enedelia [facility] Respiratory rate 2023-06-28 16:12:50 20 /min [facility] Oxygen saturation in 2023-06-28 16:12:50 94 /min [facility] Arterial blood by Pulse oximetry Body weight 2023-06-28 09:37:15 66.724 kg [facility] BMI 2023-06-28 09:37:15 20.52 kg/m2 [facility] Body height 2023-06-20 16:01:00 180.3 cm [facility] Systolic blood 2023-06-19 21:30:00 140 mm[Hg] Method t Hospital pressure Diastolic blood 2023-06-19 21:30:00 73 mm[Hg] [facility] pressure Heart rate 2023-06-19 21:30:00 87 /min [facility] Respiratory rate 2023-06-19 21:30:00 21 /min [facility] Oxygen saturation in 2023-06-19 21:30:00 97 /min [facility] Arterial blood by Pulse oximetry Body temperature 2023-06-19 19:30:00 36.94 Enedelia [facility] Procedures Procedure Date / Time Performing Clinician Source Performed CBC WITH PLATELET AND 2023-08-15 00:00:00 Provider, Not In [facility] DIFFERENTIAL System BASIC METABOLIC PANEL 2023-08-15 00:00:00 Provider, Not In [facility] System CBC WITH PLATELET AND 2023-08-14 00:00:00 Provider, Not In [facility] DIFFERENTIAL System BASIC METABOLIC PANEL 2023-08-14 00:00:00 Provider, Not In [facility] System CBC WITH PLATELET AND 2023-07-30 00:00:00 Provider, Not In [facility] DIFFERENTIAL System BUN LEVEL 2023-07-30 00:00:00 Provider, Not In [facility] CREATININE LEVEL 2023-07-30 00:00:00 Provider, Not In [facility] CBC WITH PLATELET AND 2023-07-16 00:00:00 Provider, Not In [facility] DIFFERENTIAL System CREATININE LEVEL 2023-07-16 00:00:00 Provider, Not In [facility] BUN LEVEL 2023-07-16 00:00:00 Provider, Not In [facility] HOME HEALTH - OTHER 2023-06-30 05:01:00 Doctor Unassigned, No Un iversity of [facility] Branch CBC WITH PLATELET AND 2023-06-28 10:30:00 [facility] DIFFERENTIAL N. BASIC METABOLIC PANEL 2023-06-28 10:30:00 [facility] N. ESTIMATED GFR 2023-06-28 10:30:00 [facility] N. MAGNESIUM LEVEL 2023-06-28 10:30:00 [facility] N. PHOSPHORUS LEVEL 2023-06-28 10:30:[address] [facility] N. CBC WITH PLATELET AND 2023-06-27 09:32:00 Goldsmith, [facility] DIFFERENTIAL MAGNESIUM LEVEL 2023-06-27 09:32:00 Goldsmith, [facility] spital PHOSPHORUS LEVEL 2023-06-27 09:32:00 Goldsmith, [facility] ospital ENTERIC BACTERIAL PANEL 2023-06-26 22:15:00 [facility] N. ECG 12-LEAD 2023-06-26 19:17:32 [place]sem[place], Iriagbonse [facility] Juwan CBC WITH PLATELET AND 2023-06-26 09:21:00 Goldsmith, [facility] DIFFERENTIAL MAGNESIUM LEVEL 2023-06-26 09:21:00 Goldsmith, [facility] PHOSPHORUS LEVEL 2023-06-26 09:21:00 Goldsmith, [facility] BASIC METABOLIC PANEL 2023-06-26 09:21:00 Wilver Pryor [facility] ESTIMATED GFR 2023-06-26 09:21:00 Wilver Pryor [facility] MANUAL DIFFERENTIAL 2023-06-26 09:21:00 [facility] US ANKLE BRACHIAL INDEX 2023-06-26 02:16:00 Wilver Pryor [facility] US DUPLEX ARTERIAL LOWER 2023-06-26 02:07:00 Wilver Pryor [facility] EXTREMITY LEFT ECG 12-LEAD 2023-06-26 01:22:27 AsemotaLeslieagtanner [facility] Juwan CBC WITH PLATELET AND 2023-06-25 09:24:00 Goldsmith, [facility] DIFFERENTIAL COMPREHENSIVE METABOLIC 2023-06-25 09:24:00 Goldsmith, [facility] PANEL MAGNESIUM LEVEL 2023-06-25 09:24:00 Goldsmith, [facility] PHOSPHORUS LEVEL 2023-06-25 09:24:00 Goldsmith, [facility] IONIZED CALCIUM 2023-06-25 09:24:00 Goldsmith, [facility] CYSTATIN C WITH EGFR 2023-06-25 09:24:00 [facility] 2023-06-25 09:24:00 [facility] MANUAL DIFFERENTIAL 2023-06-25 09:24:00 [facility] BASIC METABOLIC PANEL 2023-06-24 22:29:00 Lydia Mccracken [facility] ESTIMATED GFR 2023-06-24 22:29:00 Konstantin [facility] ESTIMATED GFR 2023-06-24 22:27:00 [facility] 2023-06-24 21:40:01 Cory Vu [facility] XR PICC CHEST PORTABLE 2023-06-24 20:57:34 Wilver Pryor [facility] [facility] POC GLUCOSE 2023-06-24 20:53:00 Wilver Pryor [facility] POC GLUCOSE 2023-06-24 16:50:00 Wilver Pryor [facility] PARTIAL THROMBOPLASTIN 2023-06-24 15:24:00 Wilver Pryor [facility] TIME (PTT) POC GLUCOSE 2023-06-24 12:57:00 Wilver Pryor [facility] XR CHEST 1 VW PORTABLE 2023-06-24 11:55:00 [facility] DIGOXIN LEVEL 2023-06-24 11:06:00 Asemota Iriagbonse [facility] Juwan ECG 12-LEAD 2023-06-24 10:23:31 [facility]semota[facility] WITH PLATELET AND 2023-06-24 08:57:00 Goldsmith, [facility] DIFFERENTIAL COMPREHENSIVE METABOLIC 2023-06-24 08:57:00 Goldsmith, [facility] PANEL MAGNESIUM LEVEL 2023-06-24 08:57:00 Goldsmith, [facility] PHOSPHORUS LEVEL 2023-06-24 08:57:00 Goldsmith, [facility] ospital IONIZED CALCIUM 2023-06-24 08:57:00 Goldsmith, [facility] DIGOXIN LEVEL 2023-06-24 08:57:00 Viral Strange [facility] PARTIAL THROMBOPLASTIN 2023-06-24 08:57:00 Wilver Pryor [facility] TIME (PTT) ESTIMATED GFR 2023-06-24 08:57:00 [facility] MANUAL DIFFERENTIAL 2023-06-24 08:57:00 Binta Palmer [facility] Dave POC GLUCOSE 2023-06-24 05:10:00 Wilver Pryor Clare [facility] POTASSIUM LEVEL 2023-06-24 02:10:00 Aaron Swanson [facility] PARTIAL THROMBOPLASTIN 2023-06-24 02:10:00 Aaron Swanson [facility] TIME (PTT) POC GLUCOSE 2023-06-24 01:21:00 Wilver Pryor [facility] ECG 12-LEAD 2023-06-23 23:05:15 Asemota, [facility] Juwan BASIC METABOLIC PANEL 2023-06-23 22:36:00 Lydia Mccracken [facility] ESTIMATED GFR 2023-06-23 22:36:00 [facility] POC GLU[facility]SE 2023-06-23 21:19:00 [facility] PARTIAL THROMBOPLASTIN 2023-06-23 17:17:00 [facility] ([facility]TT[facility] POC GLUCOSE 2023-06-23 16:49:00 [facility] POC GLUCOSE 2023-06-23 12:55:00 [facility] XR CHEST 1 VW PORTABLE 2023-06-23 11:58:00 Goldsmith, [facility] CBC WITH PLATELET AND 2023-06-23 10:25:00 Goldsmith, [facility] DIFFERENTIAL COMPREHENSIVE METABOLIC 2023-06-23 10:25:00 Goldsmith, [facility] PANEL DIGOXIN LEVEL 2023-06-23 10:25:00 Kiesha Flemingist Ho spital MAGNESIUM LEVEL 2023-06-23 10:25:00 Goldsmith, [facility] PHOSPHORUS LEVEL 2023-06-23 10:25:00 Goldsmith, [facility] NT-PROBNP 2023-06-23 10:25:00 Goldsmith, [facility] IONIZED CALCIUM 2023-06-23 10:25:00 Goldsmith, [facility] PARTIAL THROMBOPLASTIN 2023-06-23 10:25:00 Goldsmith, [facility] TIME (PTT) ESTIMATED GFR 2023-06-23 10:25:00 [facility] MANUAL DIFFERENTIAL 2023-06-23 10:25:00 Binta Palmer [facility] POC GLUCOSE 2023-06-23 09:22:00 [facility] POC GLUCOSE 2023-06-23 05:29:00 [facility] ANTI XA, UNFRACTIONATED 2023-06-23 02:59:00 [facility] BASIC METABOLIC PANEL 2023-06-23 02:59:00 [facility] 2023-06-23 02:59:00 Binta Palmer [facility] POC GLUCOSE 2023-06-23 01:15:00 [facility] POC GLUCOSE 2023-06-22 21:28:00 [facility] BASIC METABOLIC PANEL 2023-06-22 21:07:00 Goldsmith, [facility] ESTIMATED GFR 2023-06-22 21:07:00 [facility] MAGNESIUM LEVEL 2023-06-22 21:07:00 [facility] PHOSPHORUS LEVEL 2023-06-22 21:07:00 [facility] DUPLEX VENOUS LOWER 2023-06-22 20:01:00 Agus [facility] EXTREMITY BILATERAL POC GLUCOSE 2023-06-22 16:57:00 [facility] X[facility] CHEST 1 VW PORTABLE 2023-06-22 13:09:41 [facility] POC [facility]UCOSE 2023-06-22 13:01:00 [facility] POC GLUCOSE 2023-06-22 10:17:00 [facility] CBC WITH PLATELET AND 2023-06-22 06:20:00 VuLydia [facility] DIFFERENTIAL COMPREHENSIVE METABOLIC 2023-06-22 06:20:00 VuLydia [facility] PANEL MAGNESIUM LEVEL 2023-06-22 06:20:00 VuLydiaist Ho spital PHOSPHORUS LEVEL 2023-06-22 06:20:00 Vu, Lydia Headist H ospital ESTIMATED GFR 2023-06-22 06:20:00 Binta Palmer [facility] POC GLUCOSE 2023-06-22 05:38:00 [facility] POC GLUCOSE 2023-06-22 01:42:00 Binta Palmer [facility] POC GLUCOSE 2023-06-21 21:27:00 Binta Palmer [facility] C-REACTIVE PROTEIN 2023-06-21 21:16:00 [facility] Omead SEDIMENTATION RATE 2023-06-21 21:16:00 [facility] XR KNEE 1 OR 2 VW RIGHT 2023-06-21 17:33:23 HolderDakota villanueva [facility] XR KNEE 1 OR 2 VW LEFT 2023-06-21 17:33:06 Vu, [facility] X[facility] FOOT 2 VW BILATERAL 2023-06-21 17:32:53 Vu, [facility]ien [facility] XR ELBOW 2 VW RIGHT 2023-06-21 17:32:39 Vu, [facility]SE 2023-06-21 12:49:00 [facility] XR CHEST 1 VW PORTABLE 2023-06-21 12:19:03 Vu, Lien [facility] POTASSIUM LEVEL 2023-06-21 10:40:00 Vu, Lydia Zulema [facility] POC GLUCOSE 2023-06-21 09:56:00 [facility] POC GLUCOSE 2023-06-21 06:04:00 [facility] CBC WITH PLATELET AND 2023-06-21 05:50:00 VuLydia [facility] DIFFERENTIAL COMPREHENSIVE METABOLIC 2023-06-21 05:50:00 VuLydiaoc [facility] PANEL MAGNESIUM LEVEL 2023-06-21 05:50:00 Vu, Lydia Zulema [facility] spital PHOSPHORUS LEVEL 2023-06-21 05:50:00 VuLydiaoc [facility]ital CYSTATIN C WITH EGFR 2023-06-21 05:50:00 Binta Palmer [facility] TROPONIN T 2023-06-21 05:50:00 Vu, Lydia Zulema [facility] spital ESTIMATED GFR 2023-06-21 05:50:00 [facility] MANUAL DIFFERENTIAL 2023-06-21 05:50:00 [facility] BLO[facility], AEROBIC & 2023-06-21 05:49:00 Romina Betancourt [facility] ANAEROBIC TROPONIN T 2023-06-21 03:44:00 Vu, Lydia Veras Ho spital POC GLUCOSE 2023-06-21 01:46:00 [facility] TTE COMPLETE, WO 2023-06-21 00:17:00 Vu, Lydia Poole [facility] CONTRAST, W DOPPLER ([id number]) POC GLUCOSE 2023-06-20 23:21:00 [facility]-PR[facility] 2023-06-20 23:14:00 Vu, Lydia Veras Ho spital TROPONIN T 2023-06-20 23:14:00 Vu, Lydia Poole [facility] BASIC METABOLIC PANEL 2023-06-20 23:14:00 Vu, [facility] MAGNESIUM LEVEL 2023-06-20 23:14:00 Vu, Lydia Veras spital PHOSPHORUS LEVEL 2023-06-20 23:14:00 Vu, Lydia Veras H ospital ESTIMATED GFR 2023-06-20 23:14:00 [facility] 1 VW PORTABLE 2023-06-20 23:06:35 Vu, [facility] ECG 12-LEAD 2023-06-20 22:49:27 Vu, Lydia Veras Ho spital ARTERIAL BLOOD GAS, 2023-06-20 21:18:00 [facility] HEMOGLOBIN, SYRINGE 2023-06-20 21:18:00 [facility] 2023-06-20 20:20:00 Spencer [facility] ANAEROBIC CULTURE 2023-06-20 20:14:00 Jose Luis, [facility] [employer] STAIN 2023-06-20 20:14:00 Jose Luis, [facility] AF[employer] CULTURE 2023-06-20 20:14:00 Jose Luis, [facility] GRAM STAIN 2023-06-20 20:14:00 Jose Luis, [facility] TISSUE CULTURE 2023-06-20 20:14:00 Jose Luis, [facility] ANAEROBIC CULTURE 2023-06-20 20:07:00 Jose Luis, [facility] [employer] STAIN 2023-06-20 20:07:00 Jose Luis, [facility] [employer] CULTURE 2023-06-20 20:07:00 Jose Luis, [facility] JOINT FLUID CULTURE 2023-06-20 20:07:00 Jose Luis, [facility] GRAM STAIN 2023-06-20 20:07:00 Jose Luis, [facility] ARTERIAL LINE 2023-06-20 19:51:35 Sunil Abraham spital LA AN ELECTIVE 2023-06-20 19:28:00 Sunil Abraham spital ENDOTRACHEAL AIRWAY INCISION AND DRAINAGE, 2023-06-20 19:19:00 Jose Luis, [facility] KNEE ECG 12-LEAD 2023-06-20 18:52:50 Romina Betancourt H ospital ABO AND RH CONFIRMATION 2023-06-20 18:22:00 [facility] BY PROTOCOL Dave POC GLUCOSE 2023-06-20 16:52:00 [facility] POC GLUCOSE 2023-06-20 13:42:00 [facility] XR CHEST 1 VW PORTABLE 2023-06-20 11:49:00 [facility] 2023-06-20 09:47:00 [facility] URINE CULTURE 2023-06-20 08:23:00 Wilver Pryor [facility] LEGIONELLA URINARY 2023-06-20 07:34:00 [facility] ANTIGEN STREPTOCOCCUS PNEUMONIAE 2023-06-20 07:34:00 [facility] URINARY ANTIGEN Dave URINALYSIS SCREEN AND 2023-06-20 07:34:00 Vu, Lien Zulema [facility] MICROSCOPY, WITH REFLEX TO CULTURE TYPE AND SCREEN 2023-06-20 06:13:00 Dakota Stevenson [facility] VENOUS BLOOD GAS 2023-06-20 06:10:00 [facility] IONIZED CALCIUM, VENOUS 2023-06-20 06:10:00 [facility] CBC WITH PLATELET AND 2023-06-20 06:07:00 [facility] DIFFERENTIAL COMPREHENSIVE METABOLIC 2023-06-20 06:07:00 [facility] PANEL MAGNESIUM LEVEL 2023-06-20 06:07:00 Lydia Mccracken [facility] PHOSPHORUS LEVEL 2023-06-20 06:07:00 Nawaf, Lydia Poole [facility] ESTIMATED GFR 2023-06-20 06:07:00 Spencer [facility] BILIRUBIN DIRECT 2023-06-20 06:07:00 [facility] MANUAL DIFFERENTIAL 2023-06-20 06:07:00 Spencer [facility] POC GLUCOSE 2023-06-20 05:32:00 [facility]NEE 1 OR 2 VW RIGHT 2023-06-20 04:50:07 [facility] TROPONIN T 2023-06-20 03:28:00 [facility] LACTIC ACID LEVEL, SEPSIS 2023-06-20 03:28:00 Lydia Mccracken [facility] - NOW AND REPEAT 2X EVERY 3 HOURS POC GLUCOSE 2023-06-20 01:34:00 [facility] LACTIC ACID LEVEL, SEPSIS 2023-06-19 22:24:00 Lydia Mccracken [facility] NOW AND REPEAT 2X EVERY 3 HOURS XR CHEST 1 VW PORTABLE 2023-06-19 21:33:34 Lydia Mccracken [facility] POC GLUCOSE 2023-06-19 21:15:00 [facility] BLOOD [facility], AEROBIC & 2023-06-19 20:38:00 VuLydia Met [facility] ANAEROBIC BLOOD CULTURE, AEROBIC & 2023-06-19 20:37:00 Vu, [facility] Met [facility] ANAEROBIC RESPIRATORY PATHOGEN 2023-06-19 20:33:00 Vu, [facility] PANEL WITH COVID-19 RT-PCR METHICILLIN-RESISTANT 2023-06-19 20:32:00 Vu, [facility] STAPHYLOCOCCUS AUREUS (MRSA), [place] VENOUS BLOOD GAS 2023-06-19 20:20:00 Vu, [facility] H ospital VENOUS BLOOD GAS 2023-06-19 20:20:00 Vu, [facility] ospital CBC WITH PLATELET AND 2023-06-19 20:18:00 Vu, [facility] DIFFERENTIAL COMPREHENSIVE METABOLIC 2023-06-19 20:18:00 Vu, [facility] PANEL LACTIC ACID LEVEL 2023-06-19 20:18:00 Vu, [facility] PROCALCITONIN 2023-06-19 20:18:00 Vu, [facility] spital PROTHROMBIN TIME WITH INR 2023-06-19 20:18:00 Vu, [facility] PARTIAL THROMBOPLASTIN 2023-06-19 20:18:00 Vu, [facility] TIME (PTT) TROPONIN T 2023-06-19 20:18:00 Vu, [facility] spital THYROID STIMULATING 2023-06-19 20:18:00 , [facility] HORMONE SYPHILIS TREPONEMA SCREEN 2023-06-19 20:18:00 Vu, [facility] WITH RPR CONFIRMATION (REVERSE ALGORITHM) ESTIMATED GFR 2023-06-19 20:18:00 Wilver Pryor [facility] POC GLUCOSE 2023-06-19 19:36:00 Binta Palmer [facility] Dave [id number] 2023-06-19 00:00:00 JONST.02 [facility] BRAIN SPECT (DATSCAN) 2023-03-26 20:09:00 Nkechi Ascencio [facility] NM BRAIN SPECT (DATSCAN) 2023-03-26 20:09:00 Nkechi Ascencio [facility] NM BRAIN SPECT (DATSCAN) 2023-03-26 20:09:00 Nkechi Ascencio [facility] MR BRAIN W WO CONTRAST 2023-03-06 14:01:00 Umer Newton [facility] WITH NEUROQUANT Medical Branch ASSIGNMENT OF BENEFITS 2023-02-21 15:52:17 Doctor Unassigned, No [facility] Name Medical Branch XR, foot, 2 view 2022-12-25 00:00:00 [facility], foot, 2 view 2022-11-27 00:00:00 [facility], foot, 2 view 2022-10-30 00:00:00 [facility] [id number] 2022-10-14 00:00:00 [facility] [id number] 2022-10-14 00:00:00 [facility] [id number] 2022-10-14 00:00:00 [facility] [id number] 2022-10-14 00:00:[address] [facility] [address], foot, w/o contrast 2022-08-27 00:00:00 [facility] XR, knee, 1 or 2 view 2022-08-01 00:00:00 [facility] XR, elbow, 3 or more view 2022-07-25 00:00:00 [facility] XR, elbow, 3 or more view 2022-07-01 00:00:00 Az k[facility] [id number] 2022-06-11 00:00:00 [facility] [id number] 2022-06-11 00:00:00 [facility] XR, foot, 2 view 2022-05-28 00:00:00 [facility] XR, knee, 1 or 2 view 2022-05-17 00:00:00 [facility] [id number] 2021-09-25 00:00:00 [facility] [id number] 2021-09-25 00:00:00 [facility] Appendectomy [facility] Elbow Surgery [facility] Knee Replacement [facility] Arthroplasty of Radial [facility] Total Knee Replacement [facility] Vasectomy [facility] Prostatectomy [facility] Hernia Repair [facility] Plan of Care Planned Activity Planned Date Details Comments Source Future Scheduled Test 2023-09-24 65+ PNEUMOCOCCAL [facility] 12:51:28 VACCINE (1 - PCV) [code = 65+ PNEUMOCOCCAL VACCINE (1 - PCV)] Future Scheduled Test 2023-09-24 Hepatitis C screening [facility] 12:51:28 (procedure) [code = 005430356] Future Scheduled Test 2023-09-24 SHINGLES VACCINES (1 [facility] 12:51:28 of 2) [code = SHINGLES VACCINES (1 of 2)] Future Scheduled Test 2023-09-24 COVID-19 VACCINE ([address] [place] [address] 12:51:28 - season) [code = COVID-19 VACCINE ( season)] Future Scheduled Test 2023-09-24 INFLUENZA VACCINE [facility] 12:51:28 (#1) [code = INFLUENZA VACCINE (#1)] Future Scheduled Test 2023-09-19 65+ PNEUMOCOCCAL [facility] 14:24:01 VACCINE (1 - PCV) [code = 65+ PNEUMOCOCCAL VACCINE (1 - PCV)] Future Scheduled Test 2023-09-19 Hepatitis C screening [facility] 14:24:01 (procedure) [code = 499092526] Future Scheduled Test 2023-09-19 SHINGLES VACCINES (1 [facility] 14:24:01 of 2) [code = SHINGLES VACCINES (1 of 2)] Future Scheduled Test 2023-09-19 COVID-19 VACCINE ([address] [place] [address] 14:24:01 - season) [code = COVID-19 VACCINE ( season)] Future Scheduled Test 2023-09-19 INFLUENZA VACCINE [facility] 14:24:01 (#1) [code = INFLUENZA VACCINE (#1)] Future Scheduled Test 2023-09-01 65+ PNEUMOCOCCAL [facility] 11:00:41 VACCINE (1 - PCV) [code = 65+ PNEUMOCOCCAL VACCINE (1 - PCV)] Future Scheduled Test 2023-09-01 Hepatitis C screening [facility] 11:00:41 (procedure) [code = 903056721] Future Scheduled Test 2023-09-01 SHINGLES VACCINES (1 [facility] 11:00:41 of 2) [code = SHINGLES VACCINES (1 of 2)] Future Scheduled Test 2023-09-01 RSV VACCINES > 60 YR [facility] 11:00:41 (1 - 1-dose 60+ series) [code = RSV VACCINES > 60 YR (1 - 1-dose 60+ series)] Future Scheduled Test 2023-09-01 COVID-19 VACCINE (10 [facility] 11:00:41 - season) [code = COVID-19 VACCINE ( season)] Future Scheduled Test 2023-09-01 INFLUENZA VACCINE [facility] 11:00:41 (#1) [code = INFLUENZA VACCINE (#1)] Future Scheduled Test 2023-06-19 Hepatitis C screening [facility] 17:01:18 (procedure) [code = 602364493] Future Scheduled Test 2023-06-19 SHINGLES VACCINES (1 [facility] 17:01:18 of 2) [code = SHINGLES VACCINES (1 of 2)] Future Scheduled Test 2023-06-19 65+ PNEUMOCOCCAL [facility] 17:01:18 VACCINE (1 - PCV) [code = 65+ PNEUMOCOCCAL VACCINE (1 - PCV)] Future Scheduled Test 2023-06-19 INFLUENZA VACCINE [facility] 17:01:18 [code = INFLUENZA VACCINE] Instructions [facility] Encounters Start End Encounter Admission Attending Care Care Encounter Source Date/Time Date/Time Type Type Clinicians Facility Department ID 2023-08-15 2023-08-15 Orders Provider, 1.2.840.1 [id number] 2100 [id number] Methodi 00:00:00 00:00:00 Only [place] [address].1.[address] [facility] 3.430.2.7 Hospit a .3.319187 l .8 2023-08-15 2023-08-15 Orders Provider, 1.2.840.1 [id number] 2100 [id number] Methodi 00:00:00 00:00:00 Only [place] [address]81.1.[address] [facility] 3.430.2.7 Hospit a .3.318412 l .8 2023-07-31 2023-07-31 Telephone Jose Luis, 1.2.840.1 [id number] 2100 [id number] Methodi 00:00:00 00:00:[address] [facility] 3.430.2.7 Hospit a .3.746882 l .8 2023-07-31 2023-07-31 Telephone Jose Luis, 1.2.840.1 [id number] 2100 [id number] Methodi 00:00:00 00:00:[address] [facility] 3.430.2.7 Hospit a .3.542564 l .8 2023-07-30 2023-07-30 Telephone Jose Luis, 1.2.840.1 [id number] 2100 [id number] Methodi 00:00:00 00:00:[address] [facility] 3.430.2.7 Hospit a .3.008862 l .8 2023-07-30 2023-07-30 Orders Provider, 1.2.840.1 [id number] 2099 [id number] Methodi 00:00:00 00:00:00 Only [place] 67457.1.[address] System 3.430.2.7 Hospit a .3.820588 l .8 2023-07-30 2023-07-30 Telephone Jose Luis, 1.2.840.1 [id number] 2099 [id number] Methodi 00:00:00 00:00:[address] [facility] 3.430.2.7 Hospit a .3.207011 l .8 2023-07-30 2023-07-30 Orders Provider, 1.2.840.1 [id number] 2099 [id number] Methodi 00:00:00 00:00:00 Only [place] [address]1477.1.[address] System 3.430.2.7 Hospit a .3.821215 l .8 2023-07-28 2023-07-28 Amanda Schofield, 1.2.840.1 [id number] 996 [id number] Methodi 00:00:00 00:00:00 Only Candy 14254.1.[address] 3.430.2.7 Hospit a .3.254022 l .8 2023-07-28 2023-07-28 Amanda Schofield, 1.2.840.1 [id number] [id number] Methodi 00:00:00 00:00:00 Only Candy 72914.1.[address] 3.430.2.7 Hospit a .3.566872 l .8 2023-07-25 2023-07-25 Amanda Schofield, 1.2.840.1 [id number] [id number] Methodi 00:00:00 00:00:00 Only Candy 63629.1.[address] 3.430.2.7 Hospit a .3.728965 l .8 2023-07-25 2023-07-25 Amanda Schofield, 1.2.840.1 [id number] 770 [id number] Methodi 00:00:00 00:00:00 Only Candy 00063.1.[address] 3.430.2.7 Hospit a .3.090539 l .8 2023-07-25 2023-07-25 Amanda Schofield, 1.2.840.1 [id number] 728 [id number] Methodi 00:00:00 00:00:00 Only Candy 21209.1.[address] 3.430.2.7 Hospit a .3.500740 l .8 2023-07-25 2023-07-25 Amanda Schofield, 1.2.840.1 [id number] 792 [id number] Methodi 00:00:00 00:00:00 Only Candy 84029.1.[address] 3.430.2.7 Hospit a .3.821679 l .8 2023-07-24 2023-07-24 Orders Chandu, 1.2.840.1 [id number] Methodi 00:00:00 00:00:00 Only Candy 51139.1.[address] 3.430.2.7 Hospit a .3.018852 l .8 2023-07-24 2023-07-24 Orders Chandu, 1.2.840.1 [id number] 793 [id number] Methodi 00:00:00 00:00:00 Only Candy 27305.1.[address] 3.430.2.7 Hospit a .3.793498 l .8 2023-07-16 2023-07-16 Orders Provider, 1.2.840.1 [id number] 2100 [id number] Methodi 00:00:00 00:00:00 Only [place] 88169.1.[address] System 3.430.2.7 Hospit a .3.402218 l .8 2023-07-16 2023-07-16 Orders Provider, 1.2.840.1 [id number] 2100 [id number] Methodi 00:00:00 00:00:00 Only [place] 19349.1.[address] System 3.430.2.7 Hospit a .3.303784 l .8 2023-07-04 2023-07-04 Outpatient R [facility] [id number] [facility] 10:00:00 10:00:00 NKECHI [facility] 2023-06-30 2023-06-30 Orders Doctor STRATTON 1.2.840.114 [id number] [facility] 00:00:00 00:00:00 Only Unassigned, NELY 350.1.13.10 [facility] [facility] 4.2.7.2.686 Davin as [phone] [address] 2023-06-29 2023-06-29 Outpatient R [facility] [id number] [facility] 00:00:00 00:00[facility]00 [facility] 2023-06-19 2023-06-28 [facility] Wilver Pryor 1.2.840.1 [id number] Methodi 14:21:00 14:53:00 Encounter Binta Palmer 16978.1.[address] [place] N. 3.430.2.7 Hospita .3.292565 l .8 2023-06-19 2023-06-28 [facility] Wilver Pryor 1.2.840.1 [id number] Methodi 14:21:00 14:53:00 Encounter Binta Palmer 74384.1.[address] [place] N. 3.430.2.7 Hospita .3.948137 l .8 2023-06-20 2023-06-20 Anesthesia CatiaDana 1.2.840.1 [id number] Methodi 14:18:00 17:10:00 Event Luis Manuel Wood [address]394.1.[address] 3.430.2.7 Hospit a .3.104634 l .8 2023-06-20 2023-06-20 Anesthesia CatiaDana 1.2.840.1 [id number] Methodi 14:18:00 17:10:00 Event Luis Manuel Wood [address]78.1.[address] 3.430.2.7 Hospit a .3.883322 l .8 2023-06-20 2023-06-20 Surgery Jose Luis, 1.2.840.1 [id number] 1535 Methodi 13:30:00 15:20:[address] [facility] 3.430.2.7 Hospit a .3.145777 l .8 2023-06-20 2023-06-20 Surgery Jose Luis, 1.2.840.1 [id number] 3184 Methodi 13:30:00 15:20:[address] [facility] 3.430.2.7 Hospit a .3.611369 l .8 2023-06-19 2023-06-19 Outpatient BRIANNA Chambers LABO [id number] [facility] 17:01:00 17:01:[address] [place] [address] 2023-06-18 2023-06-19 Inpatient UR LISSETTE ChambersTO SURG [id number] 49 [facility] 23:48:00 14:54:00 Gurpreet [facility] 2023-06-19 2023-06-19 Outpatient LISSETTE Chambers SIST [id number] [facility] 11:06:00 11:06:00 Gurpreet [facility] 2023-06-19 2023-06-19 Orders Konstantin, 1.2.840.1 [id number] 18840 Methodi 00:00:00 00:00:00 Only Wilver Silverman [address]49.1.[address] 3.430.2.7 Hospit a .3.184122 l .8 2023-06-19 2023-06-19 Orders Konstantin, 1.2.840.1 [id number] 45270 Methodi 00:00:00 00:00:00 Only Wilver Silverman [address]88.1.[address] 3.430.2.7 Hospit a .3.614900 l .8 2023-06-05 2023-06-05 Outpatient EDA Julio SURG [id number] [facility] 11:06:00 11:06:00 [facility] 2023-05-15 2023-05-15 Outpatient FOG_[facility]_ AOSM AOSM 550 [id number] Le 00:00:00 00:00:00 Rock [id number] [facility] 2023-05-15 2023-05-15 Outpatient FOG_[facility]_ AOSM AOSM 550 [id number] Le 00:00:00 00:00:00 Rock 087192 [facility] e 2023-05-15 2023-05-15 Outpatient FOG_[facility]_ AOSM AOSM 550 [id number] Le 00:00:00 00:00:00 Rock 401134 [facility] 2023-05-15 2023-05-15 Outpatient FOG_[facility]_ AOSM AOSM 550 [id number] Le 00:00:00 00:00:00 Rock [id number] [facility] Medicin e 2023-05-15 2023-05-15 Outpatient FOG_[facility]_ AOSM AOSM 550 0359- Le 00:00:00 00:00:00 Rock 669337 [facility] dic Sports Medicin e 2023-05-15 2023-05-15 Outpatient FOG_[facility]_ AOSM AOSM 550 0359- Le 00:00:00 00:00:00 Rock 935308 Orth[facility] pe dic Sports Medicin e 2023-05-13 2023-05-13 Outpatient FOG_[facility]_ AOSM AOSM 550 035- Le 00:00:00 00:00:00 Rock [id number] Ortho pe dic Sports Medicin e 2023-05-06 2023-05-06 Outpatient Juan Jose [facility] [id number] Univers 09:30:00 09:30:00 [facility] 2023-04-18 2023-04-18 Outpatient Juan [facility] [id number] Univers 10:00:00 10:00:00 [facility] 2023-04-10 2023-04-10 [facility] 1.2.840.114 [id number] Univers 00:00:00 00:00:00 [employer]ke[employer] 350.1.13.10 it y of [facility] 4.2.7.2.686 Davin as TALIB?BLEA [id number] [address] OFFICE [facility] 2023-04-04 2023-04-04 Outpatient Juan Jose [facility] [id number] Univers 14:00:00 14:28:27 [facility] 2023-04-04 2023-04-04 Office [facility] 1.2.840.114 [id number] Univers 14:00:00 14:28:27 Visit Nkechi [employer]Gr[employer]s 350.1.13.10 it y of [facility] 4.2.7.2.686 Davin as TALIB?BLEA [phone] Wa dic[address] OFFICE [facility] 2023-03-26 2023-03-26 [facility] 1.2.840.114 [id number] Univers 09:51:26 23:59:00 Encounter Umer [facility] 350.1.13.10 it[place] [id number] [address] 2023-03-26 2023-03-26 [facility] 1.2.840.114 10 [id number] Univers 09:51:10 23:59:00 Encounter [facility] 350.1.13.10 it[place] [id number] [address] 2023-03-26 2023-03-26 Outpatient R UMER [facility] [id number] [facility]ly [facility] 09:50:48 09:50:48 AMANUMER Arevalo ity [facility] 2023-03-26 2023-03-26 [facility] 1.2.840.114 10 [id number] Univers 09:50:48 09:50:48 Encounter [facility] 350.1.13.10 it[place] [id number] [address] 2023-03-21 2023-03-21 Outpatient R SILVA [facility] [id number] Univers 11:00:00 11:00:00 NKECHI carole [facility] 2023-03-19 2023-03-19 [facility]phone [facility] 1.2.097.790 [id number] Univers 00:00:00 00:00:00 [employer] 350.1.13.10 it y of [place] 4.2.7.2.686 Davin as TALIB?BLEA [id number] Wa stefany YOUSIF [address] [place] [address] MEDICAL OFFICE BUILDING 2023-03-17 2023-03-17 Outpatient R SILVA [facility] [id number] Univers 09:46:40 23:59:00 NKECHI itlarry [facility] 2023-03-17 2023-03-17 Office [facility] 1.2.840.114 [id number] Univers 09:00:00 09:45:13 Visit [employer] 350.1.13.10 it y of [place] 4.2.7.2.686 Davin as TALIB?BLEA [id number] Wa stefany COLÓN 092 [facility] OFFICE [facility] 2023-03-17 2023-03-17 Telephone [facility] 1.2.400.926 [id number] Univers 00:00:00 00:00:00 Cy[employer] 350.1.13.10 it y of [place] 4.2.7.2.686 Davin as TALIB?BLEA [id number] Wa stefany COLÓN 220 [facility] OFFICE [facility] 2023-03-15 2023-03-15 Telephone [facility] 1.2.840.114 [id number] Univers 00:00:00 00:00:00 [facility] 350.1.13.10 ity of [place] 4.2.7.2.686 Davin as TALIB?BLEA [id number] Wa stefany [address] 2023-03-06 2023-03-06 Outpatient UMER [facility]A [facility] [id number] Univers 07:36:20 23:59:00 UMER [facility] 2023-03-06 2023-03-06 [facility] 1.2.112.409 [id number] Univers 07:36:20 23:59:00 Encounter Umer Cruz [place] 350.1.13.10 ity of [place].2.7.2.[place] [id number] [address] 2023-02-24 2023-02-24 Telephone [facility] 1.2.840.114 [id number] Univers 00:00:00 00:00:00 [facility] 350.1.13.10 ity of [place] 4.2.7.2.686 Davin as TALIB?BLEA [id number] Wa stefany COLÓN[address] 2023-02-21 2023-02-21 Outpatient UMER MOTA [facility] [id number] Univers 11:00:00 11:59:05 UMER [facility] 2023-02-21 2023-02-21 Office [facility] 1.2.840.114 [id number] Univers 11:00:00 11:59:05 Visit [facility] 350.1.13.10 ity of [place] 4.2.7.2.686 Davin as TALIB?BLEA [id number] Wa dical [place] 990912 [place] MEDICAL OFFICE BUILDING 2023-02-21 2023-02-21 Orders Doctor VIRAL 1.2.840.114 [id number] Univers 00:00:00 00:00:00 Only Unassigned, NELY 350.1.13.10 ity of [facility] 4.2.7.2.686 Davin as [id number] [address] 2022-12-30 2022-12-30 Outpatient FOG_[facility]_ AOSM AOSM 550 0359-20 Le 00:00:00 00:00:00 Rock [id number] [facility] Medicin e 2022-12-25 2022-12-25 Cruz Faye AO [place] - Ortho [id number] Le 00:00:00 00:00:00 Tiffanie Tavares MD: 7401 FOG_Ofc dic [facility], [place] [address] , Ph. [phone] 2022-11-29 2022-11-29 Outpatient FOG_[facility]_ AOSM AOSM 550 0359-20 Le 00:00:00 00:00:00 Rock [id number] [facility] 2022-11-29 2022-11-29 Outpatient FOG_[facility]_ AOSM AOSM 550 0359-20 Le 00:00:00 00:00:00 Rock [id number] [facility] Medicin e 2022-11-29 2022-11-29 Outpatient FOG_[facility]_ AOSM AOSM 550 0359-20 Le 00:00:00 00:00:00 Rock 058503 Orth[facility] pe dic Sports Medicin e 2022-11-27 2022-11-27 Outpatient FOG_[facility]_ AOSM AOSM 550 0359-20 Le 00:00:00 00:00:00 Rock [id number] [facility] Medicin e 2022-11-27 2022-11-27 Cruz Faye AOSM [place] - Ortho [id number] Le 00:00:00 00:00:00 Tiffanie Tavarse MD: 7401 FOG_Ofc dic [facility] [place] [address] , Ph. [phone] 2022-10-30 2022-10-30 Outpatient FOG_[facility]_ AOSM AOSM 550 0359-20 Le 00:00:00 00:00:00 Rock [id number] [facility] Medic[facility] 2022-10-30 2022-10-30 Outpatient FOG_[facility]_ AOSM AOSM 550 0359-20 Le 00:00:00 00:00:00 Rock 234955 Orth[facility] pe dic Sports Medicin e 2022-10-30 2022-10-30 Cruz LEONSM [place] - Ortho [id number] Le 00:00:00 00:00:00 Tiffanie Tavares MD: 7401 FOG_Ofc dic [facility] [place] [address] , Ph. [phone] 2022-10-16 2022-10-17 Inpatient MAURICIO Davinlavern LISSETTETO SURG [id number] [facility] 10:00:00 17:03:00 Cruz Quiñones [facility] 2022-10-14 2022-10-14 Outpatient FOG_[facility]_ AOSM AOSM 550 0359-20 Le 00:00:00 00:00:00 Rock 078141 [facility] Medicin e 2022-10-14 2022-10-14 Outpatient FOG_[facility]_ AOSM AOSM 550 0359-20 Le 00:00:00 00:00:00 Rock 580869 Ortho pe dic Sports Medicin e 2022-10-14 2022-10-14 Cruz ALLRED [place] - Ortho [id number] Le 00:00:00 00:00:00 Tiffanie Tavares MD: 7401 FOG_Surgery dic [facility] [place] [address] , Ph. [phone] 2022-10-08 2022-10-08 Outpatient MAURICIO DavinlavernLISSETTETO 3DAY [id number] [facility] 08:00:00 23:00:00 Cruz 39 [place] [facility] 2022-09-17 2022-09-17 Outpatient FOG_Burke_R AOSM AOSM 550 0359-20 Le 00:00:00 00:00:00 Mauricio [id number] [facility] Medicin e 2022-09-17 2022-09-17 Cruz Faye AOSM [place] - Orth[place] [id number] Le 00:00:00 00:00:00 Tiffanie Tavares MD: 7401 FOG_Ofc dic [facility] [place] [address] , Ph. [phone] 2022-09-02 2022-09-02 Outpatient FOG_Burke_R AOSM AOSM 550 0359-20 Le 00:00:00 00:00:00 Mauricio 245842 [facility] 2022-08-27 2022-08-27 [facility] [id number] [facility] 15:08:00 15:08:00 Cruz Nathan [place] [facility] 2022-08-27 2022-08-27 Outpatient FOG_Burke_R AOSM AOSM 550 0359-20 Le 00:00:00 00:00:00 Mauricio 460746 [facility] 2022-08-27 2022-08-27 Cruz Faye AOSM [place] - Orth[place] [id number] Le 00:00:00 00:00:00 Tiffanie Tavares MD: 7401 FOG_Ofc dic [facility] [place] [address] , Ph. [phone] 2022-08-26 2022-08-26 Outpatient FOG_Burke_R AOSM AOSM 550 0359-20 Le 00:00:00 00:00:00 Mauricio 917830 [facility] Medicin e 2022-08-01 2022-08-01 Outpatient FOG_Burke_R AOSM AOSM 550 0359-20 Le 00:00:00 00:00:00 Mauricio 195651 [facility] Medicin e 2022-08-01 2022-08-01 Outpatient CHALINO Gr AOSM [id number] e-3 00:00:00 00:00:00 Eran Lilly [id number]-8 [id number] 2022-08-01 2022-08-01 Eran Lilly AOSM [place] - Ortho 15 Le 00:00:00 00:00:00 MD Simón: Tiffanie Bowers [address] [place] FOG_Ofc dic [facility] [address], [place] [address] , Ph. [phone] 2022-07-25 2022-07-25 Outpatient FOG_Burke_R AOSM AOSM 550 0359-20 Le 00:00:00 00:00:00 Mauricio 382177 [facility] Medic[facility] 2022-07-25 2022-07-25 Ravinder Webber AOSM [place] - [place] 8 Le 00:00:00 00:00:00 MD Channing: Tiffanie ag 7401 [facility] FOG_Ofc dic [facility], [place] [address] , Ph. [phone] 2022-07-25 2022-07-25 Outpatient Ravinder Snell AOSM AOSM [id number] 00:00:00 00:00:00 Y [id number]-8 [id number] 2022-07-24 2022-07-24 Outpatient FOG_Burke_R AOSM AOSM 550 0359-20 Le 00:00:00 00:00:00 Mauricio 209294 [facility] Medic[facility] e 2022-07-17 2022-07-17 Outpatient FOG_Burke_R AOSM AOSM 550 0359-20 Le 00:00:00 00:00:00 Mauricio [id number] [facility] Medicin e 2022-07-11 2022-07-11 Outpatient FOG_Burke_R AOSM AOSM 550 0359-20 Le 00:00:00 00:00:00 Mauricio 197422 [facility] Medicin e 2022-07-092022-07-09 Outpatient EL Channing Rvainder [facility] DAYS Y000 [id number] [facility] 10:14:00 10:14:00 25 [place] [facility] 2022-07-09 2022-07-09 Outpatient FOG_Burke_R AOSM AOSM 550 0359-20 Le 00:00:00 00:00:00 Mauricio 077045 [facility] dic [facility] Medicin e 2022-07-09 2022-07-09 Ravinder Webber AOSM [place] - [place] [id number] Le 00:00:00 00:00:00 MD Channing: Tiffanie Doshi rtpaule [address] FOG_Surgery di c [facility] [place] [address] , Ph. [phone] 2022-07-09 2022-07-09 Outpatient Ravinder Snell AOSM AOSM [id number] 00:00:00 00:00:00 Y [id number]-11ed-b [id number] 2022-07-01 2022-07-01 Outpatient FOG_Burke_R AOSM AOSM 550 0359-20 Le 00:00:00 00:00:00 Mauricio 970891 [facility] Medicin e 2022-07-01 2022-07-01 Ravinder Webber AOSM [place] - [place] [id number] Le 00:00:00 00:00:00 MD Channing: Tiffanie garciae [address] [facility] [place] [facility] [place] [address] , Ph. [phone] 2022-07-01 2022-07-01 Outpatient Channing Ravinder AOSM AOSM [id number] 00:00:00 00:00:00 Y cb6-11ed-a [id number] 2022-06-25 2022-06-25 Outpatient FOG_Burke_R AOSM AOSM 550 0359-20 Le 00:00:00 00:00:00 Mauricio 315762 [facility] Medic[facility] e 2022-06-25 2022-06-25 Eran Lilly AOSM [place] - Ortho Le 00:00:00 00:00:00 MD Simón: Tiffanie Talley - Robinson [address] [place] FOG_Ofc dic [place] [place] [facility] [address], [place] [address] , Ph. [phone] 2022-06-25 2022-06-25 Outpatient EDWARD GrSM AOSM [id number] [id number] 00:00:00 00:00:00 Eran Lilly [id number]-9 [id number] 2022-06-11 2022-06-12 Inpatient MAURICIO Gr HCATO SURG [id number] [facility] 06:56:00 13:11:00 Eran 87 [place] [facility] 2022-06-11 2022-06-12 Inpatient LISSETTE GillespieTO SURG [id number] [facility] 06:56:00 13:11:00 Eran [id number] [place] [facility] 2022-05-30 2022-05-30 Outpatient EDA Gillespie 3DAY [id number] [facility] 08:00:00 23:00:00 Eran 76 [place] [facility] 2022-05-30 2022-05-30 Outpatient LISSETTE GrCL LABO [id number] [facility] 18:04:00 18:04:00 Eran 19 [facility] 2022-05-30 2022-05-30 Outpatient FOG_Burke_R AOSM AOSM 550 0359-20 Le 12:40:00 12:40:00 Mauricio 486206 [facility] Medic[facility] e 2022-05-30 2022-05-30 Outpatient FOG_Burke_R AOSM AOSM 550 0359-20 Le 00:00:00 00:00:00 Mauricio 339063 [facility] Medicin e 2022-05-28 2022-05-28 Outpatient FOG_Burke_R AOSM AOSM 550 0359-20 Le 03:45:00 03:45:00 Mauricio 526237 Orth[facility] pe dic Sports Medicin e 2022-05-28 2022-05-28 Outpatient Anusha AOSM AOSM [id number] c-0 00:00:00 00:00:00 Cruz Faye 218-11ed-a [id number] 2022-05-28 2022-05-28 Outpatient CHALINO Gr AOSM [id number] [id number] 00:00:00 00:00:00 Eran Lilly 231-11ed-b [id number] 2022-05-28 2022-05-28 Cruz Faye AOSM [place] - [place] [id number] Le 00:00:00 00:00:00 Tiffanie Tavares MD: 7401 FOG_Ofc dic [facility], [place] [address] , Ph. [phone] 2022-05-17 2022-05-17 Outpatient FOG_Burke_R AOSM AOSM 550 [id number] Le 03:26:00 03:26:00 Mauricio 458915 Orth[facility] pe dic Sports Medicin e 2022-05-17 2022-05-17 Eran Maxx CHALINO [place] - Ortho Le 00:00:00 00:00:00 MD Simón: Tiffanie Bowers [address] [place] FOG_Ofc dic [facility] [address], [place] [address] , Ph. [phone] 2022-05-17 2022-05-17 Outpatient CHALINO GrSM [id number] e-[id number] 00:00:00 00:00:00 Eran Lilly [id number] 2022-04-04 2022-04-04 Outpatient FOG_Burke_R AOSM AOSM 550 [id number] Le 04:58:00 04:58:00 Mauricio [id number] Ortho pe dic Sports Medicin e 2021-09-25 2021-09-26 Inpatient EDA Gillespie ADMI [id number] [facility] 06:34:00 14:54:00 Eran 80 [place] [facility] 2021-09-25 2021-09-26 Inpatient EDA Gillespie ADMI [id number] [facility] 06:34:00 14:54:00 Eran [id number] [place] [facility] 2021-09-18 2021-09-18 Outpatient EDA Gillespie 3DAY [id number] [facility] 00:00:00 23:59:00 Eran [id number] [place] [facility] 2021-09-18 2021-09-18 Outpatient BRIANNA Gr LABO [id number] [facility] 17:08:00 17:08:00 [facility] 2020-01-05 2020-01-05 Outpatient Ravinder Snell HCATO RADI Y112 [id number] [facility] 11:30:00 11:30:00 [id number] [place] [facility] Results Test Description Test Time Test Comments Results Result Comments Source AFB culture 2023-08-02 00:13:00 Test Item Value Reference Range Interpretation Comme nts AFB culture isolate No growth after 6 weeks of Specimen InformationSpecimen (test code = 543-9) incubation. Source: TissueSpecimen Site: Knee: Right kne e Synovium LINDA (test code = LINDA) TISSUE SEEN [facility] [id number] 00:13:00 Test Item Value Reference Range Interpretation Comments AFB culture No growth Specimen isolate (test after 6 weeks InformationSp ecimen code = 543-9) of Source: Tissue Specimen incubation. Site: Knee: Rig ht knee Synovium LINDA (test code TISSUE SEEN = LINDA) [facility] [id number] 00:13:00 Test Item Value Reference Range Interpretation Comments AFB culture No growth Specimen isolate (test after 6 weeks InformationSp ecimen code = 543-9) of Source: Tissue Specimen incubation. Site: Knee: Rig ht knee Synovium LINDA (test code TISSUE SEEN = LINDA) [facility] bacterial [id number] 14:42:00 Test Item Value Reference Range Interpretation Comments Enteric less than the Specimen bacterial panel detectable InformationS pecimen (test code = limits of the Source: StoolS pecimen 25603-0) assay. Site: Jayden cuba [facility] [id number] 14:42:00 Test Item Value Reference Range Interpretation Comments Enteric less than the Specimen bacterial panel detectable InformationS pecimen (test code = limits of the Source: StoolS pecimen 91047-4) assay. Site: Jayden faye [facility] [id number] 14:42:00 Test Item Value Reference Range Interpretation Comments Enteric less than the Specimen bacterial panel detectable InformationS pecimen (test code = limits of the Source: StoolS pecimen 22374-0) assay. Site: [address]2023-08-10 22:03:44 Test Item Value Reference Range Interpretation Comments Ventricular rate (test 75 code = 253) Atrial rate (test code 75 = 255) LA interval (test code 166 = 266) QRSD [...] change in initial forces of Septal leads- [address]2023-08-10 22:03:44 Test Item Value Reference Range Interpretation Comments Ventricular rate (test 75 code = 253) Atrial rate (test code 75 = 255) LA interval (test code 166 = 266) QRSD [...] change in initial forces of Septal leads- [address]2023-08-10 22:03:44 Test Item Value Reference Range Interpretation Comments Ventricular rate (test 75 code = 253) Atrial rate (test code 75 = 255) LA interval (test code 166 = 266) QRSD [...] change in initial forces of Septal leads- [facility]2023-08-09 12:51:00 Test Item Value Reference Range Interpretation Comments Anaerobic No anaerobic Specimen culture isolate organisms InformationS pecimen (test code = isolated. Source: TissueS pecimen 59511-9) Site: Knee: Rig ht knee Synovium LINDA (test code TISSUE SEEN = LINDA) [facility]2023-08-09 12:51:00 Test Item Value Reference Range Interpretation Comments Anaerobic No anaerobic Specimen culture isolate organisms InformationS pecimen (test code = isolated. Source: TissueS pecimen 73574-4) Site: Knee: Rig ht knee Synovium LINDA (test code TISSUE SEEN = LINDA) [facility]2023-08-09 12:51:00 Test Item Value Reference Range Interpretation Comments Anaerobic No anaerobic Specimen culture isolate organisms InformationS pecimen (test code = isolated. Source: TissueS pecimen 79376-4) Site: Knee: Rig ht knee Synovium LINDA (test code TISSUE SEEN = LINDA) [facility] [id number] 03:12:00 Test Item Value Reference Range Interpretation Comments Joint fluid No growth Specimen culture isolate after 4 days. Information Specimen (test code = Source: Joint 1634) FluidSpecimen S ite: Knee: right knee join t fluid #2 [facility] fluid [id number] 03:12:00 Test Item Value Reference Range Interpretation Comments Joint fluid No growth Specimen culture isolate after 4 days. Information Specimen (test code = Source: Joint 1634) FluidSpecimen S ite: Knee: right knee join t fluid #[facility] [id number] 03:12:00 Test Item Value Reference Range Interpretation Comments Joint fluid No growth Specimen culture isolate after 4 days. Information Specimen (test code = Source: Joint 1634) FluidSpecimen S ite: Knee: right knee join t fluid #2 [facility] pathology [id number] 00:31:01 Test Item Value Reference Range Interpretation Comments Case number (test code = [id number]) Surgical pathology See link below for report (test code = PDF Lab Report 2255) Result status (test code This is Final Report = [id number]) for [id number] [facility] pathology [id number] 00:31:01 Test Item Value Reference Range Interpretation Comments Case number (test code = [id number]) Surgical pathology See link below for report (test code = PDF Lab Report 2255) Result status (test code This is Final Report = [id number]) for [id number] [facility] pathology [id number] 00:31:01 Test Item Value Reference Range Interpretation Comments Case number (test code = [id number]) Surgical pathology See link below for report (test code = PDF Lab Report 2255) Result status (test code This is Final Report = [id number]) for [id number] [facility] [id number] 20:54:00 Test Item Value Reference Range Interpretation Comments POC glucose (test code = 142 mg/dL 65-99 H Ope rator Name: 72121-7) Judit Ricks ice ID: [id number] able: [facility] Notified waste reduction coordinator Interpretation (test Abnormal code = 89780-4) [facility] [id number] 20:54:00 Test Item Value Reference Range Interpretation Comments POC glucose (test code = 142 mg/dL 65-99 H Ope rator Name: 02261-5) Judit Rambo ice ID: [id number] able: TM Notified waste reduction coordinator Interpretation (test Abnormal code = 19361-1) [facility]2023-08-08 20:54:00 Test Item Value Reference Range Interpretation Comments POC glucose (test code = 142 mg/dL 65-99 H Ope rator Name: 43911-6Jessica Ricks ice ID: [id number] able: [facility] Notified waste reduction coordinator Interpretation (test Abnormal code = 57286-4) [facility]- XR FLUORO [id number] 18:21:00 [facility] AZLEName: BEATRICE BAUGH : 1945 Sex: M Patient Name: BEATRICE BAUGH LEONARD Unit No: [id number] EXAMS: CPT CODE: [id number] XR FLUORO NDL 86467 Fluoroscopically guided right knee aspiration FINDINGS: After [...] M.D. CC: Gurpreet Chambers MD Technologist: Dolly Galloway RTClare(R)Transcribed D/ (1820) Jose F [facility] NAME: BEATRICE BAUGH LEONARD [address] [facility] PHYS: Gurpreet Ayala MD : 1945 AGE: 78 SEX: M [place], [place] [address] LOC: Y.502 A PHONE #: [phone] EXAM DATE: 06/19/2023 STATUS: DIS IN FAX #: [phone] RAD #: D/C DT 06/19/2023 PAGE 1 Signed Report Patient Name: BEATRICE BAUGH LEONARD Unit No: [id number] EXAMS: CPT CODE: [id number] XR FLUORO NDL 82825 (Continued) Orig Print D/T: S: 06/24/2023 (0912) [facility] NAME: BEATRICE BAUGH LEONARD [address] [facility] PHYS: Gurpreet Ayala MD : 1945 AGE: 78 SEX: M [place], [place] [address] LOC: Y.502 A PHONE #: [phone] EXAM DATE: 06/19/2023 STATUS: DIS IN FAX #: [phone] RAD #: D/C DT 06/19/2023 PAGE 2 Signed ReportUrine [id number] 22:52:00 Test Item Value Reference Range Interpretation Comments Urine culture Mixed minerva Specimen isolate (test <=10-3 col/cc InformationSp ecimen code = 93355-3) Source: Urin eSpecimen Site: Clean [facility] [id number] 22:52:00 Test Item Value Reference Range Interpretation Comments Urine culture Mixed minerva Specimen isolate (test <=10-3 col/cc InformationSp ecimen code = 27850-9) Source: Urin eSpecimen Site[facility] [id number] 22:52:00 Test Item Value Reference Range Interpretation Comments Urine culture Mixed minerva Specimen isolate (test <=10-3 col/cc InformationSp ecimen code = 51321-6) Source: Urin eSpecimen [facility] [id number] 18:02:00 Test Item Value Reference Range Interpretation Comments Gram stain No organisms Specimen isolate (test seen InformationSpe cimen code = 1469) Source: TissueS pecimen Site: Knee: Rig ht knee Synovium LINDA (test code TISSUE SEEN = LINDA) [facility] [id number] 18:02:00 Test Item Value Reference Range Interpretation Comments Gram stain No organisms Specimen isolate (test seen InformationSpe cimen code = 1469) Source: TissueS pecimen Site: Knee: Rig ht knee Synovium LINDA (test code TISSUE SEEN = LINDA) [facility] [id number] 18:02:00 Test Item Value Reference Range Interpretation Comments Gram stain No organisms Specimen isolate (test seen InformationSpe cimen code = 1469) Source: TissueS [facility] Site: Knee: Rig ht knee Synovium LINDA (test code TISSUE SEEN = LINDA) [facility] [id number] 17:42:00 Test Item Value Reference Range Interpretation Comments AFB stain No acid fast Specimen (test code = bacilli (AFB) InformationSpe cimen 676-7) seen. Source: TissueS [facility] Site: Knee: Rig ht knee Synovium LINDA (test TISSUE SEEN code = LINDA) [facility] [id number] 17:42:00 Test Item Value Reference Range Interpretation Comments AFB stain No acid fast Specimen (test code = bacilli (AFB) InformationSpe cimen 676-7) seen. Source: [facility] Site: Knee: Rig ht knee Synovium LINDA (test TISSUE SEEN code = LINDA) [facility] [id number] 17:42:00 Test Item Value Reference Range Interpretation Comments AFB stain No acid fast Specimen (test code = bacilli (AFB) InformationSpe cimen 676-7) seen. Source: [facility] Site: Knee: Rig ht knee Synovium LINDA (test TISSUE SEEN code = LINDA) [facility], [id number] 21:35:00 Test Item Value Reference Range Interpretation Comments pH, arterial (test code 7.33 7.35-7.45 L = 2744-1) pCO2, arterial (test 43 See_Comment [Autom ated message] code = 2019-8) The system [facility] generated this result transmitted ref erence range: 35 - 45 mmHg. The reference r megan was not used to interpret this result as normal/abnor mal. pO2, arterial (test code 83 See_Comment [A utomated message] = 4993-7) The system [facility] h generated this result transmitted ref erence range: 80 - 90 mmHg. The reference r megan was not used to interpret this result as normal/abnor mal. Temperature, Celsius 37.0 Degrees C (test code = 8310-5) O2 saturation, arterial 95 % 95-100 (test code = 2708-6) pH, arterial corrected 7.33 (test code = 98375-8) pCO2, arterial corrected 43 mmHg (test code = 36939-5) pO2, arterial corrected 83 mmHg (test code = 08035-6) Base excess, arterial -4 See_Comment L [Auto mated message] (test code = 1924-7) The sys tem which generated this result transmitted ref erence range: -2 - 2 m Eq/L. The reference r megan was not used to interpret this result as normal/abnor mal. Lab Interpretation (test Abnormal code = 40213-6) [facility], [id number] 21:35:00 Test Item Value Reference Range Interpretation Comments Hemoglobin, syringe (test code = 8.7 g/dL 14.0-18.0 L 718-7) Lab Interpretation (test code = Abnormal 58126-2) [facility], [id number] 21:35:00 Test Item Value Reference Range Interpretation Comments pH, arterial (test code 7.33 7.35-7.45 L = 2744-1) pCO2, arterial (test 43 See_Comment [Autom ated message] code = 2019-8) The system [facility] generated this result transmitted ref erence range: 35 - 45 mmHg. The reference r megan was not used to interpret this result as normal/abnor mal. pO2, arterial (test code 83 See_Comment [A utomated message] = 2703-7) The system [employer] generated this result transmitted ref erence range: 80 - 90 mmHg. The reference r megan was not used to interpret this result as normal/abnor mal. Temperature, Celsius 37.0 Degrees C (test code = 8310-5) O2 saturation, arterial 95 % 95-100 (test code = 2708-6) pH, arterial corrected 7.33 (test code = 76470-4) pCO2, arterial corrected 43 mmHg (test code = 75990-6) pO2, arterial corrected 83 mmHg (test code = 26659-5) Base excess, arterial -4 See_Comment L [Auto mated message] (test code = 1924-7) The sys tem which generated this result transmitted ref erence range: -2 - 2 m Eq/L. The reference r megan was not used to interpret this result as normal/abnor mal. Lab Interpretation (test Abnormal code = 68157-5) [facility], [id number] 21:35:00 Test Item Value Reference Range Interpretation Comments Hemoglobin, syringe (test code = 8.7 g/dL 14.0-18.0 L 718-7) Lab Interpretation (test code = Abnormal 84938-5) [facility], [id number] 21:35:00 Test Item Value Reference Range Interpretation Comments pH, arterial (test code 7.33 7.35-7.45 L = 2744-1) pCO2, arterial (test 43 See_Comment [Autom ated message] code = 2018-8) The system [employer] generated this result transmitted ref erence range: 35 - 45 mmHg. The reference r megan was not used to interpret this result as normal/abnor mal. pO2, arterial (test code 83 See_Comment [A utomated message] = 1343-7) The system [employer] generated this result transmitted ref erence range: 80 - 90 mmHg. The reference r megan was not used to interpret this result as normal/abnor mal. Temperature, Celsius 37.0 Degrees C (test code = 8310-5) O2 saturation, arterial 95 % 95-100 (test code = 2708-6) pH, arterial corrected 7.33 (test code = 53377-0) pCO2, arterial corrected 43 mmHg (test code = 69511-8) pO2, arterial corrected 83 mmHg (test code = 74531-7) Base excess, arterial -4 See_Comment L [Auto mated message] (test code = 1925-7) [facility] tem which generated this result transmitted ref erence range: -2 - 2 m Eq/L. The reference r megan was not used to interpret this result as normal/abnor mal. Lab Interpretation (test Abnormal code = 58917-2) [facility]diviaHemoglobin, [id number] 21:35:00 Test Item Value Reference Range Interpretation Comments Hemoglobin, syringe (test code = 8.7 g/dL 14.0-18.0 L 718-7) Lab Interpretation (test code = Abnormal 92531-7) [facility] [id number] 21:16:00 Test Item Value Reference Range Interpretation Comments POC glucose (test code = 122 mg/dL 65-99 H Ope rator Name: [id number]) Judit Ricks ice ID: [id number] able: [facility] Notified waste reduction coordinator Interpretation (test Abnormal code = 28132-5) [facility]- XR KNEE 3 V [id number] 16:31:00 [facility] : 1945 Sex: M Patient Name: BEATRICE BAUGH LEONARD Unit No: [id number] EXAMS: CPT CODE: [id number] XR KNEE 3 V RT 44174 RIGHT KNEE 2 VIEWS PORTABLE COMMENT: The patient is status post joint replacement which is articulatingnormally. Free patellar soft tissue swelling is noted with a probable joint effusion. at 1631 Reported and signed by: Uri bey MD CC: Gurpreet Chambers MD Technologist: GLEN EMERY. RT(R) Transcribed D/ (1631) t.SDR.JCL [facility] NAME: BEATRICE BAUGH LEONARD [address] PHYS: Gurpreet Ayala MD : 1945 AGE: 78 SEX: Jaziel [place], [place] [address] LOC: Y.502 A PHONE #: [phone] EXAM DATE: 06/19/2023 STATUS: DIS IN FAX #: [phone] RAD #: D/C DT 06/19/2023 PAGE 1 Signed Report Patient Name: BEATRICE BAUGH LEONARD Unit No: [id number] EXAMS: CPT CODE: [id number] XRKNEE 3 V RT 39487 (Continued) Orig Print D/T: S: 06/19/2023 (1635) [facility] NAME: BEATRICE BAUGH LEONARD [address] [facility] PHYS: Gurpreet Ayala MD : 1945 AGE: 78 SEX: M [place], [place] [address] LOC: Y.502 A PHONE #: [phone] EXAM DATE: 06/19/2023 STATUS: DIS IN FAX #: [phone] RAD #: D/C DT 06/19/2023 PAGE [address]OV[address] F[address] CE[address] CT/[id number] 13:24:00 Test Item Value Reference Range Interpretation Comments SYNOVIAL FLD YELLOW LT. YELLOW COLOR (test code = COLSY) SYNOVIAL FLD CLOUDY CLEAR A APPEARANCE (test code = APPSY) SYNOVIAL FLD 2 mL VOLUME (test code = VOLSY) SYNOVIAL FLD WBC 09637.000 0-200 H VERIFIED BY 1:20 (test code = /MM3 DILUTION WBCSY) SYNOVIAL FLD RBC 626097.000 0-2 H VERIFIED BY 1:20 (test code [...] CELLS (test code = LINSY) BODY FLD [id number] 13:24:00 Test Item Value Reference Range Interpretation Comments BODY FLD CRYSTALS (test code = NONE SEEN NONE SEEN CRYSY) - XR CHEST 1 [id number] 12:20:00 [facility] : 1945 Sex: M Patient Name: BEATRICE BAUGH LEONARD Unit No: [id number] EXAMS: CPT CODE: [id number] XR CHEST 1 V 26965 PORTABLE CHEST June 19, 2023 8:34 AM [...] Technologist: GLEN EMERY. RT(R) Transcribed D/ (1220) AniaJCL [facility] NAME: BEATRICE BAUGH LEONARD [address] [facility] PHYS: Wilver Wilde MD : 1945 AGE: 78 SEX: M [place], [place] [address] LOC: Y.502 A PHONE #: [phone] EXAM DATE: 06/19/2023 STATUS: ADM IN FAX #: [phone] RAD #: D/C DT PAGE 1 Signed Report Patient Name: BEATRICE BAUGH LEONARD Unit No: [id number] EXAMS: CPT CODE: [id number] XR CHEST 1 S52769 (Continued) Orig Print D/T: S: 06/19/2023 (1223) [facility] NAME: BEATRICE BAUGH LEONARD [address] [facility] PHYS: Wilver Wilde MD : 1945 AGE: 78 SEX: M [place], [place] [address] LOC: Imelda Burnette PHONE #: [phone] EXAM DATE: 06/19/2023 STATUS: ADM INFAX #: [phone] RAD #: D/C DT PAGE 2 Signed ReportSED [id number] 08:03:00 Test Item Value Reference Range Interpretation Comments SED RATE (test code = SEDW) 120 mm/hr 0-20 H CBC W/MANUAL [id number] 07:59:00 Test Item Value Reference Range Interpretation [...] 0-0 H code = META) C REACTIVE [id number] 07:25:00 Test Item Value Reference Range Interpretation Comments C REACTIVE PROTEIN (test code = 33.0 mg/dL <0.9 CRP) PROTHROMBIN [id number] 06:52:00 Test Item Value Reference Range Interpretation [...] v pereira IS PATIENT ON ANTICOAGULANTS ? [facility] been notified if Patient is on Heparin Drip? NOTHROMBOPLASTIN TIME [id number] 06:52:00 Test Item Value Reference Range Interpretation Comments PTT ACTIVATED (test code = APTT) 29.4 secs 25.1-36.5 N IS PATIENT ON ANTICOAGULANTS ? [facility] been notified if Patient is on Heparin Drip? NOCOMPREHENSIVE METABOLIC [id number] 06:47:00 Test Item Value Reference Range Interpretation [...] the recommended for mihir for GFRby the [facility] on for Adults.The GFR will [...] H PHOSPHATASE TOTAL (test code = ALKP) [id number] 06:47:00 Test Item Value Reference Range Interpretation Comments MAGNESIUM (test code = MAG) 2.0 mg/dL 1.8-2.4 N CBC W/AUTO [id number] 06:17:00 Test Item Value Reference Range Interpretation [...] N (test code = NRBC) BASIC METABOLIC [id number] 16:48:00 Test Item Value Reference Range Interpretation [...] the recommended for mihir for GFRby the [facility] on for Adults.The GFR will not calculate i f the sex is unknown or if thepatient's ag e is <18 years. CREATININE (test 0.93 mg/dL 0.55-1.30 N code = CREAT) CALCIUM (test code 9.4 mg/dL 8.2-10.1 N = CA) - CT LOWER EXTRM W/O C [id number] 07:20:00 [facility] : 1945 Sex: M Patient Name: BEATRICE BAUGH Unit No: [id number] EXAMS: CPT CODE: [id number] [place] L[place]TR[place] W/[place] [address] CT OF THE BILATERAL FEET WITH SAGITTAL [...] with ACR practice standards and adherence to director broadcast's recommendations. Charcot changes in both feet are as described. No acute fractures are seen. at 0720 Reported and signed by: Uri Mi MD CC: Cruz Tavares MD; Ravinder Snell MD Technologist: Ellie Barajas RT(R) CTDI: DLP: Trnscrpt: 08/28/2022 (07) t.SDR.JCL [facility] NAME: BEATRICE BAUGH [address] [facility] PHYS: Cruz Conner MD : 1945 AGE: 77 SEX: M [place] [address] LOC: Y.RAD PHONE #: [phone] EXAM DATE: 08/27/2022 STATUS: DEP CLI FAX #: [phone] RAD #: D/C DT PAGE 1 Signed Report Patient Name: BEATRICE BAUGH Unit No: [id number] EXAMS: CPT CODE: [id number] CT LOWER [place]TRM W/[place] [address] (Continued) Orig Print D/T: S: 08/28/2022 (0723) [facility] NAME: BEATRICE BAUGH [address] [facility] PHYS: Cruz Conner MD : 1945 AGE: 77 SEX: M [place] [address] LOC: Y.RAD PHONE #: [phone] EXAM DATE: 08/27/2022 STATUS: DEP CLI FAX #: [phone] RAD #: D/C DT PAGE 2 Signed Report- XR KNEE 1 OR 2 V [id number] 12:50:00 [facility] : 1945 Sex: M Patient Name: BEATRICE BAUGH Unit No: [id number] EXAMS: CPT CODE: [id number] XR KNEE 1 OR 2 [place] [address] IMAGES PROVIDED: 2 FINDINGS: 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 No acute fracture is visualized. IMPRESSION: Postoperativeexam as above. at 1250 Reported and signed by: Edwar Houston M.D. CC: Eran Gr MD Technologist: DHIRAJ NICHOLS (RT.R) Transcribed D/ (5443) Jose F [facility] NAME: BEATRICE BAUGH [address] [facility] PHYS: Eran Reyna MD : 1945 AGE: 77 SEX: M [place], [place] [address] LOC: Y.321 A PHONE #: [phone] EXAM DATE: 06/11/2022 STATUS: ADM IN FAX #: [phone] RAD #: D/C DT PAGE 1 Signed Report Patient Name: BEATIRCE BAUGH Unit No: [id number] EXAMS: CPT CODE: [id number] XR KNEE 1 OR 2 V RT [address] (Continued) Orig Print D/T: S: 06/12/2022 (1253) [facility] NAME: BEATRICE BAUGH [address] [facility] PHYS: Eran Reyna MD : 1945 AGE: 77 SEX: M [place], [place] [address] LOC: YRegi A PHONE #: [phone] EXAM DATE: 06/11/2022 STATUS: ADM IN FAX #: [phone] RAD #: D/C DT PAGE 2 Signed ReportBASIC METABOLIC [id number] 07:09:00 Test Item Value Reference Range Interpretation [...] RATE (test code = GFR) mL/mi n/1.73 y4Dmzqqipxf Range:Healthy Adults >90 mL/min/1.73 m2 For Chronic Kidney Disease: Stage II Mild Decrease i n GFR 60-90 Stage III Moderate Decrea se in GFR 30-59 S tage IV Severe Decre ase in GFR 15-29 St age V Kidney Failur e <15 CREATININE (test code 0.89 mg/dL 0.55-1.30 N = CREAT) CALCIUM (test code = 9.2 mg/dL 8.2-10.1 N CA) SPECIMEN COMMENT: POD #1HGB [id number] 06:06:00 Test Item Value Reference Range Interpretation Comments HEMOGLOBIN (test code = HGB) 9.8 g/dL 12-16 L HEMATOCRIT (test code = HCT) 30.1 % 37-47 L SPECIMEN COMMENT: POD #1Hemoglobin and Hematocrit panel - [id number] 05:12:00 Test Item Value Reference Range Interpretation Comments hemoglobin (test code = hemoglobin) 9.8 g/dL 12-16 L hematocrit (test code = hematocrit) 30.1 % 37-47 L performing lab: (test code = performing lab:) [facility] [id number] 05:12:00 Test Item Value Reference Range Interpretation [...] performing lab: (test code = performing lab:) [facility] Blood 2022-06-12 05:12:00 Test Item Value Reference Range Interpretation Comments hemoglobin (test code = hemoglobin) 9.8 g/dL 12-16 L hematocrit (test code = hematocrit) 30.1 % 37-47 L performing lab: (test code = performing lab:) [facility] [id number] 05:12:00 Test Item Value Reference Range Interpretation [...] performing lab: (test code = performing lab:) [facility] - Blood 2022-06-12 05:12:00 Test Item Value Reference Range Interpretation Comments hemoglobin (test code = hemoglobin) 9.8 g/dL 12-16 L hematocrit (test code = hematocrit) 30.1 % 37-47 L performing lab: (test code = performing lab:) [facility] [id number] 05:12:00 Test Item Value Reference Range Interpretation [...] performing lab: (test code = performing lab:) [facility] InstituteCOMPREHENSIVE METABOLIC [id number] 18:33:00 Test Item Value Reference Range Interpretation [...] RATE (test code = GFR) mL/mi n/1.73 p5Ncbftlzmb Range:Healthy Adults >90 mL/min/1.73 m2 For Chronic Kidney Disease: Stage II Mild Decrease i n GFR 60-90 Stage III Moderate Decrea se in GFR 30-59 St age IV Severe Decr ease in GFR 15-29 St age V Kidney [...] TOTAL (test code = ALKP) CBC W/AUTO [id number] 18:06:00 Test Item Value Reference Range Interpretation [...] NRBC) CBC W Auto Differential panel - [id number] 17:30:00 Test Item Value Reference Range Interpretation [...] performing lab: (test code = performing lab:) [facility]Comprehensive [facility] 2000 panel - Serum or [id number] 17:30:00 Test Item Value Reference Range Interpretation [...] performing lab: (test code = performing lab:) [facility] InstituteMethicillin resistant Staphylococcus aureus [Presence] in Specimen by Organism specific [id number] 17:30:00 Test Item Value Reference Range Interpretation Comments MRSA surveillance screen (test code see below = MRSA surveillance screen) performing lab: (test code = performing lab:) [facility] PCR surveillance [id number] 17:30:00 Test Item Value Reference Range Interpretation Comments mssa PCR surveillance screen (test see below code = mssa PCR surveillance screen) performing lab: (test code = performing lab:) [facility]- XR KNEE 1 OR 2 V [id number] 14:52:00 [facility] AZLEName: BEATRICE BAUGH : 1945 Sex: M Patient Name: BEATRICE BAUGH Unit No: [id number] EXAMS: CPT CODE: [id number] XR KNEE 1 OR 2 [place] [address] LEFT KNEE 2 VIEWS PORTABLE COMMENT: The patient is status post joint replacement which is articulating normally. at 1452 Reported and signed by: Uri Mi MD CC: Eran Gr MD Technologist: DHIRAJ NICHOLS (RT.R) Transcribed D/ (1452) t.SDR.[facility] NAME: BEATRICE BAUGH [address] [facility] PHYS: Eran Reyna MD : 1945 AGE: 76 SEX: M [place], [place] [address] LOC: Y.309 A PHONE #: [phone] EXAM DATE: 09/25/2021 STATUS: DIS IN FAX #: [phone] RAD #: D/C DT 09/26/2021 PAGE 1 Signed Report Patient Name: BEATRICE BAUGH Unit No: [id number] EXAMS: CPT CODE: [id number] XR KNEE 1 OR 2 [place] [address] (Continued) Orig Print D/T: S: 09/26/2021 (1455) [facility] NAME: BEATRICE BAUGH [address] [facility] PHYS: Eran Reyna MD : 1945 AGE: 76 SEX: M [place], [place] [address] LOC: Y.309 A PHONE #: [phone] EXAM DATE: 09/25/2021 STATUS: DIS IN FAX #: [phone] RAD #: D/C DT 09/26/2021 PAGE 2 Signed ReportBASIC METABOLIC [id number] 06:34:00 Test Item Value Reference Range Interpretation [...] RATE (test code = GFR) mL/mi n/1.73 e7Dahmkgvdi Range:Healthy Adults >90 mL/min/1.73 m2 For Chronic Kidney Disease: Stage II Mild Decrease i n GFR 60-90 Stage III Moderate Decrea se in GFR 30-59 S tage IV Severe Decre ase in GFR 15-29 St age V Kidney Failur e <15 CREATININE (test code 0.70 mg/dL 0.55-1.30 N = CREAT) CALCIUM (test code = 8.7 mg/dL 8.2-10.1 N CA) SPECIMEN COMMENT: POD #1HGB [id number] 06:05:00 Test Item Value Reference Range Interpretation Comments HEMOGLOBIN (test code = HGB) 10.6 g/dL 12-16 L HEMATOCRIT (test code = HCT) 32.4 % 37-47 L SPECIMEN COMMENT: POD #1Novel Coronavirus 2019 [id number] 09:36:00 Test Item Value Reference Range Interpretation [...] assa y in vitro. Novel Coronavirus 2018 [id number] 09:36:00 Test Item Value Reference Range Interpretation [...] for the identification of SARS-CoV-2 RNA usingthe [employer] M2000 Sy stem under the FDA Emergen cy UseAuthorizatio n. The testing is perf ormed by personnelmax d in the procedures for the [employer] M2000 molecular diagnostic SARS-CoV-2 assa y in vitro. CBC W/AUTO [id number] 17:34:00 Test Item Value Reference Range Interpretation [...] 0-0 N code = NRBC) COMPREHENSIVE METABOLIC [id number] 16:10:00 Test Item Value Reference Range Interpretation [...] RATE (test code = GFR) mL/mi n/1.73 r2Zmfvkwjrq Range:Healthy Adults >90 mL/min/1.73 m2 For Chronic [...] ALKP) - CT UP EXTREM W/O CONT [id number] 11:06:00 Patient Name: BEATRICE BAUGH Unit No: [id number] EXAMS: CPT CODE: [id number] [place] EXTREM W/[place] [address] [place] SCAN RIGHT ELBOW WITH RECONSTRUCTION DIAGNOSIS: 1. The current exam is compared to aprevious exam dated September 02, 2019. There is [...] with ACR practice standards and adherence to director broadcast's recommendations. INDICATION: RIGHT ELBOWFX COMPARISON: None. COMMENT: Findings are described above. at 1106 Reported and signed by: Sadie Mcdowell MD CC: Ravinder Snell MD Technologist: Juan Dodge,RT(R) CTDI: DLP: Trnscrpt: 01/06/2020 (1106) t.SDR.GVG [facility] NAME: BEATRICE BAUGH [address] [facility] [address] PHYS: Ravinder Romero MD : 1945 AGE: 74 SEX:M [place], [place] [address] LOC: Y.RAD PHONE #: [phone] EXAM DATE: 01/05/2020 STATUS: DEP CLI FAX #: [phone] RAD #: D/C DT PAGE 1 Signed Report Patient Name: BEATRICE BAUGH Unit No: [id number] EXAMS: CPT CODE: [id number] CT UP EXTREM W/[place] [address] (Continued) Orig Print D/T: S: 01/06/2020 (1109) [facility] NAME: BEATRICE BAUGH [address] [facility] [address] PHYS: Ravinder Romero MD : 1945 AGE: 74 SEX: M [place] [address] LOC: Y.RAD PHONE #: [phone] EXAM DATE: 01/05/2020 STATUS: DEP CLI FAX #: [phone] RAD #: D/C DT PAGE 2 Signed Report- CT UP EXTREM W/O CONT [id number] 08:43:00 Patient Name: BEATRICE BAUGH Unit No: [id number] EXAMS: CPT CODE: [id number] [place] UP EXTREM W/[place] [address] CT SCAN RIGHT ELBOW WITH RECONSTRUCTION DIAGNOSIS: [...] Dodge,RT(R) CTDI: DLP: Trnscrpt: 09/03/2019 (0843) AniaGVG [facility] NAME: BEATRICE BAUGH [address] [facility] PHYS: Ravinder Romero MD : 1945 AGE: 74 SEX: M [place], [place] [address] : Y.RAD PHONE #: [phone] EXAM DATE: 09/02/2019 STATUS: DEP CLI FAX #: [phone] RAD #: D/C DT PAGE 1 Signed Report Patient Name: BEATRICE BAUGH Unit No: [id number] EXAMS: CPT CODE: [id number] CT UP EXTREM W/[place] [address] (Continued) Orig Print D/T: S: 09/03/2019 (0846) [facility] NAME: BEATRICE BAUGH [address] [facility] [address] PHYS: Ravinder Romero MD : 1945 AGE: 74 SEX: M [place], [place] [address] LOC: Y.RAD PHONE #: [phone] EXAM DATE: 09/02/2019 STATUS: DEP CLI FAX #: [phone] RAD #: D/C DT PAGE 2 Signed ReportTISSUE [id number] 15:05:00Surgical Pathology Report Case: [id number] Authorizing Provider: Stalin Owens MD Collected: 07/09/2017 1024 Ordering Location: [facility] Received: 07/09/2017 1450 SERVICES Pathologist: Arturo Ritchie MD Specimens: A) - Lymph Node, JOHN PROSTATIC LYMPH NODE B) - Lymph Node, RIGHT OBTURATOR LYMPH NODE C) - Lymph Node, LEFT INTERNAL ILIAC LYMPH NODE D) - Lymph Node, LEFT OBTURATORLYMPH NODE E) - Prostate, PROSTATE F) - [...] NODES (0/8) Signing Pathologist Direct Phone Line: [phone] signed by Arturo Ritchie MD on 07/18/2017 [...] Adenocarcinoma (acinar, 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 Periprostatic lymph node; B. Right obturator lymph node; C. Left internal iliac lymph node; D. Left obturator lymph node; E. Prostate; F. AppendixThe specimens are all submitted in formalin-filled containers.Part A: Labeled "periprostatic lymph node" consists of a segment of adipose tissue measuring 2 x 1.5 x 0.4 cm. It consists of two small wrigth lymph n odes measuring 0.1 to 0.2 cm, submitted entirely [...] ragged.Ink code: Right-black, left-blue.The prostate is serially s ectioned from apex to base into 9 slices [...] face inked black with tip bisected; F2, public health representative of appendix. CG/ewPerformed.HEMOGLOBIN AND [id number] 06:56:00 Test Item Value Reference Range Interpretation Comments HEMOGLOBIN (BEAKER) (test code = 11.3 GM/DL 13.7-17.5 L 410) HEMATOCRIT (BEAKER) (test code = 36.3 % 40.1-51.0 L 411) BASIC METABOLIC [id number] 06:43:00 Test Item Value Reference Range Interpretation [...] APPLICABLE FOR DIALYSIS PATIEN TS. BASIC METABOLIC [id number] 06:37:00 Test Item Value Reference Range Interpretation [...] TS. Before arterial line is discontinuedBASIC METABOLIC [id number] 15:59:00 Test Item Value Reference Range Interpretation [...] FOR DIALYSIS PATIEN TS. [facility] [id number] 15:06:00 Test Item Value Reference Range Interpretation Comments HEMOGLOBIN (BEAKER) (test code = 12.3 GM/DL 13.7-17.5 L 410) HEMATOCRIT (BEAKER) (test code = 37.3 % 40.1-51.0 L 411) URINE [id number] 12:55:00 Test Item Value Reference Range Interpretation Comments CULTURE (BEAKER) (test <10,000 col/mL skin code = 1095) minerva URINALYSIS W/ [id number] 15:00:00 Test Item Value Reference Range Interpretation [...] SOURCE(BEAKER) (test code = 2795) COMPREHENSIVE METABOLIC [id number] 14:12:00 Test Item Value Reference Range Interpretation [...] NOT APPLICABLE FOR DIALYSIS PATIEN TS. PROTHROMBIN [id number] 13:34:00 Test Item Value Reference Range Interpretation Comments PROTIME (BEAKER) (test code = 13.0 seconds 11.7-14.7 759) INR (BEAKER) (test code = 370) 1.0 <=5.9 RECOMMENDED COUMADIN/WARFARIN INR THERAPY RANGESSTANDARD DOSE: 2.0 - 3.0 Includes: PROPHYLAXIS for venous thrombosis, systemic embolization; TREATMENT for venous thrombosis and/or pulmonary embolus.HIGH RISK: Target INR is 2.5-3.5 for patients with mechanical heart valves.CBC W/PLT COUNT & AUTO [id number] 13:25:00 Test Item Value Reference Range Interpretation [...] % 0-1 PERCENT (BEAKER) (test code = 7961)
[2023-09-30 16:58] VITALS: BMI 19.7
[2023-09-30] MEDS ORDERED: ACETAMINOPHEN 500 MG TAB PO PRN (16:58)
[2023-09-30] MEDS ORDERED: MELATONIN 3 MG TABLET PO PRN (17:22)
[2023-09-30] MEDS ORDERED: DOCUSATE NA/SENNA CONC 1 TAB PO PRN (17:22)
[2023-09-30] MEDS: MESALAMINE 400 MG CAPSULE.DR PO SCH (19:53)
[2023-09-30] MEDS: ENSURE ENLIVE 237 ML CAN PO SCH (19:55)
[2023-09-30 21:13] LABS: Specific Gravity 1.016 (1.005-1.030); Urine Bacteria None Seen /HPF (<20); Urine Bilirubin NEGATIVE (Negative); Urine Blood Negative (Negative); Urine Clarity Clear (Clear); Urine Color Light-Yellow (Yellow); Urine Glucose NEGATIVE (Negative); Urine Mucus Slight /HPF (None Seen); Urine Protein NEGATIVE (Negative); Urine RBC <5 /HPF (None Seen); Urine Urobilinogen Normal (Normal); Urine WBC Clump Rare /HPF (None Seen); Urine pH 7.5 (5.0-7.0)
[2023-10-01 07:53] LABS: Absolute Lymphocytes (CBC) 1.4 K/uL (0.7-4.9); Hematocrit 28.9 % (39.6-49.0); Lymphocytes % 9.4 % (15.3-44.8); MCV 84.9 fL (80-100); Platelets 888 thou/uL (152-406); RBC Red Blood Cell Count 3.41 M/uL (4.33-5.43)
[2023-10-01] MEDS ORDERED: VALSARTAN PO SCH (08:00)
[2023-10-01] MEDS ORDERED: VALSARTAN 80 MG TAB PO SCH (08:00)
[2023-10-01] MEDS: levoFLOXacin 750 MG TAB PO SCH ×2 (08:00→10:16)
[2023-10-01] MEDS ORDERED: FERROUS SULFATE 325 MG TAB PO SCH (08:00)
[2023-10-01] MEDS ORDERED: HYDROCHLOROTHIAZIDE PO SCH (08:00)
[2023-10-01] MEDS: MESALAMINE 400 MG CAPSULE.DR PO SCH ×2 (08:05→19:58)
[2023-10-01] MEDS: DULOXETINE 30 MG CAP PO SCH (08:05)
[2023-10-01] MEDS: ENOXAPARIN 40 MG/0.4 ML SQ SCH (08:05)
[2023-10-01] MEDS: FERROUS SULFATE 325 MG TAB PO SCH (08:05)
[2023-10-01] MEDS: VALSARTAN 80 MG TAB PO SCH (08:06)
[2023-10-01] MEDS: hydroCHLOROthiazide 12.5 MG CAP PO SCH (08:06)
[2023-10-01] MEDS: ENSURE ENLIVE 237 ML CAN PO SCH ×2 (08:08→19:59)
[2023-10-01 08:13] LABS: Albumin 2.3 g/dL (3.4-5.0); Magnesium 2.6 mg/dL (1.6-2.4); Potassium 4.5 mEq/L (3.5-5.1); Prealbumin 18.8 mg/dL (20-40)
[2023-10-01] MEDS: MELOXICAM 7.5 MG TAB PO SCH (10:16)
[2023-10-01] MEDS: CEFTRIAXONE 2,000 MG in NA CHLORIDE 0.9% 100 ML IV SCH (15:34)
[2023-10-01] MEDS: MELATONIN 5 MG TABLET PO PRN (19:58)
[2023-10-01] MEDS: GABAPENTIN 100 MG CAP PO SCH (19:58)
--- NOTE | 2023-10-01 20:11 | HP ---
Date of Admission: 09/30/2023 Time Of Service: 1 p.m. Chief Complaint: Became weak and confused at home. History Of Present Illness: Mr. Baugh is a 78-year-old patient with the admission into [facility] with confusion detected at home by his . White blood cells were slightly elevated and he h ad a slightly low hemoglobin and mildly abnormal BUN. In addition, he has diagnosed with urinary tra ct infection. As a result of worsening confusion, he was diagnosed with the metabolic toxic encephal opathy. Furthermore, his EKG indicated myocardial infarction with anterior septal infarct, age undet ermined. A CT scan of the abdomen and pelvis did show marked bladder distention, moderate stool in t he colon, and cortical irregularities of the vertebral endplates at L5-S1 with sclerosis. Eventually , blood cultures revealed 1 of 4 bottles of Staph aureus and he was placed on vancomycin and Rocephin . He did receive IV fluids, continued on home medications for his history of dementia, hypertension and given Ativan for anxiety. While hospitalized, he did have a hyponatremia with his worsening weak ness in the lower extremities making it difficult for him to return to a prior level of functioning, which he says he was around about a month ago, he was able to function normally, but at the point beg an to have a significant decline. He is now admitted to the inpatient rehabilitation unit with metab olic encephalopathy to receive aggressive physical, occupational, and speech therapy and have his [facility] comorbid conditions managed. 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 Past Medical History: Anxiety, hypertension, dementia, Ktpjwty-Xvmdj-Clpth, and urinary tract infect ion. Allergies: NO KNOWN DRUG ALLERGIES. Imaging Studies: CT scan on 09/23/2023 showed marked bladder distention, moderate amount of stool wi thin the colon. Cortical irregularities in the vertebral endplates of L5-S1 with sclerosis. Medications: Tylenol 500 mg every 6 hours as needed. He is receiving Rocephin 2 g IV daily, now sta rted duloxetine 60 mg daily, Lovenox 40 mg subcutaneously daily, ferrous sulfate 325 mg daily, gabape ntin 100 mg twice daily, hydrochlorothiazide 12.5 mg daily, lidocaine patch apply 1 patch topically t o the right hip where he has pain, melatonin 3 mg at bedtime, Mobic 7.5 mg daily, mg twice daily, Ensure Enlive 237 mL twice daily, Senokot S 2 at bedtime. Diovan 80 mg daily. Family History: Noncontributory. Social History: Patient lives with at home. Denies any significant alcohol, tobacco, or any co nsumption of any illegal drugs. Review of Systems: Noted weakness of lower extremities, some confusion, which is actually improving. Some myalgias, kne e pain and neuropathy symptoms in the feet, tingling, burning, pins and needles. Otherwise, systems review is negative. Current Level Of Functioning: Currently, he is setup assistance for eating, oral hygiene. Contact g uard for toileting. Supervision for his bathing. Upper body dressing, supervision. Lower body dres sing, contact guard. Contact guard for donning and doffing of footwear. Rolling from left to right, right to left independent, supervision for sliding in bed. Xoi-dz-lhzth, moderate assistance. Chavira sfer from bed to chair, moderate assistance. Toilet transfers, moderate assistance. Ambulation, mod erate assistance with a rolling walker covering 30 feet. Rehab And Medical Assessment And Plan: Mr. Baugh is admitted to the inpatient rehabilitation unit wit h impairment category 03, brain dysfunction nontraumatic. His impairment group code is 02.1, nontrau matic. His etiologic diagnosis is metabolic encephalopathy. His comorbidities are decreased mobilit y, decreased physical functioning, dementia, essential tremor, Xfbbral-Fphdu-Vgizh syndrome, hyperten arya, leukocytosis, pain and weakness. Plan: 1.He will have physical, occupational, and speech therapy for 3.5 hours, 5 of 7 days. 2.We will continue for anemia, ferrous sulfate. Continue for neuropathy, gabapentin. Continue hydr ochlorothiazide for fluid management. Continue for his urinary tract infection, the Rocephin and his blood cultures also being positive, Rocephin will be continued per protocol. Diovan for hypertensio n. Senokot S for constipation. Melatonin for insomnia. Tylenol for pain. Fluoxetine for depressio n. Impact Of His Comorbidities: He has a baseline mild dementia and will work with Speech Therapy to be able to make sound decisions and have an improvement in his safety awareness, his ability to communi jonny and comprehend communication in his expression and comprehension. His IV medications will be wo rked around in terms of receiving the Rocephin and the therapy schedule will be scheduled around that to complete treatment of his IV antibiotics. Rehab Plan: 1.Mr. Baugh will have physical, occupational, and speech therapy for 3.5 hours, 5 of 7 days to improv e his ability to stand to transfer, to be able to perform upper and lower body dressing, to go on the toilet to perform toileting and to get in the shower and perform showering. 2.To ambulate over 250 feet with modified independence, up and down 10 steps with modified independe nce. Propel a wheelchair with modified independence. He will also have [facility] 24 hours a d ay. He will have physician evaluation on a daily basis and social work evaluation for helping him wi th his discharge planning, durable medical equipment needs and therapeutic which will be continuing o nce he discharges. Ms. Baugh has a good understanding of the process of admission and is discharged to the inpatient reha bilitation facility. He has a potential to make good improvement and to return to prior level of fun ctioning and will need physical, occupational, and speech therapy. If need be the ID Service, the Ca rdiology Service, and Hospitalist Service will be consulted. Given his complex medical condition and risk of further complications, rehabilitation cannot be safely or effectively provided at a lower le nicole of facility such as [facility]. Barriers To Discharge: Currently, IV antibiotics that should be continuing and should be discontinue d before he is ready for discharge. Also, there is some issue of cognitive dysfunction. He will hav e speech therapy to help with that. The patient's may not be able to assist him at home as she also has some issues and will have to do discharge planning to figure if there is an alternative. Th e patient may be going to assisted living after discharge, so those plans are to be started as he is now admitted to the inpatient unit and that was the plan for discharge. Estimated Length Of Stay: About 12 days. Disposition: Potentially to assisted living. Prognosis: Good despite the multiple conditions. Rehabilitation Goals: 1.Become independent with upper and lower body dressing. 2.Become independent with walking with a walker 250 feet. 3.Independent going up and down 15 steps. 4.Independently mobilize a wheelchair 250 feet. 5.Independently perform cognitive functioning to be able to manage medications, to have safety aware ness, communicate properly with both expression and comprehension and manage all of his affairs. 6.He will have [facility] 24 hours a day, 7 days a week. 7.He will have social work evaluation and management for discharge planning and needs and then have physician evaluation and management on a daily basis. 8.The above goals were reviewed with the patient and he is in agreement. By signing this document, I acknowledge that I performed a full physical examination on Mr. Amauri joseph ater than 24 hours after admission to the inpatient rehabilitation facility and determined that he is able to tolerate the above course of treatment at an intensive level for a reasonable period of time . A detailed individualized plan of care for him will be completed by hospital day 4 based on the pr eadmission screen, history and physical, and therapy evaluations. VARUN Voice ID: [id number]
[2023-10-01] MEDS ORDERED: TRAZODONE 50 MG TABLET PO PRN (22:01)
[2023-10-02 04:23] LABS: Absolute Lymphocytes (CBC) 1.3 K/uL (0.7-4.9); Hematocrit 27.1 % (39.6-49.0); Lymphocytes % 10.3 % (15.3-44.8); MCV 84.6 fL (80-100); MPV 6.1 fL (7.6-11.3); Platelets 908 thou/uL (152-406); RBC Red Blood Cell Count 3.21 M/uL (4.33-5.43)
[2023-10-02 04:46] LABS: Potassium 4.2 mEq/L (3.5-5.1)
[2023-10-02] MEDS: CEFTRIAXONE 2,000 MG in NA CHLORIDE 0.9% 100 ML IV SCH (06:59)
[2023-10-02] MEDS: ENOXAPARIN 40 MG/0.4 ML SQ SCH (07:08)
[2023-10-02 08:01] LABS: Blood Morphology Comment NOT SEEN (NOT SEEN); Platelet Estimate INCR; White Blood Cell Scan OK (OK)
[2023-10-02] MEDS: LIDOCAINE 4% PATCH TOP SCH (09:02)
[2023-10-02] MEDS: VALSARTAN 80 MG TAB PO SCH (09:03)
[2023-10-02] MEDS: MESALAMINE 400 MG CAPSULE.DR PO SCH ×2 (09:03→19:41)
[2023-10-02] MEDS: DULOXETINE 30 MG CAP PO SCH (09:04)
[2023-10-02] MEDS: GABAPENTIN 100 MG CAP PO SCH ×2 (09:04→19:41)
[2023-10-02] MEDS: FERROUS SULFATE 325 MG TAB PO SCH (09:04)
[2023-10-02] MEDS: hydroCHLOROthiazide 12.5 MG CAP PO SCH (09:04)
[2023-10-02] MEDS: MELOXICAM 7.5 MG TAB PO SCH (09:06)
[2023-10-02] MEDS: ENSURE ENLIVE 237 ML CAN PO SCH ×2 (10:14→19:47)
[2023-10-02] MEDS ORDERED: CEFTRIAXONE 2,000 MG in NA CHLORIDE 0.9% 100 ML IV SCH (11:00)
--- NOTE | 2023-10-02 16:48 | RAD REPORT ---
EXAM DESCRIPTION: RAD - Hip Right 2 View - 10/02/2023 2:33 pm CLINICAL HISTORY: pain COMPARISON: No comparisons TECHNIQUE: Right hip, AP and frog-leg views. FINDINGS: There is no fracture or dislocation. Mild right hip joint degenerative changes with acetab ular spurring. No acute or destructive bony process seen. IMPRESSION: No acute findings of the right hip. Mild degenerative changes.
--- NOTE | 2023-10-02 19:29 | PN ---
Date of Progress Note: 10/02/2023 Time Of Service: 1:05 p.m. Subjective: Mr. 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 Hip x-ray pending. Otherwise, he is doing everyth ing asked of him. His bowel movements are doing well. Still has some difficulty sleeping. Review of Systems: Denies any fevers or chills. Admits some myalgias, arthralgias, and some neuropathic pain along with right hip pain. No other positives on the systems review. Physical Examination: Vital Signs: Blood pressure 172/82, pulse of 82, respiratory rate 16, temperature 98.7, saturation 9 6%, weight 141 pounds, height 5 feet 11 inches, BMI 19. General: Mr. Baugh did walk about 50 feet with the therapist and sat down. HEENT: He is normocephalic, atraumatic. Sclerae anicteric. Oropharynx is moist. Neck: Supple. Extremities: Lower extremities do show some thinness, some knee swelling bilaterally, and no rash no ysabel. He has a stocking-glove loss to light touch temperature. Laboratory Studies: White blood cell count 12.7, which is decreased from 15.1 yesterday. His neutro phils now normal at 73.3, hemoglobin 8.9 down from 9.4, platelets are 908, likely reactive. Sodium 1 34, potassium 4.2, chloride 99, carbon dioxide 31, BUN 29, creatinine 0.77, calcium 9.5, glucose 103, prealbumin 18.5, albumin 2.3. The hip x-ray, which was done today and the report is now back shows no acute findings of the right hip. There are mild degenerative changes with acetabular spurring and again no destructive bony processes identified. Medications: Tylenol 500 mg every 6 hours as needed, he did receive Rocephin 14 bags completed, Cymb lexus 60 mg daily, Lovenox 40 mg daily, ferrous sulfate 325 mg daily, gabapentin 100 mg twice daily, h ydrochlorothiazide 12.5 mg daily, lidocaine patch apply topically daily as needed, melatonin 5 mg at bedtime, Mobic 7.5 mg daily, mesalamine 1200 mg twice daily, hemocyte Plus 1 tablet daily, Ensure Enl fabricio 237 mL daily, Senokot-S 2 at bedtime, tramadol 50 mg every 4 hours, Desyrel 50 mg at bedtime. He will be noted in terms of his complaints. He did say some difficulty falling asleep along with some problems with pain and the trazodone was adjusted in terms of dosage along with melatonin and Ultram or tramadol added to his regimen along with the gabapentin 100 mg twice daily. Current Functional Status: Today, he ambulated with a rolling walker, covered 60 feet 3 times, 75 fe et once, 100 feet once with contact guard assistance. He self propel a wheelchair 125 feet and 100 f eet with standby assistance and verbal cues. Supine sit transfer done with standby assistance. With his occupational therapy, independent for donning, doffing socks and shoes while sitting in a wheelc hair. Qcj-or-olpls required minimum assistance. Progress Towards Rehabilitation Goals: Mr. Baugh is making very good progress towards his goals of be coming independent with upper and lower body dressing, transferring, toileting, showering, performing all activities of daily living. Cognitive functioning is doing very well despite his metabolic ence phalopathy that is resolving quite nicely and he is beginning again to do very well with his physical therapy and occupational therapy activities. Assessment: Mr. Baugh is a 78-year-old patient, admitted to the inpatient rehabilitation unit with me tabolic encephalopathy, which is resolving very well. He has decreased mobility, decrease in physica l functioning, mild cognitive impairment, benign essential tremor, Qoyjqhd-Winfq-Axelx, insomnia, hyp ertension, leukocytosis with pain and weakness. Plan: 1.He will have physical and occupational therapy for 3 hours a day, 5 to 7 days. 2.His comorbid conditions will be managed. He does have the positive cultures, for which he is on R ocephin and continue per protocol and Diovan for hypertension, Senokot S for constipation. For his i nsomnia, trazodone and melatonin. For pain, Tylenol and tramadol. Fluoxetine, continue for depressi on and DVT prophylaxis, we will continue with Lovenox 40 mg subcutaneously daily. Comorbidities That Continue To Impact Rehabilitation: Currently, he has pain in the hip, again that is checked out as no fracture. Pain patch could be placed over there as appropriate. Gabapentin is being adjusted, Tylenol and tramadol as well for his sleep issue that he said he did sleep well last night with an adjustment of melatonin 5 mg daily and trazodone 50 mg at bedtime. If need be, that do nata can be adjusted up to 75/100 mg as appropriate. Melatonin up to 10 mg as appropriate. LUIS MANUEL/SUZY Voice ID: [id number] Report ID: [id number]
[2023-10-02] MEDS: TRAZODONE 50 MG TABLET PO PRN (19:42)
[2023-10-03] MEDS: ENOXAPARIN 40 MG/0.4 ML SQ SCH (09:00)
[2023-10-03] MEDS: ENSURE ENLIVE 237 ML CAN PO SCH ×2 (09:17→19:40)
[2023-10-03] MEDS: MESALAMINE 400 MG CAPSULE.DR PO SCH ×2 (09:21→19:39)
[2023-10-03] MEDS: hydroCHLOROthiazide 12.5 MG CAP PO SCH (09:22)
[2023-10-03] MEDS: GABAPENTIN 100 MG CAP PO SCH ×2 (09:22→19:40)
[2023-10-03] MEDS: FE SULF/FA/VIT B COMP & C TAB PO SCH (09:22)
[2023-10-03] MEDS: DULOXETINE 30 MG CAP PO SCH (09:23)
[2023-10-03] MEDS: VALSARTAN 80 MG TAB PO SCH (09:23)
[2023-10-03] MEDS: FERROUS SULFATE 325 MG TAB PO SCH (09:23)
[2023-10-03] MEDS: TRAMADOL HCL 50 MG TAB PO PRN ×2 (09:25→17:49)
[2023-10-03] MEDS: LIDOCAINE 4% PATCH TOP SCH (09:26)
[2023-10-03] MEDS: CEFTRIAXONE 2,000 MG in NA CHLORIDE 0.9% 100 ML IV SCH (09:27)
[2023-10-03] MEDS: MELOXICAM 7.5 MG TAB PO SCH (09:29)
--- NOTE | 2023-10-03 13:54 | P.RH.PN ---
Estimated Length of Stay: 12 Expected Discharge Date: 10/11/23 Discharge Disposition Plan: Home Family Support: Yes [facility] Goal: Mobility, Transfers, Self Care Vital Signs: Last Vital Signs Temp 97.8 F 10/03/23 07:02 Pulse 84 10/03/23 09:23 Resp 18 10/03/23 09:25 BP 136/71 10/03/23 09:23 Pulse Ox 96 10/03/23 09:25 Laboratory: Laboratory Last Values WBC 12.70 thou/uL (4.3-10.9) H 10/02/23 03:47 RBC 3.21 M/uL (4.33-5.43) L 10/02/23 03:47 Hgb 8.9 g/dL (13.6-17.9) L 10/02/23 03:47 Hct 27.1 % (39.6-49.0) L 10/02/23 03:47 MCV 84.6 fL (80-100) 10/02/23 03:47 MCH 27.9 pg (27.0-35.0) 10/02/23 03:47 MCHC 32.9 g/dL (32.0-36.0) 10/02/23 03:47 RDW 16.7 % (12.1-15.2) H 10/02/23 03:47 Plt Count 908 thou/uL (152-406) H 10/02/23 03:47 MPV 6.1 fL (7.6-11.3) L 10/02/23 03:47 Neutrophils % 73.3 % (41.7-73.7) 10/02/23 03:47 Lymphocytes % 10.3 % (15.3-44.8) L 10/02/23 03:47 Monocytes % 7.5 % (3.3-12.3) 10/02/23 03:47 Eosinophils % 7.9 % (0-4.4) H 10/02/23 03:47 Basophils % 1.0 % (0-1.3) 10/02/23 03:47 Absolute Neutrophils 9.3 K/uL (1.8-8.0) H 10/02/23 03:47 Absolute Lymphocytes 1.3 K/uL (0.7-4.9) 10/02/23 03:47 Absolute Monocytes 0.9 K/uL (0.1-1.3) 10/02/23 03:47 Absolute Eosinophils 1.0 K/uL (0-0.5) H 10/02/23 03:47 Absolute Basophils 0.1 K/uL (0-0.5) 10/02/23 03:47 Platelet Estimate Incr 10/02/23 03:47 Morphology Comment Not seen (NOT SEEN) 10/02/23 03:47 Sodium 134 mEq/L (136-145) L 10/02/23 03:47 Potassium 4.2 mEq/L (3.5-5.1) 10/02/23 03:47 Chloride 99 mEq/L (98-107) 10/02/23 03:47 Carbon Dioxide 31 mEq/L (21-32) 10/02/23 03:47 Anion Gap 8.2 mEq/L (5.0-15.0) 10/02/23 03:47 BUN 29 mg/dL (7-18) H 10/02/23 03:47 Creatinine 0.77 mg/dL (0.70-1.30) 10/02/23 03:47 Est GFR (CKD-EPI) 92 ml/min (=/>90) 10/02/23 03:47 Glucose 103 mg/dL (74-106) 10/02/23 03:47 Calcium 9.5 mg/dL (8.5-10.1) 10/02/23 03:47 Magnesium 2.6 mg/dL (1.6-2.4) H 10/01/23 07:39 Albumin 2.3 g/dL (3.4-5.0) L 10/01/23 07:39 Prealbumin 18.8 mg/dL (20-40) L 10/01/23 07:39 Urine Color Light-yellow (Yellow) 09/30/23 20:30 Urine Clarity Clear (Clear) 09/30/23 20:30 Urine pH 7.5 (5.0-7.0) H 09/30/23 20:30 Ur Specific [place] 1.016 (1.005-1.030) 09/30/23 20:30 Glucose (UA)(Auto) Negative (Negative) 09/30/23 20:30 Urine Ketones Negative (Negative) 09/30/23 20:30 Urine Blood Negative (Negative) 09/30/23 20:30 Urine Nitrite Negative (Negative) 09/30/23 20:30 Urine Bilirubin Negative (Negative) 09/30/23 20:30 Urine Urobilinogen Normal (Normal) 09/30/23 20:30 Ur Leukocyte Esterase Negative Donato/uL (Negative) 09/30/23 20:30 Urine RBC <5 /HPF (None Seen) 09/30/23 20:30 Urine WBC <5 /HPF (<5) 09/30/23 20:30 Urine WBC Clumps Rare /HPF (None Seen) 09/30/23 20:30 Ur Squamous Epith Cells None seen /HPF (None Seen) 09/30/23 20:30 Urine Bacteria None seen /HPF (<20) 09/30/23 20:30 Hyaline Casts 0-5 /LPF (None Seen) 09/30/23 20:30 Urine Mucus Slight /HPF (None Seen) 09/30/23 20:30 Urine Culture Reflexed Not needed 09/30/23 20:30 Urine Total Protein Negative (Negative) 09/30/23 20:30 Smear Scan Ok (OK) 10/02/23 03:47 Weight: 141 lb 4.8 oz Wound Present: No Closed Surgical Incision Present: No Negative Pressure Wound Therapy Present: No Physician Update: Labs reviewed and are stable except WBC 12.7. He is on a high dosage of rocephin of 2 grams daily. RW 100' with CGA. WC 175'. Supervision with ADls. 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 Please see the Rehabilitation Signature page for all necessary signatures.
[2023-10-03] MEDS: MELATONIN 5 MG TABLET PO PRN (19:42)
[2023-10-04] MEDS: ENOXAPARIN 40 MG/0.4 ML SQ SCH (07:08)
[2023-10-04] MEDS: LIDOCAINE 4% PATCH TOP SCH (07:12)
[2023-10-04] MEDS: TRAMADOL HCL 50 MG TAB PO PRN (07:12)
[2023-10-04] MEDS: MESALAMINE 400 MG CAPSULE.DR PO SCH ×2 (07:45→19:21)
[2023-10-04] MEDS: GABAPENTIN 100 MG CAP PO SCH ×3 (07:45→19:21)
[2023-10-04] MEDS: CEFTRIAXONE 2,000 MG in NA CHLORIDE 0.9% 100 ML IV SCH (07:45)
[2023-10-04] MEDS: hydroCHLOROthiazide 12.5 MG CAP PO SCH (07:46)
[2023-10-04] MEDS: VALSARTAN 80 MG TAB PO SCH (07:46)
[2023-10-04] MEDS: FERROUS SULFATE 325 MG TAB PO SCH (07:46)
[2023-10-04] MEDS: FE SULF/FA/VIT B COMP & C TAB PO SCH (07:46)
[2023-10-04] MEDS: DULOXETINE 30 MG CAP PO SCH (07:46)
[2023-10-04] MEDS: MELOXICAM 7.5 MG TAB PO SCH (07:55)
[2023-10-04] MEDS: ENSURE ENLIVE 237 ML CAN PO SCH ×2 (10:48→19:29)
[2023-10-04] MEDS: TRAZODONE 50 MG TABLET PO PRN (19:21)
[2023-10-05] MEDS: CEFTRIAXONE 2,000 MG in NA CHLORIDE 0.9% 100 ML IV SCH (08:19)
[2023-10-05] MEDS: ENOXAPARIN 40 MG/0.4 ML SQ SCH (08:19)
[2023-10-05] MEDS: hydroCHLOROthiazide 12.5 MG CAP PO SCH (08:20)
[2023-10-05] MEDS: MELOXICAM 7.5 MG TAB PO SCH (08:20)
[2023-10-05] MEDS: LIDOCAINE 4% PATCH TOP SCH (08:22)
[2023-10-05] MEDS: VALSARTAN 80 MG TAB PO SCH (08:22)
[2023-10-05] MEDS: GABAPENTIN 100 MG CAP PO SCH ×3 (08:24→19:25)
[2023-10-05] MEDS: DULOXETINE 30 MG CAP PO SCH (08:24)
[2023-10-05] MEDS: MESALAMINE 400 MG CAPSULE.DR PO SCH ×2 (08:24→19:25)
[2023-10-05] MEDS: FE SULF/FA/VIT B COMP & C TAB PO SCH (08:24)
[2023-10-05] MEDS: FERROUS SULFATE 325 MG TAB PO SCH (08:24)
[2023-10-05] MEDS: ENSURE ENLIVE 237 ML CAN PO SCH ×2 (08:27→19:25)
[2023-10-05] MEDS ORDERED: DIPHENHYDRAMINE 25 MG TAB/CAP PO PRN (14:36)
[2023-10-05] MEDS: NYSTATIN PWDR 100000 UNIT/GM TOP SCH ×2 (16:14→19:25)
[2023-10-05] MEDS: TRAZODONE 50 MG TABLET PO PRN (19:25)
[2023-10-06] MEDS: ENOXAPARIN 40 MG/0.4 ML SQ SCH (07:23)
[2023-10-06] MEDS: NYSTATIN PWDR 100000 UNIT/GM TOP SCH ×2 (07:23→19:47)
[2023-10-06] MEDS: ENSURE ENLIVE 237 ML CAN PO SCH ×2 (07:23→19:48)
[2023-10-06] MEDS: CEFTRIAXONE 2,000 MG in NA CHLORIDE 0.9% 100 ML IV SCH (07:24)
[2023-10-06] MEDS: GABAPENTIN 100 MG CAP PO SCH ×3 (07:25→19:48)
[2023-10-06] MEDS: FERROUS SULFATE 325 MG TAB PO SCH (07:25)
[2023-10-06] MEDS: MESALAMINE 400 MG CAPSULE.DR PO SCH ×2 (07:25→19:47)
[2023-10-06] MEDS: DULOXETINE 30 MG CAP PO SCH (07:25)
[2023-10-06] MEDS: MELOXICAM 7.5 MG TAB PO SCH (07:25)
[2023-10-06] MEDS: FE SULF/FA/VIT B COMP & C TAB PO SCH (07:25)
[2023-10-06] MEDS: hydroCHLOROthiazide 12.5 MG CAP PO SCH (07:26)
[2023-10-06] MEDS: VALSARTAN 80 MG TAB PO SCH (07:26)
[2023-10-06] MEDS: TRAMADOL HCL 50 MG TAB PO PRN (08:56)
[2023-10-06] MEDS: LIDOCAINE 4% PATCH TOP SCH (11:31)
--- NOTE | 2023-10-06 22:06 | PN ---
Date of Progress Note: 10/06/2023 Time Of Service: 1 p.m. Subjective: Mr. Baugh is ambulating in the multani. He is in no acute distress. He has no new complain ts. Some questions about his knee and hip, which have been bothering him for quite a bit. Told a pa in patch will be added. Gabapentin adjusted and magnesium can be used to help as well. Review of Systems: Again some myalgias and arthralgias, especially in the knee on the right and the left hip as well on the right. 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 He has had a significantly dislocated right arm and elbow, but he is aware on how to manipulate the arm, to be able to help him with his ambulation. Physical Examination: Vital Signs: Blood pressure 137/68, pulse of 89, respiratory rate 16, temperature 97.8, ox saturatio n 95%. General: Mr. Baugh is again resting comfortably. Extremities: Right arm noted is rotated internally and it is a chronic issue where has been dislocat ed, never was able to be repositioned properly. He has some swelling in the right knee and pain ther e and in the hip. He has diffuse weakness in the lower extremity and fatigue is at the baseline. Laboratory Studies: No new laboratory studies. X-ray/imaging: No new x-rays or imaging. Medications: Medications have been reviewed. He is on Tylenol No. 3. He also has Rocephin which is to continue up to 28th, twice daily, he has 200 mg, because of positive blood cultures. He is on Cy mbalta, Benadryl, Lovenox, ferrous sulfate, gabapentin, hydrochlorothiazide, lidocaine patch, melaton in, Mobic, Hemocyte, Ensure Enlive, Senokot-S, Ultram, Desyrel, and Diovan. Current Functional Status: Today, he completed gait training, was able to ambulate 85 feet, 100 feet , and 65 feet with a rolling walker with standby assistance. He did have some rest breaks. Did work on fall safety, locking and unlocking his wheelchair, correct hand and body position for safe transf ers. He also walked in afternoon another 90 feet twice with standby assistance. Occupational therap y, independent with supine to sit at edge of bed, required supervision first with standby assistance with verbal cues and locking his brakes. With toileting supervision, bathing supervision, upper body dressing independent, lower body dressing supervision. Progress Towards Rehabilitation Goals: Mr. Baugh is making good progress towards his goals, to be abl e to independently transfer from bed to chair which is due to the wheelchair, then ambulate now with household distances and more with modified independence with the rolling walker, also working on dres sing upper body, which is doing independent, lower body dressing still needs some work and is toileti ng and showering as well. Still with around mod assist level. Assessment: Mr. Baugh is a 78-year-old patient in the rehabilitation unit with metabolic encephalopat hy, which is resolving. He has Sgbzsmk-Vzgaf-zkdkv. He has benign essential tremor, hypertension, l eukocytosis, lower extremity pain, weakness, and right hip pain and dislocated right elbow. Plan: Continue with physical and occupational therapy 3 hours a day, 5 to 7 days. He has a list of comorbid conditions and medications are continued unchanged. He is also on Rocephin for blood cultur es that were positive prior to coming to the unit. He is completing that dose and long treatment wit h Rocephin 14 days twice daily 2 g. Comorbidities That Continue To Impact Rehabilitation: Again receiving Rocephin to be careful to look for C. diff or any other yeast overgrowth and due to his chronic use of the Rocephin. LUIS MANUEL/SUZY Voice ID: [id number] Report ID: [id number]
[2023-10-07] MEDS: TRAZODONE 50 MG TABLET PO PRN ×2 (00:52→19:49)
[2023-10-07] MEDS: TRAMADOL HCL 50 MG TAB PO PRN (07:05)
[2023-10-07] MEDS: ENOXAPARIN 40 MG/0.4 ML SQ SCH (07:05)
[2023-10-07] MEDS: LIDOCAINE 4% PATCH TOP SCH (07:06)
[2023-10-07] MEDS: CEFTRIAXONE 2,000 MG in NA CHLORIDE 0.9% 100 ML IV SCH (07:11)
[2023-10-07] MEDS: GABAPENTIN 100 MG CAP PO SCH ×2 (07:36→19:49)
[2023-10-07] MEDS: FERROUS SULFATE 325 MG TAB PO SCH (07:36)
[2023-10-07] MEDS: FE SULF/FA/VIT B COMP & C TAB PO SCH (07:36)
[2023-10-07] MEDS: DULOXETINE 30 MG CAP PO SCH (07:36)
[2023-10-07] MEDS: MESALAMINE 400 MG CAPSULE.DR PO SCH ×2 (07:36→19:49)
[2023-10-07] MEDS: ENSURE ENLIVE 237 ML CAN PO SCH ×2 (07:37→19:49)
[2023-10-07] MEDS: NYSTATIN PWDR 100000 UNIT/GM TOP SCH ×2 (07:38→19:48)
[2023-10-07] MEDS: hydroCHLOROthiazide 12.5 MG CAP PO SCH (08:17)
[2023-10-07] MEDS: VALSARTAN 80 MG TAB PO SCH (08:17)
[2023-10-07] MEDS: MELOXICAM 7.5 MG TAB PO SCH (08:19)
--- NOTE | 2023-10-07 13:37 | PN ---
Date of Progress Note: 10/07/2023 Time Of Service: 12 noon. Subjective: Mr. Baugh is resting in bed between therapy sessions. Has questions as he actually does daily about his right hip and knee. His right hip x-ray did not show any significant abnormalities. Mild bony spurs noted and his right knee also, no big issues noted there. He has had a knee replace ment. He has a pain patch over the right knee and has gabapentin, tramadol, magnesium, and a pain pa tch to right hip. Review of Systems: Again, the right hip has noted some issues. He has also pain in the right knee and is able to do bet ter with his ambulation today. Denies any fevers, chills. No rash. No psychiatric issues noted. Physical Examination: Vital Signs: Blood pressure 139/66, pulse 87, respiratory rate 18, temperature 97.3, oxygen saturati on 93%. General: Mr. Baugh is resting in bed. HEENT: He is normocephalic, atraumatic. Sclerae are anicteric. Oropharynx is moist. Neck: Supple. Chest: Clear. Heart: Regular. Extremities: He has stocking-glove loss to light touch temperature and diffuse weakness in the lower extremities and no focal deficits. Laboratory Studies: No new laboratory studies except COVID-19 testing done today was negative. Medications: His medications have been reviewed and remain unchanged. He has a pain patch in the ri ght hip. Current Functional Status: Today, he was able to independently move from supine to sit at edge of be d. He did ket-fj-vmces 5 times independently, self propelled wheelchair 250 feet requiring only [address] break. He engaged in repetitive pull-ups, to stand at a grab bar, did 10 sets twice. He did have a rest break and did those at moderate duration of time and he ambulated 100 feet, 65 feet, and 85 f eet with a rolling walker with standby assistance. Progress Towards Rehabilitation Goals: Mr. Baugh is making good progress towards his goals of becomin g independent with upper and lower body dressing, transferring, and ambulating household distances of 50 feet with modified independence, propel a wheelchair 250 feet with modified independence, and per forming cognitive functioning independently. Assessment: Mr. Baugh is a 78-year-old patient admitted to the rehabilitation unit with metabolic enc ephalopathy that is resolving as is debility and is improving his strength overall. He has Charcot-M kaylah-Tooth and has weakness and numbness in the distal to proximal lower extremities more than upper extremities. He has essential tremor, hypertension, leukocytosis and is doing well with those condit ions. Plan: 1.Continue with physical and occupational therapy for 3 hours a day, 5 to 7 days. 2.He does have Rocephin ongoing for positive blood cultures and to be completed on the and to y is . Also, his DVT prophylaxis is with Lovenox 40 mg subcutaneously daily, gabapentin 200 mg t wice daily. Hydrochlorothiazide 12.5 mg daily for his diuresis. Duloxetine 60 mg daily for his mood control. Mobic for NSAID coverage. Melatonin for insomnia. Ensure Enlive for malnutrition. Hemoc yte Plus for anemia. Desyrel for insomnia. Diovan for his hypertension. Senokot-S for constipation . Comorbidities That Continue To Impact His Rehabilitation: Currently, the CMT makes it difficult for him to ambulate significant distances. In addition, he has a chronic right elbow dislocation, makes it difficult for him to exert full straight force with the right upper extremity, but despite that he is doing very well. LB/MODL Voice ID: [id number] Report ID: [id number]
[2023-10-07] MEDS: MAGNESIUM OXIDE 400 MG TAB PO SCH (19:49)
[2023-10-08] MEDS: CEFTRIAXONE 2,000 MG in NA CHLORIDE 0.9% 100 ML IV SCH (07:00)
[2023-10-08] MEDS: ENOXAPARIN 40 MG/0.4 ML SQ SCH (07:00)
[2023-10-08] MEDS: TRAMADOL HCL 50 MG TAB PO PRN (07:08)
[2023-10-08] MEDS: LIDOCAINE 4% PATCH TOP SCH (08:45)
[2023-10-08] MEDS: MESALAMINE 400 MG CAPSULE.DR PO SCH ×2 (08:45→19:08)
[2023-10-08] MEDS: GABAPENTIN 100 MG CAP PO SCH ×2 (08:46→19:08)
[2023-10-08] MEDS: hydroCHLOROthiazide 12.5 MG CAP PO SCH (08:46)
[2023-10-08] MEDS: DULOXETINE 30 MG CAP PO SCH (08:46)
[2023-10-08] MEDS: FE SULF/FA/VIT B COMP & C TAB PO SCH (08:46)
[2023-10-08] MEDS: FERROUS SULFATE 325 MG TAB PO SCH (08:46)
[2023-10-08] MEDS: MAGNESIUM OXIDE 400 MG TAB PO SCH ×2 (08:47→19:09)
[2023-10-08] MEDS: VALSARTAN 80 MG TAB PO SCH (08:47)
[2023-10-08] MEDS: MELOXICAM 7.5 MG TAB PO SCH (08:50)
[2023-10-08] MEDS: LOPERAMIDE HCL 2 MG CAPSULE PO PRN ×2 (09:42→16:45)
[2023-10-08] MEDS: ENSURE ENLIVE 237 ML CAN PO SCH ×2 (09:42→19:09)
[2023-10-08] MEDS: NYSTATIN PWDR 100000 UNIT/GM TOP SCH ×2 (10:00→19:09)
[2023-10-08] MEDS: TRAZODONE 50 MG TABLET PO PRN (20:02)
[2023-10-09] MEDS: ENOXAPARIN 40 MG/0.4 ML SQ SCH (07:04)
[2023-10-09] MEDS: CEFTRIAXONE 2,000 MG in NA CHLORIDE 0.9% 100 ML IV SCH (07:54)
[2023-10-09] MEDS: LIDOCAINE 4% PATCH TOP SCH (07:54)
[2023-10-09] MEDS: GABAPENTIN 100 MG CAP PO SCH ×2 (07:56→19:18)
[2023-10-09] MEDS: MAGNESIUM OXIDE 400 MG TAB PO SCH ×2 (07:56→19:19)
[2023-10-09] MEDS: hydroCHLOROthiazide 12.5 MG CAP PO SCH (07:56)
[2023-10-09] MEDS: FE SULF/FA/VIT B COMP & C TAB PO SCH (07:56)
[2023-10-09] MEDS: DULOXETINE 30 MG CAP PO SCH (07:56)
[2023-10-09] MEDS: FERROUS SULFATE 325 MG TAB PO SCH (07:56)
[2023-10-09] MEDS: MESALAMINE 400 MG CAPSULE.DR PO SCH ×2 (07:56→19:18)
[2023-10-09] MEDS: VALSARTAN 80 MG TAB PO SCH (07:57)
[2023-10-09] MEDS: MELOXICAM 7.5 MG TAB PO SCH (07:57)
[2023-10-09] MEDS: ENSURE ENLIVE 237 ML CAN PO SCH ×2 (07:58→19:19)
[2023-10-09 08:45] LABS: Absolute Lymphocytes (CBC) 1.2 K/uL (0.7-4.9); Hematocrit 25.8 % (39.6-49.0); MCV 85.4 fL (80-100); MPV 6.2 fL (7.6-11.3); Platelets 663 thou/uL (152-406); RBC Red Blood Cell Count 3.03 M/uL (4.33-5.43)
[2023-10-09] MEDS: NYSTATIN PWDR 100000 UNIT/GM TOP SCH ×2 (09:46→19:19)
[2023-10-09 10:11] LABS: Albumin 2.5 g/dL (3.4-5.0); Magnesium 2.4 mg/dL (1.6-2.4); Potassium 4.1 mEq/L (3.5-5.1)
[2023-10-09] MEDS: TRAZODONE 50 MG TABLET PO PRN (19:18)
[2023-10-10] MEDS: NYSTATIN PWDR 100000 UNIT/GM TOP SCH ×3 (07:21→19:27)
[2023-10-10] MEDS: MELOXICAM 7.5 MG TAB PO SCH (07:22)
[2023-10-10] MEDS: MESALAMINE 400 MG CAPSULE.DR PO SCH ×2 (07:22→19:26)
[2023-10-10] MEDS: ENOXAPARIN 40 MG/0.4 ML SQ SCH (07:22)
[2023-10-10] MEDS: CEFTRIAXONE 2,000 MG in NA CHLORIDE 0.9% 100 ML IV SCH (07:22)
[2023-10-10] MEDS: FE SULF/FA/VIT B COMP & C TAB PO SCH (07:23)
[2023-10-10] MEDS: FERROUS SULFATE 325 MG TAB PO SCH (07:23)
[2023-10-10] MEDS: DULOXETINE 30 MG CAP PO SCH (07:23)
[2023-10-10] MEDS: GABAPENTIN 100 MG CAP PO SCH ×2 (07:23→19:27)
[2023-10-10] MEDS: VALSARTAN 80 MG TAB PO SCH (07:23)
[2023-10-10] MEDS: MAGNESIUM OXIDE 400 MG TAB PO SCH ×2 (07:23→19:27)
[2023-10-10] MEDS: hydroCHLOROthiazide 12.5 MG CAP PO SCH (07:25)
[2023-10-10] MEDS: ENSURE ENLIVE 237 ML CAN PO SCH ×2 (08:00→19:27)
--- NOTE | 2023-10-10 09:05 | P.RH.PN ---
Estimated Length of Stay: 12 Expected Discharge Date: 10/11/23 Discharge Disposition Plan: Home Family Support: Yes Long-Term Goal: Mobility, Transfers, Self Care Vital Signs: Last Vital Signs Temp 97.6 F 10/10/23 06:43 Pulse 91 H 10/10/23 07:25 Resp 18 10/10/23 06:43 BP 142/65 H 10/10/23 07:25 Pulse Ox 92 10/10/23 06:43 Laboratory: Laboratory Last Values WBC 9.20 thou/uL (4.3-10.9) 10/09/23 07:35 RBC 3.03 M/uL (4.33-5.43) L 10/09/23 07:35 Hgb 8.6 g/dL (13.6-17.9) L 10/09/23 07:35 Hct 25.8 % (39.6-49.0) L 10/09/23 07:35 MCV 85.4 fL (80-100) 10/09/23 07:35 MCH 28.4 pg (27.0-35.0) 10/09/23 07:35 MCHC 33.3 g/dL (32.0-36.0) 10/09/23 07:35 RDW 16.5 % (12.1-15.2) H 10/09/23 07:35 Plt Count 663 thou/uL (152-406) H 10/09/23 07:35 MPV 6.2 fL (7.6-11.3) L 10/09/23 07:35 Neutrophils % 68.8 % (41.7-73.7) 10/09/23 07:35 Lymphocytes % 13.0 % (15.3-44.8) L 10/09/23 07:35 Monocytes % 9.7 % (3.3-12.3) 10/09/23 07:35 Eosinophils % 6.6 % (0-4.4) H 10/09/23 07:35 Basophils % 1.9 % (0-1.3) H 10/09/23 07:35 Absolute Neutrophils 6.4 K/uL (1.8-8.0) 10/09/23 07:35 Absolute Lymphocytes 1.2 K/uL (0.7-4.9) 10/09/23 07:35 Absolute Monocytes 0.9 K/uL (0.1-1.3) 10/09/23 07:35 Absolute Eosinophils 0.6 K/uL (0-0.5) H 10/09/23 07:35 Absolute Basophils 0.2 K/uL (0-0.5) 10/09/23 07:35 Platelet Estimate Incr 10/02/23 03:47 Morphology Comment Not seen (NOT SEEN) 10/02/23 03:47 Sodium 139 mEq/L (136-145) 10/09/23 07:35 Potassium 4.1 mEq/L (3.5-5.1) 10/09/23 07:35 Chloride 107 mEq/L (98-107) 10/09/23 07:35 Carbon Dioxide 29 mEq/L (21-32) 10/09/23 07:35 Anion Gap 7.1 mEq/L (5.0-15.0) 10/09/23 07:35 BUN 28 mg/dL (7-18) H 10/09/23 07:35 Creatinine 0.71 mg/dL (0.70-1.30) 10/09/23 07:35 Est GFR (CKD-EPI) 94 ml/min (=/>90) 10/09/23 07:35 Glucose 90 mg/dL (74-106) 10/09/23 07:35 Calcium 9.0 mg/dL (8.5-10.1) 10/09/23 07:35 Magnesium 2.4 mg/dL (1.6-2.4) 10/09/23 07:35 Albumin 2.5 g/dL (3.4-5.0) L 10/09/23 07:35 Prealbumin 22.0 mg/dL (20-40) 10/09/23 07:35 Urine Color Light-yellow (Yellow) 09/30/23 20:30 Urine Clarity Clear (Clear) 09/30/23 20:30 Urine pH 7.5 (5.0-7.0) H 09/30/23 20:30 Ur Specific Ruth 1.016 (1.005-1.030) 09/30/23 20:30 Glucose (UA)(Auto) Negative (Negative) 09/30/23 20:30 Urine Ketones Negative (Negative) 09/30/23 20:30 Urine Blood Negative (Negative) 09/30/23 20:30 Urine Nitrite Negative (Negative) 09/30/23 20:30 Urine Bilirubin Negative (Negative) 09/30/23 20:30 Urine Urobilinogen Normal (Normal) 09/30/23 20:30 Ur Leukocyte Esterase Negative Donato/uL (Negative) 09/30/23 20:30 Urine RBC <5 /HPF (None Seen) 09/30/23 20:30 Urine WBC <5 /HPF (<5) 09/30/23 20:30 Urine WBC Clumps Rare /HPF (None Seen) 09/30/23 20:30 Ur Squamous Epith Cells None seen /HPF (None Seen) 09/30/23 20:30 Urine Bacteria None seen /HPF (<20) 09/30/23 20:30 Hyaline Casts 0-5 /LPF (None Seen) 09/30/23 20:30 Urine Mucus Slight /HPF (None Seen) 09/30/23 20:30 Urine Culture Reflexed Not needed 09/30/23 20:30 Urine Total Protein Negative (Negative) 09/30/23 20:30 SARS-CoV-2 Rap RNA(RT-PCR) Negative (NEGATIVE) 10/07/23 07:15 Smear Scan Ok (OK) 10/02/23 03:47 Weight: 131 lb 11.2 oz Wound Present: No Closed Surgical Incision Present: No Negative Pressure Wound Therapy Present: No Physician Update: Labs reviewed and are stable with mild anemia. BIMS 15, right hip 5/10 pain. Will get IV antibiotics until 10/14/23. He will go back to [facility]. Good functional gains given the right elbow chronic dislocation. Met 4/4, short term and 4/6 half-way goals. Summary: Patient's care plan and half-way goals have been reviewed and revised as necessary. Please see the Rehabilitation Signature page for all necessary signatures.
[2023-10-10] MEDS: LIDOCAINE 4% PATCH TOP SCH (10:01)
[2023-10-10] MEDS ORDERED: LOPERAMIDE HCL 2 MG CAPSULE PO STA (10:38)
[2023-10-10] MEDS: TRAZODONE 50 MG TABLET PO PRN (19:27)
[2023-10-11] MEDS: LIDOCAINE 4% PATCH TOP SCH (07:08)
[2023-10-11] MEDS: ENOXAPARIN 40 MG/0.4 ML SQ SCH (07:08)
[2023-10-11] MEDS: MELOXICAM 7.5 MG TAB PO SCH (07:09)
[2023-10-11] MEDS: VALSARTAN 80 MG TAB PO SCH (07:09)
[2023-10-11] MEDS: hydroCHLOROthiazide 12.5 MG CAP PO SCH (07:09)
[2023-10-11] MEDS: MESALAMINE 400 MG CAPSULE.DR PO SCH ×2 (07:09→19:48)
[2023-10-11] MEDS: GABAPENTIN 100 MG CAP PO SCH ×2 (07:10→19:49)
[2023-10-11] MEDS: MAGNESIUM OXIDE 400 MG TAB PO SCH ×2 (07:10→19:49)
[2023-10-11] MEDS: FE SULF/FA/VIT B COMP & C TAB PO SCH (07:10)
[2023-10-11] MEDS: DULOXETINE 30 MG CAP PO SCH (07:10)
[2023-10-11] MEDS: ENSURE ENLIVE 237 ML CAN PO SCH ×2 (07:11→19:49)
[2023-10-11] MEDS: FERROUS SULFATE 325 MG TAB PO SCH (07:11)
[2023-10-11] MEDS: NYSTATIN PWDR 100000 UNIT/GM TOP SCH ×2 (07:11→19:49)
[2023-10-11] MEDS: CEFTRIAXONE 2,000 MG in NA CHLORIDE 0.9% 100 ML IV SCH (07:12)
[2023-10-11] MEDS: TRAZODONE 50 MG TABLET PO PRN (19:49)
[2023-10-12] MEDS: ENOXAPARIN 40 MG/0.4 ML SQ SCH (07:29)
[2023-10-12] MEDS: CEFTRIAXONE 2,000 MG in NA CHLORIDE 0.9% 100 ML IV SCH (07:30)
[2023-10-12] MEDS: NYSTATIN PWDR 100000 UNIT/GM TOP SCH (08:00)
[2023-10-12] MEDS: MAGNESIUM OXIDE 400 MG TAB PO SCH ×3 (08:00→19:24)
[2023-10-12] MEDS: LIDOCAINE 4% PATCH TOP SCH (09:01)
[2023-10-12] MEDS: FE SULF/FA/VIT B COMP & C TAB PO SCH (09:02)
[2023-10-12] MEDS: MESALAMINE 400 MG CAPSULE.DR PO SCH ×2 (09:02→19:23)
[2023-10-12] MEDS: GABAPENTIN 100 MG CAP PO SCH ×2 (09:03→19:24)
[2023-10-12] MEDS: FERROUS SULFATE 325 MG TAB PO SCH (09:03)
[2023-10-12] MEDS: hydroCHLOROthiazide 12.5 MG CAP PO SCH (09:03)
[2023-10-12] MEDS: VALSARTAN 80 MG TAB PO SCH (09:03)
[2023-10-12] MEDS: DULOXETINE 30 MG CAP PO SCH (09:04)
[2023-10-12] MEDS: ENSURE ENLIVE 237 ML CAN PO SCH ×3 (09:05→19:35)
[2023-10-12] MEDS: MELOXICAM 7.5 MG TAB PO SCH (09:07)
[2023-10-12] MEDS: TRAZODONE 50 MG TABLET PO PRN (19:24)
[2023-10-13] MEDS: CEFTRIAXONE 2,000 MG in NA CHLORIDE 0.9% 100 ML IV SCH (06:37)
[2023-10-13] MEDS: FE SULF/FA/VIT B COMP & C TAB PO SCH (07:07)
[2023-10-13] MEDS: ENOXAPARIN 40 MG/0.4 ML SQ SCH (07:07)
[2023-10-13] MEDS: DULOXETINE 30 MG CAP PO SCH (07:07)
[2023-10-13] MEDS: GABAPENTIN 100 MG CAP PO SCH (07:07)
[2023-10-13] MEDS: MESALAMINE 400 MG CAPSULE.DR PO SCH ×2 (07:07→19:46)
[2023-10-13] MEDS: MELOXICAM 7.5 MG TAB PO SCH (07:07)
[2023-10-13] MEDS: hydroCHLOROthiazide 12.5 MG CAP PO SCH (07:08)
[2023-10-13] MEDS: FERROUS SULFATE 325 MG TAB PO SCH (07:08)
[2023-10-13] MEDS: VALSARTAN 80 MG TAB PO SCH (07:08)
[2023-10-13] MEDS: MAGNESIUM OXIDE 400 MG TAB PO SCH ×2 (08:00→19:46)
[2023-10-13] MEDS: ENSURE ENLIVE 237 ML CAN PO SCH ×2 (08:00→19:46)
[2023-10-13] MEDS: LIDOCAINE 4% PATCH TOP SCH (09:51)
[2023-10-13] MEDS: TRAZODONE 50 MG TABLET PO PRN (19:46)
[2023-10-13] MEDS ORDERED: GABAPENTIN 300 MG CAP PO SCH (21:00)
--- NOTE | 2023-10-13 21:10 | PN ---
Date of Progress Note: 10/13/2023 Time Of Service: 12:30 p.m. Subjective: Mr. Baugh is resting in his bed. He had some questions about his discharge, about CMP an d neuropathy in the feet. Those were answered and discussions were satisfactory. His medication reg imen was adjusted to accommodate for that. It was pain patch and gabapentin. No other subjective is sues. Review of Systems: Mild pain and numbness in the feet, dysesthesias in the feet. Otherwise, he does have some diffuse w eakness, which is chronic related to the CMP, otherwise no other positives. Physical Examination: Vital Signs: Blood pressure 130/60, pulse 84, respiratory rate is 16, temperature 97.4, oxygen satur ation 95%. General: Mr. Baugh is resting comfortably in a chair. He is in no acute distress. He is normocephal ic, atraumatic. Sclerae anicteric. Oropharynx pink, moist. Neck: Supple. Extremities: Mild edema in the lower extremities and he does have swelling of the joints from osteoa rthritis of the hands, which is all chronic. Further, he has a significantly dislocated right elbow, which is chronic and the patient has adapted well to using the arm. Medications: His medications have been reviewed and remain unchanged. Laboratory Studies: No new laboratory studies. X-ray/imaging: No new x-rays or imaging. Current Functional Status: With Physical Therapy, wheelchair transfer was done independently, rashard g walker transfer independently. Gait, he ambulated 250 feet independently, up and down 15 steps ind ependently, mobilized wheelchair 500 feet independently, did a car transfer independently. The patie nt did very well and met all short-term and long-term goals while in rehabilitation. With occupation al therapy, he was able to reach his back with his right upper extremity to address issues there and he ambulated 250 feet with a rolling walker in his room and only needed 1 seated rest break, doing ve ry well from that standpoint. He is not receiving any physical therapy. Progress made with physical and occupational therapy. He has made excellent progress with goals and be ready for discharge in the morning. Assessment: Mr. Baugh is a 78-year-old patient admitted to the inpatient rehabilitation unit with met abolic encephalopathy, which has resolved. He has Glcchye-Nezrg-Srlre with distal more than proximal numbness weakness in his lower more than upper extremities. He has well managed essential tremor, h ypertension, leukocytosis, and all those again are going well. Plan: Until discharge, we will continue with physical and occupational therapy. He also had prior t o coming to [facility] systemic infection, receiving Rocephin 2 g daily. He is to receive h is last dose tomorrow, which is October 14, following that to be discharged. His comorbid condition s including depression, neuropathic pain, hypertension, need for NSAIDs, all those will be continued. He also has melatonin for insomnia, Hemocyte Plus for anemia, and Senokot for constipation. Comorbidities That Continue To Impact Rehabilitation: His CMP, which is chronic is making it difficu lt for him to sustain mobilization long distances. Also a very dislocated right elbow, but again he has adapted. He is otherwise doing well. He will be discharged home. We will have outpatient physi cyndy therapy to continue. LUIS MANUEL/SUZY Voice ID: [id number] Report ID: [id number]
[2023-10-14] MEDS: ENOXAPARIN 40 MG/0.4 ML SQ SCH (07:06)
[2023-10-14] MEDS: LIDOCAINE 4% PATCH TOP SCH (07:07)
[2023-10-14] MEDS: FE SULF/FA/VIT B COMP & C TAB PO SCH (07:08)
[2023-10-14] MEDS: CEFTRIAXONE 2,000 MG in NA CHLORIDE 0.9% 100 ML IV SCH (07:08)
[2023-10-14] MEDS: FERROUS SULFATE 325 MG TAB PO SCH (07:08)
[2023-10-14] MEDS: MELOXICAM 7.5 MG TAB PO SCH (07:08)
[2023-10-14] MEDS: MESALAMINE 400 MG CAPSULE.DR PO SCH (07:08)
[2023-10-14] MEDS: DULOXETINE 30 MG CAP PO SCH (07:08)
[2023-10-14] MEDS: VALSARTAN 80 MG TAB PO SCH (07:09)
[2023-10-14] MEDS: hydroCHLOROthiazide 12.5 MG CAP PO SCH (07:09)
[2023-10-14 07:10] VITALS: BP 130/70
[2023-10-14] MEDS: ENSURE ENLIVE 237 ML CAN PO SCH (07:10)
[2023-10-14] MEDS: MAGNESIUM OXIDE 400 MG TAB PO SCH (07:11)
[2023-10-14] MEDS ORDERED: GABAPENTIN 100 MG CAP PO SCH (08:00)
[2023-10-14 08:15] VITALS: TEMP 97.6
[2023-10-14 08:32] LABS: Absolute Lymphocytes (CBC) 0.8 K/uL (0.7-4.9); Hematocrit 29.9 % (39.6-49.0); Lymphocytes % 9.4 % (15.3-44.8); MCV 85.7 fL (80-100); Platelets 547 thou/uL (152-406); RBC Red Blood Cell Count 3.49 M/uL (4.33-5.43)
[2023-10-14 09:43] LABS: Magnesium 2.2 mg/dL (1.6-2.4); Potassium 3.6 mEq/L (3.5-5.1); Prealbumin 21.8 mg/dL (20-40)
== END 2023-10-14 11:12 | disposition home or self-care (01) | DRG 92 ==
LOC: 5TH 16:10
PROVIDERS: ADMIT Psychiatry & Neurology Neurology with Special Qualifications in Child Neurology; ATTEND Psychiatry & Neurology Neurology with Special Qualifications in Child Neurology
DX: G92.8 Other toxic encephalopathy (principal); E87.1 Hypo-osmolality and hyponatremia; N39.0 Urinary tract infection, site not specified; G25.0 Essential tremor; K59.00 Constipation, unspecified; M25.561 Pain in right knee; M25.552 Pain in left hip; S53.104D Unspecified dislocation of right ulnohumeral joint, subsequent encounter; M79.10 Myalgia, unspecified site; F03.90 Unspecified dementia, unspecified severity, without behavioral disturbance, psychotic disturbance, mood disturbance, and anxiety; G60.0 Hereditary motor and sensory neuropathy; G47.00 Insomnia, unspecified; F32.A Depression, unspecified
CPT/HCPCS: 36415; 80048; 81001; 82040; 83735; 84134; 85025; 87086; 87088; 87635; 92523; 97110; 97116; 97161; 97165; 97530; 97542; J0696; J1650; J2001

== ENCOUNTER 2023-11-08 08:20 | Inpatient (IN) | payer OTHER, BC ==
[2023-11-08 09:57] LABS: Specific Gravity 1.014 (1.005-1.030); Urine Bacteria None Seen /HPF (<20); Urine Bilirubin NEGATIVE (Negative); Urine Blood Negative (Negative); Urine Clarity Clear (Clear); Urine Color Colorless (Yellow); Urine Glucose NEGATIVE (Negative); Urine Mucus Slight /HPF (None Seen); Urine Protein NEGATIVE (Negative); Urine RBC <5 /HPF (None Seen); Urine Urobilinogen Normal (Normal); Urine pH 5.5 (5.0-7.0)
[2023-11-08] MEDS ORDERED: BISACODYL 10 MG RECTAL SUPP PR PRN (10:53)
[2023-11-08 10:56] VITALS: BMI 18.4
[2023-11-08] MEDS ORDERED: MAGNES/ALUMIN/SIMET 30ML UCUP PO PRN (10:56)
[2023-11-08] MEDS: CEFAZOLIN SODIUM 2 GM in NA CHLORIDE 0.9% 100 ML IVPB SCH ×2 (12:11→17:22)
[2023-11-08] MEDS: TRAMADOL HCL 50 MG TAB PO PRN ×2 (12:21→20:37)
[2023-11-08] MEDS: APIXABAN 2.5 MG TABLET PO SCH (20:37)
[2023-11-08] MEDS: DOCUSATE NA 100 MG CAP PO SCH (20:37)
[2023-11-08] MEDS: MESALAMINE 1.2 GM PO SCH (20:37)
[2023-11-08] MEDS: FAMOTIDINE 20 MG TAB PO SCH (20:38)
[2023-11-08] MEDS ORDERED: MAGNESIUM HYDROXIDE 8% 30 ML PO SCH (21:00)
--- NOTE | 2023-11-09 00:57 | HP ---
Date of Admission: 11/08/2023 Time Of Service: 8 p.m. Chief Complaint: My knee is infected and I am on antibiotics. History Of Present Illness: Mr. Baugh is a 78-year-old patient with Jwwkmwm-Omgdk-Frzfr, arthritis, c arcinoma, colitis, hypertension, who had a right total knee arthroplasty in May 2022, and had additi onal 2 right foot surgeries in early 2022. He subsequently developed metabolic encephalopathy last N ovember, which was a month ago and had also an infection in his right total knee arthroplasty. He wa s seen by his orthopedic doctor on October 25 complaining of worsening pain in the right knee. Asp iration identified Staphylococcus and he was admitted to [facility] for removal of the prosthe sis and placement of an antibiotic spacer with IV antibiotics cefazolin 2 g every 8 hours for 8 weeks through a PICC line. He is weightbearing as tolerated on the right lower extremity, but requires mi n assist for bed mobilization, transfers, ambulation and is only able to muster 2 feet before experie ncing increased weakness and fatigue and having to return to bed. He does have a knee brace, which i s locked in extension when ambulating. He has hyperkalemia, elevated blood glucose and of 8.4 and hematocrit 26.6. He requires daily physician evaluation and management to reduce the risk o f complications given his frequent IV antibiotics in addition to aggressive therapy to help him retur n towards a level of functioning, especially over the next several weeks. He is also on 3 L of oxyge n via nasal cannula. Previously, he was not taking oxygen and the goal will be to get him off that w ith incentive spirometry and physical therapy. As a result, he is now admitted to the inpatient reha bilitation unit for physical and occupational therapy, daily physician evaluation, assisted , and Baseball Club Manager evaluation and management for discharge planning. Past Medical History: As noted. Allergies: NO KNOWN DRUG ALLERGIES. Imaging: Chest x-ray shows right PICC line is in place as expected. Medications: Tylenol 500 mg every 6 hours as needed, Maalox 30 mL every 6 hours for indigestion, Eileen abhilash 2.5 mg twice daily for DVT prophylaxis, aspirin 81 mg daily, Dulcolax 10 mg per rectum for const ipation, cefazolin 2 g every 8 hours for 8 weeks as noted, Colace 100 mg twice daily, Pepcid 20 mg tw ice daily, Atarax 25 mg every 6 hours as needed for itching, lidocaine patch apply topically to the r ight lateral knee daily, milk of magnesia 30 mL at bedtime, Ultram 50 mg every 6 hours, Diovan 80 mg daily. Family History: Noncontributory. Social History: No alcohol, tobacco, or IV drug use. The patient lives in a single family home. Review of Systems: Currently, he denies any significant pain as he is resting in bed. He has no psychiatric complaints. No gastrointestinal or genitourinary complaints. No other complaints in terms of his subjective co mplaints. No fevers or chills. No nausea, vomiting. No myalgias, arthralgias, or rash. Current Level Of Functioning: Setup assistance for eating and oral hygiene, moderate assistance for toileting and showering, setup assistant corporation counsel for upper body dressing, moderate assist for lower body dres sing and donning and doffing footwear, rolling right to left. He is independent for sit to lying and lying to sitting, moderate assistance. Mcq-ni-cygzd and transfer from bed to chair and to toilet, m oderate assistance. Ambulation, moderate assistance with a rolling walker covering 25 feet. Physical Examination: Vital Signs: Blood pressure 159/72, pulse 75, respiratory rate 18, temperature 97.3, oxygen saturati on 96%, weight 130 pounds, height 5 feet 11 inches, BMI 18. General: Mr. Baugh is resting comfortably in bed. He is normocephalic, atraumatic. Sclerae are anic teric. Oropharynx pink and moist. Neck: Supple. Chest: Clear. His right arm has chronically dislocated elbow, which he has lived with for many year s and has adapted despite the significant deformity of the right elbow. Otherwise, he is clear to au scultation. Abdomen: Soft, has good hemostasis in the right knee. Rehab And Medical Assessment And Plan: Mr. Baugh is a 78-year-old patient in the rehabilitation unit with impairment category 09 orthopedic, his impairment group code is 08.9 other orthopedic. His etio logic diagnosis is sepsis and right total knee arthroplasty infection. Comorbidities: Hypertension, dyslipidemia, hyperkalemia, osteoarthritis, postoperative anemia, Fylnhfb-Xtddb-Zraxn, dislocated ri ght elbow, ulcerative colitis. Plan: 1.He will have physical and occupational therapy 3 hours a day, 5 of 7 days. 2.We will have Eliquis 2.5 mg twice daily for DVT prophylaxis. Continue cefazolin for his sepsis an d total knee arthroplasty and infection, Colace for constipation along with milk of magnesia, lidocai ne patch applied for pain along with tramadol and Tylenol, Atarax for itching, Diovan for his blood p ressure. Impact Of Comorbidities: As noted, he has Jvuspho-Ohpbj-Coqoy and has significant chronic weakness i n the legs with decreased sensation. In addition, a dislocated right elbow makes it challenging for him to ambulate, however he was just in the unit over a month ago and did very well despite these fonseca itations. In addition, his IV antibiotics will be given every 8 hours, and he will have the therapy sessions worked around the IV medications being given. He has risk of additional infection and as ne eded chest x-ray, blood cultures, urine cultures will be done. Rehab Specific Plan: Mr. Baugh will have physical and occupational therapy for 3 hours a day, 5 of 7 days to improve his ability to transfer from bed to chair to toilet to shower and to ambulate 250 fee t with modified independence to go up and down 10 steps with modified independence and his right knee will be locked as noted and to perform all activities of daily living with modified independence. Mr. Baugh has a good understanding of the reason for his admission to the inpatient rehabilitation [facility] and understands he will benefit from physical and occupational therapy. If need be, additional services from the Infectious Disease Service, Orthopedic Service, hospitalist service will be consul ysabel. Given his complex medical condition and risk of further complications, rehabilitation cannot be safely or effectively perform as the lower level of facility such as assisted. Barriers To Discharge: Currently requiring long-term antibiotics to the PICC line, will have to be a rranged for him as he goes home. He is not likely to be in the unit here for 8 weeks. 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 Fall precautions adhered to at all times. Gait belt and rolli ng walker at all times. Length of stay around 14 days. Disposition: Home with Home Health, continue with physical and occupational therapy. Prognosis: Fair. Rehabilitation Goals: 1.To become independent with upper body dressing, transferring, toileting, showering, donning and do ffing of footwear. 2.Independently ambulate 250 feet with a rolling walker. 3.Independently propel a wheelchair 250 feet. 4.Independently go up and down 10 steps with bilateral handrails. 5.Independent to perform all cognitive functioning including medication management and safety awaren ess. 6.Above goals were reviewed with Mr. Baugh and he is in agreement. By signing this document, I acknowledge I personally performed a full physical examination on Mr. Esthela infante no later than 24 hours after his admission to the inpatient rehabilitation facility and determined that he is able to tolerate the above course of treatment at an intensive level for reasonable period of time. A detailed individualized plan of care for him will be completed by hospital day 4 based o n the preadmission screen, history and physical, and therapy evaluations. LUIS MANUEL/SUZY Voice ID: [id number]
[2023-11-09] MEDS ORDERED: MAGNESIUM HYDROXIDE 8% 30 ML PO PRN (01:02)
[2023-11-09] MEDS ORDERED: CHLORASEPTIC LOZENGES PO PRN ×2 (01:02→08:00)
[2023-11-09] MEDS: CEFAZOLIN SODIUM 2 GM in NA CHLORIDE 0.9% 100 ML IVPB SCH ×3 (01:07→17:03)
[2023-11-09 07:56] LABS: Absolute Lymphocytes (CBC) 1.1 K/uL (0.7-4.9); Hematocrit 26.7 % (39.6-49.0); Lymphocytes % 9.4 % (15.3-44.8); MCV 83.5 fL (80-100); MPV 6.1 fL (7.6-11.3); Platelets 749 thou/uL (152-406)
[2023-11-09 08:00] LABS: Magnesium 2.4 mg/dL (1.6-2.4); Potassium 4.8 mEq/L (3.5-5.1); Prealbumin 14.4 mg/dL (20-40)
[2023-11-09] MEDS ORDERED: MESALAMINE PO SCH (08:00)
[2023-11-09] MEDS: MESALAMINE 1.2 GM PO SCH ×2 (08:00→19:55)
[2023-11-09] MEDS: LIDOCAINE 4% PATCH TOP SCH (08:26)
[2023-11-09] MEDS: FAMOTIDINE 20 MG TAB PO SCH ×2 (08:26→19:55)
[2023-11-09] MEDS: ASPIRIN 81 MG CHEWABLE TABLET PO SCH (08:26)
[2023-11-09] MEDS: APIXABAN 2.5 MG TABLET PO SCH ×2 (08:26→19:55)
[2023-11-09] MEDS: VALSARTAN 80 MG TAB PO SCH (08:27)
[2023-11-09] MEDS: DOCUSATE NA 100 MG CAP PO SCH ×2 (08:27→19:55)
[2023-11-09] MEDS: TRAMADOL HCL 50 MG TAB PO PRN (19:55)
[2023-11-10] MEDS: CEFAZOLIN SODIUM 2 GM in NA CHLORIDE 0.9% 100 ML IVPB SCH ×3 (00:17→17:17)
[2023-11-10] MEDS: LIDOCAINE 4% PATCH TOP SCH ×2 (08:00→08:28)
[2023-11-10] MEDS: VALSARTAN 80 MG TAB PO SCH (08:27)
[2023-11-10] MEDS: FAMOTIDINE 20 MG TAB PO SCH ×2 (08:28→18:50)
[2023-11-10] MEDS: DOCUSATE NA 100 MG CAP PO SCH ×2 (08:28→18:50)
[2023-11-10] MEDS: ASPIRIN 81 MG CHEWABLE TABLET PO SCH (08:28)
[2023-11-10] MEDS: APIXABAN 2.5 MG TABLET PO SCH ×2 (08:28→18:50)
[2023-11-10] MEDS: MESALAMINE 1.2 GM PO SCH ×2 (08:29→18:52)
[2023-11-10] MEDS: ENSURE HIGH PROTEIN 237 ML CAN PO SCH (18:51)
[2023-11-10] MEDS: TRAMADOL HCL 50 MG TAB PO PRN (18:51)
[2023-11-10] MEDS ORDERED: NA CHLORIDE 0.9% 250 ML ONE (23:55)
[2023-11-11] MEDS: CEFAZOLIN SODIUM 2 GM in NA CHLORIDE 0.9% 100 ML IVPB SCH ×4 (00:01→17:17)
[2023-11-11] MEDS: APIXABAN 2.5 MG TABLET PO SCH ×2 (07:48→19:34)
[2023-11-11] MEDS: FE SULF/FA/VIT B COMP & C TAB PO SCH (07:48)
[2023-11-11] MEDS: ASPIRIN 81 MG CHEWABLE TABLET PO SCH (07:48)
[2023-11-11] MEDS: DOCUSATE NA 100 MG CAP PO SCH ×2 (07:49→19:33)
[2023-11-11] MEDS: VALSARTAN 80 MG TAB PO SCH (07:49)
[2023-11-11] MEDS: FERROUS SULFATE 325 MG TAB PO SCH (07:50)
[2023-11-11] MEDS: TRAMADOL HCL 50 MG TAB PO PRN (07:50)
[2023-11-11] MEDS: FAMOTIDINE 20 MG TAB PO SCH ×2 (07:50→19:34)
[2023-11-11] MEDS: ENSURE HIGH PROTEIN 237 ML CAN PO SCH ×2 (07:59→19:34)
[2023-11-11] MEDS: LIDOCAINE 4% PATCH TOP SCH (07:59)
[2023-11-11] MEDS: MESALAMINE 1.2 GM PO SCH ×2 (08:00→19:34)
[2023-11-11] MEDS: ACETAMINOPHEN 500 MG TAB PO PRN (10:14)
[2023-11-11] MEDS ORDERED: ONDANSETRON 4 MG (ODT) TAB PO PRN (11:22)
[2023-11-11] MEDS: NA CHLORIDE 0.9% 1,000 ML IV SCH ×2 (12:05→21:29)
--- NOTE | 2023-11-11 22:20 | PN ---
Date of Progress Note: 11/11/2023 Time Of Service: 4 p.m. Subjective: Mr. Baugh is sitting, eating his dinner. He is in no acute distress. He has no complain ts and happy so far with his therapy. He has DANGELO hose placed to above the knee and 2/[address] to the thighs bilaterally and is happy as he is eating and no complaints. Objective: No fevers, chills, nausea, vomiting. No myalgias, arthralgias. No rash. No psychiatric issues. No gastrointestinal or genitourinary issues. He did have constipation, which is relieved. He has had 2 days of multiple stools and is happy so far. Physical Examination: Vital Signs: Blood pressure 159/79, pulse 85, respiratory rate 16, temperature 97.2, oxygen saturati on 97%, weight 132 pounds. Height 5 feet 11 inches, BMI 18. General: Ms. Baugh is resting in bed. He does have a chronic deformity of the right elbow and the ri ght knee, where he has the right knee spacer for the sepsis and osteo in the right knee and is on IV antibiotics for 8 weeks and doing well with that. HEENT: Otherwise, he is normocephalic, atraumatic. Sclerae are anicteric. Oropharynx is moist. Neck: Supple. Extremities: No cyanosis or edema in the extremities. Laboratory Studies: No new laboratory studies since the when white blood cell count was slightl y elevated to 11.8 with 74% neutrophils. His electrolyte panel was normal. BUN slightly elevated to 20, otherwise normal sodium, potassium, chloride, carbon dioxide, and creatinine. Creatinine was 0. 82. Prealbumin low at 14.4 and albumin 2.0, consistent with mild malnutrition. Urinalysis was negat fabricio on the and COVId-19 test on the was negative. X-ray/imaging: None. Medications: Tylenol 500 mg every 6 hours as needed, Maalox 30 mL 6 hours as needed, Eliquis 2.5 mg twice daily, aspirin 81 mg daily, Dulcolax 10 mg per rectum for constipation. He is continuing cefaz anuradha 2 g every 8 hours. He will complete 154 bags from the November 11. Colace 100 mg twice daily, Pepcid 20 mg twice daily, ferrous sulfate 325 mg daily, Atarax 25 mg every 6 hours as needed, lidocai ne patch apply topically daily to the right lower extremity for right knee pain, magnesium oxide 30 m L at bedtime as needed for constipation, Hemocyte Plus tablet 1 tablet daily, ensure Enlive 237 mL tw ice daily, Zofran 4 mg every 4 hours as needed. He is receiving some IV fluid throat loze nges every 2 hours as needed, Ultram 50 mg every 6 hours as needed, Diovan 40 mg daily. Progress Made With Physical And Occupational Therapy: Today with physical therapy, Mr. Baugh was able to do bilateral lower extremity exercises, complete that and left lower extremity exercises and righ t lower extremity exercises with assistance. He did those well. He did refuse to get out of bed, bu t agreed to do bed exercises and he did have some earlier nausea, vomiting but no current nausea and vomiting. In terms of his occupational therapy, completed 2 x 20 sets of bilateral upper extremity e xercises with a 3-pound dowel julius to improve his strength. Also, he was able to transfer on and off the toilet twice with minimum assistance. Did require some verbal cues. Did have some orthostatic c hanges with blood pressure, seated in wheelchair was 90/54, heart rate 88, standing 101/48, heart rat e 101. Did become nauseated and did vomit and returned to bed when the therapy was over. Findings l ikely consistent with nausea and vomiting triggered by significant orthostasis. Zofran was used and the compression stockings were put on. Earlier today, he did ambulate 15 feet, 10 feet, and 25 feet twice with moderate assistance. Mr. Baugh is making fair overall progress in terms of his recovery. Did have some nausea, vomiting, a s he was standing and ambulating, had low blood pressures. He is receiving IV fluids. Does have the right knee spacer in place and did not want to do further therapy after he had nausea, vomiting when he was able to be upright. Otherwise, eating well. His chronic right elbow deformity is not limiti ng him in more than usual. He is well adapted to that and is in place chronically. Assessment: Mr. Baugh is a 78-year-old patient in rehabilitation unit with a left knee antibiotic spa cer for infection in the left knee after a prosthesis was found there and was removed and replaced by an antibiotic spacer. In addition, he is on 8 weeks of IV antibiotics as noted above. He does have Eegwvhy-Vqjve-Kswek, making it difficult for him to do very well as that is a chronic issue affectin g his lower extremities and upper extremities in terms of neuropathy with weakness and decreased sens ory responses. He has anemia, malnutrition, nausea, vomiting, again which has been addressed as note d and osteoarthritis with dyslipidemia, hypertension, hyperkalemia. Plan: 1.Continue with physical and occupational therapy for 3 hours, 5 out of 7 days. 2.His comorbid conditions which are listed above are managed by continuing current medications. Not e, he is on IV fluids and IV antibiotics as well as medication for nausea and DANGELO hose and has approp riate abdominal binders for any orthostatic type drop in blood pressure and continue addressing his b owel habits. Comorbidities That Continue To Impact Rehabilitation: Currently, the orthostatic changes causing darvin e nausea vomiting, making it difficult for him to be able to be out of bed after he did a morning ses arya and hydration should be helpful for that. Nausea will be addressed with Zofran in addition to T ED hose, abdominal binders as appropriate, and encourage oral hydration and if need be, imaging from chest and abdomen will be done to rule out pneumonia and obstruction or issues in the GI tract. His Fklovrw-Qwlia-Sodcu, which is chronic and right elbow deformity also chronic, making it difficult for him to thrive very quickly, but he is still making fair progress. LB/MODL Voice ID: [id number] Report ID: [id number]
[2023-11-12] MEDS: CEFAZOLIN SODIUM 2 GM in NA CHLORIDE 0.9% 100 ML IVPB SCH ×3 (00:08→17:31)
[2023-11-12] MEDS: LIDOCAINE 4% PATCH TOP SCH ×2 (08:00→08:58)
[2023-11-12] MEDS: VALSARTAN 40 MG TAB PO SCH (08:00)
[2023-11-12] MEDS: DOCUSATE NA 100 MG CAP PO SCH ×2 (08:58→20:26)
[2023-11-12] MEDS: FERROUS SULFATE 325 MG TAB PO SCH (08:59)
[2023-11-12] MEDS: TRAMADOL HCL 50 MG TAB PO PRN ×2 (08:59→11:47)
[2023-11-12] MEDS: ASPIRIN 81 MG CHEWABLE TABLET PO SCH (08:59)
[2023-11-12] MEDS: APIXABAN 2.5 MG TABLET PO SCH ×2 (08:59→20:26)
[2023-11-12] MEDS: FAMOTIDINE 20 MG TAB PO SCH ×2 (08:59→20:26)
[2023-11-12] MEDS: FE SULF/FA/VIT B COMP & C TAB PO SCH (08:59)
[2023-11-12] MEDS: MESALAMINE 1.2 GM PO SCH ×2 (09:00→20:27)
[2023-11-12] MEDS: ENSURE HIGH PROTEIN 237 ML CAN PO SCH (09:02)
[2023-11-12] MEDS ORDERED: NA CHLORIDE 0.9% 100 ML ONE (16:55)
[2023-11-12] MEDS: ENSURE ENLIVE 237 ML CAN PO SCH (20:26)
--- NOTE | 2023-11-12 20:47 | PN ---
Date of Progress Note: 11/12/2023 Time Of Service: 1:35 p.m. Subjective: Mr. Baugh is resting well in his room. His right knee is in a brace and he has antibioti c spacer in there. Says it has been somewhat uncomfortable to have the knee in the brace. He has bhardwaj d it since early this morning and this is after lunch time. Otherwise, no new complaints. Review of Systems: He denies any fevers or chills, any worsening myalgias or arthralgias. No rash, headache, weight rony nge. No psychiatric issues. Physical Examination: Vital Signs: Blood pressure 118/68, pulse 77, respiratory rate 18, temperature 97.7, oxygen saturati on 95%. General: Mr. Baugh again is sitting in his chair beside the bed. No acute distress. HEENT: He is normocephalic, atraumatic. Extremities: He has a chronic right elbow deformity and he has small legs from his Lglhrok-Efoii-Isr th and the right knee is in a brace. Laboratory Studies: No new laboratory studies. X-ray/imaging: No new x-rays or imaging. Medications: His medications that have been reviewed and remained unchanged. Progress Made With Physical And Occupational Therapy: Today with his physical therapy, he did multip le psr-ae-nkqpe transfers with moderate assistance, verbal cues were required. Also, he ambulated 30 feet twice, 20 feet once, and 10 feet twice with contact guard assistance. Emphasis placed on prope r heel strike and toe off. In terms of occupational therapy, he did work with 3 pounds dumbbells, di d 2 sets of 15 and 3 sets of 20 to strengthen the upper extremities. Mr. Baugh is making fair progress given the restrictions placed on the right leg where he is unable to bear weight and has the antibiotic spacer after the prosthesis was removed. He has comorbid chronic right elbow deformity, Yjfzntr-Mgqef-Ozcxq disease, constipation, malnutrition along with hypertensi on. Plan: 1.Continue with physical and occupational therapy for 3 hours a day, 5/7 days. 2.His comorbidities are managed by continuing all this medications, which are noted. He did have IV antibiotics ongoing, which will be a total of 8 weeks for the infected right knee and then sepsis. Comorbidities That Continue To Impact His Rehabilitation: Continuous antibiotics, which will continu e after his discharge will be arranged via home health and it will continue again a total of 8 weeks. It is cefazolin 2 g every 8 hours to complete 154 bags of antibiotics. LUIS MANUEL/SUZY Voice ID: [id number] Report ID: [id number]
[2023-11-13] MEDS: CEFAZOLIN SODIUM 2 GM in NA CHLORIDE 0.9% 100 ML IVPB SCH ×3 (00:14→17:20)
[2023-11-13] MEDS: VALSARTAN 40 MG TAB PO SCH ×3 (08:00→19:57)
[2023-11-13] MEDS: LIDOCAINE 4% PATCH TOP SCH (08:00)
[2023-11-13] MEDS: ASPIRIN 81 MG CHEWABLE TABLET PO SCH (08:12)
[2023-11-13] MEDS: FE SULF/FA/VIT B COMP & C TAB PO SCH (08:12)
[2023-11-13] MEDS: DOCUSATE NA 100 MG CAP PO SCH ×2 (08:12→19:54)
[2023-11-13] MEDS: FERROUS SULFATE 325 MG TAB PO SCH (08:12)
[2023-11-13] MEDS: APIXABAN 2.5 MG TABLET PO SCH ×2 (08:13→19:55)
[2023-11-13] MEDS: TRAMADOL HCL 50 MG TAB PO PRN ×2 (08:13→13:27)
[2023-11-13] MEDS: FAMOTIDINE 20 MG TAB PO SCH ×2 (08:13→19:54)
[2023-11-13] MEDS: MESALAMINE 1.2 GM PO SCH ×2 (08:16→19:55)
[2023-11-13] MEDS: ENSURE ENLIVE 237 ML CAN PO SCH ×2 (08:16→19:54)
[2023-11-13 08:57] LABS: Absolute Lymphocytes (CBC) 1.4 K/uL (0.7-4.9); Hematocrit 26.2 % (39.6-49.0); Lymphocytes % 10.4 % (15.3-44.8); MCV 83.7 fL (80-100); MPV 6.1 fL (7.6-11.3); Platelets 821 thou/uL (152-406); RBC Red Blood Cell Count 3.13 M/uL (4.33-5.43)
[2023-11-13 09:16] LABS: Albumin 2.2 g/dL (3.4-5.0); Magnesium 2.3 mg/dL (1.6-2.4); Potassium 4.4 mEq/L (3.5-5.1)
[2023-11-13 10:26] LABS: Prealbumin 16.6 mg/dL (20-40)
[2023-11-13] MEDS: GABAPENTIN 100 MG CAP PO SCH ×2 (14:10→19:54)
[2023-11-13] MEDS ORDERED: NA CHLORIDE 0.9% 250 ML ONE (23:13)
[2023-11-14] MEDS: CEFAZOLIN SODIUM 2 GM in NA CHLORIDE 0.9% 100 ML IVPB SCH ×3 (00:01→16:29)
[2023-11-14] MEDS: LIDOCAINE 4% PATCH TOP SCH (07:01)
[2023-11-14] MEDS: GABAPENTIN 100 MG CAP PO SCH ×2 (07:01→20:31)
[2023-11-14] MEDS: ASPIRIN 81 MG CHEWABLE TABLET PO SCH (07:01)
[2023-11-14] MEDS: DOCUSATE NA 100 MG CAP PO SCH ×2 (07:01→20:30)
[2023-11-14] MEDS: FAMOTIDINE 20 MG TAB PO SCH ×2 (07:01→20:31)
[2023-11-14] MEDS: APIXABAN 2.5 MG TABLET PO SCH ×2 (07:01→20:30)
[2023-11-14] MEDS: FERROUS SULFATE 325 MG TAB PO SCH (07:01)
[2023-11-14] MEDS: MESALAMINE 1.2 GM PO SCH ×2 (08:10→20:33)
[2023-11-14] MEDS: ENSURE ENLIVE 237 ML CAN PO SCH ×2 (08:11→20:30)
[2023-11-14] MEDS: FE SULF/FA/VIT B COMP & C TAB PO SCH (08:11)
[2023-11-14] MEDS: TRAMADOL HCL 50 MG TAB PO PRN ×3 (08:16→16:30)
--- NOTE | 2023-11-14 14:19 | P.RH.PN ---
Estimated Length of Stay: 13 Expected Discharge Date: 11/20/23 Discharge Disposition Plan: Home Family Support: Yes [facility] Goal: Mobility, Transfers, Self Care Vital Signs: Last Vital Signs Temp 97.6 F 11/14/23 08:00 Pulse 82 11/14/23 08:00 Resp 14 11/14/23 12:13 BP 162/77 H 11/14/23 08:00 Pulse Ox 94 11/14/23 12:13 Laboratory: Laboratory Last Values WBC 13.30 thou/uL (4.3-10.9) H 11/13/23 08:09 RBC 3.13 M/uL (4.33-5.43) L 11/13/23 08:09 Hgb 8.5 g/dL (13.6-17.9) L 11/13/23 08:09 Hct 26.2 % (39.6-49.0) L 11/13/23 08:09 MCV 83.7 fL (80-100) 11/13/23 08:09 MCH 27.2 pg (27.0-35.0) 11/13/23 08:09 MCHC 32.5 g/dL (32.0-36.0) 11/13/23 08:09 RDW 15.9 % (12.1-15.2) H 11/13/23 08:09 Plt Count 821 thou/uL (152-406) H 11/13/23 08:09 MPV 6.1 fL (7.6-11.3) L 11/13/23 08:09 Neutrophils % 74.3 % (41.7-73.7) H 11/13/23 08:09 Lymphocytes % 10.4 % (15.3-44.8) L 11/13/23 08:09 Monocytes % 8.5 % (3.3-12.3) 11/13/23 08:09 Eosinophils % 5.9 % (0-4.4) H 11/13/23 08:09 Basophils % 0.9 % (0-1.3) 11/13/23 08:09 Absolute Neutrophils 9.9 K/uL (1.8-8.0) H 11/13/23 08:09 Absolute Lymphocytes 1.4 K/uL (0.7-4.9) 11/13/23 08:09 Absolute Monocytes 1.1 K/uL (0.1-1.3) 11/13/23 08:09 Absolute Eosinophils 0.8 K/uL (0-0.5) H 11/13/23 08:09 Absolute Basophils 0.1 K/uL (0-0.5) 11/13/23 08:09 Sodium 135 mEq/L (136-145) L 11/13/23 08:09 Potassium 4.4 mEq/L (3.5-5.1) 11/13/23 08:09 Chloride 104 mEq/L (98-107) 11/13/23 08:09 Carbon Dioxide 28 mEq/L (21-32) 11/13/23 08:09 Anion Gap 7.4 mEq/L (5.0-15.0) 11/13/23 08:09 BUN 31 mg/dL (7-18) H 11/13/23 08:09 Creatinine 0.80 mg/dL (0.70-1.30) 11/13/23 08:09 Est GFR (CKD-EPI) 91 ml/min (=/>90) 11/13/23 08:09 Glucose 87 mg/dL (74-106) 11/13/23 08:09 Calcium 9.3 mg/dL (8.5-10.1) 11/13/23 08:09 Magnesium 2.3 mg/dL (1.6-2.4) 11/13/23 08:09 Albumin 2.2 g/dL (3.4-5.0) L 11/13/23 08:09 Prealbumin 16.6 mg/dL (20-40) L 11/13/23 08:09 Urine Color Colorless (Yellow) 11/08/23 09:07 Urine Clarity Clear (Clear) 11/08/23 09:07 Urine pH 5.5 (5.0-7.0) 11/08/23 09:07 Ur Specific [place]man 1.014 (1.005-1.030) 11/08/23 09:07 Glucose (UA)(Auto) Negative (Negative) 11/08/23 09:07 Urine Ketones Negative (Negative) 11/08/23 09:07 Urine Blood Negative (Negative) 11/08/23 09:07 Urine Nitrite Negative (Negative) 11/08/23 09:07 Urine Bilirubin Negative (Negative) 11/08/23 09:07 Urine Urobilinogen Normal (Normal) 11/08/23 09:07 Ur Leukocyte Esterase Negative Donato/uL (Negative) 11/08/23 09:07 Urine RBC <5 /HPF (None Seen) 11/08/23 09:07 Urine WBC <5 /HPF (<5) 11/08/23 09:07 Ur Squamous Epith Cells None seen /HPF (None Seen) 11/08/23 09:07 Urine Bacteria None seen /HPF (<20) 11/08/23 09:07 Urine Mucus Slight /HPF (None Seen) 11/08/23 09:07 Urine Culture Reflexed Not needed 11/08/23 09:07 Urine Total Protein Negative (Negative) 11/08/23 09:07 SARS-CoV-2 Rap RNA(RT-PCR) Negative (NEGATIVE) 11/08/23 14:55 Weight: 132 lb 3.2 oz Wound Present: No Closed Surgical Incision Present: Yes Negative Pressure Wound Therapy Present: No Physician Update: Labs reviewed and Hgb is decreased to 8.5, WBC slightly elevated. Continuing long term care pharmacist IV antibiotics ancef q8 until 12/14/22. Poor motivation. Max assistance for transfers. Met 4/4 short term PT goals. Min assistance for transfers. RW 20' with min assistance. WC 150' with min assistance. Summary: Patient's care plan and correction goals have been reviewed and revised as necessary. Please see the Rehabilitation Signature page for all necessary signatures.
[2023-11-14] MEDS: VALSARTAN 40 MG TAB PO SCH (20:32)
[2023-11-15] MEDS: CEFAZOLIN SODIUM 2 GM in NA CHLORIDE 0.9% 100 ML IVPB SCH ×3 (00:39→17:03)
[2023-11-15] MEDS ORDERED: NA CHLORIDE 0.9% 250 ML ONE (02:13)
[2023-11-15] MEDS: LIDOCAINE 4% PATCH TOP SCH (08:00)
[2023-11-15] MEDS: DOCUSATE NA 100 MG CAP PO SCH ×2 (08:12→19:27)
[2023-11-15] MEDS: ASPIRIN 81 MG CHEWABLE TABLET PO SCH (08:12)
[2023-11-15] MEDS: GABAPENTIN 100 MG CAP PO SCH ×2 (08:12→19:29)
[2023-11-15] MEDS: FE SULF/FA/VIT B COMP & C TAB PO SCH (08:13)
[2023-11-15] MEDS: FERROUS SULFATE 325 MG TAB PO SCH (08:13)
[2023-11-15] MEDS: FAMOTIDINE 20 MG TAB PO SCH ×2 (08:13→19:29)
[2023-11-15] MEDS: APIXABAN 2.5 MG TABLET PO SCH ×2 (08:13→19:28)
[2023-11-15] MEDS: MESALAMINE 1.2 GM PO SCH ×2 (08:14→19:28)
[2023-11-15] MEDS: TRAMADOL HCL 50 MG TAB PO PRN ×2 (08:14→12:04)
[2023-11-15] MEDS: ENSURE ENLIVE 237 ML CAN PO SCH ×2 (08:17→19:53)
[2023-11-15] MEDS: ACETAMINOPHEN 500 MG TAB PO PRN (12:43)
[2023-11-15] MEDS: VALSARTAN 40 MG TAB PO SCH (19:26)
[2023-11-16] MEDS: CEFAZOLIN SODIUM 2 GM in NA CHLORIDE 0.9% 100 ML IVPB SCH ×3 (00:28→17:36)
[2023-11-16] MEDS: LIDOCAINE 4% PATCH TOP SCH (10:56)
[2023-11-16] MEDS: ASPIRIN 81 MG CHEWABLE TABLET PO SCH (10:57)
[2023-11-16] MEDS: FE SULF/FA/VIT B COMP & C TAB PO SCH (10:57)
[2023-11-16] MEDS: FERROUS SULFATE 325 MG TAB PO SCH (10:58)
[2023-11-16] MEDS: APIXABAN 2.5 MG TABLET PO SCH ×2 (10:58→19:23)
[2023-11-16] MEDS: GABAPENTIN 100 MG CAP PO SCH ×2 (10:58→19:23)
[2023-11-16] MEDS: DOCUSATE NA 100 MG CAP PO SCH ×2 (10:58→19:23)
[2023-11-16] MEDS: MESALAMINE 1.2 GM PO SCH ×2 (10:59→19:24)
[2023-11-16] MEDS: ENSURE ENLIVE 237 ML CAN PO SCH ×2 (11:00→19:24)
[2023-11-16] MEDS: FAMOTIDINE 20 MG TAB PO SCH ×2 (11:04→19:23)
[2023-11-16] MEDS ORDERED: MAGNESIUM CITRATE 300 ML BOT PO PRN (15:02)
[2023-11-16] MEDS ORDERED: MAGNESIUM HYDROXIDE 8% 30 ML PO PRN (15:37)
--- NOTE | 2023-11-16 18:37 | PN ---
Date of Progress Note: 11/16/2023 Time Of Service: 2:35 p.m. Subjective: Mr. Baugh is resting in bed. He has no new complaints. Says the pain is well managed no w. His right knee is not in the brace as he is lying in the bed, is slightly flexed. Review of Systems: Denies any fevers, chills, nausea, vomiting. No myalgias, arthralgias, rash. No psychiatric issues. Physical Examination: Vital Signs: Blood pressure 154/72, pulse 70, respiratory rate 16, temperature 97.1, oxygen saturati on 95%. General: Mr. Baugh is resting comfortably in his bed. HEENT: He is normocephalic, atraumatic. Sclerae anicteric. Oropharynx pink and moist. Extremities: He has a contracture in the right elbow that is chronic and the right knee is swollen, which is chronic and he has antibiotic spacer in place and he has IV antibiotics going every 8 hours. Otherwise, no edema in the left lower extremity. He has Xdmaxpi-Jarrw-Fqxaa with atrophy noted, it is chronic in the lower extremities. Laboratory Studies: No new laboratory studies. X-ray/imaging: No new x-rays or imaging. Medications: Medications have been reviewed and remain unchanged. He continues to have cefazolin 2 g every 8 hours, 154 total bags starting from 11/11. Progress Made With Physical And Occupational Therapy: With occupational therapy, completed toileting with standby assistance. Supine to edge of bed transfers, minimum assistance. Also, he covered 25 feet and another 20 feet 3 more times with contact guard assistance and a rolling walker. He mobiliz ed wheelchair 500 feet independently. Mr. Baugh is making good progress so far. Given his limitations, he is unable to put any significant weight on the right lower extremity. Assessment: Mr. Baugh is a 78-year-old patient in the rehabilitation unit with sepsis, right total kn ee arthroplasty, has that prosthesis replaced with an antibiotic spacer because of his sepsis and inf ection of the knee. He has Zaebysg-Hqawu-Rwejt, right elbow dislocation that is chronic, constipatio n, malnutrition, hypertension. Plan: 1.Continue with physical, occupational, and speech therapy. 2.Address his constipation with Fleet Enema as appropriate. 3.Continue comorbid condition medications as needed. Again, continue with physical and occupational therapy 3 hours a day, 5/7 days. Comorbidities That Continue To Impact His Rehabilitation: His IV antibiotic schedule is being worked around, which is every 8 hours. In addition, there is constipation. There is inability to put weig ht on the right lower extremity, but the patient is working around all of those and doing very well. LUIS MANUEL/SUZY Voice ID: [id number] Report ID: [id number]
[2023-11-16] MEDS: VALSARTAN 40 MG TAB PO SCH (19:24)
[2023-11-16] MEDS ORDERED: MAGNESIUM HYDROXIDE 8% 30 ML PO SCH (21:00)
[2023-11-17] MEDS: CEFAZOLIN SODIUM 2 GM in NA CHLORIDE 0.9% 100 ML IVPB SCH ×3 (00:06→17:05)
[2023-11-17] MEDS: DOCUSATE NA 100 MG CAP PO SCH ×2 (07:51→20:04)
[2023-11-17] MEDS: APIXABAN 2.5 MG TABLET PO SCH ×2 (07:51→20:04)
[2023-11-17] MEDS: FAMOTIDINE 20 MG TAB PO SCH ×2 (07:51→20:04)
[2023-11-17] MEDS: GABAPENTIN 100 MG CAP PO SCH ×2 (07:52→20:04)
[2023-11-17] MEDS: FE SULF/FA/VIT B COMP & C TAB PO SCH (07:52)
[2023-11-17] MEDS: ASPIRIN 81 MG CHEWABLE TABLET PO SCH (07:52)
[2023-11-17] MEDS: FERROUS SULFATE 325 MG TAB PO SCH (07:52)
[2023-11-17] MEDS: LIDOCAINE 4% PATCH TOP SCH (08:00)
[2023-11-17] MEDS: ENSURE ENLIVE 237 ML CAN PO SCH ×2 (08:38→20:05)
[2023-11-17] MEDS: MESALAMINE 1.2 GM PO SCH ×2 (08:39→20:05)
[2023-11-17] MEDS: TRAMADOL HCL 50 MG TAB PO PRN ×2 (08:42→13:12)
[2023-11-17] MEDS: hydrOXYzine HCL 25 MG TAB PO PRN (18:51)
[2023-11-17] MEDS: guaiFENesin 100 MG/5 ML UCUP PO PRN (20:03)
[2023-11-17] MEDS: VALSARTAN 40 MG TAB PO SCH (20:05)
[2023-11-17] MEDS ORDERED: NA CHLORIDE 0.9% 250 ML ONE (22:29)
[2023-11-18] MEDS: CEFAZOLIN SODIUM 2 GM in NA CHLORIDE 0.9% 100 ML IVPB SCH ×3 (00:18→17:21)
[2023-11-18] MEDS: LIDOCAINE 4% PATCH TOP SCH (08:00)
[2023-11-18] MEDS: FE SULF/FA/VIT B COMP & C TAB PO SCH (08:32)
[2023-11-18] MEDS: FAMOTIDINE 20 MG TAB PO SCH ×2 (08:32→19:58)
[2023-11-18] MEDS: APIXABAN 2.5 MG TABLET PO SCH ×2 (08:33→19:58)
[2023-11-18] MEDS: FERROUS SULFATE 325 MG TAB PO SCH (08:33)
[2023-11-18] MEDS: DOCUSATE NA 100 MG CAP PO SCH ×2 (08:33→19:58)
[2023-11-18] MEDS: GABAPENTIN 100 MG CAP PO SCH ×2 (08:33→19:58)
[2023-11-18] MEDS: ASPIRIN 81 MG CHEWABLE TABLET PO SCH (08:33)
[2023-11-18] MEDS: TRAMADOL HCL 50 MG TAB PO PRN ×3 (08:34→17:20)
[2023-11-18] MEDS: MESALAMINE 1.2 GM PO SCH ×2 (08:34→20:00)
[2023-11-18] MEDS: ENSURE ENLIVE 237 ML CAN PO SCH ×2 (08:34→19:59)
[2023-11-18] MEDS: ACETAMINOPHEN 500 MG TAB PO PRN (10:36)
[2023-11-18] MEDS: guaiFENesin 100 MG/5 ML UCUP PO PRN (19:58)
[2023-11-18] MEDS: VALSARTAN 40 MG TAB PO SCH (19:59)
[2023-11-18] MEDS: hydrOXYzine HCL 25 MG TAB PO PRN (20:02)
[2023-11-19] MEDS: CEFAZOLIN SODIUM 2 GM in NA CHLORIDE 0.9% 100 ML IVPB SCH ×2 (00:15→08:53)
[2023-11-19 07:25] VITALS: BP 130/62; TEMP 97.9
[2023-11-19] MEDS: LIDOCAINE 4% PATCH TOP SCH (07:33)
[2023-11-19] MEDS: GABAPENTIN 100 MG CAP PO SCH (07:34)
[2023-11-19] MEDS: FERROUS SULFATE 325 MG TAB PO SCH (07:34)
[2023-11-19] MEDS: DOCUSATE NA 100 MG CAP PO SCH (07:34)
[2023-11-19] MEDS: APIXABAN 2.5 MG TABLET PO SCH (07:34)
[2023-11-19] MEDS: ASPIRIN 81 MG CHEWABLE TABLET PO SCH (07:34)
[2023-11-19] MEDS: FE SULF/FA/VIT B COMP & C TAB PO SCH (07:34)
[2023-11-19] MEDS: FAMOTIDINE 20 MG TAB PO SCH (07:34)
[2023-11-19] MEDS: MESALAMINE 1.2 GM PO SCH (08:53)
[2023-11-19] MEDS: TRAMADOL HCL 50 MG TAB PO PRN (08:54)
[2023-11-19] MEDS: ENSURE ENLIVE 237 ML CAN PO SCH (09:05)
== END 2023-11-19 10:40 | disposition home health service (06) | DRG 949 ==
LOC: 5TH 08:20
PROVIDERS: ADMIT Psychiatry & Neurology Neurology with Special Qualifications in Child Neurology; ATTEND Psychiatry & Neurology Neurology with Special Qualifications in Child Neurology
DX: T84.53XD Infection and inflammatory reaction due to internal right knee prosthesis, subsequent encounter (principal); A41.2 Sepsis due to unspecified staphylococcus; K51.90 Ulcerative colitis, unspecified, without complications; E46 Unspecified protein-calorie malnutrition; Z68.1 Body mass index [BMI] 19.9 or less, adult; K59.00 Constipation, unspecified; E87.5 Hyperkalemia; S53.104D Unspecified dislocation of right ulnohumeral joint, subsequent encounter; I10 Essential (primary) hypertension; E78.5 Hyperlipidemia, unspecified; M19.90 Unspecified osteoarthritis, unspecified site; D64.89 Other specified anemias; G60.0 Hereditary motor and sensory neuropathy; Z11.52 Encounter for screening for COVID-19
CPT/HCPCS: 36415; 80048; 81001; 82040; 83735; 84134; 85025; 87086; 87088; 87635; 97110; 97112; 97116; 97163; 97165; 97530; 97542; J2001; J7030; J7050; Q0162

== ENCOUNTER 2024-02-24 09:03 | Inpatient (IN) | payer OTHER, BC ==
[2024-02-24] MEDS: TRAMADOL HCL 50 MG TAB PO PRN (09:55)
[2024-02-24 10:26] VITALS: BMI 18.8
[2024-02-24 16:45] LABS: Sqamous Epithelial None Seen /HPF (None Seen); Urine Bacteria None Seen /HPF (<20); Urine Bilirubin NEGATIVE (Negative); Urine Blood Trace (Negative); Urine Clarity Clear (Clear); Urine Color Colorless (Yellow); Urine Culture Reflex Order NOT NEEDED; Urine Glucose NEGATIVE (Negative); Urine Ketones NEGATIVE (Negative); Urine Micro Reflex YN NO BILL MICROSCOPIC; Urine Nitrite NEGATIVE (Negative); Urine Protein NEGATIVE (Negative); Urine RBC <5 /HPF (None Seen); Urine Urobilinogen Normal (Normal); Urine WBC <5 /HPF (<5)
[2024-02-24] MEDS: DAPTOmycin 500 MG in NA CHLORIDE 0.9% 100 ML IVPB SCH (17:07)
[2024-02-24] MEDS: FLUCONAZOLE 200 MG PO SCH (17:08)
[2024-02-24] MEDS ORDERED: CIPROFLOXACIN 250 MG PO SCH (20:00)
[2024-02-24] MEDS ORDERED: FLUCONAZOLE 100 MG TAB PO SCH (20:00)
[2024-02-24] MEDS: APIXABAN 2.5 MG TABLET PO SCH (21:21)
[2024-02-24] MEDS: POTASSIUM CL SA 10 MEQ TAB PO SCH (21:21)
[2024-02-24] MEDS: MESALAMINE 400 MG CAPSULE.DR PO SCH (21:21)
[2024-02-24] MEDS: CIPROFLOXACIN 250 MG PO SCH (21:21)
[2024-02-25 03:39] LABS: Absolute Basophils 0.1 K/uL (0-0.5); Absolute Eosinophils 1.3 K/uL (0-0.5); Absolute Lymphocytes (CBC) 1.6 K/uL (0.7-4.9); Absolute Monocytes 0.9 K/uL (0.1-1.3); Basophils % 1.6 % (0-1.3); Eosinophils % 14.5 % (0-4.4); Hematocrit 25.2 % (39.6-49.0); Hemoglobin 8.5 g/dL (13.6-17.9); Lymphocytes % 18.1 % (15.3-44.8); MCH 27.1 pg (27.0-35.0); MCV 79.7 fL (80-100); Monocytes % 9.7 % (3.3-12.3); Neutrophils % 56.1 % (41.7-73.7); Platelets 579 thou/uL (152-406); RBC Red Blood Cell Count 3.16 M/uL (4.33-5.43); Red Cell Distribution Width 15.9 % (12.1-15.2)
[2024-02-25 04:02] LABS: Albumin 2.4 g/dL (3.4-5.0); Anion Gap 8.8 mEq/L (5.0-15.0); Magnesium 2.3 mg/dL (1.6-2.4); Potassium 4.8 mEq/L (3.5-5.1); Prealbumin 17.5 mg/dL (20-40)
--- NOTE | 2024-02-25 05:18 | HP ---
Date of Admission: 02/24/2024 Time Of Service: 1 p.m. Chief Complaint: "I had another infection in my right knee and my back over at rehab." History Of Present Illness: Mr. Baugh is a 79-year-old right-handed patient with hypertensi on, carcinoma, arthritis, and colitis, who had right total knee arthroplasty in May 2022 and 2 right foot surgeries in early 2022. He subsequently developed metabolic encephalopathy and was admitted i n October. 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 He was admitted to [facility]. The right knee prosthesis removed and an a ntibiotic spacer was placed along with IV antibiotics. He subsequently came to inpatient rehabilitat ion, where he did well ambulating with a rolling walker independently, transferring independently and still requiring some assistance for showering and toileting and toilet hygiene. He subsequently dev eloped a synovial fistula with a 1 cm wound defect in the anterolateral aspect of the right knee. He was admitted again to [facility] on February 18 of this year for the spacer to be exchanged in the right knee and implantation of the static spacer with antibiotics. He was given an extension bra ce to wear at all times and put at touchdown weightbearing status of the right lower extremity. He w as discharged home, but the following day, fell and was referred back by his home health agency to in patient rehabilitation due to his inability to be safe at home and risk of his significant further in jury with additional falling. He currently has diarrhea, intermittent incontinence of his bowel, and requires aggressive bowel program to prevent skin breakdown and additional infection. He is on IV d aptomycin 500 mg daily until April 01. He has a low hemoglobin around 7.6 and requires daily evaluatio n for the possibility of transfusion. His right lower extremity has moderate swelling and does requi re management with elevation and constant reminders for his foot exercises to decrease the chance of additional infection and skin breakdown of the right lower extremity. His potential for skin breakdo wn is significant including in the dependent areas such as his lower back and in sacrum where he does have a skin breakdown. Those require management by Wound Care and may potentially need additional m edical intervention. He is dependent for toilet hygiene, showering, lower body dressing, moderate as sistance for [id number] and transfers. As he is functioning well below his baseline level and requ ires multiple interventions for his medical comorbid conditions, he is determined to be appropriate c andidate for inpatient rehabilitation to receive physical and occupational therapy. Past Medical History: As noted above including arthritis, carcinoma, colitis, hypertension, prior ri ght knee arthroplasty with failure and infection. Allergies: NO KNOWN DRUG ALLERGIES. Medications: Eliquis 2.5 mg twice daily, aspirin 81 mg daily, daptomycin 500 mg daily as noted every 24 hours until April 01, Cymbalta 30 mg daily, mesalamine 1200 mg daily, mupirocin apply topically d aily, potassium chloride 20 mEq twice daily, tramadol 50 mg every 6 hours as needed, Diovan 80 mg rich ly. Family History: Noncontributory. Review of Systems: He does report swelling in the right lower extremity. Some moderate pain in the knee, difficulty wit h bowel control, some problems sleeping, some myalgias in the right upper and lower extremity. Other reynoso, no other positives on systems review. Current Level Of Functioning: Eating is at setup. Oral hygiene, setup assistance. Toileting, depen dent. Showering, dependent. Upper body dressing, moderate assistance. Lower body dressing and for donning and doffing shoes, maximum assistance. Rolling right to left and left to right, min assist. Supervision for his sit to lying and contact guard for sitting inside of the bed. For nbg-tq-hqgno, moderate assistance. Transferring to toilet, moderate assistance. Shower moderate assistance. Amb ulation, totally dependent. Wheelchair mobilization 25 feet, moderate assistance. Physical Examination: Vital Signs: Blood pressure 130/56, pulse 79, respiratory rate 16, temperature 98, oxygen saturation 94%. Weight 135 pounds, height 5 feet 11 inches, BMI 18.8. General: Mr. Baugh is sitting in a chair beside the bed. HEENT: He appears to be normocephalic, atraumatic. Sclerae anicteric. Oropharynx moist. Neck: Supple. Chest: Clear. Extremities: Upper extremities, no significant issues such as edema or cyanosis. In the lower extre mity on the right, he has moderate edema of the ankles on the right foot. His right leg is in an ext ension brace which allows the knee to be open and covering the thigh and leg. He has hemostasis that is intact with bandage covering the right lower extremity. On the left side, no clubbing, cyanosis, or edema. He has good strength 4- to 5 proximally and distally. Abdomen: Soft. Laboratory Studies: Urinalysis shows trace of blood. His blood work is pending. X-ray/imaging: Studies are pending. Rehabilitation And Medical Assessment And Plan: Mr. Baugh is a 79-year-old patient admitted to the in patient rehabilitation service with impairment category 08, orthopedic left lower extremity joint rep lacement. His impairment group code is 08.61, status post unilateral knee replacement. 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 Comorb idities are decreased mobility, decreased physical functioning, right lower extremity edema, dyslipid emia, hypertension, incontinence, neuropathic pain, postoperative anemia, and diarrhea. Plan: 1.He will have physical and occupational therapy for 3 hours a day, 5 of 7 days. 2.We will continue for his DVT prophylaxis, Eliquis 2.5 mg twice daily. For stroke risk reduction, aspirin 81 mg daily. For the infection in the right knee, we will continue with daptomycin 500 mg ev tennille 24 hours until April 01. For his electrolyte issues, we will continue the potassium replacement 20 mEq twice daily. For pain, we will use Ultram 50 mg daily. For hypertension, use Diovan 80 mg jame y. For his mood and anxiety, we will continue with Cymbalta 30 mg daily. As needed for his diarrhea , we will use Imodium as needed and again he will be maintained on the touchdown weightbearing in the right lower extremity. Comorbidities That Are Impacting Rehabilitation: At this point, significant swelling in the right lo wer extremity will be managed by elevation and on the left lower extremity, we will put DANGELO hose and as need be, we will add sequential compression device to the left lower extremity. He does have a si gnificant risk of falling. We will have fall precautions adhered to at all times, will ambulate as b est as possible with a rolling walker and mostly transfers and wheelchair mobilization will be expect ed. Not able to be up and down steps at this point. Rehab Specific Plan: Mr. Baugh will have physical and occupational therapy for 3 hours a day to impro ve his ability to transfer from bed to chair to toilet to shower, to be able to transfer well with ose areas, to be able to dress his upper and lower body and donning and doffing of footwear. Also to be able to manage medications to continue with all safe practices for him to be able to return home. Mr. Baugh has a good understanding of the process of admission to the inpatient [facility] and how he would benefit from physical, occupational, and speech therapy. If need be, additional help from the Infectious Disease Service, Orthopedic Service, and Hospitalist Service will be consul dangelo. He will have also 24 hours a day nursing home, daily physician evaluation and management americo ng with all of the therapy as noted and [employer] management for discharge planning and home eq uipment needs. Given his complex medical condition and risk of further complications, rehabilitation cannot be safely or affectively performed at a lower level facility such as a nursing home [facility]. Barriers To Discharge: While he is in hospital with IV antibiotics, we may also have to discharge ho me with that and that will have to be arranged by Home Health. In addition, the right lower extremit y knee spacer and extension brace will likely be in place for several weeks and make it difficult for him to transfer independently at home and therefore nursing home may have to be considered. Length Of Stay: About 12 days. Disposition: Home with Home Health and have potentially someone available to help him at least for t he first 2 weeks at home. Prognosis: Fair. Rehabilitation Specific Goals: 1.Become independent as much as possible with upper body dressing, min assist with lower body dressi ng, donning and doffing footwear, to be able to mobilize the wheelchair 250 feet with independence, t o be able to perform all activities of daily living with supervision or minimum assistance. 2.To be able to perform all cognitive functioning as independently as possible. 3.The above goals were reviewed with Mr. Baugh as he is in agreement. By signing this document, I acknowledge I personally performed a full physical examination on Mr. Esthela infante no later than 24 hours after his admission to the inpatient rehabilitation facility and determined that he is able to tolerate the above course of treatment at an intensive level for a reasonable douglas od of time. A detailed individualized plan of care for him will be completed by hospital day 4 based on the preadmission screen, history and physical, and therapy evaluations. LUIS MANUEL/SUZY Voice ID: [id number]
[2024-02-25] MEDS ORDERED: PANTOPRAZOLE 40MG TABLET PO SCH (06:30)
[2024-02-25] MEDS ORDERED: PSYLLIUM 1 PKT PO SCH (08:00)
[2024-02-25] MEDS ORDERED: MESALAMINE 400 MG CAPSULE.DR PO SCH (08:00)
[2024-02-25] MEDS: MUPIROCIN 2% OINT 22GM TUBE TOP SCH (08:00)
[2024-02-25] MEDS: DULOXETINE 30 MG CAP PO SCH (08:39)
[2024-02-25] MEDS: ASPIRIN EC 81 MG TAB PO SCH (08:40)
[2024-02-25] MEDS: VALSARTAN 80 MG TAB PO SCH (08:41)
[2024-02-25] MEDS: ENSURE ENLIVE 237 ML CAN PO SCH (08:46)
[2024-02-25] MEDS ORDERED: MUPIROCIN 2% OINT 22GM TUBE TOP PRN (09:50)
[2024-02-25] MEDS: HEPARIN 5000 UNIT/ML 1 ML VIAL SQ SCH (20:46)
[2024-02-26] MEDS: DOCUSATE NA/SENNA CONC 1 TAB PO SCH (20:22)
--- NOTE | 2024-02-27 02:39 | PN ---
Date of Progress Note: 02/26/2024 Time Of Service: 1:35 p.m. Subjective: Mr. Baugh is resting in his room. He did have questions about his medications, when he w ill be discharged, on what to be continued as he is discharged home. He reports no significant pain in the right knee where his periprosthetic infection, where he is treated with a spacer that is antib iotic that been replaced and his leg is kept in a restricted manner. Has no significant complaints a bout that. He is receiving heparin shots twice daily and is doing well with that. No new complaints . Objective: No fevers, chills, nausea, vomiting, myalgias, arthralgias, rash, headache, weight change . No other complaints today. Physical Examination: Vital Signs: Blood pressure 152/73, pulse 76, respiratory rate 18, temperature 97.0, oxygen saturati on 98%. Weight 135 pounds, height 5 feet 11 inches, BMI 18.8. General: Again, Mr. Baugh is resting comfortably. HEENT: Normocephalic, atraumatic. Extremities: His right arm chronically has been in a bent position from a very long ago injury and t hat is not new. His right leg is in a restricted brace with good hemostasis and bandaged in terms of the knee. Left lower extremity, no significant edema noted there. Laboratory Studies: White blood cell count 8.9, hemoglobin 8.5, platelets 579. Sodium 136, potassiu m 4.3, chloride 105, carbon dioxide 27, BUN 31, creatinine 0.76, prealbumin 17.5, albumin 2.4. 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 This was discussed with the Pharmacy Service. The patient was actually asymptomati c for urinary tract infection. Urinalysis was essentially negative. Furthermore, he has been on mul tiple antibiotics for his infection in the right knee including ciprofloxacin, daptomycin, and Bactro ban ointment. Services in [facility] will be contacted to determine the need to continue darvin e of his medications which include ciprofloxacin. The potential for adding meropenem will be discuss ed. At this point, we will still continue the daptomycin, which should cover the patient's potential infection of urinary tract for which he is asymptomatic. Medications: Aspirin 81 mg daily, daptomycin 500 mg every 24 hours, Cymbalta 30 mg daily, heparin 50 00 units subcutaneously twice daily, mesalamine 1200 mg twice daily, Bactroban 2% ointment apply to r percy daily, Ensure Enlive 237 mL twice daily, potassium 20 mEq twice daily, Senokot-S 2 at bedtime, tr amadol 50 mg every 6 hours as needed, losartan 80 mg daily. Progress Made With Physical And Occupational Therapy: Today with physical therapy, he completed gait training 2 feet, but was tired, unable to advance left lower extremity forward. Wheelchair mobiliza tion done 250 feet with independence. Bed mobility done with standby assistance. Contact guard for multiple transfers. He did actually ambulate later on 10 to 15 feet twice with a rolling walker with contact guard assistance and mobilized wheelchair another 200 feet with a rest break independently. With occupational therapy, supervision for [id number] transfers, standby assistance for toilet tra nsfers using grab bars, toilet hygiene done with supervision, did do table top activity while standin g for 4 minutes. Mr. Baugh is making fair overall progress with physical and occupational therapy and will have his ant ibiotic panel perhaps adjusted and that will be done with the help of the Pharmacy Service. Assessment: Mr. Baugh is a 79-year-old patient in the rehabilitation unit with right periprosthetic k nee infection and has antibiotic spacer in place. 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 Plan: 1.Continue with physical and occupational therapy for 3 hours a day, 5 of 7 days. 2.Continue with comorbid condition medications treatment, which was switched from Eliquis for DVT pr ophylaxis to heparin 5000 units daily. Daptomycin is continued. Electrolyte replacement managed. C ontinue with Ultram for pain. Diovan for blood pressure, Cymbalta for depression, and it is noted he is maintained on a touchdown weightbearing status which he is able to do with the right lower extrem ity. Comorbidities That Are Impacting His Rehabilitation: He is currently receiving IV antibiotics long-t erm, but that is worked around his schedule and he is managing to do very well with that and the ques tion about adding antibiotic for his ESBL E. coli infection will be addressed and potentially meropen em may be added, which will be 2 IV antibiotics. LUIS MANUEL/SUZY Voice ID: [id number] Report ID: [id number]
[2024-02-27] MEDS: SODIUM CHLORIDE 0.9% 10ML INJ IV SCH (08:09)
--- NOTE | 2024-02-27 13:49 | P.RH.PN ---
Estimated Length of Stay: 12 Expected Discharge Date: 03/05/24 Discharge Disposition Plan: Home Family Support: Yes Longterm Goal: Mobility, Transfers, Self Care Vital Signs: Last Vital Signs Temp 96.9 F 02/27/24 06:55 Pulse 85 02/27/24 08:10 Resp 18 02/27/24 06:55 BP 137/71 02/27/24 08:10 Pulse Ox 95 02/27/24 06:55 Laboratory: Laboratory Last Values WBC 8.90 thou/uL (4.3-10.9) 02/25/24 03:12 RBC 3.16 M/uL (4.33-5.43) L 02/25/24 03:12 Hgb 8.5 g/dL (13.6-17.9) L 02/25/24 03:12 Hct 25.2 % (39.6-49.0) L 02/25/24 03:12 MCV 79.7 fL (80-100) L 02/25/24 03:12 MCH 27.1 pg (27.0-35.0) 02/25/24 03:12 MCHC 34.0 g/dL (32.0-36.0) 02/25/24 03:12 RDW 15.9 % (12.1-15.2) H 02/25/24 03:12 Plt Count 579 thou/uL (152-406) H 02/25/24 03:12 MPV 6.0 fL (7.6-11.3) L 02/25/24 03:12 Neutrophils % 56.1 % (41.7-73.7) 02/25/24 03:12 Lymphocytes % 18.1 % (15.3-44.8) 02/25/24 03:12 Monocytes % 9.7 % (3.3-12.3) 02/25/24 03:12 Eosinophils % 14.5 % (0-4.4) H 02/25/24 03:12 Basophils % 1.6 % (0-1.3) H 02/25/24 03:12 Absolute Neutrophils 5.0 K/uL (1.8-8.0) 02/25/24 03:12 Absolute Lymphocytes 1.6 K/uL (0.7-4.9) 02/25/24 03:12 Absolute Monocytes 0.9 K/uL (0.1-1.3) 02/25/24 03:12 Absolute Eosinophils 1.3 K/uL (0-0.5) H 02/25/24 03:12 Absolute Basophils 0.1 K/uL (0-0.5) 02/25/24 03:12 Sodium 136 mEq/L (136-145) 02/25/24 03:12 Potassium 4.8 mEq/L (3.5-5.1) 02/25/24 03:12 Chloride 105 mEq/L (98-107) 02/25/24 03:12 Carbon Dioxide 27 mEq/L (21-32) 02/25/24 03:12 Anion Gap 8.8 mEq/L (5.0-15.0) 02/25/24 03:12 BUN 31 mg/dL (7-18) H 02/25/24 03:12 Creatinine 0.76 mg/dL (0.70-1.30) 02/25/24 03:12 Est GFR (CKD-EPI) 91 ml/min (=/>90) 02/25/24 03:12 Glucose 104 mg/dL (74-106) 02/25/24 03:12 Calcium 9.5 mg/dL (8.5-10.1) 02/25/24 03:12 Magnesium 2.3 mg/dL (1.6-2.4) 02/25/24 03:12 Albumin 2.4 g/dL (3.4-5.0) L 02/25/24 03:12 Prealbumin 17.5 mg/dL (20-40) L 02/25/24 03:12 Urine Color Colorless (Yellow) 02/24/24 16:20 Urine Clarity Clear (Clear) 02/24/24 16:20 Urine pH 6.0 (5.0-7.0) 02/24/24 16:20 Ur Specific [place] 1.010 (1.005-1.030) 02/24/24 16:20 Glucose (UA)(Auto) Negative (Negative) 02/24/24 16:20 Urine Ketones Negative (Negative) 02/24/24 16:20 Urine Blood Trace (Negative) H 02/24/24 16:20 Urine Nitrite Negative (Negative) 02/24/24 16:20 Urine Bilirubin Negative (Negative) 02/24/24 16:20 Urine Urobilinogen Normal (Normal) 02/24/24 16:20 Ur Leukocyte Esterase Negative Donato/uL (Negative) 02/24/24 16:20 Urine RBC <5 /HPF (None Seen) 02/24/24 16:20 Urine WBC <5 /HPF (<5) 02/24/24 16:20 Ur Squamous Epith Cells None seen /HPF (None Seen) 02/24/24 16:20 Urine Bacteria None seen /HPF (<20) 02/24/24 16:20 Urine Culture Reflexed Not needed 02/24/24 16:20 Urine Total Protein Negative (Negative) 02/24/24 16:20 Weight: 135 lb Wound Present: No Closed Surgical Incision Present: Yes Negative Pressure Wound Therapy Present: No Physician Update: Labs reviewed and are stable. Making good progress with all therapy with TDWB with right lower extremity. Dyslipidemia, start lipitor 10 mg daily. He agrees to stay until next Friday. SBA bed mobility. RW 10' with CGA. Mod assist with transfers, dressing and toileting. Summary: Patient's care plan and half-way goals have been reviewed and revised as necessary. Please see the Rehabilitation Signature page for all necessary signatures.
[2024-02-27] MEDS: LIDOCAINE 4% PATCH TOP SCH (14:42)
[2024-02-27] MEDS ORDERED: FORMULATION-R RECTAL 57GM PR PRN (15:09)
[2024-02-27] MEDS: ATORVASTATIN 10 MG TAB PO SCH (19:24)
[2024-02-28 09:44] LABS: Absolute Basophils 0.2 K/uL (0-0.5); Absolute Eosinophils 1.1 K/uL (0-0.5); Absolute Monocytes 0.9 K/uL (0.1-1.3); Absolute Neutrophil 7.6 K/uL (1.8-8.0); Basophils % 1.6 % (0-1.3); Eosinophils % 9.1 % (0-4.4); Hematocrit 28.2 % (39.6-49.0); Hemoglobin 9.3 g/dL (13.6-17.9); Lymphocytes % 17.4 % (15.3-44.8); MCH 26.7 pg (27.0-35.0); MPV 5.9 fL (7.6-11.3); Monocytes % 7.4 % (3.3-12.3); Neutrophils % 64.5 % (41.7-73.7); Nucleated Red Blood Cells % 0.1 % (0-0); Platelets 653 thou/uL (152-406); RBC Red Blood Cell Count 3.49 M/uL (4.33-5.43); Red Cell Distribution Width 16.4 % (12.1-15.2)
[2024-02-28 09:58] LABS: Anion Gap 10.4 mEq/L (5.0-15.0); Potassium 4.4 mEq/L (3.5-5.1)
[2024-03-01] MEDS: MELATONIN 3 MG TABLET PO PRN
[2024-03-01] MEDS ORDERED: MELATONIN 3 MG TABLET PO ONE (00:03)
[2024-03-01 06:36] LABS: Absolute Basophils 0.3 K/uL (0-0.5); Absolute Eosinophils 0.9 K/uL (0-0.5); Absolute Lymphocytes (CBC) 1.8 K/uL (0.7-4.9); Absolute Monocytes 1.1 K/uL (0.1-1.3); Absolute Neutrophil 8.2 K/uL (1.8-8.0); Basophils % 2.3 % (0-1.3); Eosinophils % 7.5 % (0-4.4); Hematocrit 27.7 % (39.6-49.0); Hemoglobin 9.1 g/dL (13.6-17.9); MCH 26.6 pg (27.0-35.0); MCV 80.6 fL (80-100); MPV 6.1 fL (7.6-11.3); Monocytes % 8.8 % (3.3-12.3); Neutrophils % 66.4 % (41.7-73.7); Nucleated Red Blood Cells % 0.2 % (0-0); Platelets 603 thou/uL (152-406); RBC Red Blood Cell Count 3.44 M/uL (4.33-5.43); Red Cell Distribution Width 16.3 % (12.1-15.2)
[2024-03-01] MEDS: NYSTATIN PWDR 100000 UNIT/GM TOP SCH (11:56)
--- NOTE | 2024-03-02 00:47 | PN ---
Date of Progress Note: 03/01/2024 Time Of Service: 1:45 p.m. Subjective: Mr. Baugh is resting in bed. His is at bedside. He did have some questions about a dministering the heparin for DVT prophylaxis as he has the right knee in an immobilizer, which has an tibiotic spacer and he is receiving IV antibiotics. The heparin will be continued at home. Objective: Denies any fevers, chills, nausea, vomiting. Some mild pain in the right knee when he is mobilizing. He is nonweightbearing at the right lower extremity. Physical Examination: Vital Signs: Blood pressure 127/60, pulse 85, respiratory rate 18, temperature 98.2, oxygen saturati on 96%. General: Mr. Baugh is resting comfortably. Again, is at bedside. He is in no acute distress. HEENT: He is normocephalic, atraumatic. 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 Laboratory Studies: White blood cell count is 12.3, his platelets 603, neutrophils normal at 66.4. Sodium 135, potassium 5.0, chloride 104, carbon dioxide 25, BUN 40, creatinine 0.85, calcium 9.6, glu cose 100. X-ray/imaging: No new x-rays or imaging. Medications: Aspirin 81 mg daily, Lipitor 10 mg at bedtime, he is to continue daptomycin 500 mg IV e very 24 hours, Cymbalta 30 mg daily, heparin 5000 units subcutaneously every 12 hours, lidocaine patc h apply topically daily, melatonin 3 mg at bedtime, mesalamine 1200 mg twice daily, Bactroban 2% oint ment apply to rash twice daily as needed, Ensure Enlive 237 mg twice daily, Mycostatin apply topicall y 3 times daily as needed, potassium 20 mEq twice daily, Senokot-S 2 at bedtime. He is receiving Ult karley 50 mg 6 hours as needed for pain, and Diovan 80 mg daily. Progress Made With Physical And Occupational Therapy: Today with physical therapy, ambulated 10 feet with contact guard assistance by cuing, propelled the wheelchair 250 feet with modified independence . [id number] transfer done independently, stand and pivot transfers done independently while maint aining his touchdown weightbearing status to right lower extremity. Bathing, minimum assistance; upp er body dressing, independent; lower body dressing, maximal assistance; donning and doffing of shoes, maximum assistance. Mr. Baugh has made fair progress overall with physical and occupational therapy. He will need as much longer extended time to have him to recover well enough to be able to mobilize with safety independe ntly. He will be following up with the orthopedic surgeons after his discharge tomorrow. Assessment: Mr. 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 He had the left total knee arthroplasty and with synovial fistula. He has decreased mobility, decreased physical functioning, dyslipidemia, hyp ertension, incontinence, postoperative anemia, improved diarrhea and elevated white blood cell count and on IV antibiotics. Plan: 1.Continue with physical and occupational therapy for 3 hours a day, 5 of 7 days. 2.He will continue with daptomycin for his orthopedic service and will be followed up there. 3.Continue with heparin 5000 units subcutaneously twice daily. Continue Cymbalta for depression. C ontinue with touchdown weightbearing status in the right lower extremity. Continue tramadol for pain , Diovan for hypertension, Mycostatin powder for topical fungal infection, lidocaine patch for pain, aspirin for stroke reduction, Lipitor for dyslipidemia, duloxetine for depression. Comorbidities That Are Impacting Rehabilitation: Long-term need for antibiotics and followup again w ith Orthopedic Surgery is a factor in determining how well he is doing and the touchdown weightbearin g status will continue for likely a few weeks. However, he is doing very well despite that, mobilizing much better via wheelchair, transferring much better as well. LB/MODL Voice ID: [id number] Report ID: [id number]
[2024-03-02 09:17] VITALS: BP 138/67; TEMP 98
== END 2024-03-02 11:50 | disposition home health service (06) | DRG 561 ==
LOC: 5TH 09:03
PROVIDERS: ADMIT Psychiatry & Neurology Neurology with Special Qualifications in Child Neurology; ATTEND Psychiatry & Neurology Neurology with Special Qualifications in Child Neurology
DX: Z47.1 Aftercare following joint replacement surgery (principal); Z96.652 Presence of left artificial knee joint; I10 Essential (primary) hypertension; M19.90 Unspecified osteoarthritis, unspecified site; K52.9 Noninfective gastroenteritis and colitis, unspecified; E78.5 Hyperlipidemia, unspecified; R32 Unspecified urinary incontinence; D64.9 Anemia, unspecified
CPT/HCPCS: 36415; 80048; 81001; 82040; 83735; 84134; 85025; 87077; 87086; 87088; 87186; 97110; 97116; 97163; 97165; 97530; 97542; A4216; J0878; J1644; J2001